=== PATIENT | female | born 1935 | race Caucasian/White ===

== ENCOUNTER 2022-11-27 08:17 | Outpatient (OUT) | payer MEDICARE, SELFPAY ==
[2022-11-27 08:56] LABS: Basophils Percent Auto 0.4 % (0.2-2.0); Eosinophils Absolute Auto 0.1 10^3/uL (0.0-0.7); Eosinophils Percent Auto 1.5 % (0.9-7.0); Hematocrit 46.7 % (36.0-48.0); Immature Granulocytes Abs Auto 0.07 10^3/uL (0.00-0.03); Immature Granulocytes Pct Auto 0.7 % (0.0-0.5); Lymphocytes Absolute Auto 3.1 10^3/uL (1.2-3.8); Lymphocytes Percent Auto 32.3 % (20.5-60.0); Mean Corpuscular HGB Conc 32.1 g/dL (29.9-35.2); Mean Corpuscular Hemoglobin 30.4 pg (26.7-34.0); Mean Corpuscular Volume 94.7 fL (81.0-99.0); Mean Platelet Volume 8.6 fL (9.5-13.5); Monocytes Absolute Auto 0.7 10^3/uL (0.3-0.8); Monocytes Percent Auto 7.1 % (1.7-12.0); Neutrophils Absolute Auto 5.6 10^3/uL (1.4-6.5); Platelet Count 252 10^3/uL (150-450); Red Blood Count 4.93 10^6/uL (4.20-5.40); Red Cell Distribution Width 13.4 % (11.0-15.0); White Blood Count 9.6 10^3/uL (4.0-11.0)
[2022-11-27 09:58] LABS: Alanine Aminotransferase 34 U/L (14-59); Alkaline Phosphatase 119 U/L (46-116); Anion Gap 11.2; Aspartate Amino Transferase 31 U/L (15-37); BUN Creatinine Ratio 25.6; Bilirubin Total 0.4 mg/dL (0.2-1.0); Calcium 9.6 mg/dL (8.5-10.1); Carbon Dioxide 30.4 mmol/L (21.0-32.0); Chloride 104 mmol/L (98-107); Chol HDL Ratio 3.6; Cholesterol 120 mg/dL (<=200); Estimated GFR (African America >60 (>=60); Estimated GFR (Non-African Ame >60 (>=60); Free T3 2.31 pg/mL (2.18-3.98); Globulin 3.9 g/dL; Glucose 102 mg/dL (74-106); HDL Cholesterol 33 mg/dL (40-60); Potassium 3.6 mmol/L (3.5-5.1); Sodium 142 mmol/L (136-145); Total Protein 7.9 g/dL (6.4-8.2); Triglycerides 184 mg/dL (<=150); VLDL CHOLESTEROL 36.8 mg/dL
[2022-11-27 12:40] LABS: Estimated Average Glucose 123 mg/dL; Glycohemoglobin A1C 5.9 % (4.5-6.2)
[2022-11-28 11:09] LABS: Insulin 8.9 uIU/mL (2.6-24.9)
== END 2022-11-27 08:18 | disposition home or self-care (01) ==
LOC: LAB 11-28 08:17
PROVIDERS: PCP Family Medicine; Visit Provider Family Medicine
DX: E78.5 Hyperlipidemia, unspecified (principal); J47.9 Bronchiectasis, uncomplicated; I10 Essential (primary) hypertension; Z79.51 Long term (current) use of inhaled steroids; Z22.9 Carrier of infectious disease, unspecified; J47.0 Bronchiectasis with acute lower respiratory infection; M47.816 Spondylosis without myelopathy or radiculopathy, lumbar region; R73.09 Other abnormal glucose; D64.9 Anemia, unspecified; E55.9 Vitamin D deficiency, unspecified
CPT/HCPCS: 36415; 80053; 80061; 82306; 83036; 83525; 83540; 84436; 84443; 84481; 85025

== ENCOUNTER 2022-12-01 10:44 | Outpatient (OUT) | payer MEDICARE, SELFPAY ==
--- NOTE | 2022-12-01 10:49 | MM_ITS ---
Patient: MARY VERGARA Exam Date: 12/01/2022 : 1935 Gender:F Ordering : DR Kumar Stokes . Admission #: [id number] Family : Order #: [id number] CLICK HERE TO VIEW EXAM RADIOLOGY REPORT PROCEDURE: MM TOMOSYNTHESIS SCREENING BI COMPARISON: MG MAMM SCREEN 3D WAQAS CAD, 11/29/2020. MG MAMM SCREEN 3D WAQAS CAD, 11/30/2021. INDICATIONS: Screening Calculator Name NCI Breast Cancer Risk Assessment Tool 5 Year Breast Cancer Risk Not Applicable. Lifetime Breast Cancer Risk Not Applicable. Personal Breast Cancer No Personal Ovarian Cancer No Treatments Bowel resection, chemotherapy Family Cancers Sister with pancreatic cancer at age 80; Sister with lung cancer at age 78; Sister with colon cancer at age 74. LOCATION: [facility] BREAST COMPOSITION: Extremely dense, which lowers the sensitivity of mammography. FINDINGS: DIAGNOSTIC CATEGORY 1--NEGATIVE. NO CHANGE FROM COMPARISON ASSESSMENT. Scattered benign-appearing calcifications are present. Scattered benign-appearing lymph nodes are present. RIGHT BREAST: No significant suspicious finding. LEFT BREAST: No significant suspicious finding. RECOMMENDATIONS: ROUTINE MAMMOGRAM AND CLINICAL EVALUATION IN 12 MONTHS. PLEASE NOTE: A NORMAL MAMMOGRAM DOES NOT EXCLUDE THE POSSIBILITY OF BREAST CANCER. A CLINICALLY SUSPICIOUS PALPABLE LUMP SHOULD BE BIOPSIED. Dictated by: Kevin Hawk MD on 12/01/2022 at 13:18 Approved by: Kevin Hawk MD on 12/01/2022 at 13:19
== END 2022-12-01 10:45 | disposition home or self-care (01) ==
LOC: MAMMO 10:44
PROVIDERS: PCP Family Medicine; Visit Provider Family Medicine
DX: Z12.31 Encounter for screening mammogram for malignant neoplasm of breast (principal); Z80.0 Family history of malignant neoplasm of digestive organs; Z80.1 Family history of malignant neoplasm of trachea, bronchus and lung
CPT/HCPCS: 77063; 77067

== ENCOUNTER 2023-01-13 20:07 | Inpatient (IN) | payer MEDICARE, SELFPAY ==
[2023-01-13] VITALS (30 sets, daily range): BP systolic 126; BP diastolic 63; PULSE 115–146; RESP 16–45; TEMP 37.4; O2SAT 84–98; BMI 22.5
--- NOTE | 2023-01-13 20:26 | PC.NURSE ---
Pulse Ox. 84% on room air, ooxygen applied at 2 lpm/nc and pulse ox. up to 86%, oxygen increased to 4 LPM/NC and pulse ox. up 88-90%
--- NOTE | 2023-01-13 20:31 | PC.NURSE ---
Patient and family report weakness and loss of appetite for approx. 4-5 days
--- NOTE | 2023-01-13 20:32 | ECG_ITS ---
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
--- NOTE | 2023-01-13 20:32 | XR_ITS ---
The [address] [address] Patient Name: MARY VERGARA MRN: [id number] date: 1935 Sex: F Assigned Patient Location: ER Current Patient Location: ER Accession/Order Number: [id number] Exam Date: 01/13/2023 21:54 Report Date: 01/13/2023 21:26 At the request of: SP HINES Procedure: XR chest 1V EXAM: XR chest 1V HISTORY: Shortness of breath COMPARISON: Chest x-rays 05/03/2022 TECHNIQUE: Portable chest FINDINGS: IMPRESSION: Approximately 4.6 cm patchy consolidation within the left mid hemithorax and 4.9 cm patchy consolidation within the right lower hemithorax. Indistinctness of the left hemidiaphragm suggesting either infiltrate versus effusion. Additionally, this may be chronic in nature as is present on the prior study. Scattered chronic changes throughout the lung parenchyma. No pneumothorax. The heart is not enlarged. Electronically authenticated by: LIAM HILL Date: 01/13/2023 21:26
--- NOTE | 2023-01-13 20:33 | PC.NURSE ---
Oxygen changed to 8 LPM per simple mask
--- NOTE | 2023-01-13 20:34 | ED_ITS ---
HPI - General Adult General Chief complaint: Weakness Stated complaint: RSV SHOT SIDE EFFECTS Time Seen by Provider: 01/13/23 20:21 Source: patient and family Mode of arrival: walk-in Limitations: no limitations History of Present Illness HPI narrative: past history of Bronchiectasis. Does not use home 02. Received RSV shot last week and became ill the following day with cough, right sided chest pain. Has not been eating and is weak. No fever. No abdominal pain or nausea. RA pulse ox 84% Onset (ago): day(s) Related Data Home Medications Medication Instructions Recorded Confirmed albuterol sulfate 90 mcg/actuation 2 inh inhalation BID PRN 01/13/23 01/13/23 aerosol inhaler bronchospasm amlodipine 5 mg tablet 5 mg PO DAILY 01/13/23 01/13/23 atorvastatin 20 mg tablet 20 mg PO DAILY 01/13/23 01/13/23 calcitonin (salmon) 200 1 spray intranasal DAILY 01/13/23 01/13/23 unit/actuation nasal spray dicyclomine 20 mg tablet 20 mg PO BID 01/13/23 01/13/23 ferrous sulfate 325 mg (65 mg 325 mg PO DAILY 01/13/23 01/13/23 iron) tablet (FeroSul) fluticasone propionate 115 2 puff inhalation Q12H 01/13/23 01/13/23 mcg-salmeterol 21 mcg/actuation HFA inhaler (Advair HFA) metoprolol tartrate 25 mg tablet 25 mg PO Q12H 01/13/23 01/13/23 sodium chloride 0.9 % for 3 ml inhalation TID 01/13/23 01/13/23 nebulization Allergies Allergy/AdvReac Type Severity Reaction Status Date / Time codeine Allergy Rash Verified 01/13/23 20:14 tramadol Allergy Rash Verified 01/13/23 20:14 Review of Systems ROS Status of ROS 10 or more systems reviewed and unremarkable except as noted in history and below Exam Constitutional Vital Signs, click to edit/add: Last Vital Signs Temp 99.3 F 01/13/23 20:15 Pulse 119 H 01/13/23 22:40 Resp 28 H 01/13/23 22:40 BP 126/63 01/13/23 20:21 Pulse Ox 97 01/13/23 22:40 O2 Del Method Nasal Cannula 01/13/23 22:05 O2 Flow Rate 6 11/18/23 22:05 FiO2 75 01/13/23 22:00 Common normals: average body habitus (small frame) and oriented x3 HENMT Common normals: normocephalic and head/scalp atraumatic Eye Common normals: EOMs intact bilaterally and conjunctivae normal Chest Other: diminished breath sounds Cardio Rate: tachycardic GI Common normals: Normal to inspection, nondistended, normoactive bowel sounds present, soft to palpation and non-tender Extremity Common normals: normal to inspection and full ROM Neuro Common normals: oriented x3, CN's II-XII intact bilaterally, moves all extremities, no focal motor deficits and no sensory deficits noted Psych Appearance: grossly normal Course Vital Signs Vital signs: Vital Signs Temperature 99.3 F 01/13/23 20:15 Pulse Rate 146 H 01/13/23 20:15 Respiratory Rate 20 01/13/23 20:15 Blood Pressure 126/63 01/13/23 20:15 Pulse Oximetry 84 L 01/13/23 20:15 Oxygen Delivery Method Room Air 01/13/23 20:15 Temperature 99.3 F 01/13/23 20:15 Pulse Rate 119 H 01/13/23 22:40 Respiratory Rate 28 H 01/13/23 22:40 Blood Pressure 126/63 01/13/23 20:21 Pulse Oximetry 97 01/13/23 22:40 Oxygen Delivery Method Nasal Cannula 01/13/23 22:05 Oxygen Delivery Flow Rate 6 01/13/23 22:05 Fraction of Inspired Oxygen 75 01/13/23 22:00 Medical Decision Making [facility] Narrative Medical decision making narrative: past history of COPD/bronchiectasis. Presents from home short of breath. Pulse ox at home RA 84%. Arrives to the ER via Squad short of breath and in sinus tach. chest with diminished breath sounds. Treated with solumedrol and Duoneb. cxray demonstrated bilat patchy infiltrates. Patient placed on high flow 02 40/75 with resultant pulse ox 95%. Blood cultures obtained and Rocephin and Zithromax ordered. Discussed with the hospitalist and she is accepted for admission to the ICU Lab Data Labs: Lab Results 01/13/23 Range/Units 20:25 WBC 21.5 H (4.0-11.0) 10^3/uL RBC 4.65 (4.20-5.40) 10^6/uL Hgb 14.3 (12.0-16.0) g/dL Hct 43.4 (36.0-48.0) % MCV 93.3 (81.0-99.0) fL MCH 30.8 (26.7-34.0) pg MCHC 32.9 (29.9-35.2) g/dL RDW 15.0 (11.0-15.0) % Plt Count 188 (150-450) 10^3/uL MPV 10.0 (9.5-13.5) fL Seg Neuts % (Manual) 72.0 Band Neutrophils % 17.0 H (0-5) % Lymphocytes % (Manual) 4.0 L (20.5-60.0) % Monocytes % (Manual) 7.0 (1.7-12.0) % Eosinophils % (Manual) 0.0 L (0.9-7.0) % Basophils % (Manual) 0.0 L (0.2-2.0) % Neutrophils # (Manual) 15.48 H (1.4-6.5) 10^3/uL Band Neutrophils # 3.7 H (0.0-0.3) 10^3/uL Lymphocytes # (Manual) 0.86 L (1.20-3.80) 10^3/uL Monocytes # (Manual) 1.50 H (0.30-0.80) 10^3/uL Eosinophils # (Manual) 0.00 (0.00-0.70) 10^3/uL Basophils # (Manual) 0.00 (0.00-0.10) 10^3/uL Sodium 132 L (136-145) mmol/L Potassium 3.6 (3.5-5.1) mmol/L Chloride 94 L (98-107) mmol/L Carbon Dioxide 21.2 (21.0-32.0) mmol/L Anion Gap 20.4 BUN 36.0 H (7.0-18.0) mg/dL Creatinine 1.73 H (0.55-1.02) mg/dL Est GFR ( Amer) 34 L (>=60) Est GFR (Non-Af Amer) 28 L (>=60) BUN/Creatinine Ratio 20.8 Glucose 137 H (74-106) mg/dL Lactate 1.8 (0.4-2.0) mmol/L Calcium 9.4 (8.5-10.1) mg/dL Troponin I High Sens 32.3 (4.0-51.3) pg/mL Critical Care Time Critical Care Time Total Critical Care Time: 45 Discharge Plan Discharge Chief Complaint: Weakness Clinical Impression: Hypoxemia, Pneumonia Patient Disposition: Admitted As Inpatient
[2023-01-13] MEDS: IPRATROPIUM/ALBUTEROL SULFATE 3 ML AMPUL.NEB IH (20:51)
[2023-01-13] MEDS: METHYLPREDNISOLONE SOD SUCC PF 125 MG/2 ML VIAL IVP (20:57)
[2023-01-13 20:58] LABS: Hematocrit 43.4 % (36.0-48.0); Hemoglobin 14.3 g/dL (12.0-16.0); Mean Corpuscular HGB Conc 32.9 g/dL (29.9-35.2); Mean Corpuscular Hemoglobin 30.8 pg (26.7-34.0); Mean Corpuscular Volume 93.3 fL (81.0-99.0); Platelet Count 188 10^3/uL (150-450); Red Blood Count 4.65 10^6/uL (4.20-5.40); White Blood Count 21.5 10^3/uL (4.0-11.0)
[2023-01-13] MEDS: 0.9 % SODIUM CHLORIDE 1,000 ML 999 ML IV (20:58)
--- NOTE | 2023-01-13 21:12 | PC.NURSE ---
patient 92% on 6 liters after breathing treatment and tolerating well
[2023-01-13 21:16] LABS: Band Neutrophils Absolute 3.7 10^3/uL (0.0-0.3); Lymphocytes Absolute Manual 0.86 10^3/uL (1.20-3.80); Segmented Neut Absolute Manual 15.48 10^3/uL (1.4-6.5)
[2023-01-13 21:17] LABS: Anion Gap 20.4; BUN Creatinine Ratio 20.8; Calcium 9.4 mg/dL (8.5-10.1); Carbon Dioxide 21.2 mmol/L (21.0-32.0); Chloride 94 mmol/L (98-107); Estimated GFR (African America 34 (>=60); Estimated GFR (Non-African Ame 28 (>=60); Glucose 137 mg/dL (74-106); Lactate/Lactic Acid 1.8 mmol/L (0.4-2.0); Potassium 3.6 mmol/L (3.5-5.1); Sodium 132 mmol/L (136-145); Troponin I High Sensitivity 32.3 pg/mL (4.0-51.3)
[2023-01-13] MEDS: CEFTRIAXONE 1,000 MG in 0.9 % SODIUM CHLORIDE 50 ML 100 MG IV (21:57)
--- NOTE | 2023-01-13 22:20 | RESP.RT ---
increased patient to vapotherm 40L @ 75% FiO2
--- NOTE | 2023-01-13 22:21 | PC.NURSE ---
patient tolerating vapotherm well.
--- NOTE | 2023-01-13 22:22 | RESP.RT ---
increased patient to vapotherm 40L @ 75% FIO2
[2023-01-13] MEDS: AZITHROMYCIN 500 MG in 0.9 % SODIUM CHLORIDE 250 ML 250 MG IV (22:38)
[2023-01-14] VITALS (159 sets, daily range): BP systolic 92–131; BP diastolic 52–71; PULSE 69–119; RESP 11–39; TEMP 36.6–37.1; O2SAT 85–99; BMI 23.1
[2023-01-14 01:28] LABS: Troponin I High Sensitivity 45.2 pg/mL (4.0-51.3)
--- NOTE | 2023-01-14 01:32 | P.PN_ITS ---
Progress Note: Subjective Subjective Interval history: Patient is an 87-year-old female with history of bronchiectasis, HTN, HLD, and remote history of colon cancer status post partial colon resection in 1995 who presents accompanied by 2 daughters present at the bedside Raina and Camille secondary to dyspnea. The patient reports that she lives alone. She reports having RSV vaccination last week and states that her symptoms began approximately 1 to 2 days thereafter. She describes shortness of breath with exertional activity and productive cough associated with dark yellow phlegm. She also reports decreased appetite during this timeframe. She reports also having right-sided chest discomfort exacerbated by the cough. Upon arrival to the ED, patient was noted to be significantly tachycardic with heart rate up to 139, RR of 28, temperature 99.3, initial O2 sat was 84% on room air which did not improve to 92% on 6 L but patient remained quite dyspneic and subsequently was placed on high flow O2 with significant improvement. She denies any home O2 use. Labs were significant for WBC of 21.5 K with bandemia of 17, sodium 132, chloride 94, BUN of 36, creatinine 1.73 which was normal at 0.78 on 11/27/2022. Rest of labs within normal limits including normal H&H, normal lactic acid, and troponin. Chest x-ray was noted for 4.6 cm patchy consolidation in the left middle lobe and 4.9 cm patchy consolidation right lower lobe concerning for pneumonia versus effusion. Patient was treated in the ED with Solu-Medrol 125 mg, Rocephin, Zithromax, DuoNebs, and 1 L IV fluids received. She is being admitted for further management. Exam Constitutional Vital Signs, click to edit/add: Last Vital Signs Temp 98.8 F 01/14/23 00:57 Pulse 109 H 01/14/23 01:23 Resp 26 H 01/14/23 01:20 BP 125/65 01/14/23 00:57 Pulse Ox 93 L 01/14/23 01:20 O2 Del Method Vapotherm 01/14/23 00:50 O2 Flow Rate 6 01/14/23 00:57 FiO2 75 01/13/23 22:57 Common normals: no apparent distress General appearance: cooperative and comfortable Orientation/consciousness: Yes awake, Yes oriented to person, Yes oriented to place and Yes oriented to time HENMT Common normals: normocephalic and head/scalp atraumatic Eye Common normals: PERRL and EOMs intact bilaterally General eye: normal appearance of both eyes Sclera: sclerae normal Other: wears glasses Neck & C-Spine Common normals: full ROM and supple Respiratory Effort & inspection: able to speak in complete sentences Other: coarse diffuse BS, decr b/l air entry. min exp wheezes right lower lung field Cardio Common normals: S1 normal heart sound and S2 normal heart sound Rate: tachycardic GI Inspection: normal to inspection Auscultation: normoactive bowel sounds Palpation: soft Extremity Common normals: normal to inspection and full ROM Neuro Common normals: oriented x3 Sensorium/orientation: awake, alert, oriented to person, oriented to place and oriented to time Psych Common normals: mental status grossly normal, thought process normal and cooperative Attitude: calm and engaged Progress Note: Objective Labs Labs: Short CBC 01/13/23 Range/Units 20:25 WBC 21.5 H (4.0-11.0) 10^3/uL Hgb 14.3 (12.0-16.0) g/dL Hct 43.4 (36.0-48.0) % Plt Count 188 (150-450) 10^3/uL BMP 01/13/23 20:25 Sodium 132 L Potassium 3.6 Chloride 94 L Carbon Dioxide 21.2 BUN 36.0 H Creatinine 1.73 H Glucose 137 H Calcium 9.4 ECG Prior ECG tracings: available for review Interpretation: ekg sinus tachycardia with rate of 148 and PVCs, nonspecific ST changes. Imaging Chest x-ray: Attestation: I have reviewed the pertinent imaging results. Radiologist's impression: As noted per HPI above Progress Note: A&P Assessment and Plan (1) Pneumonia: (2) Hypoxemia: (3) LEOBARDO (acute kidney injury): (4) Sepsis: Plan Bilateral pneumonia, CAP Acute hypoxic respiratory failure History of bronchiectasis Severe sepsis (with leukocytosis, bandemia, tachycardia, tachypnea, and low- grade fever) LEOBARDO Mild hyponatremia HTN HLD Remote history of colon cancer s/p partial colon resection 1995 Plan: Patient admitted to ICU, inpatient status Initial O2 sat 84% RA. Currently on high flow O2. Wean O2 as tolerated. Denies home O2 use Empiric Rocephin, Zithromax Solu-Medrol IV. Add empiric PPI Xopenex, Atrovent nebs Robitussin, Tessalon Perles as needed Check sputum culture, urine antigens Check COVID, RSV, influenza screen. Received RSV vaccination last week and reports receiving COVID vaccination booster 1 month ago IVF Avoidance of nephrotoxic agents. Monitor renal function Continue statin CBC, BMP, mag in a.m. DVT prophylaxis subcu heparin twice daily Full code Telemedicine Attestation Telemedicine Attestation I conducted this encounter from [] via secure live, [id number] video conference with the patient, located at [facility] with []. Prior to the interview, the risks and benefits of telemedicine were discussed with the patient and verbal consent was obtained.
[2023-01-14] MEDS: PANTOPRAZOLE SODIUM 40 MG VIAL IV ×2 (02:32→22:01)
[2023-01-14] MEDS: 0.9 % SODIUM CHLORIDE 1,000 ML 75 ML IV ×2 (02:32→16:38)
[2023-01-14 04:53] LABS: Basophils Absolute Auto 0.1 10^3/uL (0.0-0.1); Basophils Percent Auto 0.5 % (0.2-2.0); Eosinophils Absolute Auto 0.1 10^3/uL (0.0-0.7); Eosinophils Percent Auto 0.5 % (0.9-7.0); Hematocrit 37.5 % (36.0-48.0); Hemoglobin 12.1 g/dL (12.0-16.0); Immature Granulocytes Abs Auto 0.07 10^3/uL (0.00-0.03); Immature Granulocytes Pct Auto 0.5 % (0.0-0.5); Lymphocytes Absolute Auto 0.6 10^3/uL (1.2-3.8); Lymphocytes Percent Auto 4.6 % (20.5-60.0); Mean Corpuscular HGB Conc 32.3 g/dL (29.9-35.2); Mean Corpuscular Hemoglobin 30.6 pg (26.7-34.0); Mean Corpuscular Volume 94.7 fL (81.0-99.0); Mean Platelet Volume 9.9 fL (9.5-13.5); Monocytes Absolute Auto 0.7 10^3/uL (0.3-0.8); Monocytes Percent Auto 5.3 % (1.7-12.0); Neutrophils Absolute Auto 11.4 10^3/uL (1.4-6.5); Neutrophils Percent Auto 88.6 % (43.0-75.0); Platelet Count 147 10^3/uL (150-450); Red Blood Count 3.96 10^6/uL (4.20-5.40); White Blood Count 12.9 10^3/uL (4.0-11.0)
[2023-01-14 05:15] LABS: Anion Gap 19.5; BUN Creatinine Ratio 23.2; Calcium 8.4 mg/dL (8.5-10.1); Carbon Dioxide 19.7 mmol/L (21.0-32.0); Chloride 99 mmol/L (98-107); Estimated GFR (African America 40 (>=60); Estimated GFR (Non-African Ame 33 (>=60); Glucose 207 mg/dL (74-106); Magnesium 2.2 mg/dL (1.8-2.4); Potassium 3.2 mmol/L (3.5-5.1); Sodium 135 mmol/L (136-145)
[2023-01-14 05:18] LABS: Adenovirus NOT DETECTED (NOT DETECTE); Bordetella parapertussis NOT DETECTED (NOT DETECTE); Coronavirus 229E NOT DETECTED (NOT DETECTE); Coronavirus HKU1 NOT DETECTED (NOT DETECTE); Coronavirus NL63 NOT DETECTED (NOT DETECTE); Coronavirus OC43 NOT DETECTED (NOT DETECTE); Human Metapneumovirus NOT DETECTED (NOT DETECTE); Human Rhinovirus/Enterovirus NOT DETECTED (NOT DETECTE); Influenza A NOT DETECTED (NOT DETECTE); Influenza B NOT DETECTED (NOT DETECTE); Mycoplasma pneumoniae NOT DETECTED (NOT DETECTE); Parainfluenza Virus 1 NOT DETECTED (NOT DETECTE); Parainfluenza Virus 2 NOT DETECTED (NOT DETECTE); Parainfluenza Virus 3 NOT DETECTED (NOT DETECTE); Parainfluenza Virus 4 NOT DETECTED (NOT DETECTE); Respiratory Syncytial Virus NOT DETECTED (NOT DETECTE); SARS-CoV-2 NOT DETECTED (NOT DETECTE)
[2023-01-14] MEDS: METHYLPREDNISOLONE SOD SUCC PF 40 MG/ML VIAL IVP (05:53)
[2023-01-14 06:08] LABS: PROCALCITONIN 11.76 ng/mL (0.00-0.50)
--- NOTE | 2023-01-14 06:38 | RESP.RT ---
titrate to 65%
[2023-01-14 08:21] LABS: Alanine Aminotransferase 30 U/L (14-59); Albumin Globulin Ratio 0.6; Albumin Level 2.5 g/dL (3.4-5.0); Alkaline Phosphatase 108 U/L (46-116); Aspartate Amino Transferase 23 U/L (15-37); Bilirubin Direct 0.2 mg/dL (0.0-0.2); Bilirubin Total 0.5 mg/dL (0.2-1.0); Globulin 4.1 g/dL; Total Protein 6.6 g/dL (6.4-8.2)
[2023-01-14 08:43] LABS: Glucometer 190 mg/dL (74-106)
[2023-01-14] MEDS: HEPARIN SODIUM (PORCINE) 5,000 UNIT/ML VIAL 5000 UNIT SUBQ ×2 (09:00→19:14)
[2023-01-14] MEDS: METOPROLOL TARTRATE 25 MG TABLET PO ×2 (09:01→21:04)
[2023-01-14] MEDS: CALCITONIN,SALMON,SYNTHETIC 30 SPRAY/3.7 ML BOTTLE NS (09:01)
[2023-01-14] MEDS: FERROUS SULFATE 325 MG TABLET PO ×2 (09:01→21:03)
[2023-01-14] MEDS: DICYCLOMINE HCL 10 MG CAPSULE 20 MG PO ×2 (09:01→21:03)
[2023-01-14] MEDS: AMLODIPINE BESYLATE 5 MG TABLET PO (09:01)
[2023-01-14] MEDS: LEVOFLOXACIN IN DEXTROSE 5 % 750 MG/150 ML IV.SOLN 100 MG IV (09:03)
[2023-01-14] MEDS: POTASSIUM CHLORIDE 10 MEQ ER TABLET 20 MEQ PO ×2 (09:04→21:04)
[2023-01-14] MEDS: BUDESONIDE 0.5 MG/2 ML AMPULE NEB IH ×2 (09:43→20:37)
[2023-01-14] MEDS: IPRATROPIUM BROMIDE 0.5 MG/2.5 ML VIAL.NEB IH ×3 (09:43→20:37)
[2023-01-14] MEDS: LEVALBUTEROL HCL 1.25 MG/3 ML VIAL NEB IH ×3 (09:43→20:37)
[2023-01-14 10:19] LABS: ABG PCO2 35.4 mmHg (35.0-45.0); Base Excess ABG -3.4 mmol/L (-2.0-2.0); HCO3 ABG 21.5 mmol/L (22.0-26.0); Oxygen Saturation ABG 95.2 %; pH ABG 7.393 (7.350-7.450)
[2023-01-14 10:20] LABS: Allen Test POSITIVE (POSITIVE); Fractionated Inspired Oxygen 65 %; Liters per Minute 40; O2 Mode VAPO THERM; Puncture Site RR
--- NOTE | 2023-01-14 10:23 | CT_ITS ---
The [address] [address] Patient Name: MARY VERGARA MRN: [id number] date: 1935 Sex: F Assigned Patient Location: ICU Current Patient Location: ICU Accession/Order Number: [id number] Exam Date: 01/14/2023 11:50 Report Date: 01/14/2023 14:09 At the request of: POLA CROSS Procedure: CT angio chest CT CHEST ANGIOGRAPHY FOR PULMONARY EMBOLUS: 01/14/2023 11:50 AM EST Clinical Data: acutge hypoxia Comparison: No previous Contrast enhanced helically acquired data per pulmonary CTA protocol. Volumetric recons in MIP mode were generated and reviewed. FINDINGS: AXILLAE: No acute finding. SUPRACLAVICULAR: Right lobe and isthmus of the thyroid are absent. Low density in the left lobe is nonspecific. MEDIASTINUM: A plethora of enlarged middle much greater than anterior mediastinal nodes. KALIE: Bilateral adenopathy HEART: Normal in size. No pericardial effusion. VASCULAR: SYSTEMIC: Aortic aneurysm PULMONARY: Main pulmonary artery is clear. Right and left pulmonary arteries are clear. Their proximal on the left proximal to mid branches are free of meniscal filling defects. On the right there is a somewhat abrupt tapering of the middle lobe vessel but no distinct evidence of meniscal filling defect. Proximal to mid branches right upper and lower lobes are grossly unremarkable. LUNGS: Severe atelectasis right middle lobe containing some air bronchograms. Elsewhere, multifocal ill-defined densities in both lungs. Several of these areas contain air bronchograms, including both lower lobes. A few areas upper lobes, left much greater than right, do not contain air bronchograms. The largest area is peripheral in the left upper lobe and measures nearly 5 cm. PLEURA: No pleural effusion. CHEST WALL: No focal soft tissue prominence BONES: No acute finding. UPPER ABD: No acute finding OTHER: No acute finding. CT/CT angio chest IMPRESSION: 1. No distinct evidence of acute or embolic disease. 2. The right middle lobe artery is patent its origin but tapers rapidly. No meniscal filling defect. This rapid tapering very likely goes along with severe right middle lobe atelectasis. 3. Multifocal ill-defined densities in both lungs. Many areas have air bronchograms. This may represent bronchopneumonia. Other areas, particularly in the left upper lobe do not have air bronchograms. Infectious pneumonitis is still definite consideration for these foci but underlying masses cannot be excluded. Apparently, there is a history of colon cancer. Follow-up studies in this regard will be useful. 4. No pleural effusion. Electronically authenticated by: KHURRAM KNIGHT Date: 01/14/2023 14:09
--- NOTE | 2023-01-14 10:23 | P.HP_ITS ---
H&P: HPI History of Present Illness Chief complaint: RSV SHOT SIDE EFFECTS Narrative: Patient well-known to me from the office, presented to the emergency room with increasing shortness of breath. She did receive her RSV vaccine just the previous day. This is unlikely to be a complication of that. In ER found to have multifocal pneumonia. Admitted to ICU with acute hypoxia, requiring high flow O2. Patient with a history of severe bronchiectasis. Review of Systems ROS Constitutional Denies: fever or chills Cardiovascular Denies: chest pain Respiratory Reports: shortness of breath, cough, wheezing, change in phlegm color and chest congestion Gastrointestinal Denies: abdominal pain or vomiting Genitourinary Denies: painful urination Musculoskeletal Denies: back pain [facility] Medical History (Updated 01/14/23 @ 06:03 by Maria A Gonzalez) Bronchiectasis ?J47.9 - Bronchiectasis, uncomplicated (ICD-10) COPD (chronic obstructive pulmonary disease) ?J44.9 - Chronic obstructive pulmonary disease, unspecified (ICD-10) Meds Home Medications and Allergies Home Medications Medication Instructions Recorded Confirmed Type albuterol sulfate 90 mcg/actuation 2 inh inhalation BID PRN 01/13/23 01/13/23 History aerosol inhaler bronchospasm amlodipine 5 mg tablet 5 mg PO DAILY 01/13/23 01/13/23 History atorvastatin 20 mg tablet 20 mg PO DAILY 01/13/23 01/13/23 History calcitonin (salmon) 200 1 spray intranasal DAILY 01/13/23 01/13/23 History unit/actuation nasal spray dicyclomine 20 mg tablet 20 mg PO BID 01/13/23 01/13/23 History ferrous sulfate 325 mg (65 mg 325 mg PO BID 01/13/23 01/14/23 History iron) tablet (FeroSul) metoprolol tartrate 25 mg tablet 25 mg PO Q12H 01/13/23 01/13/23 History sodium chloride 0.9 % for 3 ml inhalation TID 01/13/23 01/13/23 History nebulization fluticasone propionate 230 2 inh inhalation BID 01/14/23 01/14/23 History mcg-salmeterol 21 mcg/actuation HFA inhaler (Advair HFA) Allergies Allergy/AdvReac Type Severity Reaction Status Date / Time codeine Allergy Rash Verified 01/13/23 20:14 tramadol Allergy Rash Verified 01/13/23 20:14 Exam Constitutional Vital Signs, click to edit/add: Last Vital Signs Temp 97.8 F 01/14/23 10:00 Pulse 71 01/14/23 10:12 Resp 25 H 01/14/23 10:12 BP 104/57 01/14/23 10:12 Pulse Ox 94 L 01/14/23 10:12 O2 Del Method Vapotherm 01/14/23 05:55 O2 Flow Rate 40 01/14/23 06:00 FiO2 65 01/14/23 06:00 Documenting provider has reviewed patient's vital signs: yes Common normals: apparent distress Respiratory Common normals: normal respiratory effort and no retractions Effort & inspection: able to speak in complete sentences (Mild conversational dyspnea) and labored Auscultation: rhonchi and egophony Cardio Common normals: regular rate, regular rhythm and no murmurs GI Common normals: Normal to inspection, nondistended, normoactive bowel sounds present Extremity Common normals: normal to inspection Results Labs Labs: Short CBC 01/13/23 01/14/23 Range/Units 20:25 03:55 WBC 21.5 H 12.9 H (4.0-11.0) 10^3/uL Hgb 14.3 12.1 (12.0-16.0) g/dL Hct 43.4 37.5 (36.0-48.0) % Plt Count 188 147 L (150-450) 10^3/uL BMP 01/13/23 01/14/23 20:25 03:55 Sodium 132 L 135 L Potassium 3.6 3.2 L Chloride 94 L 99 Carbon Dioxide 21.2 19.7 L BUN 36.0 H 35.0 H Creatinine 1.73 H 1.51 H Glucose 137 H 207 H Calcium 9.4 8.4 L Liver Function 01/14/23 Range/Units 03:55 Total Bilirubin 0.5 (0.2-1.0) mg/dL Direct Bilirubin 0.2 (0.0-0.2) mg/dL AST 23 (15-37) U/L ALT 30 (14-59) U/L Alkaline Phosphatase 108 (46-116) U/L Albumin 2.5 L (3.4-5.0) g/dL ABG ABG results: 01/14/23 10:05 ABG pH 7.393 ABG pCO2 35.4 ABG pO2 71.0 L ABG HCO3 21.5 L ABG O2 Saturation 95.2 ABG Base Excess -3.4 L Assessment and Plan Assessment and Plan (1) Pneumonia: (2) Hypoxemia: (3) LEOBARDO (acute kidney injury): (4) Sepsis: Plan Sinus tachycardia, respiratory distress, leukocytosis, thrombocytopenia, bandemia severe acute hypoxic respiratory failure, down to 84%, requiring high flow supplemental oxygen of Vapotherm, initially placed at 75%, able to wean down to 65% currently. This is resulted in sepsis with multisystem organ dysfunction(heme, pulmonary, kidney) -continue with IV antibiotics, aerosol treatments, high flow supplemental oxygen but try to wean that. Check CTA of chest. ABG pending. Dehydration with acute elevation in BUN and creatinine-acute kidney injury- improved today. Continue with slow fluid resuscitation. Leukocytosis with bandemia and thrombocytopenia-secondary to above-monitor daily Hypokalemia this morning-supplement Hyperglycemia-insulin sliding scale Moderate protein calorie malnutrition based on NIH criteria for albumin levels- supplement Hypertension-continue with home medications With the severity of her hypoxia intensity of services-maintain patient inpatient status
[2023-01-14] MEDS: METHYLPREDNISOLONE SOD SUCC PF 125 MG/2 ML VIAL 60 MG IVP ×2 (12:52→18:05)
[2023-01-14 13:17] LABS: Glucometer 188 mg/dL (74-106)
--- NOTE | 2023-01-14 13:27 | PC.NURSE ---
Patient was put on 6l via NC for CT chest scan. Patient traveled via bed. Patient was O2 saturation was fluctuating from 86-94%. During exertion and moving patient would have to take breaks and regain strength and breath. Arriving back to the room, Patient was unable to withstand the 6l via NC so she was moved back tot the vapotherm at 40L and 65%. O2 saturations are steady at 95%.
[2023-01-14 16:37] LABS: Glucometer 180 mg/dL (74-106)
--- NOTE | 2023-01-14 20:37 | RESP.RT ---
decreased Fi02 down to 50%
[2023-01-14] MEDS: GLUCERNA 1.5 CAL 237 ML LIQUID PO (21:02)
[2023-01-14] MEDS: ATORVASTATIN CALCIUM 20 MG TABLET PO (21:04)
[2023-01-14 21:33] LABS: Glucometer 165 mg/dL (74-106)
[2023-01-14] MEDS: CEFTRIAXONE 1,000 MG in 0.9 % SODIUM CHLORIDE 50 ML 100 MG IV (22:01)
[2023-01-15] VITALS (70 sets, daily range): BP systolic 113–123; BP diastolic 62–83; PULSE 67–105; RESP 15–37; TEMP 36.8–37.1; O2SAT 86–98
[2023-01-15] MEDS: METHYLPREDNISOLONE SOD SUCC PF 125 MG/2 ML VIAL 60 MG IVP ×5 (01:03→23:36)
[2023-01-15 05:11] LABS: Hematocrit 35.6 % (36.0-48.0); Hemoglobin 11.7 g/dL (12.0-16.0); Mean Corpuscular HGB Conc 32.9 g/dL (29.9-35.2); Mean Corpuscular Hemoglobin 30.3 pg (26.7-34.0); Mean Corpuscular Volume 92.2 fL (81.0-99.0); Mean Platelet Volume 9.8 fL (9.5-13.5); Platelet Count 164 10^3/uL (150-450); Red Blood Count 3.86 10^6/uL (4.20-5.40); White Blood Count 7.3 10^3/uL (4.0-11.0)
[2023-01-15] MEDS: 0.9 % SODIUM CHLORIDE 1,000 ML 75 ML IV ×2 (05:25→20:03)
[2023-01-15 05:43] LABS: Alanine Aminotransferase 33 U/L (14-59); Albumin Globulin Ratio 0.6; Albumin Level 2.2 g/dL (3.4-5.0); Alkaline Phosphatase 89 U/L (46-116); Anion Gap 12.5; Aspartate Amino Transferase 32 U/L (15-37); BUN Creatinine Ratio 29.1; Bilirubin Total 0.3 mg/dL (0.2-1.0); Calcium 8.4 mg/dL (8.5-10.1); Carbon Dioxide 24.6 mmol/L (21.0-32.0); Chloride 107 mmol/L (98-107); Estimated GFR (African America >60 (>=60); Estimated GFR (Non-African Ame >60 (>=60); Globulin 3.9 g/dL; Glucose 212 mg/dL (74-106); Potassium 3.1 mmol/L (3.5-5.1); Sodium 141 mmol/L (136-145); Total Protein 6.1 g/dL (6.4-8.2)
[2023-01-15 07:07] LABS: Lymphocytes Absolute Manual 0.43 10^3/uL (1.20-3.80); Monocytes Absolute Manual 0.29 10^3/uL (0.30-0.80); Segmented Neut Absolute Manual 5.54 10^3/uL (1.4-6.5)
--- NOTE | 2023-01-15 07:37 | P.PN_ITS ---
Progress Note: Subjective Subjective Interval history: Overall feels much improved today. Still some dyspnea with any activity. D). Exam Constitutional Vital Signs, click to edit/add: Last Vital Signs Temp 97.9 F 01/14/23 19:11 Pulse 76 01/15/23 05:03 Resp 25 H 01/15/23 02:00 BP 131/63 01/14/23 23:19 Pulse Ox 91 L 01/15/23 05:27 O2 Del Method Vapotherm 01/15/23 05:27 O2 Flow Rate 40 01/15/23 05:27 FiO2 50 01/15/23 05:27 Documenting provider has reviewed patient's vital signs: yes Common normals: apparent distress Respiratory Common normals: normal respiratory effort and no retractions Effort & inspection: able to speak in complete sentences (Mild conversational dyspnea) and labored Auscultation: rhonchi (Better air exchange. ) and egophony Cardio Common normals: regular rate, regular rhythm and no murmurs GI Common normals: Normal to inspection, nondistended, normoactive bowel sounds pre sent Extremity Common normals: normal to inspection Progress Note: Objective Labs Labs: Short CBC 01/15/23 Range/Units 04:08 WBC 7.3 (4.0-11.0) 10^3/uL Hgb 11.7 L (12.0-16.0) g/dL Hct 35.6 L (36.0-48.0) % Plt Count 164 (150-450) 10^3/uL BMP 01/15/23 04:08 Sodium 141 Potassium 3.1 L Chloride 107 Carbon Dioxide 24.6 BUN 25.0 H Creatinine 0.86 Glucose 212 H Calcium 8.4 L Liver Function 01/14/23 01/15/23 Range/Units 03:55 04:08 Total Bilirubin 0.5 0.3 (0.2-1.0) mg/dL Direct Bilirubin 0.2 (0.0-0.2) mg/dL AST 23 32 (15-37) U/L ALT 30 33 (14-59) U/L Alkaline Phosphatase 108 89 (46-116) U/L Albumin 2.5 L 2.2 L (3.4-5.0) g/dL Progress Note: A&P Assessment and Plan (1) Pneumonia: (2) Hypoxemia: (3) LEOBARDO (acute kidney injury): (4) Sepsis: Plan Sinus tachycardia, respiratory distress, leukocytosis, thrombocytopenia, bandemia severe acute hypoxic respiratory failure, down to 84%, requiring high flow supplemental oxygen of Vapotherm, initially placed at 75%, able to wean down to 45% currently. This is resulted in sepsis with multisystem organ dysfunction(heme, pulmonary, kidney) -continue with IV antibiotics, aerosol treatments, high flow supplemental oxygen but try to wean that to NC today. CTA without pulmonary embolism, Dehydration with acute elevation in BUN and creatinine-acute kidney injury- improved today. Continue with slow fluid resuscitation. Improved down to normal today. Leukocytosis with bandemia and thrombocytopenia-secondary to above-monitor daily-back to normal. Continue with current antibiotic regimen Hypokalemia this bawxkbz-epronximaw-rccm today, increase supplementation Hyperglycemia-insulin sliding scale Moderate protein calorie malnutrition based on NIH criteria for albumin levels- supplement Hypertension-continue with home medications With the severity of her hypoxia intensity of services-maintain patient inpatient status ?
[2023-01-15 07:41] LABS: Glucometer 180 mg/dL (74-106)
[2023-01-15] MEDS: POTASSIUM CHLORIDE 10 MEQ ER TABLET 20 MEQ PO ×3 (08:13→17:01)
[2023-01-15] MEDS: FERROUS SULFATE 325 MG TABLET PO ×2 (08:13→20:04)
[2023-01-15] MEDS: GLUCERNA 1.5 CAL 237 ML LIQUID PO ×2 (08:13→20:05)
[2023-01-15] MEDS: DICYCLOMINE HCL 10 MG CAPSULE 20 MG PO ×2 (08:13→20:04)
[2023-01-15] MEDS: AMLODIPINE BESYLATE 5 MG TABLET PO (08:13)
[2023-01-15] MEDS: METOPROLOL TARTRATE 25 MG TABLET PO ×2 (08:13→20:05)
[2023-01-15] MEDS: CALCITONIN,SALMON,SYNTHETIC 30 SPRAY/3.7 ML BOTTLE NS (08:14)
[2023-01-15] MEDS: HEPARIN SODIUM (PORCINE) 5,000 UNIT/ML VIAL 5000 UNIT SUBQ ×2 (08:14→20:04)
[2023-01-15] MEDS: POTASSIUM CHLORIDE 40 MEQ in 0.9 % SODIUM CHLORIDE 250 ML 67.5 MEQ IV (08:14)
[2023-01-15] MEDS: LEVALBUTEROL HCL 1.25 MG/3 ML VIAL NEB IH ×3 (08:53→20:05)
[2023-01-15] MEDS: BUDESONIDE 0.5 MG/2 ML AMPULE NEB IH ×2 (08:54→20:05)
[2023-01-15] MEDS: IPRATROPIUM BROMIDE 0.5 MG/2.5 ML VIAL.NEB IH ×3 (08:55→20:05)
--- NOTE | 2023-01-15 10:02 | CM.NOTE ---
Important Message From Medicare discussed with pt, pt verbalizes understanding and signs paper. Original given to pt and copy placed on pt's chart.
[2023-01-15 11:45] LABS: Glucometer 207 mg/dL (74-106)
--- NOTE | 2023-01-15 14:39 | CM.NOTE ---
Kvng barbat sent to Dr. Stokes for PT and OT orders.
[2023-01-15 17:02] LABS: Glucometer 206 mg/dL (74-106)
[2023-01-15 20:00] LABS: Glucometer 284 mg/dL (74-106)
[2023-01-15] MEDS: ATORVASTATIN CALCIUM 20 MG TABLET PO (20:05)
[2023-01-15] MEDS: CEFTRIAXONE 1,000 MG in 0.9 % SODIUM CHLORIDE 50 ML 50 MG IV (21:17)
[2023-01-15] MEDS: PANTOPRAZOLE SODIUM 40 MG VIAL IV (21:18)
[2023-01-16] VITALS (292 sets, daily range): BP systolic 119–141; BP diastolic 63–90; PULSE 45–134; RESP 2–40; TEMP 36.6–37.1; O2SAT 85–98
[2023-01-16] MEDS: METHYLPREDNISOLONE SOD SUCC PF 125 MG/2 ML VIAL 60 MG IVP (05:27)
[2023-01-16 05:51] LABS: Basophils Percent Auto 0.5 % (0.2-2.0); Hematocrit 34.6 % (36.0-48.0); Hemoglobin 11.3 g/dL (12.0-16.0); Immature Granulocytes Abs Auto 0.29 10^3/uL (0.00-0.03); Immature Granulocytes Pct Auto 4.5 % (0.0-0.5); Lymphocytes Absolute Auto 0.9 10^3/uL (1.2-3.8); Lymphocytes Percent Auto 13.7 % (20.5-60.0); Mean Corpuscular HGB Conc 32.7 g/dL (29.9-35.2); Mean Corpuscular Hemoglobin 30.5 pg (26.7-34.0); Mean Corpuscular Volume 93.5 fL (81.0-99.0); Mean Platelet Volume 10.1 fL (9.5-13.5); Monocytes Absolute Auto 0.3 10^3/uL (0.3-0.8); Monocytes Percent Auto 5.1 % (1.7-12.0); Neutrophils Absolute Auto 4.9 10^3/uL (1.4-6.5); Neutrophils Percent Auto 76.2 % (43.0-75.0); Platelet Count 158 10^3/uL (150-450); Red Cell Distribution Width 15.5 % (11.0-15.0); White Blood Count 6.4 10^3/uL (4.0-11.0)
[2023-01-16 06:12] LABS: Alanine Aminotransferase 38 U/L (14-59); Albumin Globulin Ratio 0.6; Albumin Level 2.2 g/dL (3.4-5.0); Alkaline Phosphatase 80 U/L (46-116); Anion Gap 13.4; Aspartate Amino Transferase 31 U/L (15-37); BUN Creatinine Ratio 30.1; Bilirubin Total 0.1 mg/dL (0.2-1.0); Calcium 8.4 mg/dL (8.5-10.1); Carbon Dioxide 22.3 mmol/L (21.0-32.0); Chloride 112 mmol/L (98-107); Estimated GFR (African America >60 (>=60); Estimated GFR (Non-African Ame >60 (>=60); Globulin 3.7 g/dL; Glucose 234 mg/dL (74-106); Potassium 4.7 mmol/L (3.5-5.1); Sodium 143 mmol/L (136-145); Total Protein 5.9 g/dL (6.4-8.2)
[2023-01-16 07:43] LABS: Glucometer 183 mg/dL (74-106)
[2023-01-16] MEDS: DICYCLOMINE HCL 10 MG CAPSULE 20 MG PO ×2 (08:33→21:12)
[2023-01-16] MEDS: FERROUS SULFATE 325 MG TABLET PO ×2 (08:33→21:12)
[2023-01-16] MEDS: POTASSIUM CHLORIDE 10 MEQ ER TABLET 20 MEQ PO ×3 (08:33→17:09)
[2023-01-16] MEDS: AMLODIPINE BESYLATE 5 MG TABLET PO (08:33)
[2023-01-16] MEDS: HEPARIN SODIUM (PORCINE) 5,000 UNIT/ML VIAL 5000 UNIT SUBQ ×2 (08:34→21:11)
[2023-01-16] MEDS: METOPROLOL TARTRATE 25 MG TABLET PO (08:34)
[2023-01-16] MEDS: GLUCERNA 1.5 CAL 237 ML LIQUID PO (08:35)
--- NOTE | 2023-01-16 08:42 | P.PN_ITS ---
Progress Note: Subjective Subjective Interval history: Looks better breathing better very confused this morning Exam Constitutional Vital Signs, click to edit/add: Last Vital Signs Temp 98.5 F 01/16/23 08:05 Pulse 66 01/16/23 08:00 Resp 34 H 01/16/23 08:00 BP 130/72 01/16/23 07:38 Pulse Ox 93 L 01/16/23 08:00 O2 Del Method Nasal Cannula 01/16/23 08:05 O2 Flow Rate 4 01/16/23 08:05 FiO2 40 01/15/23 20:05 Documenting provider has reviewed patient's vital signs: yes Common normals: apparent distress Respiratory Common normals: normal respiratory effort and no retractions Effort & inspection: able to speak in complete sentences (Mild conversational dyspnea) and labored Auscultation: rhonchi (Better air exchange. ) and egophony Cardio Common normals: regular rate, regular rhythm and no murmurs GI Common normals: Normal to inspection, nondistended, normoactive bowel sounds present Extremity Common normals: normal to inspection Progress Note: Objective Labs Labs: Short CBC 01/16/23 Range/Units 05:24 WBC 6.4 (4.0-11.0) 10^3/uL Hgb 11.3 L (12.0-16.0) g/dL Hct 34.6 L (36.0-48.0) % Plt Count 158 (150-450) 10^3/uL BMP 01/16/23 05:24 Sodium 143 Potassium 4.7 Chloride 112 H Carbon Dioxide 22.3 BUN 25.0 H Creatinine 0.83 Glucose 234 H Calcium 8.4 L Liver Function 01/16/23 Range/Units 05:24 Total Bilirubin 0.1 L (0.2-1.0) mg/dL AST 31 (15-37) U/L ALT 38 (14-59) U/L Alkaline Phosphatase 80 (46-116) U/L Albumin 2.2 L (3.4-5.0) g/dL Progress Note: A&P Assessment and Plan (1) Pneumonia: (2) Hypoxemia: (3) LEOBARDO (acute kidney injury): (4) Sepsis: Plan Sinus tachycardia, respiratory distress, leukocytosis, thrombocytopenia, bandemia severe acute hypoxic respiratory failure, down to 84%, requiring high flow supplemental oxygen of Vapotherm, initially placed at 75%, able to wean down to 45% currently. This is resulted in sepsis with multisystem organ dysfunction(heme, pulmonary, kidney) with continuing white blood cell count improvement-will continue with current antibiotics Dehydration with acute elevation in BUN and creatinine-acute kidney injury-im proved today. Continue with slow fluid resuscitation. Not great intake, continue current fluids Leukocytosis with bandemia and thrombocytopenia-secondary to above-monitor daily-back to normal. Continue with current antibiotic regimen Hypokalemia this grnctdn-wwudbmitbk-phra today,-continue to monitor Hyperglycemia-insulin sliding scale Moderate protein calorie malnutrition based on NIH criteria for albumin levels- supplement Hypertension-continue with home medications With the severity of her hypoxia intensity of services-maintain patient inpatient status Altered mental status this morning likely secondary to sundowning. Doubt related to hypoxia as levels have been 90% or greater despite weaning supplemental oxygen. No focal neurological deficits ?
--- NOTE | 2023-01-16 09:11 | CM.NOTE ---
Rounds made with Dr. Stokes. Dr. Stokes discussed potential for Long Term at discharge. Daughter in room and plans on Danielle coming to her home at discharge until stronger. No discharge today.
[2023-01-16] MEDS: LEVALBUTEROL HCL 1.25 MG/3 ML VIAL NEB IH ×3 (09:35→20:25)
[2023-01-16] MEDS: IPRATROPIUM BROMIDE 0.5 MG/2.5 ML VIAL.NEB IH ×3 (09:36→20:25)
[2023-01-16] MEDS: BUDESONIDE 0.5 MG/2 ML AMPULE NEB IH ×2 (09:37→20:25)
[2023-01-16] MEDS: LEVOFLOXACIN IN DEXTROSE 5 % 750 MG/150 ML IV.SOLN 100 MG IV (09:40)
[2023-01-16] MEDS: CALCITONIN,SALMON,SYNTHETIC 30 SPRAY/3.7 ML BOTTLE NS (10:05)
[2023-01-16] MEDS: METHYLPREDNISOLONE SOD SUCC PF 40 MG/ML VIAL IVP ×3 (11:43→23:32)
--- NOTE | 2023-01-16 12:02 | CM.NOTE ---
Discussed with pt and daughter regarding PT and OT evaluation and recommend HH at discharge. Pt and daughter verbalize understanding and wish to have HH services. Pt will be discharging to her home and daughter will be staying with her. Discussed 5 star medicare rating list and pt would like to try [facility]. Faxed clinical to [facility].
--- NOTE | 2023-01-16 14:51 | CM.NOTE ---
[facility] can accept pt. Discussed with pt and daughter.
--- NOTE | 2023-01-16 15:00 | CM.NOTE ---
2nd Notice of Important Message From Medicare discussed with pt, pt and daughter verbalize understanding and deny and questions or concerns.
[2023-01-16] MEDS: 0.9 % SODIUM CHLORIDE 1,000 ML 75 ML IV (19:34)
[2023-01-16] MEDS: PANTOPRAZOLE SODIUM 40 MG VIAL IV (21:11)
[2023-01-16] MEDS: CEFTRIAXONE 1,000 MG in 0.9 % SODIUM CHLORIDE 50 ML 50 MG IV (21:11)
[2023-01-16] MEDS: ATORVASTATIN CALCIUM 20 MG TABLET PO (21:12)
[2023-01-17] VITALS (63 sets, daily range): BP systolic 134–166; BP diastolic 67–106; PULSE 50–123; RESP 18–34; TEMP 36.9–37; O2SAT 79–96
[2023-01-17] MEDS: METHYLPREDNISOLONE SOD SUCC PF 40 MG/ML VIAL IVP (05:35)
[2023-01-17 05:36] LABS: Basophils Absolute Auto 0.1 10^3/uL (0.0-0.1); Hematocrit 35.1 % (36.0-48.0); Hemoglobin 11.3 g/dL (12.0-16.0); Immature Granulocytes Abs Auto 0.64 10^3/uL (0.00-0.03); Immature Granulocytes Pct Auto 8.2 % (0.0-0.5); Lymphocytes Absolute Auto 1.1 10^3/uL (1.2-3.8); Lymphocytes Percent Auto 14.3 % (20.5-60.0); Mean Corpuscular HGB Conc 32.2 g/dL (29.9-35.2); Mean Corpuscular Volume 93.1 fL (81.0-99.0); Mean Platelet Volume 9.4 fL (9.5-13.5); Monocytes Absolute Auto 0.4 10^3/uL (0.3-0.8); Monocytes Percent Auto 4.6 % (1.7-12.0); Neutrophils Absolute Auto 5.7 10^3/uL (1.4-6.5); Neutrophils Percent Auto 71.9 % (43.0-75.0); Platelet Count 170 10^3/uL (150-450); Red Blood Count 3.77 10^6/uL (4.20-5.40); Red Cell Distribution Width 15.3 % (11.0-15.0); White Blood Count 7.9 10^3/uL (4.0-11.0)
[2023-01-17 06:17] LABS: Alanine Aminotransferase 38 U/L (14-59); Albumin Globulin Ratio 0.7; Albumin Level 2.3 g/dL (3.4-5.0); Alkaline Phosphatase 71 U/L (46-116); Anion Gap 13.8; Aspartate Amino Transferase 12 U/L (15-37); BUN Creatinine Ratio 20.8; Bilirubin Total 0.2 mg/dL (0.2-1.0); Calcium 8.2 mg/dL (8.5-10.1); Carbon Dioxide 22.5 mmol/L (21.0-32.0); Chloride 109 mmol/L (98-107); Estimated GFR (African America >60 (>=60); Estimated GFR (Non-African Ame >60 (>=60); Globulin 3.5 g/dL; Glucose 212 mg/dL (74-106); Potassium 4.3 mmol/L (3.5-5.1); Sodium 141 mmol/L (136-145); Total Protein 5.8 g/dL (6.4-8.2)
[2023-01-17] MEDS: IPRATROPIUM BROMIDE 0.5 MG/2.5 ML VIAL.NEB IH ×3 (08:20→20:49)
[2023-01-17] MEDS: BUDESONIDE 0.5 MG/2 ML AMPULE NEB IH ×2 (08:20→20:49)
[2023-01-17] MEDS: LEVALBUTEROL HCL 1.25 MG/3 ML VIAL NEB IH ×3 (08:20→20:49)
[2023-01-17] MEDS: DICYCLOMINE HCL 10 MG CAPSULE 20 MG PO ×2 (08:21→22:11)
[2023-01-17] MEDS: POTASSIUM CHLORIDE 10 MEQ ER TABLET 20 MEQ PO ×3 (08:21→16:25)
[2023-01-17] MEDS: FERROUS SULFATE 325 MG TABLET PO ×2 (08:22→22:11)
[2023-01-17] MEDS: CALCITONIN,SALMON,SYNTHETIC 30 SPRAY/3.7 ML BOTTLE NS (08:22)
[2023-01-17] MEDS: AMLODIPINE BESYLATE 5 MG TABLET PO (08:22)
[2023-01-17] MEDS: HEPARIN SODIUM (PORCINE) 5,000 UNIT/ML VIAL 5000 UNIT SUBQ ×2 (08:24→22:11)
[2023-01-17] MEDS: INSULIN ASPART 300 UNIT/3 ML PEN SUBQ ×4 (08:25→22:13)
[2023-01-17] MEDS: GLUCERNA 1.5 CAL 237 ML LIQUID PO ×2 (08:56→22:11)
[2023-01-17] MEDS: METOPROLOL TARTRATE 25 MG TABLET PO ×2 (08:56→22:12)
--- NOTE | 2023-01-17 09:10 | CM.NOTE ---
Rounds made with Dr. Stokes. Decrease steroids today and possible home tomorrow with daughter and Home Health. Potential need for oxygen at discharge.
--- NOTE | 2023-01-17 09:18 | XR_ITS ---
The [address] [address] Patient Name: MARY VERGARA MRN: [id number] date: 1935 Sex: F Assigned Patient Location: ICU Current Patient Location: ICU Accession/Order Number: [id number] Exam Date: 01/17/2023 09:30 Report Date: 01/17/2023 10:29 At the request of: POLA CROSS Procedure: XR chest 2V EXAMINATION: XR chest 2V HISTORY: dyspnea COMPARISON: XR chest 01/14/2023 FINDINGS: LUNGS: Dense patchy and confluent opacities obscuring the left lung base. Small patchy opacity within lateral left midlung; significantly decreased compared to prior study. Mild infiltrates within right lung base; improved. VASCULATURE: No increased pulmonary vasculature. PLEURA: No pneumothorax, effusion, or pleural thickening. CARDIAC: No cardiomegaly or cardiac silhouette abnormality. MEDIASTINUM: No visible mass or adenopathy. BONES: No fracture or visible bone lesion. OTHER: Negative. XR/XR chest 2V IMPRESSION: 1. Improving multifocal infiltrates suggestive of pneumonia. Follow-up imaging to document clearing is recommended. Electronically authenticated by: MARLIN CRAVEN Date: 01/17/2023 10:29
--- NOTE | 2023-01-17 09:20 | P.PN_ITS ---
Progress Note: Subjective Subjective Interval history: Looks much better today. No confusion this morning. Exam Constitutional Vital Signs, click to edit/add: Last Vital Signs Temp 97.8 F 01/16/23 19:14 Pulse 79 01/17/23 09:00 Resp 26 H 01/17/23 03:15 BP 166/106 H 01/17/23 08:22 Pulse Ox 95 01/17/23 09:00 O2 Del Method Nasal Cannula 01/17/23 08:28 O2 Flow Rate 3 01/17/23 08:28 FiO2 40 01/15/23 20:05 Documenting provider has reviewed patient's vital signs: yes Common normals: apparent distress Respiratory Common normals: normal respiratory effort and no retractions Effort & inspection: able to speak in complete sentences (Mild conversational dyspnea) and labored Auscultation: rhonchi (Better air exchange. ) and egophony Cardio Common normals: regular rate, regular rhythm and no murmurs GI Common normals: Normal to inspection, nondistended, normoactive bowel sounds present Extremity Common normals: normal to inspection Progress Note: Objective Labs Labs: Short CBC 01/17/23 Range/Units 05:16 WBC 7.9 (4.0-11.0) 10^3/uL Hgb 11.3 L (12.0-16.0) g/dL Hct 35.1 L (36.0-48.0) % Plt Count 170 (150-450) 10^3/uL BMP 01/17/23 05:16 Sodium 141 Potassium 4.3 Chloride 109 H Carbon Dioxide 22.5 BUN 16.0 Creatinine 0.77 Glucose 212 H Calcium 8.2 L Liver Function 01/17/23 Range/Units 05:16 Total Bilirubin 0.2 (0.2-1.0) mg/dL AST 12 L (15-37) U/L ALT 38 (14-59) U/L Alkaline Phosphatase 71 (46-116) U/L Albumin 2.3 L (3.4-5.0) g/dL Progress Note: A&P Assessment and Plan (1) Pneumonia: (2) Hypoxemia: (3) LEOBARDO (acute kidney injury): (4) Sepsis: Plan Sinus tachycardia, respiratory distress, leukocytosis, thrombocytopenia, bandemia severe acute hypoxic respiratory failure, down to 84%, requiring high flow supplemental oxygen of Vapotherm, initially placed at 75%, able to wean down to 45% currently. This is resulted in sepsis with multisystem organ dysfunction(heme, pulmonary, kidney) with continuing white blood cell count improvement-will continue with current antibiotics-down to nasal cannula, continue to wean that if possible today. May need to go home with home oxygen. Will obtain walk test either today or tomorrow. Dehydration with acute elevation in BUN and creatinine-improved today Leukocytosis with bandemia and thrombocytopenia-secondary to above-resolved Hypokalemia this cjfoded-ivhpfzrcyr-wwvjgtam back to normal Hyperglycemia-insulin sliding scale Moderate protein calorie malnutrition based on NIH criteria for albumin levels- supplement Hypertension-continue with home medications With the severity of her hypoxia intensity of services-maintain patient inpatient status-possible discharge tomorrow based on continued improvement. Physical therapy to continue to work with patient. Does not appear to need rehab Altered mental status t yesterday likely secondary to sundowning. Doubt related to hypoxia as levels have been 90% or greater despite weaning supplemental oxygen. No focal neurological deficits ?
--- NOTE | 2023-01-17 09:53 | CM.NOTE ---
Cate called from [address] for discharge date and primary care doctor. Information provided.
[2023-01-17] MEDS: PREDNISONE 20 MG TABLET 50 MG PO (09:57)
--- NOTE | 2023-01-17 11:00 | PT.DAILY ---
Physical Therapy Daily Note PT Daily Note/Assess Start: 01/17/23 10:56 Freq: Status: Active Protocol: Document 01/17/23 10:57 [email or web address] (Rec: 01/17/23 11:00 MIGUE [id number]) Physical Therapy Daily Note/Assessment Time In/Time Out Time In 09:38 Time Out 09:50 Pain In Pain N/A Pain Out Pain N/A Subjective Subjective Pt sitting in BS chair upon arrival. needs to use restroom . Agrees to allow [employer] to assist with this. On2L O2. SPO2 95% prior to session Therapeutic Activity Time Therapeutic Activity Minutes (minutes) 10 Therapeutic Activity Units 1 Therapeutic Activity Treatment Chair Transfer Ability Standby Assistance Therapeutic Activity Comments Sit>stand to RW SBA. Pt amb 10 ' to restroom with RW, SBA with assist for O2 lines. Able to perform toilet transfer and doff underwear SUP. Pt requires assistance for pericare from daughter. Sit> stand from toilet SUP with grab bar. Pt then amb with RW 200' with RW, SBA with assist for portable O2 tank. XRAY present to take pt down to radiology - pt is left in WC under their care. Total Physical Therapy Time Total Therapy Minutes 10 Total Physical Therapy Units 1 Summary Daily Note Summary Improved gait endurance. Minimal SOB with activity.
[2023-01-17 12:28] LABS: Glucometer 186 mg/dL (74-106)
--- NOTE | 2023-01-17 13:44 | CM.NOTE ---
Pt failed walk test, pt request [facility] for oxygen company. She gets nebulizer equipment through this company. Clinical faxed to [facility] for home oxygen.
--- NOTE | 2023-01-17 15:46 | CM.NOTE ---
Called [employer], tank being delivered to hospital today for possible discharge tomorrow. [facility] will set up appt to come to pt's home with other eqipment on Sunday. Updated pt.
[2023-01-17 16:20] LABS: Glucometer 178 mg/dL (74-106)
[2023-01-17 20:07] LABS: Glucometer 195 mg/dL (74-106)
[2023-01-17] MEDS: SODIUM CHLORIDE 3% INHALATION 15 ML NEB 3 ML IH (20:49)
[2023-01-17] MEDS: ATORVASTATIN CALCIUM 20 MG TABLET PO (22:12)
[2023-01-17] MEDS: CEFTRIAXONE 1,000 MG in 0.9 % SODIUM CHLORIDE 50 ML 100 MG IV (22:12)
[2023-01-17] MEDS: PANTOPRAZOLE SODIUM 40 MG VIAL IV (22:12)
[2023-01-18] VITALS (21 sets, daily range): BP systolic 135–166; BP diastolic 71–78; PULSE 51–104; RESP 16–22; TEMP 36.7–37.1; O2SAT 90–97
[2023-01-18 05:10] LABS: Basophils Percent Auto 0.1 % (0.2-2.0); Hematocrit 37.6 % (36.0-48.0); Hemoglobin 12.3 g/dL (12.0-16.0); Immature Granulocytes Abs Auto 1.51 10^3/uL (0.00-0.03); Immature Granulocytes Pct Auto 11.7 % (0.0-0.5); Lymphocytes Absolute Auto 1.7 10^3/uL (1.2-3.8); Lymphocytes Percent Auto 13.3 % (20.5-60.0); Mean Corpuscular HGB Conc 32.7 g/dL (29.9-35.2); Mean Corpuscular Hemoglobin 30.3 pg (26.7-34.0); Mean Corpuscular Volume 92.6 fL (81.0-99.0); Mean Platelet Volume 9.8 fL (9.5-13.5); Monocytes Absolute Auto 0.8 10^3/uL (0.3-0.8); Neutrophils Absolute Auto 8.9 10^3/uL (1.4-6.5); Neutrophils Percent Auto 68.9 % (43.0-75.0); Platelet Count 199 10^3/uL (150-450); Red Blood Count 4.06 10^6/uL (4.20-5.40); White Blood Count 12.9 10^3/uL (4.0-11.0)
[2023-01-18 05:42] LABS: Alanine Aminotransferase 27 U/L (14-59); Albumin Globulin Ratio 0.7; Albumin Level 2.6 g/dL (3.4-5.0); Alkaline Phosphatase 79 U/L (46-116); Aspartate Amino Transferase 12 U/L (15-37); BUN Creatinine Ratio 24.1; Bilirubin Total 0.2 mg/dL (0.2-1.0); Calcium 8.8 mg/dL (8.5-10.1); Carbon Dioxide 28.2 mmol/L (21.0-32.0); Chloride 105 mmol/L (98-107); Estimated GFR (African America >60 (>=60); Estimated GFR (Non-African Ame >60 (>=60); Globulin 3.7 g/dL; Glucose 120 mg/dL (74-106); Potassium 4.2 mmol/L (3.5-5.1); Sodium 140 mmol/L (136-145); Total Protein 6.3 g/dL (6.4-8.2)
--- NOTE | 2023-01-18 08:04 | XR_ITS ---
The [address] [address] Patient Name: MARY VERGARA MRN: [id number] date: 1935 Sex: F Assigned Patient Location: [place] Current Patient Location: [place] Accession/Order Number: [id number] Exam Date: 01/18/2023 10:25 Report Date: 01/18/2023 11:18 At the request of: POLA CROSS Procedure: XR lumbar spine 2-3V EXAM: XR lumbar spine 2-3V HISTORY: fall COMPARISON: MRI of the lumbar spine from 01/31/2016. TECHNIQUE: AP, lateral, coned lateral radiograph the lumbar spine FINDINGS: 5 lumbar type vertebral bodies. Fracture of the L2 vertebral body with 21% anterior vertebral body height loss. Osteophytes of the lumbar spine. Disc height loss at L3-L4 and L5-S1. Atherosclerotic vascular calcification of aorta and branch vessels. Multiple surgical clips are noted within the abdomen. XR/XR lumbar spine 2-3V IMPRESSION: 1. Fracture of the L2 vertebral body with 21% anterior vertebral body height loss. Electronically authenticated by: SERVANDO ROWE Date: 01/18/2023 11:18
[2023-01-18] MEDS: IPRATROPIUM BROMIDE 0.5 MG/2.5 ML VIAL.NEB IH ×3 (09:13→20:22)
[2023-01-18] MEDS: LEVALBUTEROL HCL 1.25 MG/3 ML VIAL NEB IH ×3 (09:13→20:22)
[2023-01-18] MEDS: BUDESONIDE 0.5 MG/2 ML AMPULE NEB IH ×2 (09:14→20:22)
--- NOTE | 2023-01-18 09:22 | RESP.RT ---
Pt refused the Vest due to pain, pt fell this am and states she is too sore to do rx. Attempted PEP and RT encouraged hourly
[2023-01-18] MEDS: SODIUM CHLORIDE 3% INHALATION 15 ML NEB 3 ML IH ×2 (09:32→20:22)
[2023-01-18] MEDS: GLUCERNA 1.5 CAL 237 ML LIQUID PO (09:48)
[2023-01-18] MEDS: HEPARIN SODIUM (PORCINE) 5,000 UNIT/ML VIAL 5000 UNIT SUBQ ×2 (09:48→21:04)
[2023-01-18] MEDS: PREDNISONE 20 MG TABLET 50 MG PO (09:48)
[2023-01-18] MEDS: POTASSIUM CHLORIDE 10 MEQ ER TABLET 20 MEQ PO ×3 (09:48→16:41)
[2023-01-18] MEDS: AMLODIPINE BESYLATE 5 MG TABLET PO (09:49)
[2023-01-18] MEDS: FERROUS SULFATE 325 MG TABLET PO ×2 (09:49→22:03)
[2023-01-18] MEDS: CALCITONIN,SALMON,SYNTHETIC 30 SPRAY/3.7 ML BOTTLE NS (09:49)
[2023-01-18] MEDS: METOPROLOL TARTRATE 25 MG TABLET PO ×2 (09:49→22:03)
[2023-01-18] MEDS: DICYCLOMINE HCL 10 MG CAPSULE 20 MG PO ×2 (09:49→22:03)
--- NOTE | 2023-01-18 11:05 | P.PN_ITS ---
Progress Note: Subjective Subjective Interval history: Not feeling as well today as yesterday. Had a fall overnight time. Now with significant mid back pain. Exam Constitutional Vital Signs, click to edit/add: Last Vital Signs Temp 98.0 F 01/18/23 07:25 Pulse 98 H 01/18/23 09:58 Resp 16 01/18/23 07:25 BP 166/78 H 01/18/23 07:25 Pulse Ox 90 L 01/18/23 07:25 O2 Del Method Nasal Cannula 01/18/23 07:25 O2 Flow Rate 2 01/18/23 07:25 FiO2 40 01/15/23 20:05 Documenting provider has reviewed patient's vital signs: yes Common normals: apparent distress Respiratory Common normals: normal respiratory effort and no retractions Effort & inspection: able to speak in complete sentences (Mild conversational dyspnea) and labored Auscultation: rhonchi (Better air exchange. ) and egophony Cardio Common normals: regular rate, regular rhythm and no murmurs GI Common normals: Normal to inspection, nondistended, normoactive bowel sounds present Back & Pelvis Common normals: thoracic and/or lumbar spine abnormal (Mid back tenderness) Extremity Common normals: normal to inspection Progress Note: Objective Labs Labs: Short CBC 01/18/23 Range/Units 04:35 WBC 12.9 H (4.0-11.0) 10^3/uL Hgb 12.3 (12.0-16.0) g/dL Hct 37.6 (36.0-48.0) % Plt Count 199 (150-450) 10^3/uL BMP 01/18/23 04:35 Sodium 140 Potassium 4.2 Chloride 105 Carbon Dioxide 28.2 BUN 20.0 H Creatinine 0.83 Glucose 120 H Calcium 8.8 Liver Function 01/18/23 Range/Units 04:35 Total Bilirubin 0.2 (0.2-1.0) mg/dL AST 12 L (15-37) U/L ALT 27 (14-59) U/L Alkaline Phosphatase 79 (46-116) U/L Albumin 2.6 L (3.4-5.0) g/dL Progress Note: A&P Assessment and Plan (1) Pneumonia: (2) Hypoxemia: (3) LEOBARDO (acute kidney injury): (4) Sepsis: Plan On admission with sinus tachycardia, respiratory distress, leukocytosis, thrombocytopenia, bandemia severe acute hypoxic respiratory failure, down to 84%, requiring high flow supplemental oxygen of Vapotherm, initially placed at 75%, able to wean down to 45% currently. This is resulted in sepsis with multisystem organ dysfunction(heme, pulmonary, kidney) with continuing white blood cell count improvement-culture grew nocardia Cyriacigiorgica - sensitivities are pending we will maintain patient on Rocephin which is typically sensitive to the Bactrim is also sensitive so we will add that as well. Dehydration with acute elevation in BUN and creatinine-stable Leukocytosis with bandemia and thrombocytopenia-elevated today. Uncertain etiology, no fevers Hypokalemia this fzlebtl-ooxkipcwjh-iaaoqdrl back to normal Hyperglycemia-insulin sliding scale Moderate protein calorie malnutrition based on NIH criteria for albumin levels- supplement Hypertension-continue with home medications Status post fall this morning. X-ray shows possible acute compression fracture. Will add patient on Miacalcin nasal spray. Further workup as an outpatient. Will likely need CT scan or MRI scan in the next couple weeks to evaluate for progression Altered mental status t yesterday likely secondary to . Doubt related to hypoxia as levels have been 90% or greater despite weaning supplemental oxygen. No focal neurological deficits If ambulating safely tomorrow will discharge tomorrow ?
[2023-01-18 11:28] LABS: Glucometer 108 mg/dL (74-106)
[2023-01-18] MEDS: ACETAMINOPHEN 500 MG TABLET 1000 MG PO ×2 (12:00→22:03)
[2023-01-18] MEDS: SULFAMETHOXAZOLE/TRIMETHOPRIM 800-160 MG TABLET 1 TAB PO ×2 (12:00→22:03)
[2023-01-18] MEDS: ONDANSETRON PF 4 MG/2 ML VIAL IV (12:02)
--- NOTE | 2023-01-18 15:25 | RESP.RT ---
No vest due to pain, pt refused with previous treatment and refused now as well.
[2023-01-18 16:41] LABS: Glucometer 190 mg/dL (74-106)
--- NOTE | 2023-01-18 20:58 | RESP.RT ---
Pt refused vest at this time due to back pain from falling last night. PEP done instead.
[2023-01-18 23:03] LABS: Glucometer 233 mg/dL (74-106)
[2023-01-18] MEDS: INSULIN ASPART 300 UNIT/3 ML PEN SUBQ (23:03)
[2023-01-18] MEDS: CEFTRIAXONE 1,000 MG in 0.9 % SODIUM CHLORIDE 50 ML 100 MG IV (23:03)
[2023-01-18] MEDS: ATORVASTATIN CALCIUM 20 MG TABLET PO (23:03)
[2023-01-18] MEDS: PANTOPRAZOLE SODIUM 40 MG VIAL IV (23:05)
[2023-01-19] VITALS (9 sets, daily range): BP systolic 153; BP diastolic 74; PULSE 53–95; RESP 22; TEMP 37.1; O2SAT 91–92
[2023-01-19 05:13] LABS: Hematocrit 38.5 % (36.0-48.0); Hemoglobin 12.4 g/dL (12.0-16.0); Mean Corpuscular HGB Conc 32.2 g/dL (29.9-35.2); Mean Corpuscular Hemoglobin 30.3 pg (26.7-34.0); Mean Corpuscular Volume 94.1 fL (81.0-99.0); Mean Platelet Volume 9.7 fL (9.5-13.5); Platelet Count 187 10^3/uL (150-450); Red Blood Count 4.09 10^6/uL (4.20-5.40); White Blood Count 13.9 10^3/uL (4.0-11.0)
[2023-01-19 05:32] LABS: Alanine Aminotransferase 30 U/L (14-59); Albumin Globulin Ratio 0.8; Albumin Level 2.6 g/dL (3.4-5.0); Alkaline Phosphatase 77 U/L (46-116); Anion Gap 10.4; Aspartate Amino Transferase 14 U/L (15-37); BUN Creatinine Ratio 24.1; Bilirubin Total 0.3 mg/dL (0.2-1.0); Calcium 9.1 mg/dL (8.5-10.1); Carbon Dioxide 29.1 mmol/L (21.0-32.0); Chloride 104 mmol/L (98-107); Estimated GFR (African America >60 (>=60); Estimated GFR (Non-African Ame >60 (>=60); Globulin 3.4 g/dL; Glucose 91 mg/dL (74-106); Potassium 4.5 mmol/L (3.5-5.1); Sodium 139 mmol/L (136-145)
[2023-01-19 05:33] LABS: Lymphocytes Absolute Manual 1.25 10^3/uL (1.20-3.80); Metamyelocytes Absolute Manual 0.27; Monocytes Absolute Manual 0.97 10^3/uL (0.30-0.80); Segmented Neut Absolute Manual 10.42 10^3/uL (1.4-6.5)
[2023-01-19] MEDS: ACETAMINOPHEN 500 MG TABLET 1000 MG PO ×2 (05:35→12:26)
--- NOTE | 2023-01-19 08:11 | CM.NOTE ---
Rounds made with Dr. Stokes. Plan for discharge today to home with daughter.
--- NOTE | 2023-01-19 08:15 | P.DS_ITS ---
DS: Providers Provider Date of admission: 01/14/23 00:49 Primary care physician: Kumar Stokes MD Consults: 01/14/23 08:03 Consult to Pulmonology Routine Consulting Provider: Homero Cain Reason for consultation: pneumonia Has provider been notified: No 01/15/23 07:38 Consult to Founder & Ceo Routine Reason for consult:: Longterm Other reason:: Work on placement in case needs it for d/c anticipated for wed01/16/23 08:43 Physical Therapy Eval and Treat Routine Reason for consultation: Eval and Treat Has provider been notified: No 01/16/23 08:44 Occupational Therapy Eval and Treat Routine Reason for consultation: Only if needed for Rehab Has provider been notified: No DS: Diagnosis Discharge Diagnosis (1) Pneumonia: (2) Hypoxemia: (3) LEOBARDO (acute kidney injury): (4) Sepsis: Plan On admission with sinus tachycardia, respiratory distress, leukocytosis, thro mbocytopenia, bandemia severe acute hypoxic respiratory failure, down to 84%, requiring high flow supplemental oxygen of Vapotherm, initially placed at 75%, able to wean down to 45% currently. This is resulted in sepsis with multisystem organ dysfunction(heme, pulmonary, kidney) with continuing white blood cell count improvement-culture grew nocardia Cyriacigiorgica -sensitivities are pending we will maintain patient on Rocephin which is typically sensitive to the Bactrim is also sensitive so we will add that as well. Dehydration with acute elevation in BUN and creatinine-stable Leukocytosis with bandemia and thrombocytopenia-elevated today. Uncertain etiology, no fevers Hypokalemia this bxorvon-phennbpvap-rmwgceii back to normal Hyperglycemia-insulin sliding scale Moderate protein calorie malnutrition based on NIH criteria for albumin levels- supplement Hypertension-continue with home medications Status post fall this morning. X-ray shows possible acute compression fracture. Will add patient on Miacalcin nasal spray. Further workup as an outpatient. Will likely need CT scan or MRI scan in the next couple weeks to evaluate for progression Altered mental status t yesterday likely secondary to . Doubt related to hypoxia as levels have been 90% or greater despite weaning supplemental oxygen. No focal neurological deficits DS: Summary Hospital Course Hospital Course: On admission with sinus tachycardia, respiratory distress, leukocytosis, thrombocytopenia, bandemia severe acute hypoxic respiratory failure, down to 84%, requiring high flow supplemental oxygen of Vapotherm, patient was placed in the intensive care unit. Given frequent aerosol treatments. IV antibiotics. Patient did not show significant proven arthroscopy days and antibiotics were adjusted further. 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 Not unexpected with her history of bronchiectasis. Based on historical sensitivities of Rocephin and Bactrim for antibiotics were adjusted to include both of those. Patient sustained a fall the day prior to discharge resulting in compression fracture. Her pain is fairly well-controlled today. She is ambulating safely. She will need to go home on 3 L of supplemental oxygen. Will discharge patient home in improving condition. Medications see list. Follow-up with her PCP and pulmonology within the next week. Time Spent with Patient Time attestation: Total time spent providing and/or coordinating discharge services: Exam Constitutional Vital Signs, click to edit/add: Last Vital Signs Temp 98.7 F 01/19/23 05:40 Pulse 68 01/19/23 07:59 Resp 22 01/19/23 05:40 BP 153/74 H 01/19/23 05:40 Pulse Ox 92 L 01/19/23 05:50 O2 Del Method Nasal Cannula 01/19/23 05:50 O2 Flow Rate 3 01/19/23 05:50 FiO2 40 01/15/23 20:05 Documenting provider has reviewed patient's vital signs: yes Common normals: apparent distress Respiratory Common normals: normal respiratory effort and no retractions Effort & inspection: able to speak in complete sentences (Mild conversational dyspnea) and labored Auscultation: rhonchi (Better air exchange. ) and egophony Cardio Common normals: regular rate, regular rhythm and no murmurs GI Common normals: Normal to inspection, nondistended, normoactive bowel sounds present Back & Pelvis Common normals: thoracic and/or lumbar spine abnormal (Mid back tenderness) Extremity Common normals: normal to inspection DS: Data Data Completed and Pending Labs on day of discharge: Labs from last 24 hours 01/19/23 01/18/23 01/18/23 04:27 23:00 16:40 WBC 13.9 H RBC 4.09 L Hgb 12.4 Hct 38.5 MCV 94.1 MCH 30.3 MCHC 32.2 RDW 15.0 Plt Count 187 MPV 9.7 Seg Neuts % (Manual) 75.0 Band Neutrophils % 7.0 H Lymphocytes % (Manual) 9.0 L Monocytes % (Manual) 7.0 Eosinophils % (Manual) 0.0 L Basophils % (Manual) 0.0 L Metamyelocytes % 2.0 Neutrophils # (Manual) 10.42 H Band Neutrophils # 1.0 H Lymphocytes # (Manual) 1.25 Monocytes # (Manual) 0.97 H Eosinophils # (Manual) 0.00 Basophils # (Manual) 0.00 Metamyelocytes # 0.27 Sodium 139 Potassium 4.5 Chloride 104 Carbon Dioxide 29.1 Anion Gap 10.4 BUN 21.0 H Creatinine 0.87 Est GFR ( Amer) >60 Est GFR (Non-Af Amer) >60 BUN/Creatinine Ratio 24.1 Glucose 91 Calcium 9.1 Total Bilirubin 0.3 AST 14 L ALT 30 Alkaline Phosphatase 77 Total Protein 6.0 L Albumin 2.6 L Globulin 3.4 Albumin/Globulin Ratio 0.8 POC Glucose 233 H 190 H 01/18/23 11:28 WBC RBC Hgb Hct MCV MCH MCHC RDW Plt Count MPV Seg Neuts % (Manual) Band Neutrophils % Lymphocytes % (Manual) Monocytes % (Manual) Eosinophils % (Manual) Basophils % (Manual) Metamyelocytes % Neutrophils # (Manual) Band Neutrophils # Lymphocytes # (Manual) Monocytes # (Manual) Eosinophils # (Manual) Basophils # (Manual) Metamyelocytes # Sodium Potassium Chloride Carbon Dioxide Anion Gap BUN Creatinine Est GFR ( Amer) Est GFR (Non-Af Amer) BUN/Creatinine Ratio Glucose Calcium Total Bilirubin AST ALT Alkaline Phosphatase Total Protein Albumin Globulin Albumin/Globulin Ratio POC Glucose 108 H Preliminary micro results at discharge 01/13/23 22:01 - Preliminary Blood NO GROWTH AT 36-48 HOURS. FINAL TO FOLLOW. 01/13/23 21:58 Blood Culture Result 1 - Preliminary Blood NO GROWTH AT 36-48 HOURS. FINAL TO FOLLOW. Discharge Plan Discharge Disposition: Home, Self-Care Discharge Medications: New prednisone 10 mg tablet 50 mg PO DAILY Qty: 47 0RF Rx Instructions: 5/day for 3 days. 4/day for 3 days, 3/day for 3 days, 2/day for 3 days, 1/day for 3 days, 1/2 /day for 4 days sulfamethoxazole-trimethoprim [Bactrim DS] 800-160 mg tablet 1 tab PO BID 14 Days Qty: 28 0RF cefdinir 300 mg capsule 600 mg PO DAILY 14 Days Qty: 28 0RF Continued albuterol sulfate 90 mcg/actuation HFA aerosol inhaler 2 inh INHALATION BID PRN (Reason: bronchospasm) amlodipine 5 mg tablet 5 mg PO DAILY atorvastatin 20 mg tablet 20 mg PO DAILY calcitonin (salmon) 200 unit/actuation spray,non-aerosol 1 spray intranasal DAILY dicyclomine 20 mg tablet 20 mg PO BID ferrous sulfate [FeroSul] 325 mg (65 mg iron) tablet 325 mg PO BID metoprolol tartrate 25 mg tablet 25 mg PO Q12H sodium chloride 0.9 % solution for nebulization 3 ml INHALATION TID fluticasone propion-salmeterol [Advair HFA] 230-21 mcg/actuation HFA aerosol inhaler 2 inh inhalation BID Activity: resume usual activities as tolerated Diet: advance to your usual diet Patient Instructions: Sulfamethoxazole/Trimethoprim (By mouth), Prednisone (By mouth), Cefdinir (By mouth), Pneumonia (DC) Forms: Portal Instructions Follow Up Appointments: Follow up appt. with Dr. Stokes on Jan.26 @ 11am office #: [phone]
[2023-01-19] MEDS: AMLODIPINE BESYLATE 5 MG TABLET PO (08:21)
[2023-01-19] MEDS: DICYCLOMINE HCL 10 MG CAPSULE 20 MG PO (08:21)
[2023-01-19] MEDS: SULFAMETHOXAZOLE/TRIMETHOPRIM 800-160 MG TABLET 1 TAB PO (08:21)
[2023-01-19] MEDS: PREDNISONE 20 MG TABLET 50 MG PO (08:21)
[2023-01-19] MEDS: FERROUS SULFATE 325 MG TABLET PO (08:21)
[2023-01-19] MEDS: POTASSIUM CHLORIDE 10 MEQ ER TABLET 20 MEQ PO ×2 (08:21→12:26)
[2023-01-19] MEDS: GLUCERNA 1.5 CAL 237 ML LIQUID PO (08:22)
[2023-01-19] MEDS: CALCITONIN,SALMON,SYNTHETIC 30 SPRAY/3.7 ML BOTTLE NS (08:24)
[2023-01-19] MEDS: HEPARIN SODIUM (PORCINE) 5,000 UNIT/ML VIAL 5000 UNIT SUBQ (08:24)
[2023-01-19] MEDS: METOPROLOL TARTRATE 25 MG TABLET PO (08:34)
[2023-01-19] MEDS: LEVALBUTEROL HCL 1.25 MG/3 ML VIAL NEB IH (09:31)
[2023-01-19] MEDS: BUDESONIDE 0.5 MG/2 ML AMPULE NEB IH (09:31)
[2023-01-19] MEDS: SODIUM CHLORIDE 3% INHALATION 15 ML NEB 3 ML IH (09:31)
[2023-01-19] MEDS: IPRATROPIUM BROMIDE 0.5 MG/2.5 ML VIAL.NEB IH (09:31)
--- NOTE | 2023-01-19 09:34 | CM.NOTE ---
New order faxed to [facility] [employer] to increase oxygen to 3L NC along with discharge summary. Faxed discharge summary and medication list to [address] also.
--- NOTE | 2023-01-19 09:40 | RESP.RT ---
Pt fell and has compression fracture. Pep done instead of vest
--- NOTE | 2023-01-19 10:43 | CM.NOTE ---
Called pt's daughter Medical supply company at the house now to set up oxygen. Denies any questions or concerns.
[2023-01-19] MEDS: CEFTRIAXONE 1,000 MG in 0.9 % SODIUM CHLORIDE 50 ML 100 MG IV (12:18)
--- NOTE | 2023-01-19 13:37 | CM.NOTE ---
CRF faxed to [facility].
--- NOTE | 2023-01-22 11:58 | CM.DCFOLLOWU ---
Person spoke with: grand daughter Margot-stated patient was napping How are you feeling? she is doing pretty well How is your pain? none Did you understand your discharge instructions? we did understand her instructions Do you have any questions about your discharge instructions? we do not Were you given any prescriptions at discharge? yes and we were able to get them picked up and she is taking them as prescribed Were you able to get your prescriptions filled? yes Do you understand how to take your medications as ordered? yes Do you have any questions about your follow up appointment and do you plan to keep your follow up appointment? Appointment 01/[address] Stokes at 11am and she plans on keeping this appointment. Is there anything else that you would like to discuss? Home health will be coming in starting today. No other questions. Questions/Comments/Concerns/Other: n/a
== END 2023-01-19 14:17 | disposition home or self-care (01) | DRG 871 ==
LOC: ER 22:55 → ICU 01-14 00:53 → MS 01-17 15:13
PROVIDERS: Internal Medicine; Admitting Provider Family Medicine; Emergency Provider Internal Medicine; PCP Family Medicine; Visit Provider Family Medicine
DX: A41.9 Sepsis, unspecified organism (principal); J18.9 Pneumonia, unspecified organism; S32.029A Unspecified fracture of second lumbar vertebra, initial encounter for closed fracture; J96.01 Acute respiratory failure with hypoxia; N17.9 Acute kidney failure, unspecified; E44.0 Moderate protein-calorie malnutrition; E87.1 Hypo-osmolality and hyponatremia; F05 Delirium due to known physiological condition; W19.XXXA Unspecified fall, initial encounter; Y92.239 Unspecified place in hospital as the place of occurrence of the external cause; E78.5 Hyperlipidemia, unspecified; I10 Essential (primary) hypertension; E86.0 Dehydration; E87.6 Hypokalemia; R73.9 Hyperglycemia, unspecified; D69.6 Thrombocytopenia, unspecified; R65.20 Severe sepsis without septic shock; J47.9 Bronchiectasis, uncomplicated; Z79.899 Other long term (current) drug therapy; Z79.51 Long term (current) use of inhaled steroids; Z88.5 Allergy status to narcotic agent; Z85.038 Personal history of other malignant neoplasm of large intestine; Z68.23 Body mass index [BMI] 23.0-23.9, adult; Z90.49 Acquired absence of other specified parts of digestive tract
CPT/HCPCS: 0202U; 36415; 36600; 71045; 71046; 71275; 72100; 80048; 80053; 80076; 82805; 82948; 83605; 83735; 83880; 84145; 84484; 85025; 85027; 87040; 87070; 87150; 87205; 93005; 94618; 94640; 94667; 94668; 94761; 94799; 96361; 96365; 96366; 96367; 96372; 96375; 96376; 97110; 97116; 97161; 97165; 97530; 99285; G0328; J0456; J2920; J2930; J3480; Q3014; Q9966

== ENCOUNTER 2023-01-31 13:22 | Outpatient (OUT) | payer MEDICARE, SELFPAY ==
--- NOTE | 2023-01-31 13:27 | MR_ITS ---
[address] [address] Patient Name: MARY VERGARA MRN: [facility]:[id number] date: 1935 Sex: F Assigned Patient Location: MRI Current Patient Location: Accession/Order Number: [id number] Exam Date: 01/31/2023 14:55 Report Date: 02/01/2023 07:33 At the request of: POLA CROSS Procedure: MR lumbar spine wo con EXAMINATION: MR lumbar spine wo con HISTORY: Low Back PAin , L2 Fracture COMPARISON: No relevant comparison available. TECHNIQUE: A variety of imaging planes and parameters were utilized for visualization of suspected pathology. FINDINGS: For the purposes of numbering, sagittal T2 image # 8 extends from the T10 vertebral body superiorly to the S3 level inferiorly. PARASPINAL AREA: Multiple areas of signal abnormality throughout the kidneys likely representing cysts. BONES: Normal alignment of the lumbar vertebral bodies with no spondylolisthesis. There is heterogeneous appearance of the L2 vertebral body with a 50% anterior wedge compression fracture, areas of linear signal abnormality within the vertebral body likely representing vertebral body fracture with retropulsion of the posterior superior margin of the L2 vertebral body 4 mm into the central canal. Signal abnormalities identified throughout the L1 vertebral body with edema versus meningioma. CORD/CAUDA EQUINA: Normal caliber, contour, and signal intensity. DISC LEVELS: 12-L1: Early degenerative disc disease is present without focal protrusion or neural impingement. L1-L2: Retropulsion of the L2 vertebral body 4 mm into the central canal, narrowing the central canal to 8.2 mm, axial image 4. No significant disc bulge or herniation. Bilateral ligamentum flavum hypertrophy. No foraminal stenosis L2-L3: Disc desiccation. Posterior broad-based disc herniation of the protrusion type standing posteriorly up to 5.4 mm best seen on sagittal image #7. Mild narrowing of the central canal. Ligamentum flavum hypertrophy and facet osteoarthropathy with minimal bilateral foraminal stenosis L3-L4: Disc collapse with endplate sclerosis. Moderate diffuse disc/osteophyte complex. Ligamentum flavum hypertrophy and facet osteoarthropathy. No central canal stenosis. Minimal bilateral foraminal stenosis L4-L5: Disc desiccation. Broad-based posterior disc protrusion. No central or foraminal stenosis L5-S1: Severe disc space narrowing with endplate sclerosis. Broad-based posterior disc herniation the protrusion type extending 5.2 mm. No central canal stenosis. Mild to moderate bilateral foraminal stenosis. MR/MR lumbar spine wo con IMPRESSION: Acute fracture of the L2 vertebral body with retropulsion of the posterior superior margin into the central canal mildly narrowing the central canal to 8.2 mm in AP dimension Moderate to severe diffuse degenerative changes with disc herniations at several levels with central and foraminal stenosis as detailed above Electronically authenticated by: LIAM PEREZ Date: 02/01/2023 07:33
== END 2023-01-31 13:23 | disposition home or self-care (01) ==
LOC: MRI 13:22
PROVIDERS: PCP Family Medicine; Visit Provider Family Medicine
DX: M54.50 Low back pain, unspecified (principal); M51.36 Other intervertebral disc degeneration, lumbar region; S32.029A Unspecified fracture of second lumbar vertebra, initial encounter for closed fracture
CPT/HCPCS: 72148

== ENCOUNTER 2023-05-21 13:06 | Outpatient (OUT) | payer MEDICARE, SELFPAY ==
[2023-05-21 13:23] LABS: Estimated GFR (African America >60 (>=60); Estimated GFR (Non-African Ame >60 (>=60)
--- OUTSIDE RECORDS SUMMARY | 2023-05-21 13:27 | XMS_ITS | CCD ---
Author Organization [facility] Care Team Providers Care [place] Cutter Operator Name Role Phone JOMARY ., DR ESCALONA Admitting Unavailable HOY ., DR ESCALONA Attending Unavailable HOY ., DR ESCALONA Primary Care Unavailable HOY ., DR ESCALONA Consulting Unavailable WEST, DR LIAM Ochoa Consulting Unavailable SAMSA ., FAUSTO Admitting Unavailable SAMSA ., FAUSTO Attending Unavailable HOY ., DR ESCALONA Primary Care Unavailable SAMSA ., FAUSTO Consulting Unavailable NEFCY, PETER Consulting Unavailable HOY ., DR ESCALONA Admitting Unavailable HOY ., DR ESCALONA Attending Unavailable HOY ., DR ESCALONA Primary Care Unavailable HOY ., DR ESCALONA Consulting Unavailable WEST, DR LIAM Ochoa Consulting Unavailable HOY ., DR ESCALONA Admitting Unavailable HOY ., DR ESCALONA Attending Unavailable HOY ., DR ESCALONA Primary Care Unavailable HOY ., DR ESCALONA Consulting Unavailable HOY ., DR ESCALONA Admitting Unavailable HOY ., DR ESCALONA Attending Unavailable HOY ., DR ESCALONA Primary Care Unavailable HOY ., DR ESCALONA Consulting Unavailable HOY ., DR ESCALONA Admitting Unavailable HOY ., DR ESCALONA Attending Unavailable HOY ., DR ESCALONA Primary Care Unavailable HOY ., DR ESCALONA Consulting Unavailable Allergies Allergy Classification Reported Allergen(s) Allergy Type Date of Onset Reaction(s) Facility (1 source) Codeine Drug Allergy 02-26-1959 [facility] Repository (1 source) levoFLOXacin Drug Allergy [facility] Repository (1 source) Sulfonamides (Antibiotic) Drug allergy (disorder) [facility] Repository (1 source) traMADol Drug Allergy 01-28-2008 [facility] Repository Problems Active Problems Problem Classification Problem Date Documented Da te Episodic/Chronic Chronic obstructive pulmonary disease and bronchiectasis (5 sources) Bronchiectasis, uncomplicated; Translations: [Bronchiectasis with acute lower respiratory infection] Onset: 11-16-2021 Chronic Disorders of lipid metabolism (5 sources) Hyperlipidemia, unspecified; Translations: [Pure hyperglyceridemia] Onset: 11-15-2021 Chronic Esophageal disorders (1 source) Gastro-esophageal reflux disease without esophagitis; Translations: [GERD WITHOUT ESOPHAGITIS] Onset: 11-16-2021 Chronic Menopausal disorders (4 sources) Other primary ovarian failure; Translations: [OTHER PRIMARY OVARIAN FAILURE] Onset: 07-01-2021 Chronic Osteoporosis (1 source) Age-related osteoporosis without current pathological fracture; Translations: [AGE-REL OSTEOPOR W/O CURR PATH FX] Onset: 07-06-2021 Chronic Past or Other Problems Problem Classification Problem Date Documented Da te Episodic/Chronic Deficiency and other anemia (5 sources) Anemia, unspecified; Translations: [ANEMIA UNSPECIFIED] Onset: 11-16-2021 Episodic Diabetes mellitus without complication (1 source) Other abnormal glucose; Translations: [OTHER ABNORMAL GLUCOSE] Onset: 11-16-2021 Episodic Other screening for suspected conditions (not mental disorders or infectious disease) (8 sources) Encounter for screening mammogram for malignant neoplasm of breast; Translations: [Encounter for screening for malignant neoplasm of rectum] Onset: 11-23-2021 Episodic Residual codes; unclassified (1 source) Family history of malignant neoplasm of digestive organs; Translations: [[facility] NEOPLASM DIGESTIV ORGN] Onset: 12-02-2021 Episodic Residual codes; unclassified (1 source) Family history of malignant neoplasm of trachea, bronchus and lung; Translations: [[facility] HX [facility] NEOPLSM TRACH BRON LNG] Onset: 12-02-2021 Episodic Residual codes; unclassified (1 source) Family history of malignant neoplasm of other organs or systems; Translations: [[facility] NEOPLASM OTH ORGN/SYS] Onset: 12-02-2021 Episodic Results Test Name Value Interpretation Reference Range Facil ity XR CHEST 2 Von 05-03-2022 XR CHEST 2 V EXAM: XR CHEST 2 V HISTORY: Bronchiectasis and shortness of breath COMPARISON: 01/05/2021 TECHNIQUE: Upright PA and lateral chest x-ray FINDINGS: Diffuse interstitial changes are seen throughout the lungs, which appear chronic in nature. At the left lung base is also evidence of bronchiectasis. There is slight blunting of the left costophrenic angle indicating pleural thickening. There is no clear evidence of an acute infiltrate, effusion or pneumothorax. The heart is not enlarged and there is some prominence of the central pulmonary vasculature. Diffuse osteopenia is noted. Hardware projects over the cervical spine. IMPRESSION: Diffuse chronic interstitial changes are seen throughout the lungs, with slight blunting of the left costophrenic angle. A discrete infiltrate is not identified, although a superimposed infiltrate is difficult to entirely exclude. There is no evidence of overt cardiac decompensation, and the overall appearance of the chest is essentially unchanged. Electronically authenticated by: PAMELA ANN Date: 2022-05-03 12:41 Normal [facility] MAMM SCREEN 3D WAQAS CADon 11-30-2021 MG MAMM SCREEN 3D WAQAS CAD Patient: MARY VERGARA Exam Date: 11/30/2021 : 1935 Gender:F Ordering : DR POLA CROSS . Admission #: [id number] Family : Order #: [id number] CLICK HERE TO VIEW EXAM RADIOLOGY REPORT PROCEDURE: MAMMOGRAM SCREENING 3D BILATERAL CAD COMPARISON: MAMM SCREEN 3D WAQAS CAD, 11/29/2020. MAMM SCREEN WAQAS W CAD, 11/27/2019. INDICATIONS: Screening mammography Calculator Name NCI Breast Cancer Risk Assessment Tool 5 Year Breast Cancer Risk 1.10% Lifetime Breast Cancer Risk 1.10% Personal Breast Cancer No Personal Ovarian Cancer No Treatments Bowel resection, chemotherapy Family Cancers Sister with pancreatic cancer at age 80; Sister with lung cancer at age 78; Sister with colon cancer at age 74. LOCATION: [facility] BREAST COMPOSITION: Extremely dense, which lowers the sensitivity of mammography. FINDINGS: DIAGNOSTIC CATEGORY 1--NEGATIVE. NO CHANGE FROM COMPARISON ASSESSMENT. Scattered benign-appearing calcifications are present. Scattered benign-appearing lymph nodes are present. RIGHT BREAST: No significant suspicious finding. LEFT BREAST: No significant suspicious finding. RECOMMENDATIONS: ROUTINE MAMMOGRAM AND CLINICAL EVALUATION IN 12 MONTHS. PLEASE NOTE: A NORMAL MAMMOGRAM DOES NOT EXCLUDE THE POSSIBILITY OF BREAST CANCER. A CLINICALLY SUSPICIOUS PALPABLE LUMP SHOULD BE BIOPSIED. Dictated by: Liam Perez MD on 11/30/2021 at 12:39 Approved by: Liam Perez MD on 11/30/2021 at 12:44 Normal [facility] OCC BLD IMMUNO SCREENon - OCCULT BLOOD Negative Normal NEGATIVE [facility] Comment on above: Performed By: #### O BSCRN #### [facility] [address] [place] [address] Dr. Aba Esparza T4, T3U, FTI LABCORPon 11-16 Free Thyroxine Index 2.1 Normal 1.2-4.9 [facility] Comment on above: Performed By: #### T HYLC #### [facility] [address] [place] [address] Dr. Aba Esparza T3 Uptake 33 % Normal 24-39 [facility] Comment on above: Performed By: #### T HYLC #### [facility] [address] [place] [address] Dr. bAa Esparza T4 [Mass/Vol] 6.3 ug/dL Normal 4.5-12.0 [facility] Comment on above: Performed By: #### T HYLC #### [facility] [address] [place] [address] Dr. Aba Esparza CBC AUTO DIFFon 11-15-2021 BASO # 0.0 103/ul Normal 0.0-0.1 [facility] Comment on above: Performed By: #### C BC #### [facility] [address] [place] [address] Dr. Aba Esparza Basophils/100 WBC (Bld) 0.3 % Normal 0.2-2.0 [facility] Comment on above: Performed By: #### C BC #### [facility] [address] [place] [address] Dr. Aba Esparza EO # 0.2 103/ul Normal 0.0-0.7 [facility] Comment on above: Performed By: #### C BC #### [facility] [address] [place] [address] Dr. Aba Esparza Eosinophils/100 WBC (Bld) 1.4 % Normal 0.9-7.0 [facility] Comment on above: Performed By: #### C BC #### [facility] [address] [place] [address] Dr. Aba Esparza Erythrocyte distribution width (RBC) [Ratio] 15.0 % Normal 11.0-15.0 [facility] Comment on above: Performed By: #### C BC #### [facility] [address] [place] [address] Dr. Aba Esparza Hematocrit (Bld) [Volume fraction] 42.8 % Normal 36.0-48.0 [facility] Comment on above: Performed By: #### C BC #### [facility] [address] [place] [address] Dr. Aba Esparza Hemoglobin (Bld) [Mass/Vol] 13.4 g/dL Normal 12.0-16.0 [facility] Comment on above: Performed By: #### C BC #### [facility] [address] [place] [address] Dr. Aba Esparza IG # 0.04 10e3/ul Critically high 0.00-0.03 [facility] Comment on above: Performed By: #### C BC #### [facility] [address] [place] [address] Dr. Aba Esparza IG % 0.3 % Normal 0.0-0.5 [facility] Comment on above: Performed By: #### C BC #### [facility] [address] [place] [address] Dr. Aba Esparza LYMPH # 3.6 103/ul Normal 1.2-3.8 [facility] Comment on above: Performed By: #### C BC #### [facility] [address] [place] [address] Dr. Aba Esparza Lymphocytes/100 WBC (Bld) 27.5 % Normal 20.5-60.0 [facility] Comment on above: Performed By: #### C BC #### [facility] [address] [place] [address] Dr. Aba Esparza MANUAL DIFF REQ NO Normal [facility] Comment on above: Performed By: #### C BC #### [facility] [address] [place] [address] Dr. Aba Esparza MCH (RBC) [Entitic mass] 27.6 pg Normal 26.7-34.0 [facility] Comment on above: Performed By: #### C BC #### [facility] [address] [address] [address] Aba Esparza MCHC (RBC) [Mass/Vol] 31.3 g/dL Normal 29.9-35.2 [facility] Comment on above: Performed By: #### C BC #### [facility] [address] [address] [address] Aba Esparza MCV (RBC) [Entitic vol] 88.1 fL Normal 81.0-99.0 [facility] Comment on above: Performed By: #### C BC #### [facility] [address] [address] [address] Aba Esparza MONO # 0.9 103/ul Critically high 0.3-0.8 [facility] Comment on above: Performed By: #### C BC #### [facility] [address] [place] [address] Dr. Aba Esparza Monocytes/100 WBC (Bld) 7.0 % Normal 1.7-12.0 [facility] Comment on above: Performed By: #### C BC #### [facility] [address] [address] [address] Aba Esparza NEUT # 8.3 103/ul Critically high 1.4-6.5 [facility] Comment on above: Performed By: #### C BC #### [facility] [address] [place] [address] Dr. Aba Esparza Neutrophils/100 WBC (Bld) 63.5 % Normal 43.0-75.0 [facility] Comment on above: Performed By: #### C BC #### [facility] [id number] Aba Esparza Platelet mean volume (Bld) [Entitic vol] 9.0 fL Critically low 9.5-13.5 [facility] Comment on above: Performed By: #### C BC #### [facility] [address] [place] [address] Dr. Aba Esparza PLT 198 103/ul Normal 150-450 [facility] Comment on above: Performed By: #### C BC #### [facility] [address] [address] [address] Aba Esparza RBC 4.86 106/ul Normal 4.20-5.40 [facility] Comment on above: Performed By: #### C BC #### [facility] [address] [address] [address] Aba Esparza WBC 13.1 103/ul Critically high 4.0-11.0 [facility] Comment on above: Performed By: #### C BC #### [facility] [address] [address] [address] Aba Esparza GLYCOHEMOGLOBIN A1Con 2021 ADA RECOMMENDATION SEE BELOW Normal [facility] Comment on above: Result Comment: ADA RECOMMENDED LIMIT 4.0 - 6.0 ADA THERAPEUTIC TARGET < 7.0 ACTION SUGGESTED > 7.0 Performed By: #### A 1C ####[facility] [id number] [address]Dr. Aba Esparza Glucose [Mass/Vol] 126 mg/dL Normal [facility] Comment on above: Performed By: #### A 1C ####[facility] [address] [address]Dr. Aba Esparza HbA1c (Bld) [Mass fraction] 6.0 % Normal 4.5-6.2 [facility] Comment on above: Performed By: #### A 1C ####[facility] [address] [address]Dr. Aba Esparza IRONon 11-15-2021 Iron [Mass/Vol] 34.0 ug/dL Critically low 50.0-170.0 [facility] Comment on above: Performed By: #### I ELIZA #### [facility] [address] [address] [address] Aba Esparza LIPID PROFILEon 11-15-2021 CHOL-HDL RATIO NORM SEE BELOW Normal [facility] Comment on above: Result Comment: 3.3 - 4.4 LOW RISK 4.4 - 7.1 AVERAGE RISK 7.1 - 11.0 MODERATE RISK >11.0 HIGH RISK Performed By: #### L IPID, CMP, TSH #### [facility] [address] [address] [address] Aba Esparza Cholesterol [Mass/Vol] 120 mg/dL Normal <=200 [facility] Comment on above: Performed By: #### L IPID, CMP, TSH #### [facility] [address] [address] [address] Aba Esparza Cholesterol in HDL [Mass/Vol] 40 mg/dL Normal 40-60 [facility] Comment on above: Performed By: #### L IPID, CMP, TSH #### [facility] [address] [address] [address] Aba Esparza Cholesterol in LDL [Mass/Vol] 45.8 mg/dL Normal [facility] Comment on above: Performed By: #### L IPID, CMP, TSH #### [facility] [address] [place] [address] Dr. Aba Esparza Cholesterol.total/Cho lesterol in HDL [Mass ratio] 3.0 {ratio} Normal [facility] Comment on above: Performed By: #### L IPID, CMP, TSH #### [facility] [address] [address] [address] Aba Esparza HDL NORMAL > or = 60 mg/dl - LOW CARDIOVASCULAR RISK <40 mg/dl - HIGH CARDIOVASCULAR RISK Normal [facility] Comment on above: Performed By: #### L IPID, CMP, TSH #### [facility] [address] [place] [address] Dr. Aba Esparza LDL CALC NORMAL SEE BELOW Normal [facility] Comment on above: Result Comment: <100 mg/dl OPTIMAL 100 - 129 mg/dl NEAR OR ABOVE OPTIMAL 130 - 159 mg/dl BORDERLINE HIGH 160 - 189 mg/dl HIGH >190 mg/dl VERY HIGH Performed By: #### L IPID, CMP, TSH #### [facility] [address] [place] [address] Dr. Aba Esparza Triglyceride [Mass/Vol] 171 mg/dL Critically high <=150 [facility] Comment on above: Performed By: #### L IPID, CMP, TSH #### [facility] [address] [address] [address] Aba Esparza VLDL CALC 34.2 mg/dL Normal [facility] Comment on above: Performed By: #### L IPID, CMP, TSH #### [facility] [address] [address] [address] Aba Esparza PROF 14(COMP METB)on 022 Albumin [Mass/Vol] 3.9 g/dL Normal 3.4-5.0 [facility] Comment on above: Performed By: #### L IPID, CMP, TSH #### [facility] [address] [address] [address] Aba Esparza Albumin/Globulin [Mass ratio] 1.0 {ratio} Normal [facility] Comment on above: Performed By: #### L IPID, CMP, TSH #### [facility] [address] [place] [address] Dr. Aba Esparza ALP [Catalytic activity/Vol] 138 U/L Critically high 46-116 [facility] Comment on above: Performed By: #### L IPID, CMP, TSH #### [facility] [address] [address] [address] Aba Esparza ALT [Catalytic activity/Vol] 23 U/L Normal 14-59 [facility] Comment on above: Performed By: #### L IPID, CMP, TSH #### [facility] [address] [address] [address] Aba Esparza Anion gap [Moles/Vol] 12.7 mmol/L Normal [facility] Comment on above: Performed By: #### L IPID, CMP, TSH #### [facility] [address] [address] [address] Aba Esparza AST [Catalytic activity/Vol] 24 U/L Normal 15-37 [facility] Comment on above: Performed By: #### L IPID, CMP, TSH #### [facility] [address] [address] [address] Aba Esparza Bilirubin [Mass/Vol] 0.6 mg/dL Normal 0.2-1.0 [facility] Comment on above: Performed By: #### L IPID, CMP, TSH #### [facility] [address] [address] [address] Aba Esparza Calcium [Mass/Vol] 9.4 mg/dL Normal 8.5-10.1 [facility] Comment on above: Performed By: #### L IPID, CMP, TSH #### [facility] [address] [address] [address] Aba Esparza Chloride [Moles/Vol] 104 mmol/L Normal 98-107 [facility] Comment on above: Performed By: #### L IPID, CMP, TSH #### [facility] [address] [address] [address] Aba Esparza CO2 [Moles/Vol] 27.3 mmol/L Normal 21.0-32.0 [facility] Comment on above: Performed By: #### L IPID, CMP, TSH #### [facility] [address] [address] [address] Aba Esparza Creatinine [Mass/Vol] 0.90 mg/dL Normal 0.55-1.02 [facility] Comment on above: Performed By: #### L IPID, CMP, TSH #### [facility] [address] [address] [address] Aba Esparza EGFR-AF LATVIAN >60 Normal >=60 [facility] Comment on above: Performed By: #### L IPID, CMP, TSH #### [facility] [address] [address] [address] Aba Esparza EGFR-NON AF LATVIAN =60 Normal >=60 [facility] Comment on above: Performed By: #### L IPID, CMP, TSH #### [facility] [address] [address] [address] Aba Esparza Globulin (S) [Mass/Vol] 3.8 g/dL Normal [facility] Comment on above: Performed By: #### L IPID, CMP, TSH #### [facility] [address] [address] [address] Aba Esparza Glucose [Mass/Vol] 112 mg/dL Critically high 74-106 [facility] Comment on above: Performed By: #### L IPID, CMP, TSH #### [facility] [address] [place] [address] Dr. Aba Esparza Potassium [Moles/Vol] 4.0 mmol/L Normal 3.5-5.1 [facility] Comment on above: Performed By: #### L IPID, CMP, TSH #### [facility] [address] [place] [address] Dr. Aba Esparza Protein [Mass/Vol] 7.7 g/dL Normal 6.4-8.2 [facility] Comment on above: Performed By: #### L IPID, CMP, TSH #### [facility] [address] [place] [address] Dr. Aba Esparza Sodium [Moles/Vol] 140 mmol/L Normal 136-145 [facility] Comment on above: Performed By: #### L IPID, CMP, TSH #### [facility] [address] [place] [address] Dr. Aba Esparza Urea nitrogen [Mass/Vol] 15.0 mg/dL Normal 7.0-18.0 [facility] Comment on above: Performed By: #### L IPID, CMP, TSH #### [facility] [address] [place] [address] Dr. Aba Esparza Urea nitrogen/Creatinine [Mass ratio] 16.7 mg/mg Normal [facility] Comment on above: Performed By: #### L IPID, CMP, TSH #### [facility] [address] [place] [address] Dr. Aba Esparza TSHon 11-15-2021 TSH 1.187 uIU/mL Normal 0.358-3.740 [facility] Comment on above: Performed By: #### L IPID, CMP, TSH #### [facility] [address] [place] [address] Dr. Aba Esparza XR DEXA BONE DENSITYon 07-01 XR DEXA BONE DENSITY EXAMINATION: XR DEX A BONE DENSITY, 07/01/2021 10:46 AM EDT HISTORY: Bone density finding COMPARISON: 2015, 2009 TECHNIQUE: Dual-energy X-ray absorptiometry (DEXA) bone density study performed for the axial skeleton. FINDINGS: Bone mineral density AP spine L1-L4 measures 1.107 g/sq cm. T score -0.6. WHO classification: Normal. The lowest bone mineral densities in the right femoral trochanter measuring 0.517 g/sq cm. T score -2.9. WHO classification: Osteoporosis IMPRESSION: Osteoporosis. High fracture risk Electronically authenticated by: LIAM PEREZ Date: 2021-07-01 16:18 Normal [facility] Encounters Encounter Date Encounter Type Care Provider Facility Start: 05-03-2022 End: 05-04-2022 ambulatory FAUSTO MALHOTRA . Facility:[facility] Start: 11-30-2021 End: 12-01-[address] POLA CROSS . Facility:[facility] Start: 11-29-2021 End: 12-07-[address] POLA CROSS . Facility:[facility] Start: 11-23-2021 End: 11-23-[address] POLA CROSS . Facility:[facility] Start: 11-15-2021 End: 11-16-[address] POLA CROSS . Facility[facility] Start: 07-01-2021 End: 07-02-[address] POLA CROSS . Facility:[facility] Payers Date Payer Category Payer Medicare [id number] 1958 Unknown [id number] 1935 Unknown [id number] 2.16.84 [id number] 1935 Unknown [id number] 2.16.84 [id number] 1935 Unknown [id number] 2.16.84 [id number] 1935 Unknown [id number] 2.16.84 [id number] 1935 Unknown [id number] 2.16.84 [id number] 1935 Unknown [id number] 2.16.84 [id number] Summary Purpose Family History No Family History Records Found Advance Directives No Advanced Directives Records Found Additional Source Comments INFORMATION SOURCE (unrecogn ized section and content) DATE CREATED AUTHOR 05/05/2022 [facility] FOR RECORDS PERTAINING TO PATIENTS WHO ARE OR HAVE BEEN ENROLLED IN A CHEMICAL DEPENDENCY/SUBSTANCEABUSE PROGRAM, SOME INFORMATION MAY BE OMITTED. This clinical summary was aggregated from multiple sources. Caution should be exercised in using it in the provision of clinical care. This summary normalizes information from multiple sources, and as a consequence, information in this document may materially change the coding, format and clinical context of patient data. In addition, data may be omitted in some cases. CLINICAL DECISIONS SHOULD BE BASED ON THE PRIMARY CLINICAL RECORDS. [employer] provides no warranty or guarantee of the accuracy or completeness of information in this document.
--- NOTE | 2023-05-21 14:48 | CT_ITS ---
[address] [address] Patient Name: MARY VERGARA MRN: [id number] date: 1935 Sex: F Assigned Patient Location: LAB Current Patient Location: Accession/Order Number: [id number] Exam Date: 05/21/2023 14:35 Report Date: 05/22/2023 07:57 At the request of: POLA CROSS Procedure: CT abdomen pelvis w con EXAMINATION: CT abdomen pelvis w con HISTORY: Diverticulitis K57.92 COMPARISON: MRI of the lumbar spine 01/31/2023 TECHNIQUE: CT images were created with IV contrast. Axial, Coronal, and Sagittal images. Dose reduction techniques were achieved by using automated exposure control and/or adjustment of mA and/or kV according to patient size and/or use of iterative reconstruction technique. FINDINGS: LUNG BASES: Moderate diffuse bronchiectasis. Partial consolidation of the right middle and left lower lobes. Coronary atherosclerosis with prominent heart size. LIVER: Subtle hyperdensity right lateral hepatic lobe axial image 24 could be artifact BILIARY: Surgical clips from cholecystectomy PANCREAS: No lesion, fluid collection, ductal dilatation, or atrophy. SPLEEN: No enlargement or focal lesion. ADRENALS: No mass or enlargement. KIDNEYS: Multiple bilateral cortical hypodensities likely representing cysts. No hydronephrosis or obstructing nephrolithiasis BOWEL/MESENTERY: Moderate amount of dense stool and fluid in the rectum which measures 7.1 cm transversely. Nonobstructive bowel gas pattern. AORTA/VASCULAR: No aortic aneurysm. Extensive atherosclerosis RETROPERITONEUM: No mass or adenopathy. LYMPH NODES: No adenopathy. URINARY BLADDER: No visible focal wall thickening, lesion, or calculus. PELVIC ORGANS: Hysterectomy ABDOMINAL WALL: 5 cm fat density right lateral abdominal wall axial image 82, a lipoma is favored BONES: No bony lesion or fracture. 70% anterior wedge compression fracture of the L2 vertebral body with retropulsion of the posterior superior margin into the central canal, grossly stable from the prior MRI. Mild to moderate degenerative changes most significant at L3-4 and L5-S1 OTHER: Negative. CT/CT abdomen pelvis w con IMPRESSION: Moderate amount of stool and fluid in the rectum Partial consolidation of the right middle and left lower lobes. Consider left lower lobe pneumonia No evidence of acute diverticulitis Electronically authenticated by: LIAM PEREZ Date: 05/22/2023 07:57
== END 2023-05-21 13:07 | disposition home or self-care (01) ==
LOC: LAB 13:06
PROVIDERS: PCP Family Medicine; Visit Provider Family Medicine
DX: K57.92 Diverticulitis of intestine, part unspecified, without perforation or abscess without bleeding (principal)
CPT/HCPCS: 36415; 74177; 82565; Q9967

== ENCOUNTER 2023-06-13 14:52 | Outpatient (OUT) | payer MEDICARE, SELFPAY ==
--- NOTE | 2023-06-13 14:58 | XR_ITS ---
The [address] [address] Patient Name: MARY VERGARA MRN: [id number] date: 1935 Sex: F Assigned Patient Location: [facility] Current Patient Location: [facility] Accession/Order Number: [id number] Exam Date: 06/13/2023 15:15 Report Date: 06/13/2023 17:20 At the request of: POLA CROSS Procedure: XR lumbar spine 2-3V EXAMINATION: XR lumbar spine 2-3V, XR sacrum coccyx min 2V HISTORY: Sacral Contusion S30.0XXA COMPARISON: 01/18/2023 FINDINGS: BONES: Significant progression of a now 70% anterior wedge compression fracture of the L2 vertebral body. Moderate degenerative spondylosis. Moderate to severe facet osteoarthropathy . No acute sacral abnormality. Mild bilateral sacroiliac joint sclerosis DISC SPACES: Multilevel disc space narrowing most significant at L5-S1 with endplate sclerosis PARASPINOUS: Negative. No paraspinous abnormality is seen. OTHER: Extensive vascular calcifications XR/XR lumbar spine 2-3V IMPRESSION: Progression of L2 wedge compression fracture Electronically authenticated by: LIAM PEREZ Date: 06/13/2023 17:20
--- NOTE | 2023-06-13 14:58 | XR_ITS ---
The [address] [address] Patient Name: MARY VERGARA MRN: [id number] date: 1935 Sex: F Assigned Patient Location: [facility] Current Patient Location: [facility] Accession/Order Number: [id number] Exam Date: 06/13/2023 15:15 Report Date: 06/13/2023 17:20 At the request of: POLA CROSS Procedure: XR sacrum coccyx min 2V EXAMINATION: XR lumbar spine 2-3V, XR sacrum coccyx min 2V HISTORY: Sacral Contusion S30.0XXA COMPARISON: 01/18/2023 FINDINGS: BONES: Significant progression of a now 70% anterior wedge compression fracture of the L2 vertebral body. Moderate degenerative spondylosis. Moderate to severe facet osteoarthropathy . No acute sacral abnormality. Mild bilateral sacroiliac joint sclerosis DISC SPACES: Multilevel disc space narrowing most significant at L5-S1 with endplate sclerosis PARASPINOUS: Negative. No paraspinous abnormality is seen. OTHER: Extensive vascular calcifications XR/XR sacrum coccyx min 2V IMPRESSION: Progression of L2 wedge compression fracture Electronically authenticated by: LIAM PEREZ Date: 06/13/2023 17:20
== END 2023-06-13 14:53 | disposition home or self-care (01) ==
LOC: RAD 14:53
PROVIDERS: PCP Family Medicine; Visit Provider Family Medicine
DX: S30.0XXA Contusion of lower back and pelvis, initial encounter (principal); M48.56XA Collapsed vertebra, not elsewhere classified, lumbar region, initial encounter for fracture
CPT/HCPCS: 72100; 72220

== ENCOUNTER 2023-06-20 13:38 | Outpatient (OUT) | payer MEDICARE, SELFPAY ==
--- NOTE | 2023-06-20 13:41 | MR_ITS ---
[address] [address] Patient Name: MARY VERGARA MRN: [id number] date: 1935 Sex: F Assigned Patient Location: MRI Current Patient Location: MRI Accession/Order Number: [id number] Exam Date: 06/20/2023 14:22 Report Date: 06/20/2023 15:58 At the request of: POLA CROSS Procedure: MR lumbar spine wo con EXAMINATION: MR lumbar spine wo con HISTORY: Closed Fracture Of Second Lumbar Vertebra S32.029A ; low back pain COMPARISON: XR lumbar spine 06/13/2023, MRI lumbar spine 01/31/2023 TECHNIQUE: A variety of imaging planes and parameters were utilized for visualization of suspected pathology. FINDINGS: For the purposes of numbering, sagittal T2 image # 8 extends from the T10 vertebral body superiorly to the S3 level inferiorly. PARASPINAL AREA: Normal with no visible mass. BONES: Marked compression fracture of L2 with anterior and posterior displacement of the anterior and posterior joshi respectively contribute to marked central canal narrowing. Stable prominent T2 signal within L1 vertebral body without compression fracture; possibly a large hemangioma. CORD/CAUDA EQUINA: No abnormal signal. Impingement/compression of the cauda equina posterior to L1-2 and L2-3. DISC LEVELS: 12-L1: Early degenerative disc disease is present without focal protrusion or neural impingement. L1-L2: Marked compression fracture of L2 with retropulsion of the posterior wall and posterior disc bulging narrowing the central canal to 5 mm, with no CSF surrounding the nerve roots. Moderate-marked foramen narrowing bilaterally. L2-L3: Marked central canal and moderate-marked bilateral foramen narrowing. No CSF surrounding the central canal nerve roots. Prominent posterior diffuse disc bulging projecting 7 mm into the central canal. Moderate degenerative facet arthropathy and mild ligament of flavum thickening. L3-L4: Mild central canal and moderate bilateral foramen narrowing. Moderate diffuse disc bulging with complete loss of disc height. Moderate degenerative facet arthropathy and mild ligamentum flavum thickening. L4-L5: Mild central canal narrowing. Moderate left, mild right foramen narrowing. Mild diffuse disc bulging without disc height reduction, eccentric to the left. Mild degenerative facet arthropathy and ligamentum flavum thickening. L5-S1: Mild central canal and bilateral foramen narrowing. Mild-moderate diffuse disc bulging with complete loss of disc height. Moderate degenerative facet arthropathy bilaterally. MR/MR lumbar spine wo con IMPRESSION: 1. L2 marked compression fracture with slight progression since prior study resulting in slightly greater retropulsion of the posterior wall and slightly more prominent broad-based disc bulging causing further marked central canal and foramen narrowing at both levels. 2. Multilevel marked degenerative disc disease at additional levels resulting in moderate or greater foramen narrowing; stable. Electronically authenticated by: MARLIN CRAVEN Date: 06/20/2023 15:58
== END 2023-06-20 13:39 | disposition home or self-care (01) ==
LOC: MRI 13:38
PROVIDERS: PCP Family Medicine; Visit Provider Family Medicine
DX: S32.029A Unspecified fracture of second lumbar vertebra, initial encounter for closed fracture (principal); M51.36 Other intervertebral disc degeneration, lumbar region
CPT/HCPCS: 72148

== ENCOUNTER 2023-07-30 12:28 | Outpatient (OUT) | payer MEDICARE, SELFPAY ==
--- OUTSIDE RECORDS SUMMARY | 2023-07-30 12:50 | XMS_ITS | CCD ---
Author Organization [facility] Care Team Providers Care Health And Safety Instructor Name Role Phone TAY ., DR ESCALONA Admitting Unavailable HOY ., DR ESCALONA Attending Unavailable HOY ., DR ESCALONA Primary Care Unavailable HOY ., DR ESCALONA Consulting Unavailable WEST, DR LIAM Ochoa Consulting Unavailable SAMSA ., FAUSTO Admitting Unavailable SAMSA ., FAUSTO Attending Unavailable HOY ., DR ESCALONA Primary Care Unavailable SAMSA ., FAUSTO Consulting Unavailable NEFCY, PAMELA Consulting Unavailable HOY ., DR ESCALONA Admitting [...] (1 source) Codeine Drug Allergy 02-26-1959 [facility] Repository (1 source) levoFLOXacin Drug Allergy [facility] (1 source) Sulfonamides (Antibiotic) Drug allergy (disorder) [facility] (1 source) traMADol Drug Allergy 01-28-2008 [facility] Problems Active Problems Problem Classification Problem [...] of malignant neoplasm of digestive organs; Translations: [[facility] HX [facility] NEOPLASM DIGESTIV ORGN] Onset: 12-02-2021 Episodic Residual codes; unclassified (1 source) Family history of malignant neoplasm of trachea, bronchus and lung; Translations: [FAM HX [facility]IG NEOPLSM TRACH BRON LNG] Onset: 12-02-2021 Episodic Residual codes; unclassified (1 source) Family history of malignant neoplasm of other organs or systems; Translations: [FAM HX MALIG NEOPLASM OTH ORGN/SYS] Onset: 12-02-2021 Episodic Results [...] PAMELA ANN Date: 2022-05-03 12:41 Normal [facility] MG MAMM SCREEN 3D WAQAS CADon 11-30-2021 MG MAMM SCREEN 3D WAQAS CAD Patient: MARY VERGARA Exam Date: 11/30/2021 : 1935 Gender:F Ordering : DR POLA CROSS . Admission #: [id number] Family : Order #: [id number] CLICK HERE TO VIEW EXAM RADIOLOGY REPORT PROCEDURE: MAMMOGRAM SCREENING 3D BILATERAL CAD COMPARISON: MG MAMM SCREEN 3D WAQAS CAD, 11/29/2020. MG MAMM SCREEN WAQAS W CAD, 11/27/2019. INDICATIONS: [...] colon cancer at age 75. LOCATION: [facility] BREAST COMPOSITION: Extremely dense, which lowers the [...] MD on 11/30/2021 at 12:44 Normal [facility] OCC BLD IMMUNO SCREENon 10-28 OCCULT BLOOD Negative Normal NEGATIVE [facility] Comment on above: Performed By: #### O BSCRN #### [facility] [address] [place] [address] Dr. Aba Esparza T4, T3U, FTI LABCORPon 11-16 Free Thyroxine Index 2.1 Normal 1.2-4.9 [facility] Comment on above: Performed By: #### T HYLC #### [facility] [address] [place] [address] Dr. Aba Esparza T3 Uptake 33 % Normal 24-39 [facility] Comment on above: Performed By: #### T HYLC #### [facility] [address] [place] [address] Dr. Aba Esparza T4 [Mass/Vol] 6.3 ug/dL Normal 4.5-12.0 [facility] Comment on above: Performed By: #### T HYLC #### [facility] [address] [place] [address] Dr. Aba Esparza CBC AUTO DIFFon 11-15-2021 BASO # 0.0 103/ul Normal 0.0-0.1 [facility] Comment on above: Performed By: #### C BC #### [facility] [address] [place] [address] Dr. Aba Esparza Basophils/100 WBC (Bld) 0.3 % Normal 0.2-2.0 [facility] Comment on above: Performed By: #### C BC #### [facility] [address] [place] [address] Dr. Aba Esparza EO # 0.2 103/ul Normal 0.0-0.7 [facility] Comment on above: Performed By: #### C BC #### [facility] [address] [place] [address] Dr. Aba Esparza Eosinophils/100 WBC (Bld) 1.4 % Normal 0.9-7.0 [facility] Comment on above: Performed By: #### C BC #### [facility] [address] [place] [address] Dr. Aba Esparza Erythrocyte distribution width (RBC) [Ratio] 15.0 % Normal 11.0-15.0 [facility] Comment on above: Performed By: #### C BC #### [facility] [address] [address] [address] Aba Esparza Hematocrit (Bld) [Volume fraction] 42.8 % Normal 36.0-48.0 [facility] Comment on above: Performed By: #### C BC #### [facility] [address] [address] [address] Aba Esparza Hemoglobin (Bld) [Mass/Vol] 13.4 g/dL Normal 12.0-16.0 [facility] Comment on above: Performed By: #### C BC #### [facility] [address] [address] [address] Aba Esparza IG # 0.04 10e3/ul Critically high 0.00-0.03 [facility] Comment on above: Performed By: #### C BC #### [facility] [address] [place] [address] Dr. Aba Esparza IG % 0.3 % Normal 0.0-0.5 [facility] Comment on above: Performed By: #### C BC #### [facility] [address] [place] [address] Dr. Aba Esparza LYMPH # 3.6 103/ul Normal 1.2-3.8 [facility] Comment on above: Performed By: #### C BC #### [facility] [address] [place] [address] Dr. Aba Esparza Lymphocytes/100 WBC (Bld) 27.5 % Normal 20.5-60.0 [facility] Comment on above: Performed By: #### C BC #### [facility] [address] [place] [address] Dr. Aba Esparza MANUAL DIFF REQ NO Normal [facility] Comment on above: Performed By: #### C BC #### [facility] [address] [place] [address] Dr. Aba Esparza MCH (RBC) [Entitic mass] 27.6 pg Normal 26.7-34.0 [facility] Comment on above: Performed By: #### C BC #### [facility] [address] [address] [address] Aba Esparza MCHC (RBC) [Mass/Vol] 31.3 g/dL Normal 29.9-35.2 [facility] Comment on above: Performed By: #### C BC #### [facility] [address] [address] [address] Aba Esparza MCV (RBC) [Entitic vol] 88.1 fL Normal 81.0-99.0 [facility] Comment on above: Performed By: #### C BC #### [facility] [address] [address] [address] Aba Esparza MONO # 0.9 103/ul Critically high 0.3-0.8 [facility] Comment on above: Performed By: #### C BC #### [facility] [address] [address] [address] Aba Esparza Monocytes/100 WBC (Bld) 7.0 % Normal 1.7-12.0 [facility] Comment on above: Performed By: #### C BC #### [facility] [address] [address] [address] Aba Esparza NEUT # 8.3 103/ul Critically high 1.4-6.5 [facility] Comment on above: Performed By: #### C BC #### [facility] [address] [address] [address] Aba Esparza Neutrophils/100 WBC (Bld) 63.5 % Normal 43.0-75.0 [facility] Comment on above: Performed By: #### C BC #### [facility] [address] [address] [address] Aba Esparza Platelet mean volume (Bld) [Entitic vol] 9.0 fL Critically low 9.5-13.5 [facility] Comment on above: Performed By: #### C BC #### [facility] [address] [address] [address] Aba Esparza PLT 198 103/ul Normal 150-450 [facility] Comment on above: Performed By: #### C BC #### [facility] [address] [address] [address] Aba Esparza RBC 4.86 106/ul Normal 4.20-5.40 [facility] Comment on above: Performed By: #### C BC #### [facility] [address] [address] [address] Aba Esparza WBC 13.1 103/ul Critically high 4.0-11.0 [facility] Comment on above: Performed By: #### C BC #### [facility] [address] [address] [address] Aba Esparza GLYCOHEMOGLOBIN A1Con 2021 ADA RECOMMENDATION SEE BELOW Normal [facility] Comment on above: Result Comment: ADA RECOMMENDED LIMIT 4.0 - 6.0 ADA THERAPEUTIC TARGET < 7.0 ACTION SUGGESTED > 7.0 Performed By: #### A 1C ####[facility] [id number] [address]Dr. Aba Esparza Glucose [Mass/Vol] 126 mg/dL Normal [facility] Comment on above: Performed By: #### A 1C ####[facility] [id number] [address]Dr. Aba Esparza HbA1c (Bld) [Mass fraction] 6.0 % Normal 4.5-6.2 [facility] Comment on above: Performed By: #### A 1C ####[facility] [id number] [address]Dr. Aba Esparza IRONon 11-15-2021 Iron [Mass/Vol] 34.0 ug/dL Critically low 50.0-170.0 [facility] Comment on above: Performed By: #### I ELIZA #### [facility] [address] [address] [address] Aba Esparza LIPID PROFILEon 11-15-2021 CHOL-HDL RATIO NORM SEE BELOW Normal [facility] Comment on above: Result Comment: 3.3 - 4.4 LOW RISK 4.4 - 7.1 AVERAGE RISK 7.1 - 11.0 MODERATE RISK >11.0 HIGH RISK Performed By: #### L IPID, CMP, TSH #### [facility] [address] [address] [address] Aba Esparza Cholesterol [Mass/Vol] 120 mg/dL Normal <=200 [facility] Comment on above: Performed By: #### L IPID, CMP, TSH #### [facility] [address] [address] [address] Aba Esparza Cholesterol in HDL [Mass/Vol] 40 mg/dL Normal 40-60 [facility] Comment on above: Performed By: #### L IPID, CMP, TSH #### [facility] [address] [address] [address] Aba Esparza Cholesterol in LDL [Mass/Vol] 45.8 mg/dL Normal [facility] Comment on above: Performed By: #### L IPID, CMP, TSH #### [facility] [address] [address] [address] Aba Esparza Cholesterol.total/Cho lesterol in HDL [Mass ratio] 3.0 {ratio} Normal [facility] Comment on above: Performed By: #### L IPID, CMP, TSH #### [facility] [address] [address] [address] Aba Esparza HDL NORMAL > or = 60 mg/dl - LOW CARDIOVASCULAR RISK <40 mg/dl - HIGH CARDIOVASCULAR RISK Normal [facility] Comment on above: Performed By: #### L IPID, CMP, TSH #### [facility] [address] [address] [address] Aba Esparza LDL CALC NORMAL SEE BELOW Normal [facility] Comment on above: Result Comment: <100 mg/dl OPTIMAL 100 - 129 mg/dl NEAR OR ABOVE OPTIMAL 130 - 159 mg/dl BORDERLINE HIGH 160 - 189 mg/dl HIGH >190 mg/dl VERY HIGH Performed By: #### L IPID, CMP, TSH #### [facility] [address] [address] [address] Aba Esparza Triglyceride [Mass/Vol] 171 mg/dL Critically high <=150 [facility] Comment on above: Performed By: #### L IPID, CMP, TSH #### [facility] [address] [address] [address] Aba Esparza VLDL CALC 34.2 mg/dL Normal [facility] Comment on above: Performed By: #### L IPID, CMP, TSH #### [facility] [address] [address] [address] Aba Esparza PROF 14(COMP METB)on 022 Albumin [Mass/Vol] 3.9 g/dL Normal 3.4-5.0 [facility] Comment on above: Performed By: #### L IPID, CMP, TSH #### [facility] [address] [address] [address] Aba Esparza Albumin/Globulin [Mass ratio] 1.0 {ratio} Normal [facility] Comment on above: Performed By: #### L IPID, CMP, TSH #### [facility] [address] [address] [address] Aba Esparza ALP [Catalytic activity/Vol] 138 U/L Critically high 46-116 [facility] Comment on above: Performed By: #### L IPID, CMP, TSH #### [facility] [address] [address] [address] Aba Esparza ALT [Catalytic activity/Vol] 23 U/L Normal 14-59 [facility] Comment on above: Performed By: #### L IPID, CMP, TSH #### [facility] [address] [address] [address] Aba Esparza Anion gap [Moles/Vol] 12.7 mmol/L Normal [facility] Comment on above: Performed By: #### L IPID, CMP, TSH #### [facility] [address] [address] [address] Aba Esparza AST [Catalytic activity/Vol] 24 U/L Normal 15-37 [facility] Comment on above: Performed By: #### L IPID, CMP, TSH #### [facility] [address] [address] [address] Aba Esparza Bilirubin [Mass/Vol] 0.6 mg/dL Normal 0.2-1.0 [facility] Comment on above: Performed By: #### L IPID, CMP, TSH #### [facility] [address] [address] [address] Aba Esparza Calcium [Mass/Vol] 9.4 mg/dL Normal 8.5-10.1 [facility] Comment on above: Performed By: #### L IPID, CMP, TSH #### [facility] [address] [address] [address] Aba Esparza Chloride [Moles/Vol] 104 mmol/L Normal 98-107 [facility] Comment on above: Performed By: #### L IPID, CMP, TSH #### [facility] [address] [address] [address] Aba Esparza CO2 [Moles/Vol] 27.3 mmol/L Normal 21.0-32.0 [facility] Comment on above: Performed By: #### L IPID, CMP, TSH #### [facility] [address] [place] [address] Dr. Aba Esparza Creatinine [Mass/Vol] 0.90 mg/dL Normal 0.55-1.02 [facility] Comment on above: Performed By: #### L IPID, CMP, TSH #### [facility] [address] [place] [address] Dr. Aba Esparza EGFR-AF BARBADIAN >60 Normal >=60 [facility] Comment on above: Performed By: #### L IPID, CMP, TSH #### [facility] [address] [place] [address] Dr. Aba Esparza EGFR-NON AF BARBADIAN =60 Normal >=60 [facility] Comment on above: Performed By: #### L IPID, CMP, TSH #### [facility] [address] [address] [address] Aba Esparza Globulin (S) [Mass/Vol] 3.8 g/dL Normal [facility] Comment on above: Performed By: #### L IPID, CMP, TSH #### [facility] [address] [place] [address] Dr. Aba Esparza Glucose [Mass/Vol] 112 mg/dL Critically high 74-106 [facility] Comment on above: Performed By: #### L IPID, CMP, TSH #### [facility] [address] [address] [address] Aba Esparza Potassium [Moles/Vol] 4.0 mmol/L Normal 3.5-5.1 [facility] Comment on above: Performed By: #### L IPID, CMP, TSH #### [facility] [address] [place] [address] Dr. Aba Esparza Protein [Mass/Vol] 7.7 g/dL Normal 6.4-8.2 [facility] Comment on above: Performed By: #### L IPID, CMP, TSH #### [facility] [address] [place] [address] Dr. Aba Esparza Sodium [Moles/Vol] 140 mmol/L Normal 136-145 [facility] Comment on above: Performed By: #### L IPID CMP, TSH #### [facility] [address] [place] [address] Dr. Aba Esparza Urea nitrogen [Mass/Vol] 15.0 mg/dL Normal 7.0-18.0 [facility] Comment on above: Performed By: #### L IPID, CMP, TSH #### [facility] [address] [place] [address] Dr. Aba Esparza Urea nitrogen/Creatinine [Mass ratio] 16.7 mg/mg Normal [facility] Comment on above: Performed By: #### L IPID, CMP, TSH #### [facility] [address] [place] [address] Dr. Aba Esparza TSHon 11-15-2021 TSH 1.187 uIU/mL Normal 0.358-3.740 [facility] Comment on above: Performed By: #### L IPID, CMP, TSH #### [facility] [address] [place] [address] Dr. Aba Esparza XR DEXA BONE DENSITYon 07-01 XR DEXA BONE DENSITY EXAMINATION: XR DEX A BONE DENSITY, 07/01/2021 10:46 AM EDT HISTORY: Bone density finding COMPARISON: 2009 TECHNIQUE: Dual-energy X-ray absorptiometry (DEXA) bone [...] by: LIAM PEREZ Date: 2021-07-01 16:18 Normal [facility] Encounters Encounter Date Encounter Type Care Provider [...] Facility:[facility] Payers Date Payer Category Payer Medicare [id number] 1958 Unknown [id number] 1935 Unknown [id number] 2.16.84 [id number] 1935 Unknown [id number] 2.16.84 [id number] 1935 Unknown [id number] 2.16.84 [id number] 1935 Unknown [id number] 2.16.84 [id number] 1935 Unknown [id number] 2.16.84 [id number] 1935 Unknown [id number] 2.16.84 [id number] Summary Purpose Family History No Family History [...] BE BASED ON THE PRIMARY CLINICAL RECORDS. [employer] provides no warranty or guarantee of the accuracy or completeness of information in this document.
--- NOTE | 2023-07-30 13:22 | P.CN_ITS ---
Consult Note: HPI Data of Consult Patient: new to practice Consult date: 07/30/23 Requesting Physician: Heriberto Vickers MD Primary Care Provider: Kumar Stokes MD Consult Narrative Reason for consult: low back pain Narrative: This is a pleasant 88yof who presents for evaluation. Fell in Dec 2022 and sustained L2 compression fracture. Imaging reviewed, severe stenosis at L1-2 and L2-3 due to retropulsion of posterior wall and disc bulge. Evaluated by spine surgeon, who did not recommend surgery at this time. Also significant left low back and buttock pain with tenderness over left PSIS. Continues in provider directed home exercise program >6 weeks, with minimal benefit. Uses tylenol otc. denies adverse med side effects. cc:: CC: Heriberto Vickers MD Review of Systems ROS Status of ROS 10 or more systems reviewed and unremark able except as noted in history and below [facility] Medical History (Updated 07/30/23 @ 13:26 by Heriberto Vickers MD) Dehydration ?E86.0 - Dehydration (ICD-10) Diabetes ?E11.9 - Type 2 diabetes mellitus without complications (ICD-10) HTN (hypertension) ?I10 - Essential (primary) hypertension (ICD-10) Colon cancer ?C18.9 - Malignant neoplasm of colon, unspecified (ICD-10) COPD (chronic obstructive pulmonary disease) ?J44.9 - Chronic obstructive pulmonary disease, unspecified (ICD-10) Bronchiectasis ?J47.9 - Bronchiectasis, uncomplicated (ICD-10) Sepsis ?A41.9 - Sepsis, unspecified organism (ICD-10) LEOBARDO (acute kidney injury) ?N17.9 - Acute kidney failure, unspecified (ICD-10) Pneumonia ?J18.9 - Pneumonia, unspecified organism (ICD-10) Hypoxemia ?R09.02 - Hypoxemia (ICD-10) Meds Home Medications and Allergies Home Medications ?Medication ?Instructions ?Recorded ?Confirmed ?Type albuterol sulfate 90 mcg/actuation 2 inh inhalation BID PRN 01/13/23 01/13/23 History aerosol inhaler bronchospasm amlodipine 5 mg tablet 5 mg PO DAILY 01/13/23 01/13/23 History atorvastatin 20 mg tablet 20 mg PO DAILY 01/13/23 01/13/23 History calcitonin (salmon) 200 1 spray intranasal DAILY 01/13/23 01/13/23 History unit/actuation nasal spray dicyclomine 20 mg tablet 20 mg PO BID 01/13/23 01/13/23 History ferrous sulfate 325 mg (65 mg 325 mg PO BID 01/13/23 01/14/23 History iron) tablet (FeroSul) metoprolol tartrate 25 mg tablet 25 mg PO Q12H 01/13/23 01/13/23 History sodium chloride 0.9 % for 3 ml inhalation TID 01/13/23 01/13/23 History nebulization fluticasone propionate 230 2 inh inhalation BID 01/14/23 01/14/23 History mcg-salmeterol 21 mcg/actuation HFA inhaler (Advair HFA) cefdinir 300 mg capsule 600 mg (2 x 300 mg) PO DAILY 14 01/19/23 Rx days #28 caps prednisone 10 mg tablet 50 mg (5 x 10 mg) PO DAILY #47 tabs 01/19/23 Rx sulfamethoxazole 800 1 tab PO BID 14 days #28 tabs 01/19/23 Rx mg-trimethoprim 160 mg tablet (Bactrim DS) Allergies Allergy/AdvReac Type Severity Reaction Status Date / Time codeine Allergy Rash Verified 01/13/23 20:14 tramadol Allergy Rash Verified 01/13/23 20:14 Exam Narrative Exam Narrative: Psych-alert and oriented x 3. Attentive and appropriate, constitutionally normal, displays normal mood and affect per situation. There are no obvious deficits in memory, reasoning, or intellect.? Skin-no obvious rashes, bruising, erythema noted to the patient's area of pain.? Extremities- extremities are warm with minimal edema and palpable pulses. Sacroiliac- tenderness to palpation over left PSIS. Positive thigh thrust on left. Positive Felice's on left. Coordination remains intact.? Gait remains non-antalgic. Assessment and Plan Assessment and Plan (1) Compression fracture of L2: Qualifiers: Encounter type: initial encounter Qualified Code(s): S32.020A - Wedge compression fracture of second lumbar vertebra, initial encounter for closed fracture (2) Lumbar stenosis with neurogenic claudication: (3) Sacroiliac joint dysfunction of left side: Plan 88yof who presents for evaluation. failed conservative measures. imaging reviewed. given symptoms and exam, prudent to attempt left sij injection. discussed that given lumbar pathology, could potentially explore different interventional options depending on how she responds to sij injection. she is in agreement. meds reviewed, no changes. follow up after procedure.
== END 2023-07-30 12:29 | disposition home or self-care (01) ==
LOC: PM 12:29
PROVIDERS: PCP Family Medicine; Visit Provider Anesthesiology
DX: S32.020A Wedge compression fracture of second lumbar vertebra, initial encounter for closed fracture (principal); M48.062 Spinal stenosis, lumbar region with neurogenic claudication; M53.3 Sacrococcygeal disorders, not elsewhere classified
CPT/HCPCS: G0463

== ENCOUNTER 2023-08-13 10:38 | Day surgery (SDC) | payer MEDICARE, SELFPAY ==
[2023-08-13 11:17] VITALS: BP 142/70; PULSE 52; TEMP 36.9; O2SAT 97
[2023-08-13] MEDS: BUPIVACAINE HCL 0.25% PF 25 MG/10 ML VIAL 5 ML INJ (11:33)
[2023-08-13] MEDS: TRIAMCINOLONE ACETONIDE 40 MG/ML VIAL INJ (11:33)
[2023-08-13] MEDS: LIDOCAINE HCL 2% 400 MG/20 ML MDV 15 ML INJ (11:34)
[2023-08-13] MEDS: IOHEXOL 240 MG/ML - 10 ML VIAL INJ (11:34)
[2023-08-13 11:36] VITALS: BP 162/74; BP 177/78; PULSE 56; PULSE 58; O2SAT 100; O2SAT 96
--- NOTE | 2023-08-13 11:36 | W.PM.PROCNOT ---
Date of procedure: 08/13/23 Pre-op diagnosis: Pain due to left sacroiliitis Post-op diagnosis: same as pre-op Procedure: Procedure: Left sacroiliac joint injection Medications: Bupivacaine 0.25% 3cc, kenalog 40mg After informed consent was obtained, the patient was brought to the medical procedure unit and placed in the prone position, when a timeout was completed verifying correct patient, procedure, site, positioning, implant, and/or special equipment.? The skin overlying the area was prepped and draped in standard sterile fashion using alcohol.? A 25-gauge needle was inserted towards the left sacroiliac joint under direct fluoroscopic imaging.? Needle tip was advanced until the joint was encountered.? We instilled a total of 2 mL of solution.? Postoperatively needles were removed.? The patient tolerated the procedure well without complication.? The patient reported reduction in pain symptoms postoperatively. Anesthesia: Local Surgeon: Heriberto Vickers Pathology: none sent Condition: stable Disposition: no change
== END 2023-08-13 11:40 | disposition home or self-care (01) ==
LOC: SURGOUT 10:39
PROVIDERS: PCP Family Medicine; Visit Provider Anesthesiology
DX: M46.1 Sacroiliitis, not elsewhere classified (principal)
CPT/HCPCS: 27096; J0665; J3301; Q9966

== ENCOUNTER 2023-08-23 12:43 | Outpatient (OUT) | payer MEDICARE, SELFPAY ==
--- OUTSIDE RECORDS SUMMARY | 2023-08-23 13:04 | XMS_ITS | CCD ---
Author Organization [facility] Care Team Providers Care Facialist Name Role Phone JOMARY ., DR ESCALONA [...] Unavailable HOY ., DR ESCALONA Consulting Unavailable lAee FUENTES, Heriberto Wallis Attending Unavailable Alee FUENTES, Heriberto Wallis Attending Unavailable Allergies Allergy Classification Reported Allergen(s) Allergy Type Date of Onset Reaction(s) Facility (1 source) Codeine Drug Allergy 02-26-1959 [facility] Repository (1 source) levoFLOXacin Drug Allergy [facility] (1 source) Sulfonamides (Antibiotic) Drug allergy (disorder) [facility] (1 source) traMADol Drug Allergy 01-28-2008 [facility] Problems Active Problems Problem Classification [...] of malignant neoplasm of digestive organs; Translations: [[facility] NEOPLASM DIGESTIV ORGN] Onset: 12-02-2021 Episodic Residual codes; unclassified (1 source) Family history of malignant neoplasm of trachea, bronchus and lung; Translations: [facility]] Onset: 12-02-2021 Episodic Residual codes; unclassified (1 source) Family history of malignant neoplasm of other organs or systems; Translations: [[facility] NEOPLASM OTH ORGN/SYS] Onset: 12-02-2021 [...] PAMELA ANN Date: 2022-05-03 12:41 Normal [facility] MG MAMM SCREEN 3D WAQAS CADon 11-30-2021 MG MAMM SCREEN 3D WAQAS CAD Patient: DANIELLE ABBASI Exam Date: 11/30/2021 : 1935 Gender:F Ordering : DR POLA CROSS . Admission #: [id number] Family : Order #: [id number] CLICK HERE TO VIEW EXAM RADIOLOGY REPORT [...] colon cancer at age 75. LOCATION: [facility] BREAST COMPOSITION: Extremely dense, which lowers [...] MD on 11/30/2021 at 12:44 Normal [facility] OCC BLD IMMUNO SCREENon 10-28 OCCULT BLOOD Negative Normal NEGATIVE [facility] Comment on above: Performed By: #### O BSCRN #### [facility] [address] [place] [address] Dr. Aba Esparza T4, T3U, FTI LABCORPon 11-16 Free Thyroxine Index 2.1 Normal 1.2-4.9 [facility] Comment on above: Performed By: #### T HYLC #### [facility] [address] [place] [address] Dr. Aba Esparza T3 Uptake 33 % Normal 24-39 [facility] Comment on above: Performed By: #### T HYLC #### [facility] [address] [place] [address] Dr. Aba Esparza T4 [Mass/Vol] 6.3 ug/dL Normal 4.5-12.0 [facility] Comment on above: Performed By: #### T HYLC #### [facility] [address] [place] [address] Dr. Aba Esparza CBC AUTO DIFFon 11-15-2021 BASO # 0.0 103/ul Normal 0.0-0.1 [facility] Comment on above: Performed By: #### C BC #### [facility] [address] [place] [address] Dr. Aba Esparza Basophils/100 WBC (Bld) 0.3 % Normal 0.2-2.0 [facility] Comment on above: Performed By: #### C BC #### [facility] [address] [place] [address] Dr. Aba Esparza EO # 0.2 103/ul Normal 0.0-0.7 [facility] Comment on above: Performed By: #### C BC #### [facility] [address] [place] [address] Dr. Aba Esparza Eosinophils/100 WBC (Bld) 1.4 % Normal 0.9-7.0 [facility] Comment on above: Performed By: #### C BC #### [facility] [address] [place] [address] Dr. Aba Esparza Erythrocyte distribution width (RBC) [Ratio] 15.0 % Normal 11.0-15.0 [facility] Comment on above: Performed By: #### C BC #### [facility] [address] [place] [address] Dr. Aba Esparza Hematocrit (Bld) [Volume fraction] 42.8 % Normal 36.0-48.0 [facility] Comment on above: Performed By: #### C BC #### [facility] [address] [place] [address] Dr. Aba Esparza Hemoglobin (Bld) [Mass/Vol] 13.4 g/dL Normal 12.0-16.0 [facility] Comment on above: Performed By: #### C BC #### [facility] [address] [place] [address] Dr. Aba Esparza IG # 0.04 10e3/ul Critically high 0.00-0.03 [facility] Comment on above: Performed By: #### C BC #### [facility] [address] [place] [address] Dr. Aba Esparza IG % 0.3 % Normal 0.0-0.5 [facility] Comment on above: Performed By: #### C BC #### [facility] [address] [place] [address] Dr. Aba Esparza LYMPH # 3.6 103/ul Normal 1.2-3.8 [facility] Comment on above: Performed By: #### C BC #### [facility] [address] [place] [address] Dr. Aba Esparza Lymphocytes/100 WBC (Bld) 27.5 % Normal 20.5-60.0 [facility] Comment on above: Performed By: #### C BC #### [facility] [address] [place] [address] Dr. Aba Esparza MANUAL DIFF REQ NO Normal [facility] Comment on above: Performed By: #### C BC #### [facility] [address] [place] [address] Dr. Aba Esparza MCH (RBC) [Entitic mass] 27.6 pg Normal 26.7-34.0 [facility] Comment on above: Performed By: #### C BC #### [facility] [address] [place] [address] Dr. Aba Esparza MCHC (RBC) [Mass/Vol] 31.3 g/dL Normal 29.9-35.2 [facility] Comment on above: Performed By: #### C BC #### [facility] [address] [place] [address] Dr. Aba Esparza MCV (RBC) [Entitic vol] 88.1 fL Normal 81.0-99.0 [facility] Comment on above: Performed By: #### C BC #### [facility] [address] [place] [address] Dr. Aba Esparza MONO # 0.9 103/ul Critically high 0.3-0.8 [facility] Comment on above: Performed By: #### C BC #### [facility] [address] [place] [address] Dr. Aba Esparza Monocytes/100 WBC (Bld) 7.0 % Normal 1.7-12.0 [facility] Comment on above: Performed By: #### C BC #### [facility] [address] [place] [address] Dr. Aba Esparza NEUT # 8.3 103/ul Critically high 1.4-6.5 [facility] Comment on above: Performed By: #### C BC #### [facility] [address] [place] [address] Dr. Aba Esparza Neutrophils/100 WBC (Bld) 63.5 % Normal 43.0-75.0 [facility] Comment on above: Performed By: #### C BC #### [facility] [address] [place] [address] Dr. Aba Esparza Platelet mean volume (Bld) [Entitic vol] 9.0 fL Critically low 9.5-13.5 [facility] Comment on above: Performed By: #### C BC #### [facility] [address] [place] [address] Dr. Aba Esparza PLT 198 103/ul Normal 150-450 [facility] Comment on above: Performed By: #### C BC #### [facility] [address] [address] [address] Aba Esparza RBC 4.86 106/ul Normal 4.20-5.40 [facility] Comment on above: Performed By: #### C BC #### [facility] [address] [address] [address] Aba Esparza WBC 13.1 103/ul Critically high 4.0-11.0 [facility] Comment on above: Performed By: #### C BC #### [facility] [address] [address] [address] Aba Esparza GLYCOHEMOGLOBIN A1Con 2021 ADA RECOMMENDATION SEE BELOW Normal [facility] Comment on above: Result Comment: ADA RECOMMENDED LIMIT 4.0 - 6.0 ADA THERAPEUTIC TARGET < 7.0 ACTION SUGGESTED > 7.0 Performed By: #### A 1C ####[facility] [id number] [address]Dr. Aba Esparza Glucose [Mass/Vol] 126 mg/dL Normal [facility] Comment on above: Performed By: #### A 1C ####[facility] [id number] [address]Dr. Aba Esparza HbA1c (Bld) [Mass fraction] 6.0 % Normal 4.5-6.2 [facility] Comment on above: Performed By: #### A 1C ####[facility] [id number] [address]Dr. Aba Esparza IRONon 11-15-2021 Iron [Mass/Vol] 34.0 ug/dL Critically low 50.0-170.[address] [facility] Comment on above: Performed By: #### I ELIZA #### [facility] [address] [address] [address] Aba Esparza LIPID PROFILEon 11-15-2021 CHOL-HDL RATIO NORM SEE BELOW Normal [facility] Comment on above: Result Comment: 3.3 - 4.4 LOW RISK 4.4 - 7.1 AVERAGE RISK 7.1 - 11.0 MODERATE RISK >11.0 HIGH RISK Performed By: #### L IPID, CMP, TSH #### [facility] [address] [address] [address] Aba Esparza Cholesterol [Mass/Vol] 120 mg/dL Normal <=200 [facility] Comment on above: Performed By: #### L IPID, CMP, TSH #### [facility] [address] [address] [address] Aba Esparza Cholesterol in HDL [Mass/Vol] 40 mg/dL Normal 40-60 [facility] Comment on above: Performed By: #### L IPID, CMP, TSH #### [facility] [address] [place] [address] Dr. Aba Esparza Cholesterol in LDL [Mass/Vol] 45.8 mg/dL Normal [facility] Comment on above: Performed By: #### L IPID, CMP, TSH #### [facility] [address] [place] [address] Dr. Aba Esparza Cholesterol.total/Cho lesterol in HDL [Mass ratio] 3.0 {ratio} Normal [facility] Comment on above: Performed By: #### L IPID, CMP, TSH #### [facility] [address] [place] [address] Dr. Aba Esparza HDL NORMAL > or = 60 mg/dl - LOW CARDIOVASCULAR RISK <40 mg/dl - HIGH CARDIOVASCULAR RISK Normal [facility] Comment on above: Performed By: #### L IPID, CMP, TSH #### [facility] [address] [place] [address] Dr. Aba Esparza LDL CALC NORMAL SEE BELOW Normal [facility] Comment on above: Result Comment: <100 mg/dl OPTIMAL 100 - 129 mg/dl NEAR OR ABOVE OPTIMAL 130 - 159 mg/dl BORDERLINE HIGH 160 - 189 mg/dl HIGH >190 mg/dl VERY HIGH Performed By: #### L IPID, CMP, TSH #### [facility] [address] [place] [address] Dr. Aba Esparza Triglyceride [Mass/Vol] 171 mg/dL Critically high <=150 [facility] Comment on above: Performed By: #### L IPID, CMP, TSH #### [facility] [address] [address] [address] Aba Esparza VLDL CALC 34.2 mg/dL Normal [facility] Comment on above: Performed By: #### L IPID, CMP, TSH #### [facility] [address] [address] [address] Aba Esparza PROF 14(COMP METB)on 022 Albumin [Mass/Vol] 3.9 g/dL Normal 3.4-5.0 [facility] Comment on above: Performed By: #### L IPID, CMP, TSH #### [facility] [address] [place] [address] Dr. Aba Esparza Albumin/Globulin [Mass ratio] 1.0 {ratio} Normal [facility] Comment on above: Performed By: #### L IPID, CMP, TSH #### [facility] [address] [place] [address] Dr. Aba Esparza ALP [Catalytic activity/Vol] 138 U/L Critically high 46-116 [facility] Comment on above: Performed By: #### L IPID, CMP, TSH #### [facility] [address] [place] [address] Dr. Aba Esparza ALT [Catalytic activity/Vol] 23 U/L Normal 14-59 [facility] Comment on above: Performed By: #### L IPID, CMP, TSH #### [facility] [address] [address] [address] Aba Esparza Anion gap [Moles/Vol] 12.7 mmol/L Normal [facility] Comment on above: Performed By: #### L IPID, CMP, TSH #### [facility] [address] [place] [address] Dr. Aba Esparza AST [Catalytic activity/Vol] 24 U/L Normal 15-37 [facility] Comment on above: Performed By: #### L IPID, CMP, TSH #### [facility] [address] [place] [address] Dr. Aba Esparza Bilirubin [Mass/Vol] 0.6 mg/dL Normal 0.2-1.0 [facility] Comment on above: Performed By: #### L IPID, CMP, TSH #### [facility] [address] [address] [address] Aba Esparza Calcium [Mass/Vol] 9.4 mg/dL Normal 8.5-10.1 [facility] Comment on above: Performed By: #### L IPID, CMP, TSH #### [facility] [address] [address] [address] Aba Esparza Chloride [Moles/Vol] 104 mmol/L Normal 98-107 [facility] Comment on above: Performed By: #### L IPID, CMP, TSH #### [facility] [address] [place] [address] Dr. Aba Esparza CO2 [Moles/Vol] 27.3 mmol/L Normal 21.0-32.0 [facility] Comment on above: Performed By: #### L IPID, CMP, TSH #### [facility] [address] [place] [address] Dr. Aba Esparza Creatinine [Mass/Vol] 0.90 mg/dL Normal 0.55-1.02 [facility] Comment on above: Performed By: #### L IPID, CMP, TSH #### [facility] [address] [place] [address] Dr. Aba Esparza EGFR-AF MONTSERRATIAN >60 Normal >=60 [facility] Comment on above: Performed By: #### L IPID, CMP, TSH #### [facility] [address] [place] [address] Dr. Aba Esparza EGFR-NON AF MONTSERRATIAN =60 Normal >=60 [facility] Comment on above: Performed By: #### L IPID, CMP, TSH #### [facility] [address] [place] [address] Dr. Aba Esparza Globulin (S) [Mass/Vol] 3.8 g/dL Normal [facility] Comment on above: Performed By: #### L IPID, CMP, TSH #### [facility] [address] [address] [address] Aba Esparza Glucose [Mass/Vol] 112 mg/dL Critically high 74-106 [facility] Comment on above: Performed By: #### L IPID, CMP, TSH #### [facility] [address] [address] [address] Aba Esparza Potassium [Moles/Vol] 4.0 mmol/L Normal 3.5-5.1 [facility] Comment on above: Performed By: #### L IPID, CMP, TSH #### [facility] [address] [address] [address] Aba Esparza Protein [Mass/Vol] 7.7 g/dL Normal 6.4-8.2 [facility] Comment on above: Performed By: #### L IPID, CMP, TSH #### [facility] [address] [place] [address] Dr. Aba Esparza Sodium [Moles/Vol] 140 mmol/L Normal 136-145 [facility] Comment on above: Performed By: #### L IPID, CMP, TSH #### [facility] [address] [address] [address] Aba Esparza Urea nitrogen [Mass/Vol] 15.0 mg/dL Normal 7.0-18.0 [facility] Comment on above: Performed By: #### L IPID, CMP, TSH #### [facility] [address] [address] [address] Aba Esparza Urea nitrogen/Creatinine [Mass ratio] 16.7 mg/mg Normal [facility] Comment on above: Performed By: #### L IPID, CMP, TSH #### [facility] [address] [address] [address] Aba Esparza TSHon 11-15-2021 TSH 1.187 uIU/mL Normal 0.358-3.740 [facility] Comment on above: Performed By: #### L IPID, CMP, TSH #### [facility] [address] [address] [address] Aba Esparza XR DEXA BONE DENSITYon [...] by: LIAM PEREZ Date: 2021-07-01 16:18 Normal [facility] Encounters Encounter Date Encounter Type Care Provider Facility Start: 08-13-2023 End: 08-13-2023 ambulatory Heriberto Vickers MD Facility[facility] Start: 07-30-2023 End: 07-30-2023 ambulatory Heriberto Vickers MD Facility: [facility] Start: 05-03-2022 End: 05-04-2022 ambulatory FAUSTO MALHOTRA . Facility:[facility] Start: 11-30-2021 End: 12-01-[address] POLA CROSS . Facility:[facility] Start: 11-29-2021 End: 12-07-[address] POLA CROSS . Facility[facility] Start: 11-23-2021 End: 11-23-[address] POLA CROSS . Facility[facility] Start: 11-15-2021 End: 11-16-[address] POLA CROSS . Facility:[facility] Start: 07-01-2021 End: 07-02-[address] POLA CROSS . Facility: Payers Date Payer Category Payer Medicare 2023 Unknown 1958 Medicare [id number] 1958 Unknown [id number] 1935 Unknown [id number] 2.16.84 [id number] 1935 Unknown [id number] 2.16.84 [id number] 1935 Unknown [id number] 2.16.84 [id number] 1936 Unknown [id number] 2.16.84 [id number] 1936 Unknown [id number] 2.16.84 [id number] 1936 Unknown [id number] 2.16.84 [id number] 1936 Unknown [id number] 2.16. [id number] 1935 Unknown [id number] 2.16. [id number] Summary Purpose Family History No Family History Records FoundNo Family History Records Found Advance Directives No Advanced Directives Records FoundNo Advanced Directives Records Found Additional Source Comments INFORMATION SOURCE (unrecogn ized section and content) DATE CREATED AUTHOR 05/05/2022 [facility] DATE CREATED AUTHOR AUTHOR'S ORGANIZ ATION 08/19/2023 [facility] FOR RECORDS PERTAINING TO PATIENTS WHO ARE [...] BE BASED ON THE PRIMARY CLINICAL RECORDS. [facility] [employer] [facility]. provides no warranty or guarantee of the accuracy or completeness of information in this document.
--- NOTE | 2023-08-23 13:12 | P.CN_ITS ---
Consult Note: HPI Data of Consult Patient: new to practice Consult date: 07/30/23 Requesting Physician: Mirna Reese NP Primary Care Provider: Kumar Stokes MD Consult Narrative Reason for consult: low back pain Narrative: This is a pleasant 88yof who presents for evaluation. Fell in Dec 2022 and sustained L2 compression fracture. Imaging reviewed, severe stenosis at L1-2 and L2-3 due to retropulsion of posterior wall and disc bulge. Evaluated by spine surgeon, who did not recommend surgery at this time. Also significant left low back and buttock pain with tenderness over left PSIS. Continues in provider directed home exercise program >6 weeks, with minimal benefit. Uses tylenol otc. denies adverse med side effects. Recently underwent left SIJ with 50-75% improvement ongoing. Patient continues to have low back pain and pain in her legs, describes as an aching sharp pain worse with standing walking and bending. cc:: CC: Mirna Reese NP Review of Systems ROS Status of ROS 10 or more systems reviewed and unremark able except as noted in history and below Musculoskeletal Reports: back pain, extremity pain and joint pain PFSH PFSH Medical History Dehydration ?E86.0 - Dehydration (ICD-10) Diabetes ?E11.9 - Type 2 diabetes mellitus without complications (ICD-10) HTN (hypertension) ?I10 - Essential (primary) hypertension (ICD-10) Colon cancer ?C18.9 - Malignant neoplasm of colon, unspecified (ICD-10) COPD (chronic obstructive pulmonary disease) ?J44.9 - Chronic obstructive pulmonary disease, unspecified (ICD-10) Bronchiectasis ?J47.9 - Bronchiectasis, uncomplicated (ICD-10) Sepsis ?A41.9 - Sepsis, unspecified organism (ICD-10) LEOBARDO (acute kidney injury) ?N17.9 - Acute kidney failure, unspecified (ICD-10) Pneumonia ?J18.9 - Pneumonia, unspecified organism (ICD-10) Hypoxemia ?R09.02 - Hypoxemia (ICD-10) Meds Home Medications and Allergies Home Medications ?Medication ?Instructions ?Recorded ?Confirmed ?Type albuterol sulfate 90 mcg/actuation 2 inh inhalation BID PRN 01/13/23 08/13/23 History aerosol inhaler bronchospasm amlodipine 5 mg tablet 5 mg PO DAILY 01/13/23 08/13/23 History atorvastatin 20 mg tablet 20 mg PO DAILY 01/13/23 08/13/23 History calcitonin (salmon) 200 1 spray intranasal DAILY 01/13/23 08/13/23 History unit/actuation nasal spray dicyclomine 20 mg tablet 20 mg PO BID 01/13/23 08/13/23 History ferrous sulfate 325 mg (65 mg 325 mg PO BID 01/13/23 08/13/23 History iron) tablet (FeroSul) metoprolol tartrate 25 mg tablet 25 mg PO Q12H 01/13/23 08/13/23 History sodium chloride 0.9 % for 3 ml inhalation TID 01/13/23 08/13/23 History nebulization fluticasone propionate 230 2 inh inhalation BID 01/14/23 08/13/23 History mcg-salmeterol 21 mcg/actuation HFA inhaler (Advair HFA) flaxseed 1,000 mg capsule mg PO 07/30/23 History Allergies Allergy/AdvReac Type Severity Reaction Status Date / Time codeine Allergy Rash Verified 08/13/23 11:14 tramadol Allergy Rash Verified 08/13/23 11:14 Exam Constitutional Documenting provider has reviewed patient's vital signs: yes Common normals: no apparent distress, oriented x3, healthy appearing, alert and well nourished General appearance: cooperative HENMT Common normals: normocephalic, hearing grossly normal bilaterally and moist oral mucous membranes Head and scalp: normocephalic Eye Common normals: PERRL Pupil: PERRL Neck & C-Spine Common normals: full ROM General: normal visual inspection Chest Common normals: inspection of chest normal Respiratory Common normals: normal respiratory effort, no retractions and no use of accessory muscles Back & Pelvis Lumbar spine/lower back: ROM limited, pain with ROM and straight leg raise positive left Sacroiliac joints: SI joint(s) abnormal Other: mildly positive left positive fly(patricks), gaenslens, thigh thrust, compression test positive facet loading decreased sensation to left L4,5,S1 and positive left straight leg raise strength 5/5 in BLE Extremity Common normals: normal to inspection and full ROM Neuro Common normals: oriented x3, CN's II-XII intact bilaterally, moves all extremities, no focal motor deficits, no sensory deficits noted and deep tendon reflexes 2+ bilaterally Sensorium/orientation: alert Motor exam: strength 5/5 throughout and no movement abnormalities noted Psych Common normals: mental status grossly normal, thought process normal, cooperative, affect normal, speech normal and activity/motor behavior normal Speech: normal speech Thought process: normal thought process Assessment and Plan Assessment and Plan (1) Compression fracture of L2: Qualifiers: Encounter type: initial encounter Qualified Code(s): S32.020A - Wedge compression fracture of second lumbar vertebra, initial encounter for closed fracture (2) Lumbar stenosis with neurogenic claudication: (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
== END 2023-08-23 12:44 | disposition home or self-care (01) ==
LOC: PM 12:44
PROVIDERS: PCP Family Medicine; Visit Provider Nurse Practitioner
DX: S32.020A Wedge compression fracture of second lumbar vertebra, initial encounter for closed fracture (principal); M48.062 Spinal stenosis, lumbar region with neurogenic claudication; M53.3 Sacrococcygeal disorders, not elsewhere classified; M47.26 Other spondylosis with radiculopathy, lumbar region
CPT/HCPCS: G0463

== ENCOUNTER 2023-11-21 12:33 | Outpatient (OUT) | payer MEDICARE, SELFPAY ==
--- OUTSIDE RECORDS SUMMARY | 2023-11-21 12:37 | XMS_ITS | CCD ---
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 Name Role Phone JOMARY ., DR ESCALONA [...] Unavailable HOY ., DR ESCALONA Consulting Unavailable Alee FUENTES, Heriberto Wallis Attending Unavailable Alee FUENTES, Heriberto Wallis Attending Unavailable Allergies Allergy Classification Reported Allergen(s) Allergy Type Date of Onset Reaction(s) Facility (1 source) Codeine Drug Allergy 02-26-1959 [facility] Repository (1 source) levoFLOXacin Drug Allergy [facility] Repository (1 source) Sulfonamides (Antibiotic) Drug allergy (disorder) [facility] Repository (1 source) traMADol Drug Allergy 01-28-2008 [facility] Repository Problems Active Problems Problem Classification Problem [...] of malignant neoplasm of digestive organs; Translations: [[facility] HX [facility] NEOPLASM DIGESTIV ORGN] Onset: 12-02-2021 Episodic Residual codes; unclassified (1 source) Family history of malignant neoplasm of trachea, bronchus and lung; Translations: [facility]] Onset: 12-02-2021 Episodic Residual codes; unclassified (1 source) Family history of malignant neoplasm of other organs or systems; Translations: [[facility] HX MALIG NEOPLASM OTH ORGN/SYS] Onset: 12-02-2021 [...] PAMELA ANN Date: 2022-05-03 12:41 Normal [facility] MG MAMM SCREEN 3D WAQAS CADon 11-30-2021 MG MAMM SCREEN 3D WAQAS CAD Patient: DANIELLE ABBASI Exam Date: 11/30/2021 : 1935 Gender:F Ordering : DR POLA CROSS . Admission #: [id number] Family : Order #: [id number] CLICK HERE TO VIEW EXAM RADIOLOGY REPORT [...] colon cancer at age 75. LOCATION: [facility] BREAST COMPOSITION: Extremely dense, which lowers the [...] MD on 11/30/2021 at 12:44 Normal [facility] OCC BLD IMMUNO SCREENon 10-28 OCCULT BLOOD Negative Normal NEGATIVE [facility] Comment on above: Performed By: #### O BSCRN #### [facility] [address] [place] [address] Dr. Aba Esparza T4, T3U, FTI LABCORPon 11-16 Free Thyroxine Index 2.1 Normal 1.2-4.9 [facility] Comment on above: Performed By: #### T HYLC #### [facility] [address] [place] [address] Dr. Aba Esparza T3 Uptake 33 % Normal 24-39 [facility] Comment on above: Performed By: #### T HYLC #### [facility] [address] [place] [address] Dr. Aba Esparza T4 [Mass/Vol] 6.3 ug/dL Normal 4.5-12.0 [facility] Comment on above: Performed By: #### T HYLC #### [facility] [address] [place] [address] Dr. Aba Esparza CBC AUTO DIFFon 11-15-2021 BASO # 0.0 103/ul Normal 0.0-0.1 [facility] Comment on above: Performed By: #### C BC #### [facility] [address] [place] [address] Dr. Aba Esparza Basophils/100 WBC (Bld) 0.3 % Normal 0.2-2.0 [facility] Comment on above: Performed By: #### C BC #### [facility] [address] [place] [address] Dr. Aba Esparza EO # 0.2 103/ul Normal 0.0-0.7 [facility] Comment on above: Performed By: #### C BC #### [facility] [address] [place] [address] Dr. Aba Esparza Eosinophils/100 WBC (Bld) 1.4 % Normal 0.9-7.0 [facility] Comment on above: Performed By: #### C BC #### [facility] [address] [place] [address] Dr. Aba Esparza Erythrocyte distribution width (RBC) [Ratio] 15.0 % Normal 11.0-15.0 [facility] Comment on above: Performed By: #### C BC #### [facility] [address] [place] [address] Dr. Aba Esparza Hematocrit (Bld) [Volume fraction] 42.8 % Normal 36.0-48.0 [facility] Comment on above: Performed By: #### C BC #### [facility] [address] [place] [address] Dr. Aba Esparza Hemoglobin (Bld) [Mass/Vol] 13.4 g/dL Normal 12.0-16.0 [facility] Comment on above: Performed By: #### C BC #### [facility] [address] [place] [address] Dr. Aba Esparza IG # 0.04 10e3/ul Critically high 0.00-0.03 [facility] Comment on above: Performed By: #### C BC #### [facility] [address] [place] [address] Dr. Aba Esparza IG % 0.3 % Normal 0.0-0.5 [facility] Comment on above: Performed By: #### C BC #### [facility] [address] [place] [address] Dr. Aba Esparza LYMPH # 3.6 103/ul Normal 1.2-3.8 [facility] Comment on above: Performed By: #### C BC #### [facility] [address] [place] [address] Dr. Aba Esparza Lymphocytes/100 WBC (Bld) 27.5 % Normal 20.5-60.0 [facility] Comment on above: Performed By: #### C BC #### [facility] [address] [place] [address] Dr. Aba Esparza MANUAL DIFF REQ NO Normal [facility] Comment on above: Performed By: #### C BC #### [facility] [address] [place] [address] Dr. Aba Esparza MCH (RBC) [Entitic mass] 27.6 pg Normal 26.7-34.0 [facility] Comment on above: Performed By: #### C BC #### [facility] [address] [place] [address] Dr. Aba Esparza MCHC (RBC) [Mass/Vol] 31.3 g/dL Normal 29.9-35.2 [facility] Comment on above: Performed By: #### C BC #### [facility] [address] [place] [address] Dr. Aba Esparza MCV (RBC) [Entitic vol] 88.1 fL Normal 81.0-99.0 [facility] Comment on above: Performed By: #### C BC #### [facility] [address] [place] [address] Dr. Aba Esparza MONO # 0.9 103/ul Critically high 0.3-0.8 [facility] Comment on above: Performed By: #### C BC #### [facility] [address] [place] [address] Dr. Aba Esparza Monocytes/100 WBC (Bld) 7.0 % Normal 1.7-12.0 [facility] Comment on above: Performed By: #### C BC #### [facility] [address] [place] [address] Dr. Aba Esparza NEUT # 8.3 103/ul Critically high 1.4-6.5 [facility] Comment on above: Performed By: #### C BC #### [facility] [address] [place] [address] Dr. Aba Esparza Neutrophils/100 WBC (Bld) 63.5 % Normal 43.0-75.0 [facility] Comment on above: Performed By: #### C BC #### [facility] [address] [place] [address] Dr. Aba Esparza Platelet mean volume (Bld) [Entitic vol] 9.0 fL Critically low 9.5-13.5 [facility] Comment on above: Performed By: #### C BC #### [facility] [address] [place] [address] Dr. Aba Esparza PLT 198 103/ul Normal 150-450 [facility] Comment on above: Performed By: #### C BC #### [facility] [address] [address] [address] Aba Esparza RBC 4.86 106/ul Normal 4.20-5.40 [facility] Comment on above: Performed By: #### C BC #### [facility] [address] [address] [address] Aba Esparza WBC 13.1 103/ul Critically high 4.0-11.0 [facility] Comment on above: Performed By: #### C BC #### [facility] [address] [address] [address] Aba Esparza GLYCOHEMOGLOBIN A1Con 2021 ADA RECOMMENDATION SEE BELOW Normal [facility] Comment on above: Result Comment: ADA RECOMMENDED LIMIT 4.0 - 6.0 ADA THERAPEUTIC TARGET < 7.0 ACTION SUGGESTED > 7.0 Performed By: #### A 1C ####[facility] [id number] [address]Dr. Aba Esparza Glucose [Mass/Vol] 126 mg/dL Normal [facility] Comment on above: Performed By: #### A 1C ####[facility] [id number] [address]Dr. Aba Esparza HbA1c (Bld) [Mass fraction] 6.0 % Normal 4.5-6.2 [facility] Comment on above: Performed By: #### A 1C ####[facility] [id number] [address]Dr. Aba Esparza IRONon 11-15-2021 Iron [Mass/Vol] 34.0 ug/dL Critically low 50.0-170.0 [facility] Comment on above: Performed By: #### I ELIZA #### [facility] [address] [address] [address] Aba Esparza LIPID PROFILEon 11-15-2021 CHOL-HDL RATIO NORM SEE BELOW Normal [facility] Comment on above: Result Comment: 3.3 - 4.4 LOW RISK 4.4 - 7.1 AVERAGE RISK 7.1 - 11.0 MODERATE RISK >11.0 HIGH RISK Performed By: #### L IPID, CMP, TSH #### [facility] [address] [address] [address] Aba Esparza Cholesterol [Mass/Vol] 120 mg/dL Normal <=200 [facility] Comment on above: Performed By: #### L IPID, CMP, TSH #### [facility] [address] [address] [address] Aba Esparza Cholesterol in HDL [Mass/Vol] 40 mg/dL Normal 40-60 [facility] Comment on above: Performed By: #### L IPID, CMP, TSH #### [facility] [address] [place] [address] Dr. Aba Esparza Cholesterol in LDL [Mass/Vol] 45.8 mg/dL Normal [facility] Comment on above: Performed By: #### L IPID, CMP, TSH #### [facility] [address] [place] [address] Dr. Aba Esparza Cholesterol.total/Cho lesterol in HDL [Mass ratio] 3.0 {ratio} Normal [facility] Comment on above: Performed By: #### L IPID, CMP, TSH #### [facility] [address] [place] [address] Dr. Aba Esparza HDL NORMAL > or = 60 mg/dl - LOW CARDIOVASCULAR RISK <40 mg/dl - HIGH CARDIOVASCULAR RISK Normal [facility] Comment on above: Performed By: #### L IPID, CMP, TSH #### [facility] [address] [place] [address] Dr. Aba Esparza LDL CALC NORMAL SEE BELOW Normal [facility] Comment on above: Result Comment: <100 mg/dl OPTIMAL 100 - 129 mg/dl NEAR OR ABOVE OPTIMAL 130 - 159 mg/dl BORDERLINE HIGH 160 - 189 mg/dl HIGH >190 mg/dl VERY HIGH Performed By: #### L IPID, CMP, TSH #### [facility] [address] [place] [address] Dr. Aba Esparza Triglyceride [Mass/Vol] 171 mg/dL Critically high <=150 [facility] Comment on above: Performed By: #### L IPID, CMP, TSH #### [facility] [address] [address] [address] Aba Esparza VLDL CALC 34.2 mg/dL Normal [facility] Comment on above: Performed By: #### L IPID, CMP, TSH #### [facility] [address] [address] [address] Aba Esparza PROF 14(COMP METB)on 022 Albumin [Mass/Vol] 3.9 g/dL Normal 3.4-5.0 [facility] Comment on above: Performed By: #### L IPID, CMP, TSH #### [facility] [address] [place] [address] Dr. Aba Esparza Albumin/Globulin [Mass ratio] 1.0 {ratio} Normal [facility] Comment on above: Performed By: #### L IPID, CMP, TSH #### [facility] [address] [place] [address] Dr. Aba Esparza ALP [Catalytic activity/Vol] 138 U/L Critically high 46-116 [facility] Comment on above: Performed By: #### L IPID, CMP, TSH #### [facility] [address] [place] [address] Dr. Aba Esparza ALT [Catalytic activity/Vol] 23 U/L Normal 14-59 [facility] Comment on above: Performed By: #### L IPID, CMP, TSH #### [facility] [address] [address] [address] Aba Esparza Anion gap [Moles/Vol] 12.7 mmol/L Normal [facility] Comment on above: Performed By: #### L IPID, CMP, TSH #### [facility] [address] [place] [address] Dr. Aba Esparza AST [Catalytic activity/Vol] 24 U/L Normal 15-37 [facility] Comment on above: Performed By: #### L IPID, CMP, TSH #### [facility] [address] [place] [address] Dr. Aba Esparza Bilirubin [Mass/Vol] 0.6 mg/dL Normal 0.2-1.0 [facility] Comment on above: Performed By: #### L IPID, CMP, TSH #### [facility] [address] [address] [address] Aba Esparza Calcium [Mass/Vol] 9.4 mg/dL Normal 8.5-10.1 [facility] Comment on above: Performed By: #### L IPID, CMP, TSH #### [facility] [address] [address] [address] Aba Esparza Chloride [Moles/Vol] 104 mmol/L Normal 98-107 [facility] Comment on above: Performed By: #### L IPID, CMP, TSH #### [facility] [address] [place] [address] Dr. Aba Esparza CO2 [Moles/Vol] 27.3 mmol/L Normal 21.0-32.0 [facility] Comment on above: Performed By: #### L IPID, CMP, TSH #### [facility] [address] [place] [address] Dr. Aba Esparza Creatinine [Mass/Vol] 0.90 mg/dL Normal 0.55-1.02 [facility] Comment on above: Performed By: #### L IPID, CMP, TSH #### [facility] [address] [place] [address] Dr. Aba Esparza EGFR-AF TRISTANIAN >60 Normal >=60 [facility] Comment on above: Performed By: #### L IPID, CMP, TSH #### [facility] [address] [place] [address] Dr. Aba Esparza EGFR-NON AF TRISTANIAN =60 Normal >=60 [facility] Comment on above: Performed By: #### L IPID, CMP, TSH #### [facility] [address] [place] [address] Dr. Aba Esparza Globulin (S) [Mass/Vol] 3.8 g/dL Normal [facility] Comment on above: Performed By: #### L IPID, CMP, TSH #### [facility] [address] [address] [address] Aba Esparza Glucose [Mass/Vol] 112 mg/dL Critically high 74-106 [facility] Comment on above: Performed By: #### L IPID, CMP, TSH #### [facility] [address] [address] [address] Aba Esparza Potassium [Moles/Vol] 4.0 mmol/L Normal 3.5-5.1 [facility] Comment on above: Performed By: #### L IPID, CMP, TSH #### [facility] [address] [address] [address] Aba Esparza Protein [Mass/Vol] 7.7 g/dL Normal 6.4-8.2 [facility] Comment on above: Performed By: #### L IPID, CMP, TSH #### [facility] [address] [place] [address] Dr. Aba Esparza Sodium [Moles/Vol] 140 mmol/L Normal 136-145 [facility] Comment on above: Performed By: #### L IPID, CMP, TSH #### [facility] [address] [address] [address] Aba Esparza Urea nitrogen [Mass/Vol] 15.0 mg/dL Normal 7.0-18.0 [facility] Comment on above: Performed By: #### L IPID, CMP, TSH #### [facility] [address] [address] [address] Aba Esparza Urea nitrogen/Creatinine [Mass ratio] 16.7 mg/mg Normal [facility] Comment on above: Performed By: #### L IPID, CMP, TSH #### [facility] [address] [address] [address] Aba Esparza TSHon 11-15-2021 TSH 1.187 uIU/mL Normal 0.358-3.740 [facility] Comment on above: Performed By: #### L IPID, CMP, TSH #### [facility] [address] [address] [address] Aba Esparza XR DEXA BONE DENSITYon [...] by: LIAM PEREZ Date: 2021-07-01 16:18 Normal [facility] Encounters Encounter Date Encounter Type Care Provider Facility Start: 08-13-2023 End: 08-13-2023 ambulatory Heriberto Vickers MD Facility: [facility] Start: 07-30-2023 End: 07-30-2023 ambulatory Heriberto Vickers MD Facility: [facility] Start: 05-03-2022 End: 05-04-2022 ambulatory FAUSTO [...] Category Payer Medicare 2023 Unknown 1958 Medicare [id number] 1958 Unknown [id number] 1935 Unknown [id number] 2.16.84 [id number] 1935 Unknown [id number] 2.16.84 [id number] 1935 Unknown [id number] 2.16.84 [id number] 1936 Unknown [id number] 2.16.84 [id number] 1936 Unknown [id number] 2.16.84 [id number] 1936 Unknown [id number] 2.16.84 [id number] 1936 Unknown [id number] 2.16. [id number] 1935 Unknown [id number] 2.16. [id number] Summary Purpose Family History No Family History Records FoundNo Family History Records Found Advance Directives No Advanced Directives Records FoundNo Advanced Directives Records Found Additional Source Comments INFORMATION SOURCE (unrecogn ized section and content) DATE CREATED AUTHOR 05/05/2022 [facility] DATE CREATED AUTHOR AUTHOR'S ORGANIZ ATION 08/19/2023 [facility] FOR RECORDS PERTAINING TO PATIENTS WHO ARE [...] BE BASED ON THE PRIMARY CLINICAL RECORDS. [facility] [employer] [facility]. provides no warranty or guarantee of the accuracy or completeness of information in this document.
--- NOTE | 2023-11-21 12:42 | P.CN_ITS ---
Consult Note: HPI Data of Consult Patient: known to practice within the last 3 years Consult date: 07/30/23 Requesting Physician: Mirna Reese NP Primary Care Provider: Kumar Stokes MD Consult Narrative Reason for consult: low back pain Narrative: This is a pleasant 88yof who presents for evaluation. Fell in Dec 2022 and sustained L2 compression fracture. Imaging reviewed, severe stenosis at L1-2 and L2-3 due to retropulsion of posterior wall and disc bulge. Evaluated by spine surgeon, who did not recommend surgery at this time. Also significant left low back and buttock pain with tenderness over left PSIS. Continues in provider directed home exercise program >6 weeks, with minimal benefit. Uses tylenol otc. denies adverse med side effects. Patient continues to have low back pain and pain in her legs, describes as an aching sharp pain worse with standing walking and bending. cc:: CC: Mirna Reese NP Review of Systems ROS Status of ROS 10 or more systems reviewed and unremark able except as noted in history and below Musculoskeletal Reports: back pain and extremity pain PFSH PFSH Medical History Dehydration ?E86.0 - Dehydration (ICD-10) Diabetes ?E11.9 - Type 2 diabetes mellitus without complications (ICD-10) HTN (hypertension) ?I10 - Essential (primary) hypertension (ICD-10) Colon cancer ?C18.9 - Malignant neoplasm of colon, unspecified (ICD-10) COPD (chronic obstructive pulmonary disease) ?J44.9 - Chronic obstructive pulmonary disease, unspecified (ICD-10) Bronchiectasis ?J47.9 - Bronchiectasis, uncomplicated (ICD-10) Sepsis ?A41.9 - Sepsis, unspecified organism (ICD-10) LEOBARDO (acute kidney injury) ?N17.9 - Acute kidney failure, unspecified (ICD-10) Pneumonia ?J18.9 - Pneumonia, unspecified organism (ICD-10) Hypoxemia ?R09.02 - Hypoxemia (ICD-10) Meds Home Medications and Allergies Home Medications ?Medication ?Instructions ?Recorded ?Confirmed ?Type albuterol sulfate 90 mcg/actuation 2 inh inhalation BID PRN 01/13/23 08/13/23 History aerosol inhaler bronchospasm amlodipine 5 mg tablet 5 mg PO DAILY 01/13/23 08/13/23 History atorvastatin 20 mg tablet 20 mg PO DAILY 01/13/23 08/13/23 History calcitonin (salmon) 200 1 spray intranasal DAILY 01/13/23 08/13/23 History unit/actuation nasal spray dicyclomine 20 mg tablet 20 mg PO BID 01/13/23 08/13/23 History ferrous sulfate 325 mg (65 mg 325 mg PO BID 01/13/23 08/13/23 History iron) tablet (FeroSul) metoprolol tartrate 25 mg tablet 25 mg PO Q12H 01/13/23 08/13/23 History sodium chloride 0.9 % for 3 ml inhalation TID 01/13/23 08/13/23 History nebulization fluticasone propionate 230 2 inh inhalation BID 01/14/23 08/13/23 History mcg-salmeterol 21 mcg/actuation HFA inhaler (Advair HFA) flaxseed 1,000 mg capsule mg PO 07/30/23 History Allergies Allergy/AdvReac Type Severity Reaction Status Date / Time codeine Allergy Rash Verified 08/13/23 11:14 tramadol Allergy Rash Verified 08/13/23 11:14 Exam Constitutional Documenting provider has reviewed patient's vital signs: yes Common normals: no apparent distress, oriented x3, healthy appearing, alert and well nourished General appearance: cooperative HENMT Common normals: normocephalic, hearing grossly normal bilaterally and moist oral mucous membranes Head and scalp: normocephalic Eye Common normals: PERRL Pupil: PERRL Neck & C-Spine Common normals: full ROM General: normal visual inspection Chest Common normals: inspection of chest normal Respiratory Common normals: normal respiratory effort, no retractions and no use of accessory muscles Back & Pelvis Lumbar spine/lower back: ROM limited, pain with ROM and straight leg raise positive left Sacroiliac joints: SI joint(s) abnormal Other: positive left positive fly(patricks), gaenslens, thigh thrust, compression test positive facet loading decreased sensation to left L4,5,S1 and positive left straight leg raise strength 5/5 in BLE Extremity Common normals: normal to inspection and full ROM Neuro Common normals: oriented x3, CN's II-XII intact bilaterally, moves all extremities, no focal motor deficits, no sensory deficits noted and deep tendon reflexes 2+ bilaterally Sensorium/orientation: alert Motor exam: strength 5/5 throughout and no movement abnormalities noted Psych Common normals: mental status grossly normal, thought process normal, cooperative, affect normal, speech normal and activity/motor behavior normal Speech: normal speech Thought process: normal thought process Results Additional Findings Additional findings: If on a controlled substance or opioids, I have checked an [place] report on this patient and there are no aberrancies noted in the prescribing history.??If on a controlled substance or opioid a drug screen was completed and reviewed within the last year, and if there has not been a drug screen completed we ordered one today to monitor higher risk, state monitored pain medication use. As part of providing excellent, safe, comprehensive care, the following was completed at our patient's visit: 1. A medication reconciliation and review to ensure accurate knowledge of current/active medications, including asking our patients to inform us about any [id number] medications or herbal remedies/nutritional supplements/alternative remedies. 2. A review to specifically ensure our patients have had annual screening for screening for depression, screening for tobacco use, and screening for unhealthy alcohol use. For concerning screenings had a discussion with the patient, provided patient education, and recommended follow-up with primary care provider when appropriate. If patient noted with a risk of falling, they received education on strength, gait, and balance training to prevent future risk of falling. 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
== END 2023-11-21 12:34 | disposition home or self-care (01) ==
LOC: PM 12:34
PROVIDERS: PCP Family Medicine; Visit Provider Nurse Practitioner
DX: M48.062 Spinal stenosis, lumbar region with neurogenic claudication (principal); M53.3 Sacrococcygeal disorders, not elsewhere classified; M47.816 Spondylosis without myelopathy or radiculopathy, lumbar region; M54.16 Radiculopathy, lumbar region; S32.020A Wedge compression fracture of second lumbar vertebra, initial encounter for closed fracture
CPT/HCPCS: G0463

== ENCOUNTER 2023-12-03 09:13 | Day surgery (SDC) | payer MEDICARE, SELFPAY ==
--- OUTSIDE RECORDS SUMMARY | 2023-12-03 09:33 | XMS_ITS | CCD ---
Author Organization [facility] Care Team Providers Care Commercial Real Estate Paralegal Name Role Phone JOMARY ., DR ESCALONA [...] (1 source) Codeine Drug Allergy 02[birth year]1959 [facility] Repository (1 source) levoFLOXacin Drug Allergy [facility] Repository (1 source) Sulfonamides (Antibiotic) Drug allergy (disorder) [facility] Repository (1 source) traMADol Drug Allergy 01-28-2008 [facility] Repository Problems Active Problems Problem [...] of digestive organs; Translations: [[facility] NEOPLASM DIGESTIV ORGN] Onset: 12-02-2021 Episodic Residual codes; unclassified (1 source) Family history of malignant neoplasm of trachea, bronchus and lung; Translations: [[facility] NEOPLSM TRACH BRON LNG] Onset: 12-02-2021 Episodic Residual codes; unclassified (1 source) Family history of malignant neoplasm of other organs or systems; Translations: [[facility] HX [facility] NEOPLASM OTH ORGN/SYS] Onset: [...] PAMELA ANN Date: 2022-05-03 12:41 Normal [facility] MG MAMM SCREEN 3D WAQAS CADon 11-30-2021 MG MAMM SCREEN 3D WAQAS CAD Patient: DANIELLE ABBASI Exam Date: 11/30/2021 : 1935 Gender:F Ordering : DR POLA CROSS . Admission #: [id number] Family : Order #: [id number] CLICK HERE TO VIEW EXAM RADIOLOGY REPORT [...] colon cancer at age 75. LOCATION: [facility] BREAST COMPOSITION: Extremely dense, which [...] MD on 11/30/2021 at 12:44 Normal [facility] OCC BLD IMMUNO SCREENon 10-28 OCCULT BLOOD Negative Normal NEGATIVE [facility] Comment on above: Performed By: #### O BSCRN #### [facility] [address] [place] [address] Dr. Aba Esparza T4, T3U, FTI LABCORPon 11-16 Free Thyroxine Index 2.1 Normal 1.2-4.9 [facility] Comment on above: Performed By: #### T HYLC #### [facility] [address] [place] [address] Dr. Aba Esparza T3 Uptake 33 % Normal 24-39 [facility] Comment on above: Performed By: #### T HYLC #### [facility] [address] [place] [address] Dr. Aba Esparza T4 [Mass/Vol] 6.3 ug/dL Normal 4.5-12.0 [facility] Comment on above: Performed By: #### T HYLC #### [facility] [address] [place] [address] Dr. Aba Esparza CBC AUTO DIFFon 11-15-2021 BASO # 0.0 103/ul Normal 0.0-0.1 [facility] Comment on above: Performed By: #### C BC #### [facility] [address] [place] [address] Dr. Aba Esparza Basophils/100 WBC (Bld) 0.3 % Normal 0.2-2.0 [facility] Comment on above: Performed By: #### C BC #### [facility] [address] [place] [address] Dr. Aba Esparza EO # 0.2 103/ul Normal 0.0-0.7 [facility] Comment on above: Performed By: #### C BC #### [facility] [address] [place] [address] Dr. Aba Esparza Eosinophils/100 WBC (Bld) 1.4 % Normal 0.9-7.0 [facility] Comment on above: Performed By: #### C BC #### [facility] [address] [place] [address] Dr. Aba Esparza Erythrocyte distribution width (RBC) [Ratio] 15.0 % Normal 11.0-15.0 [facility] Comment on above: Performed By: #### C BC #### [facility] [address] [place] [address] Dr. Aba Esparza Hematocrit (Bld) [Volume fraction] 42.8 % Normal 36.0-48.0 [facility] Comment on above: Performed By: #### C BC #### [facility] [address] [place] [address] Dr. Aba Esparza Hemoglobin (Bld) [Mass/Vol] 13.4 g/dL Normal 12.0-16.0 [facility] Comment on above: Performed By: #### C BC #### [facility] [address] [place] [address] Dr. Aba Esparza IG # 0.04 10e3/ul Critically high 0.00-0.03 [facility] Comment on above: Performed By: #### C BC #### [facility] [address] [place] [address] Dr. Aba Esparza IG % 0.3 % Normal 0.0-0.5 [facility] Comment on above: Performed By: #### C BC #### [facility] [address] [place] [address] Dr. Aba Esparza LYMPH # 3.6 103/ul Normal 1.2-3.8 [facility] Comment on above: Performed By: #### C BC #### [facility] [address] [place] [address] Dr. Aba Esparza Lymphocytes/100 WBC (Bld) 27.5 % Normal 20.5-60.0 [facility] Comment on above: Performed By: #### C BC #### [facility] [address] [place] [address] Dr. Aba Esparza MANUAL DIFF REQ NO Normal [facility] Comment on above: Performed By: #### C BC #### [facility] [address] [place] [address] Dr. Aba Esparza MCH (RBC) [Entitic mass] 27.6 pg Normal 26.7-34.0 [facility] Comment on above: Performed By: #### C BC #### [facility] [address] [place] [address] Dr. Aba Esparza MCHC (RBC) [Mass/Vol] 31.3 g/dL Normal 29.9-35.2 [facility] Comment on above: Performed By: #### C BC #### [facility] [address] [place] [address] Dr. Aba Esparza MCV (RBC) [Entitic vol] 88.1 fL Normal 81.0-99.0 [facility] Comment on above: Performed By: #### C BC #### [facility] [address] [place] [address] Dr. Aba Esparza MONO # 0.9 103/ul Critically high 0.3-0.8 [facility] Comment on above: Performed By: #### C BC #### [facility] [address] [place] [address] Dr. Aba Esparza Monocytes/100 WBC (Bld) 7.0 % Normal 1.7-12.0 [facility] Comment on above: Performed By: #### C BC #### [facility] [address] [place] [address] Dr. Aba Esparza NEUT # 8.3 103/ul Critically high 1.4-6.5 [facility] Comment on above: Performed By: #### C BC #### [facility] [address] [place] [address] Dr. Aba Esparza Neutrophils/100 WBC (Bld) 63.5 % Normal 43.0-75.0 [facility] Comment on above: Performed By: #### C BC #### [facility] [address] [place] [address] Dr. Aba Esparza Platelet mean volume (Bld) [Entitic vol] 9.0 fL Critically low 9.5-13.5 [facility] Comment on above: Performed By: #### C BC #### [facility] [address] [place] [address] Dr. Aba Esparza PLT 198 103/ul Normal 150-450 [facility] Comment on above: Performed By: #### C BC #### [facility] [address] [address] [address] Aba Esparza RBC 4.86 106/ul Normal 4.20-5.40 [facility] Comment on above: Performed By: #### C BC #### [facility] [address] [address] [address] Aba Esparza WBC 13.1 103/ul Critically high 4.0-11.0 [facility] Comment on above: Performed By: #### C BC #### [facility] [address] [address] [address] Aba Esparza GLYCOHEMOGLOBIN A1Con 2021 ADA RECOMMENDATION SEE BELOW Normal [facility] Comment on above: Result Comment: ADA RECOMMENDED LIMIT 4.0 - 6.0 ADA THERAPEUTIC TARGET < 7.0 ACTION SUGGESTED > 7.0 Performed By: #### A 1C ####[facility] [id number] [address]Dr. Aba Esparza Glucose [Mass/Vol] 126 mg/dL Normal [facility] Comment on above: Performed By: #### A 1C ####[facility] [id number] [place] [address]Dr. Aba Esparza HbA1c (Bld) [Mass fraction] 6.0 % Normal 4.5-6.2 [facility] Comment on above: Performed By: #### A 1C ####[facility] [id number] [place] [address]Dr. Aba Esparza IRONon 11-15-2021 Iron [Mass/Vol] 34.0 ug/dL Critically low 50.0-170.0 [facility] Comment on above: Performed By: #### I ELIZA #### [facility] [address] [address] [address] Aba Esparza LIPID PROFILEon 11-15-2021 CHOL-HDL RATIO NORM SEE BELOW Normal [facility] Comment on above: Result Comment: 3.3 - 4.4 LOW RISK 4.4 - 7.1 AVERAGE RISK 7.1 - 11.0 MODERATE RISK >11.0 HIGH RISK Performed By: #### L IPID, CMP, TSH #### [facility] [address] [address] [address] Aba Esparza Cholesterol [Mass/Vol] 120 mg/dL Normal <=200 [facility] Comment on above: Performed By: #### L IPID, CMP, TSH #### [facility] [address] [address] [address] Aba Esparza Cholesterol in HDL [Mass/Vol] 40 mg/dL Normal 40-60 [facility] Comment on above: Performed By: #### L IPID, CMP, TSH #### [facility] [address] [place] [address] Dr. Aba Esparza Cholesterol in LDL [Mass/Vol] 45.8 mg/dL Normal [facility] Comment on above: Performed By: #### L IPID, CMP, TSH #### [facility] [address] [place] [address] Dr. Aba Esparza Cholesterol.total/Cho lesterol in HDL [Mass ratio] 3.0 {ratio} Normal [facility] Comment on above: Performed By: #### L IPID, CMP, TSH #### [facility] [address] [place] [address] Dr. Aba Esparza HDL NORMAL > or = 60 mg/dl - LOW CARDIOVASCULAR RISK <40 mg/dl - HIGH CARDIOVASCULAR RISK Normal [facility] Comment on above: Performed By: #### L IPID, CMP, TSH #### [facility] [address] [place] [address] Dr. Aba Esparza LDL CALC NORMAL SEE BELOW Normal [facility] Comment on above: Result Comment: <100 mg/dl OPTIMAL 100 - 129 mg/dl NEAR OR ABOVE OPTIMAL 130 - 159 mg/dl BORDERLINE HIGH 160 - 189 mg/dl HIGH >190 mg/dl VERY HIGH Performed By: #### L IPID, CMP, TSH #### [facility] [address] [place] [address] Dr. Aba Esparza Triglyceride [Mass/Vol] 171 mg/dL Critically high <=150 [facility] Comment on above: Performed By: #### L IPID, CMP, TSH #### [facility] [address] [address] [address] Aba Esparza VLDL CALC 34.2 mg/dL Normal [facility] Comment on above: Performed By: #### L IPID, CMP, TSH #### [facility] [address] [address] [address] Aba Esparza PROF 14(COMP METB)on 022 Albumin [Mass/Vol] 3.9 g/dL Normal 3.4-5.0 [facility] Comment on above: Performed By: #### L IPID, CMP, TSH #### [facility] [address] [place] [address] Dr. Aba Esparza Albumin/Globulin [Mass ratio] 1.0 {ratio} Normal [facility] Comment on above: Performed By: #### L IPID, CMP, TSH #### [facility] [address] [place] [address] Dr. Aba Esparza ALP [Catalytic activity/Vol] 138 U/L Critically high 46-116 [facility] Comment on above: Performed By: #### L IPID, CMP, TSH #### [facility] [address] [place] [address] Dr. Aba Esparza ALT [Catalytic activity/Vol] 23 U/L Normal 14-59 [facility] Comment on above: Performed By: #### L IPID, CMP, TSH #### [facility] [address] [address] [address] Aba Esparza Anion gap [Moles/Vol] 12.7 mmol/L Normal [facility] Comment on above: Performed By: #### L IPID, CMP, TSH #### [facility] [address] [place] [address] Dr. Aba Esparza AST [Catalytic activity/Vol] 24 U/L Normal 15-37 [facility] Comment on above: Performed By: #### L IPID, CMP, TSH #### [facility] [address] [place] [address] Dr. Aba Esparza Bilirubin [Mass/Vol] 0.6 mg/dL Normal 0.2-1.0 [facility] Comment on above: Performed By: #### L IPID, CMP, TSH #### [facility] [address] [address] [address] Aba Esparza Calcium [Mass/Vol] 9.4 mg/dL Normal 8.5-10.1 [facility] Comment on above: Performed By: #### L IPID, CMP, TSH #### [facility] [address] [address] [address] Aba Esparza Chloride [Moles/Vol] 104 mmol/L Normal 98-107 [facility] Comment on above: Performed By: #### L IPID, CMP, TSH #### [facility] [address] [place] [address] Dr. Aba Esparza CO2 [Moles/Vol] 27.3 mmol/L Normal 21.0-32.0 [facility] Comment on above: Performed By: #### L IPID, CMP, TSH #### [facility] [address] [place] [address] Dr. Aba Esparza Creatinine [Mass/Vol] 0.90 mg/dL Normal 0.55-1.02 [facility] Comment on above: Performed By: #### L IPID, CMP, TSH #### [facility] [address] [place] [address] Dr. Aba Esparza EGFR-AF PUERTO RICAN >60 Normal >=60 [facility] Comment on above: Performed By: #### L IPID, CMP, TSH #### [facility] [address] [place] [address] Dr. Aba Esparza EGFR-NON AF PUERTO RICAN =60 Normal >=60 [facility] Comment on above: Performed By: #### L IPID, CMP, TSH #### [facility] [address] [place] [address] Dr. Aba Esparza Globulin (S) [Mass/Vol] 3.8 g/dL Normal [facility] Comment on above: Performed By: #### L IPID, CMP, TSH #### [facility] [address] [address] [address] Aba Esparza Glucose [Mass/Vol] 112 mg/dL Critically high 74-106 [facility] Comment on above: Performed By: #### L IPID, CMP, TSH #### [facility] [address] [address] [address] Aba Esparza Potassium [Moles/Vol] 4.0 mmol/L Normal 3.5-5.1 [facility] Comment on above: Performed By: #### L IPID, CMP, TSH #### [facility] [address] [address] [address] Aba Esparza Protein [Mass/Vol] 7.7 g/dL Normal 6.4-8.2 [facility] Comment on above: Performed By: #### L IPID, CMP, TSH #### [facility] [address] [place] [address] Dr. Aba Esparza Sodium [Moles/Vol] 140 mmol/L Normal 136-145 [facility] Comment on above: Performed By: #### L IPID, CMP, TSH #### [facility] [address] [address] [address] Aba Esparza Urea nitrogen [Mass/Vol] 15.0 mg/dL Normal 7.0-18.0 [facility] Comment on above: Performed By: #### L IPID, CMP, TSH #### [facility] [address] [address] [address] Aba Esparza Urea nitrogen/Creatinine [Mass ratio] 16.7 mg/mg Normal [facility] Comment on above: Performed By: #### L IPID, CMP, TSH #### [facility] [address] [address] [address] Aba Esparza TSHon 11-15-2021 TSH 1.187 uIU/mL Normal 0.358-3.740 [facility] Comment on above: Performed By: #### L IPID, CMP, TSH #### [facility] [address] [address] [address] Aba Esparza XR DEXA BONE DENSITYon [...] by: LIAM PEREZ Date: 2021-07-01 16:18 Normal [facility] Encounters Encounter Date Encounter Type Care Provider Facility Start: 08-13-2023 End: 08-13-2023 ambulatory Heriberto Vickers MD Facility: [facility] Start: 07-30-2023 End: 07-30-2023 ambulatory Heriberto Vickers MD Facility: [facility] Start: 05-03-2022 End: 05-04-2022 ambulatory FAUSTO MALHOTRA [...] Category Payer Medicare 2023 Unknown 1958 Medicare [id number] 1958 Unknown [id number] 1935 Unknown [id number] 2.16.84 [id number] 1935 Unknown [id number] 2.16.84 [id number] 1935 Unknown [id number] 2.16.84 [id number] 1935 Unknown [id number] 2.16.84 [id number] 1936 Unknown [id number] 2.16.84 [id number] 1935 Unknown [id number] 2.16.84 [id number] 1935 Unknown [id number] 2.16. [id number] 1935 Unknown [id number] 2.16. [id number] Summary Purpose Family History No Family History Records FoundNo Family History Records Found Advance Directives No Advanced Directives Records FoundNo Advanced Directives Records Found Additional Source Comments INFORMATION SOURCE (unrecogn ized section and content) DATE CREATED AUTHOR 05/05/2022 [facility] DATE CREATED AUTHOR AUTHOR'S ORGANIZ ATION 08/19/2023 [facility] FOR RECORDS PERTAINING TO PATIENTS WHO [...] BE BASED ON THE PRIMARY CLINICAL RECORDS. [facility] [employer] [facility]. provides no warranty or guarantee of the accuracy or completeness of information in this document.
[2023-12-03 10:00] VITALS: BP 169/74; PULSE 53; TEMP 36.7; O2SAT 96
[2023-12-03 10:46] VITALS: BP 182/81; PULSE 55; O2SAT 98
[2023-12-03 10:47] VITALS: BP 172/79; PULSE 54; O2SAT 98
--- NOTE | 2023-12-03 10:49 | W.PM.PROCNOT ---
Date of procedure: 12/03/23 Pre-op diagnosis: Pain due to lumbar stenosis with neurogenic claudication Post-op diagnosis: same as pre-op Procedure: Procedure: Bilateral L4-5 transforaminal epidural steroid injection Medications: Bupivacaine 0.25% 2cc, lidocaine 2% 1cc, kenalog 80mg The patient was seen and examined in the preoperative holding area.? Informed consent was obtained and placed on the chart.? Patient was brought to the medical procedure unit and placed in the prone position where a timeout was completed verifying the correct patient, procedure site, position, and planned special equipment using sterile aseptic technique.? Under direct fluoroscopic visualization a 25-gauge Quincke tipped spinal needle was advanced at level left L4-5 to the designated neural foramen where contrast dye was injected to show adequate spread.? There was no evidence of vascular or adverse uptake.? Epidural spread was appreciated.? The above-mentioned injectate was then placed in a 1.5 mL aliquot preceded by negative aspiration.? The needle was removed. The same procedure, at the same level, was completed on the opposite side. ? Patient was taken to the postprocedural recovery area and monitored for an appropriate length of time before found suitable for discharge in the accompaniment of a responsible adult. Anesthesia: Local Surgeon: Heriberto Vickers Pathology: none sent Condition: stable Disposition: no change
[2023-12-03] MEDS: 0.9 % SODIUM CHLORIDE 10 ML SYRINGE - SALINE FLUSH INJ (10:50)
[2023-12-03] MEDS: IOHEXOL 240 MG/ML - 10 ML VIAL 12 MG INJ (10:50)
[2023-12-03] MEDS: BUPIVACAINE HCL 0.25% PF 25 MG/10 ML VIAL INJ (10:50)
[2023-12-03] MEDS: TRIAMCINOLONE ACETONIDE 40 MG/ML VIAL 80 MG INJ (10:51)
[2023-12-03] MEDS: LIDOCAINE HCL 2% 400 MG/20 ML MDV INJ (10:51)
== END 2023-12-03 10:55 | disposition home or self-care (01) ==
LOC: SURGOUT 09:14
PROVIDERS: PCP Family Medicine; Visit Provider Anesthesiology
DX: M48.062 Spinal stenosis, lumbar region with neurogenic claudication (principal)
CPT/HCPCS: 64483; J0665; J3301; Q9966

== ENCOUNTER 2023-12-04 13:46 | Outpatient (OUT) | payer MEDICARE, SELFPAY ==
--- NOTE | 2023-12-04 13:48 | MM_ITS ---
Patient Name: MARY VERGARA MR#: [id number] : 1935 Exam Date: 12/04/2023 Ordering Doctor: DR Kumar Stokes . RADIOLOGY REPORT PROCEDURE: MM TOMOSYNTHESIS SCREENING BI COMPARISON: MM TOMOSYNTHESIS SCREENING BI, 12/01/2022. MG MAMM SCREEN 3D WAQAS CAD, 11/30/2021. MG MAMM SCREEN 3D WAQAS CAD, 11/29/2020. MG MAMM WAQAS SCRN W CAD DIG, 11/06/2012. INDICATIONS: Screening Calculator Name NCI Breast Cancer Risk Assessment Tool 5 Year Breast Cancer Risk Not Applicable. Lifetime Breast Cancer Risk Not Applicable. Personal Breast Cancer No Personal Ovarian Cancer No Treatments Bowel resection, chemotherapy Family Cancers Sister with pancreatic cancer at age 80; Sister with lung cancer at age 78; Sister with colon cancer at age 74. LOCATION: [facility] BREAST COMPOSITION: The breasts are extremely dense, which lowers the sensitivity of mammography. FINDINGS: DIAGNOSTIC CATEGORY 2--BENIGN FINDING: RIGHT BREAST: No significant suspicious finding. No significant change has occurred. LEFT BREAST: No significant suspicious finding. Scattered benign-appearing calcifications are present. No significant change has occurred. RECOMMENDATIONS: ROUTINE MAMMOGRAM AND CLINICAL EVALUATION IN 12 MONTHS. PLEASE NOTE: A NORMAL MAMMOGRAM DOES NOT EXCLUDE THE POSSIBILITY OF BREAST CANCER. A CLINICALLY SUSPICIOUS PALPABLE LUMP SHOULD BE BIOPSIED. Dictated by: Garret Casillas M.D. on 12/05/2023 at 11:03 Approved by: Garret Casillas M.D. on 12/05/2023 at 11:10
--- OUTSIDE RECORDS SUMMARY | 2023-12-04 14:05 | XMS_ITS | CCD ---
Author Organization [facility] Care Team Providers Care Brand Sales Consultant Name Role Phone JOMARY ., DR ESCALONA [...] (1 source) Codeine Drug Allergy 02-26-1959 [facility] Repository (1 source) levoFLOXacin Drug Allergy [facility] (1 source) Sulfonamides (Antibiotic) Drug allergy (disorder) [facility] (1 source) traMADol Drug Allergy 01-28-2008 [facility] Repository Problems Active Problems Problem Classification [...] of malignant neoplasm of digestive organs; Translations: [[facility] NEOPLASM DIGESTIV ORGN] Onset: 12-02-2021 Episodic Residual codes; unclassified (1 source) Family history of malignant neoplasm of trachea, bronchus and lung; Translations: [facility]] Onset: 12-02-2021 Episodic Residual codes; unclassified (1 source) Family history of malignant neoplasm of other organs or systems; Translations: [[facility] HX MALIG NEOPLASM OTH ORGN/SYS] Onset: [...] PAMELA ANN Date: 2022-05-03 12:41 Normal [facility] MG MAMM SCREEN 3D WAQAS CADon 11-30-2021 MG MAMM SCREEN 3D WAQAS CAD Patient: DANIELLE ABBASI Exam Date: 11/30/2021 : 1935 Gender:F Ordering : DR POLA CROSS . Admission #: [id number] Family : Order #: [id number] CLICK HERE TO VIEW EXAM RADIOLOGY REPORT [...] colon cancer at age 75. LOCATION: [facility] BREAST COMPOSITION: Extremely dense, which lowers [...] MD on 11/30/2021 at 12:44 Normal [facility] OCC BLD IMMUNO SCREENon 10-28 OCCULT BLOOD Negative Normal NEGATIVE [facility] Comment on above: Performed By: #### O BSCRN #### [facility] [address] [place] [address] Dr. Aba Esparza T4, T3U, FTI LABCORPon 11-16 Free Thyroxine Index 2.1 Normal 1.2-4.9 [facility] Comment on above: Performed By: #### T HYLC #### [facility] [address] [place] [address] Dr. Aba Esparza T3 Uptake 33 % Normal 24-39 [facility] Comment on above: Performed By: #### T HYLC #### [facility] [address] [place] [address] Dr. Aba Esparza T4 [Mass/Vol] 6.3 ug/dL Normal 4.5-12.0 [facility] Comment on above: Performed By: #### T HYLC #### [facility] [address] [place] [address] Dr. Aba Esparza CBC AUTO DIFFon 11-15-2021 BASO # 0.0 103/ul Normal 0.0-0.1 [facility] Comment on above: Performed By: #### C BC #### [facility] [address] [place] [address] Dr. Aba Esparza Basophils/100 WBC (Bld) 0.3 % Normal 0.2-2.0 [facility] Comment on above: Performed By: #### C BC #### [facility] [address] [place] [address] Dr. Aba Esparza EO # 0.2 103/ul Normal 0.0-0.7 [facility] Comment on above: Performed By: #### C BC #### [facility] [address] [place] [address] Dr. Aba Esparza Eosinophils/100 WBC (Bld) 1.4 % Normal 0.9-7.0 [facility] Comment on above: Performed By: #### C BC #### [facility] [address] [place] [address] Dr. Aba Esparza Erythrocyte distribution width (RBC) [Ratio] 15.0 % Normal 11.0-15.0 [facility] Comment on above: Performed By: #### C BC #### [facility] [address] [place] [address] Dr. Aba Esparza Hematocrit (Bld) [Volume fraction] 42.8 % Normal 36.0-48.0 [facility] Comment on above: Performed By: #### C BC #### [facility] [address] [place] [address] Dr. Aba Esparza Hemoglobin (Bld) [Mass/Vol] 13.4 g/dL Normal 12.0-16.0 [facility] Comment on above: Performed By: #### C BC #### [facility] [address] [place] [address] Dr. Aba Esparza IG # 0.04 10e3/ul Critically high 0.00-0.03 [facility] Comment on above: Performed By: #### C BC #### [facility] [address] [place] [address] Dr. Aba Esparza IG % 0.3 % Normal 0.0-0.5 [facility] Comment on above: Performed By: #### C BC #### [facility] [address] [place] [address] Dr. Aba Esparza LYMPH # 3.6 103/ul Normal 1.2-3.8 [facility] Comment on above: Performed By: #### C BC #### [facility] [address] [place] [address] Dr. Aba Esparza Lymphocytes/100 WBC (Bld) 27.5 % Normal 20.5-60.0 [facility] Comment on above: Performed By: #### C BC #### [facility] [address] [place] [address] Dr. Aba Esparza MANUAL DIFF REQ NO Normal [facility] Comment on above: Performed By: #### C BC #### [facility] [address] [place] [address] Dr. Aba Esparza MCH (RBC) [Entitic mass] 27.6 pg Normal 26.7-34.0 [facility] Comment on above: Performed By: #### C BC #### [facility] [address] [place] [address] Dr. Aba Esparza MCHC (RBC) [Mass/Vol] 31.3 g/dL Normal 29.9-35.2 [facility] Comment on above: Performed By: #### C BC #### [facility] [address] [place] [address] Dr. Aba Esparza MCV (RBC) [Entitic vol] 88.1 fL Normal 81.0-99.0 [facility] Comment on above: Performed By: #### C BC #### [facility] [address] [place] [address] Dr. Aba Esparza MONO # 0.9 103/ul Critically high 0.3-0.8 [facility] Comment on above: Performed By: #### C BC #### [facility] [address] [place] [address] Dr. Aba Esparza Monocytes/100 WBC (Bld) 7.0 % Normal 1.7-12.0 [facility] Comment on above: Performed By: #### C BC #### [facility] [address] [place] [address] Dr. Aab Esparza NEUT # 8.3 103/ul Critically high 1.4-6.5 [facility] Comment on above: Performed By: #### C BC #### [facility] [address] [place] [address] Dr. Aba Esparza Neutrophils/100 WBC (Bld) 63.5 % Normal 43.0-75.0 [facility] Comment on above: Performed By: #### C BC #### [facility] [address] [place] [address] Dr. Aba Esparza Platelet mean volume (Bld) [Entitic vol] 9.0 fL Critically low 9.5-13.5 [facility] Comment on above: Performed By: #### C BC #### [facility] [address] [place] [address] Dr. Aba Esparza PLT 198 103/ul Normal 150-450 [facility] Comment on above: Performed By: #### C BC #### [facility] [address] [address] [address] Aba Esparza RBC 4.86 106/ul Normal 4.20-5.40 [facility] Comment on above: Performed By: #### C BC #### [facility] [address] [address] [address] Aba Esparza WBC 13.1 103/ul Critically high 4.0-11.0 [facility] Comment on above: Performed By: #### C BC #### [facility] [address] [address] [address] Aba Esparza GLYCOHEMOGLOBIN A1Con 2021 ADA RECOMMENDATION SEE BELOW Normal [facility] Comment on above: Result Comment: ADA RECOMMENDED LIMIT 4.0 - 6.0 ADA THERAPEUTIC TARGET < 7.0 ACTION SUGGESTED > 7.0 Performed By: #### A 1C ####[facility] [id number] [address]Dr. Aba Esparza Glucose [Mass/Vol] 126 mg/dL Normal [facility] Comment on above: Performed By: #### A 1C ####[facility] [id number] [address]Dr. Aba Esparza HbA1c (Bld) [Mass fraction] 6.0 % Normal 4.5-6.2 [facility] Comment on above: Performed By: #### A 1C ####[facility] [id number] [address]Dr. Aba Esparza IRONon 11-15-2021 Iron [Mass/Vol] 34.0 ug/dL Critically low 50.0-170.0 [facility] Comment on above: Performed By: #### I ELIZA #### [facility] [address] [address] [address] Aba Esparza LIPID PROFILEon 11-15-2021 CHOL-HDL RATIO NORM SEE BELOW Normal [facility] Comment on above: Result Comment: 3.3 - 4.4 LOW RISK 4.4 - 7.1 AVERAGE RISK 7.1 - 11.0 MODERATE RISK >11.0 HIGH RISK Performed By: #### L IPID, CMP, TSH #### [facility] [address] [address] [address] Aba Esparza Cholesterol [Mass/Vol] 120 mg/dL Normal <=200 [facility] Comment on above: Performed By: #### L IPID, CMP, TSH #### [facility] [address] [address] [address] Aba Esparza Cholesterol in HDL [Mass/Vol] 40 mg/dL Normal 40-60 [facility] Comment on above: Performed By: #### L IPID, CMP, TSH #### [facility] [address] [place] [address] Dr. Aba Esparza Cholesterol in LDL [Mass/Vol] 45.8 mg/dL Normal [facility] Comment on above: Performed By: #### L IPID, CMP, TSH #### [facility] [address] [place] [address] Dr. Aba Esparza Cholesterol.total/Cho lesterol in HDL [Mass ratio] 3.0 {ratio} Normal [facility] Comment on above: Performed By: #### L IPID, CMP, TSH #### [facility] [address] [place] [address] Dr. Aba Esparza HDL NORMAL > or = 60 mg/dl - LOW CARDIOVASCULAR RISK <40 mg/dl - HIGH CARDIOVASCULAR RISK Normal [facility] Comment on above: Performed By: #### L IPID, CMP, TSH #### [facility] [address] [place] [address] Dr. Aba Esparza LDL CALC NORMAL SEE BELOW Normal [facility] Comment on above: Result Comment: <100 mg/dl OPTIMAL 100 - 129 mg/dl NEAR OR ABOVE OPTIMAL 130 - 159 mg/dl BORDERLINE HIGH 160 - 189 mg/dl HIGH >190 mg/dl VERY HIGH Performed By: #### L IPID, CMP, TSH #### [facility] [address] [place] [address] Dr. Aba Esparza Triglyceride [Mass/Vol] 171 mg/dL Critically high <=150 [facility] Comment on above: Performed By: #### L IPID, CMP, TSH #### [facility] [address] [address] [address] Aba Esparza VLDL CALC 34.2 mg/dL Normal [facility] Comment on above: Performed By: #### L IPID, CMP, TSH #### [facility] [address] [address] [address] Aba Esparza PROF 14(COMP METB)on 022 Albumin [Mass/Vol] 3.9 g/dL Normal 3.4-5.0 [facility] Comment on above: Performed By: #### L IPID, CMP, TSH #### [facility] [address] [place] [address] Dr. Aba Esparza Albumin/Globulin [Mass ratio] 1.0 {ratio} Normal [facility] Comment on above: Performed By: #### L IPID, CMP, TSH #### [facility] [address] [place] [address] Dr. Aba Esparza ALP [Catalytic activity/Vol] 138 U/L Critically high 46-116 [facility] Comment on above: Performed By: #### L IPID, CMP, TSH #### [facility] [address] [place] [address] Dr. Aba Esparza ALT [Catalytic activity/Vol] 23 U/L Normal 14-59 [facility] Comment on above: Performed By: #### L IPID, CMP, TSH #### [facility] [address] [address] [address] Aba Esparza Anion gap [Moles/Vol] 12.7 mmol/L Normal [facility] Comment on above: Performed By: #### L IPID, CMP, TSH #### [facility] [address] [place] [address] Dr. Aba Esparza AST [Catalytic activity/Vol] 24 U/L Normal 15-37 [facility] Comment on above: Performed By: #### L IPID, CMP, TSH #### [facility] [address] [place] [address] Dr. Aba Esparza Bilirubin [Mass/Vol] 0.6 mg/dL Normal 0.2-1.0 [facility] Comment on above: Performed By: #### L IPID, CMP, TSH #### [facility] [address] [address] [address] Aba Esparza Calcium [Mass/Vol] 9.4 mg/dL Normal 8.5-10.1 [facility] Comment on above: Performed By: #### L IPID, CMP, TSH #### [facility] [address] [address] [address] Aba Esparza Chloride [Moles/Vol] 104 mmol/L Normal 98-107 [facility] Comment on above: Performed By: #### L IPID, CMP, TSH #### [facility] [address] [place] [address] Dr. Aba Esparza CO2 [Moles/Vol] 27.3 mmol/L Normal 21.0-32.0 [facility] Comment on above: Performed By: #### L IPID, CMP, TSH #### [facility] [address] [place] [address] Dr. Aba Esparza Creatinine [Mass/Vol] 0.90 mg/dL Normal 0.55-1.02 [facility] Comment on above: Performed By: #### L IPID, CMP, TSH #### [facility] [address] [place] [address] Dr. Aba Esparza EGFR-AF BELARUSIAN >60 Normal >=[address] [facility] Comment on above: Performed By: #### L IPID, CMP, TSH #### [facility] [address] [place] [address] Dr. Aba Esparza EGFR-NON AF BELARUSIAN =60 Normal >=60 [facility] Comment on above: Performed By: #### L IPID, CMP, TSH #### [facility] [address] [place] [address] Dr. Aba Esparza Globulin (S) [Mass/Vol] 3.8 g/dL Normal [facility] Comment on above: Performed By: #### L IPID, CMP, TSH #### [facility] [address] [address] [address] Aba Esparza Glucose [Mass/Vol] 112 mg/dL Critically high 74-106 [facility] Comment on above: Performed By: #### L IPID, CMP, TSH #### [facility] [address] [address] [address] Aba Esparza Potassium [Moles/Vol] 4.0 mmol/L Normal 3.5-5.1 [facility] Comment on above: Performed By: #### L IPID, CMP, TSH #### [facility] [address] [address] [address] Aba Esparza Protein [Mass/Vol] 7.7 g/dL Normal 6.4-8.2 [facility] Comment on above: Performed By: #### L IPID, CMP, TSH #### [facility] [address] [place] [address] Dr. Aba Esparza Sodium [Moles/Vol] 140 mmol/L Normal 136-145 [facility] Comment on above: Performed By: #### L IPID, CMP, TSH #### [facility] [address] [address] [address] Aba Esparza Urea nitrogen [Mass/Vol] 15.0 mg/dL Normal 7.0-18.0 [facility] Comment on above: Performed By: #### L IPID, CMP, TSH #### [facility] [address] [address] [address] Aba Esparza Urea nitrogen/Creatinine [Mass ratio] 16.7 mg/mg Normal [facility] Comment on above: Performed By: #### L IPID, CMP, TSH #### [facility] [address] [address] [address] Aba Esparza TSHon 11-15-2021 TSH 1.187 uIU/mL Normal 0.358-3.740 [facility] Comment on above: Performed By: #### L IPID, CMP, TSH #### [facility] [address] [address] [address] Aba Esparza XR DEXA BONE DENSITYon [...] by: LIAM PEREZ Date: 2021-07-01 16:18 Normal [facility] Encounters Encounter Date Encounter Type Care Provider Facility Start: 08-13-2023 End: 08-13-2023 ambulatory Heriberto Vickers MD Facility: [facility] Start: 07-30-2023 End: 07-30-2023 ambulatory Heriberto Vickers MD Facility: [facility] Start: 05-03-2022 End: 05-04-2022 ambulatory FAUSTO MALHOTRA [...] Category Payer Medicare 2023 Unknown 1958 Medicare [id number] 1958 Unknown [id number] 1935 Unknown [id number] 2.16.84 [id number] 1935 Unknown [id number] 2.16.84 [id number] 1935 Unknown [id number] 2.16.84 [id number] 1935 Unknown [id number] 2.16.84 [id number] 1935 Unknown [id number] 2.16.84 [id number] 1935 Unknown [id number] 2.16.84 [id number] 1935 Unknown [id number] 2.16. [id number] 1935 Unknown [id number] 2.16. [id number] Summary Purpose Family History No Family History Records FoundNo Family History Records Found Advance Directives No Advanced Directives Records FoundNo Advanced Directives Records Found Additional Source Comments INFORMATION SOURCE (unrecogn ized section and content) DATE CREATED AUTHOR 05/05/2022 [facility] DATE CREATED AUTHOR AUTHOR'S ORGANIZ ATION 08/19/2023 [facility] FOR RECORDS PERTAINING TO PATIENTS [...] BE BASED ON THE PRIMARY CLINICAL RECORDS. [facility] [employer] [facility]. provides no warranty or guarantee of the accuracy or completeness of information in this document.
== END 2023-12-04 13:47 | disposition home or self-care (01) ==
LOC: MAMMO 13:46
PROVIDERS: PCP Family Medicine; Visit Provider Family Medicine
DX: Z12.31 Encounter for screening mammogram for malignant neoplasm of breast (principal); Z80.1 Family history of malignant neoplasm of trachea, bronchus and lung; Z80.0 Family history of malignant neoplasm of digestive organs; Z80.8 Family history of malignant neoplasm of other organs or systems
CPT/HCPCS: 77063; 77067

== ENCOUNTER 2023-12-18 13:03 | Outpatient (OUT) | payer MEDICARE, SELFPAY ==
--- NOTE | 2023-12-18 | CONS_ITS ---
PROCEDURE DATE: 12/18/2023 TO: Kumar Stokes M.D. PROCEDURE: Trigger point injection right erector spinae muscle at the L4 level. PREOPERATIVE DIAGNOSIS: Myalgia as well as spasm right erector spinae muscle POSTOPERATIVE DIAGNOSIS: Myalgia as well as spasm right erector spinae muscle. EXAMINATION: The patient had significant myofascial spasm of the right erector spinae muscle, most significant at the right L4 level, palpation of which causes patient to have referred pain to her right buttock area. She had nothing to suggest radiculopathy or myelopathy on today?s visit of her lower extremities. SOLUTION USED FOR INJECTION: 2 mL of 2% lidocaine, 2 mL of 0.25% Marcaine and 10 mg of Kenalog, total of 5 mL and 5 mL used for injection in two different locations into the erector spinae muscle at approximately L4 level. IMMEDIATE COMPLICATIONS: None. PROCEDURE: After informed consent was obtained from the patient, placed in the flexed forward position. Skin overlying the area was prepped with alcohol. 25 gauge 1 ?? needle was inserted into the substance of the right lumbar erector spinae muscle. After having a positive twitch response, we injected approximately 2.5 mL of solution. This was repeated in a similar fashion in a slightly more caudad location, still along the L4 level and into the right erector spinae muscle. Post procedure, needle was removed. Patient reports a marked reduction in pain symptoms. She is to return to the office in six weeks? time or sooner if needed. MANDEEP
--- OUTSIDE RECORDS SUMMARY | 2023-12-18 13:26 | XMS_ITS | CCD ---
Author Organization [facility] CliniSyal Care Team Providers Care Crew Attendant Name Role Phone JOMARY ., DR ESCALONA [...] (1 source) Codeine Drug Allergy 02-26-1959 [facility] Repository (1 source) levoFLOXacin Drug Allergy [facility] Repository (1 source) Sulfonamides (Antibiotic) Drug allergy (disorder) [facility] Repository (1 source) traMADol Drug Allergy 01-28-2008 [facility] Repository Problems Active Problems Problem [...] of malignant neoplasm of digestive organs; Translations: [[facility] HX [facility] NEOPLASM DIGESTIV ORGN] Onset: 12-02-2021 Episodic Residual codes; unclassified (1 source) Family history of malignant neoplasm of trachea, bronchus and lung; Translations: [facility]] Onset: 12-02-2021 Episodic Residual codes; unclassified (1 source) Family history of malignant neoplasm of other organs or systems; Translations: [[facility] HX MALIG NEOPLASM OTH ORGN/SYS] Onset: [...] PAMELA ANN Date: 2022-05-03 12:41 Normal [facility] MAMM SCREEN 3D WAQAS CADon 11-30-2021 MG MAMM SCREEN 3D WAQAS CAD Patient: DANIELLE ABBASI Exam Date: 11/30/2021 : 1935 Gender:F Ordering : DR POLA CROSS . Admission #: [id number] Family : Order #: [id number] CLICK HERE TO VIEW EXAM RADIOLOGY REPORT [...] colon cancer at age 75. LOCATION: [facility] BREAST COMPOSITION: Extremely dense, which [...] on 11/30/2021 at 12:39 Approved by: Liam ePrez MD on 11/30/2021 at 12:44 Normal [facility] OCC BLD IMMUNO SCREENon 10-28 OCCULT BLOOD Negative Normal NEGATIVE [facility] Comment on above: Performed By: #### O BSCRN #### [facility] [address] [place] [address] Dr. Aba Esparza T4, T3U, FTI LABCORPon 11-16 Free Thyroxine Index 2.1 Normal 1.2-4.9 [facility] Comment on above: Performed By: #### T HYLC #### [facility] [address] [place] [address] Dr. Aba Esparza T3 Uptake 33 % Normal 24-39 [facility] Comment on above: Performed By: #### T HYLC #### [facility] [address] [place] [address] Dr. Aba Esparza T4 [Mass/Vol] 6.3 ug/dL Normal 4.5-12.0 [facility] Comment on above: Performed By: #### T HYLC #### [facility] [address] [place] [address] Dr. Aba Esparza CBC AUTO DIFFon 11-15-2021 BASO # 0.0 103/ul Normal 0.0-0.1 [facility] Comment on above: Performed By: #### C BC #### [facility] [address] [place] [address] Dr. Aba Esparza Basophils/100 WBC (Bld) 0.3 % Normal 0.2-2.0 [facility] Comment on above: Performed By: #### C BC #### [facility] [address] [place] [address] Dr. Aba Esparza EO # 0.2 103/ul Normal 0.0-0.7 [facility] Comment on above: Performed By: #### C BC #### [facility] [address] [place] [address] Dr. Aba Esparza Eosinophils/100 WBC (Bld) 1.4 % Normal 0.9-7.0 [facility] Comment on above: Performed By: #### C BC #### [facility] [address] [place] [address] Dr. Aba Esparza Erythrocyte distribution width (RBC) [Ratio] 15.0 % Normal 11.0-15.0 [facility] Comment on above: Performed By: #### C BC #### [facility] [address] [place] [address] Dr. Aba Esparza Hematocrit (Bld) [Volume fraction] 42.8 % Normal 36.0-48.0 [facility] Comment on above: Performed By: #### C BC #### [facility] [address] [place] [address] Dr. Aba Esparza Hemoglobin (Bld) [Mass/Vol] 13.4 g/dL Normal 12.0-16.0 [facility] Comment on above: Performed By: #### C BC #### [facility] [address] [place] [address] Dr. Aba Esparza IG # 0.04 10e3/ul Critically high 0.00-0.03 [facility] Comment on above: Performed By: #### C BC #### [facility] [address] [place] [address] Dr. Aba Esparza IG % 0.3 % Normal 0.0-0.5 [facility] Comment on above: Performed By: #### C BC #### [facility] [address] [place] [address] Dr. Aba Esparza LYMPH # 3.6 103/ul Normal 1.2-3.8 [facility] Comment on above: Performed By: #### C BC #### [facility] [address] [place] [address] Dr. Aba Esparza Lymphocytes/100 WBC (Bld) 27.5 % Normal 20.5-60.0 [facility] Comment on above: Performed By: #### C BC #### [facility] [address] [place] [address] Dr. Aba Esparza MANUAL DIFF REQ NO Normal [facility] Comment on above: Performed By: #### C BC #### [facility] [address] [place] [address] Dr. Aba Esparza MCH (RBC) [Entitic mass] 27.6 pg Normal 26.7-34.0 [facility] Comment on above: Performed By: #### C BC #### [facility] [address] [address] [address] Aba Esparza MCHC (RBC) [Mass/Vol] 31.3 g/dL Normal 29.9-35.2 [facility] Comment on above: Performed By: #### C BC #### [facility] [address] [address] [address] Aba Esparza MCV (RBC) [Entitic vol] 88.1 fL Normal 81.0-99.0 [facility] Comment on above: Performed By: #### C BC #### [facility] [address] [place] [address] Dr. Aba Esparza MONO # 0.9 103/ul Critically high 0.3-0.8 [facility] Comment on above: Performed By: #### C BC #### [facility] [address] [place] [address] Dr. Aba Esparza Monocytes/100 WBC (Bld) 7.0 % Normal 1.7-12.0 [facility] Comment on above: Performed By: #### C BC #### [facility] [address] [place] [address] Dr. Aba Esparza NEUT # 8.3 103/ul Critically high 1.4-6.5 [facility] Comment on above: Performed By: #### C BC #### [facility] [address] [place] [address] Dr. Aba Esparza Neutrophils/100 WBC (Bld) 63.5 % Normal 43.0-75.0 [facility] Comment on above: Performed By: #### C BC #### [facility] [address] [place] [address] Dr. Aba Esparza Platelet mean volume (Bld) [Entitic vol] 9.0 fL Critically low 9.5-13.5 [facility] Comment on above: Performed By: #### C BC #### [facility] [address] [address] [address] bAa Esparza PLT 198 103/ul Normal 150-450 [facility] Comment on above: Performed By: #### C BC #### [facility] [address] [address] [address] Aba Esparza RBC 4.86 106/ul Normal 4.20-5.40 [facility] Comment on above: Performed By: #### C BC #### [facility] [address] [address] [address] Aba Esparza WBC 13.1 103/ul Critically high 4.0-11.0 [facility] Comment on above: Performed By: #### C BC #### [facility] [address] [address] [address] Aba Esparza GLYCOHEMOGLOBIN A1Con 2021 ADA RECOMMENDATION SEE BELOW Normal [facility] Comment on above: Result Comment: ADA RECOMMENDED LIMIT 4.0 - 6.0 ADA THERAPEUTIC TARGET < 7.0 ACTION SUGGESTED > 7.0 Performed By: #### A 1C ####[facility] [id number] [address]Dr. Aba Esparza Glucose [Mass/Vol] 126 mg/dL Normal [facility] Comment on above: Performed By: #### A 1C ####[facility] [id number] [id number][address] Aba Esparza HbA1c (Bld) [Mass fraction] 6.0 % Normal 4.5-6.2 [facility] Comment on above: Performed By: #### A 1C ####[facility] [id number] [address]Dr. Aba Esparza IRONon 11-15-2021 Iron [Mass/Vol] 34.0 ug/dL Critically low 50.0-170.0 [facility] Comment on above: Performed By: #### I ELIZA #### [facility] [address] [address] [address] Aba Esparza LIPID PROFILEon 11-15-2021 CHOL-HDL RATIO NORM SEE BELOW Normal [facility] Comment on above: Result Comment: 3.3 - 4.4 LOW RISK 4.4 - 7.1 AVERAGE RISK 7.1 - 11.0 MODERATE RISK >11.0 HIGH RISK Performed By: #### L IPID, CMP, TSH #### [facility] [address] [address] [address] Aba Esparza Cholesterol [Mass/Vol] 120 mg/dL Normal <=200 [facility] Comment on above: Performed By: #### L IPID, CMP, TSH #### [facility] [address] [address] [address] Aba Esparza Cholesterol in HDL [Mass/Vol] 40 mg/dL Normal 40-60 [facility] Comment on above: Performed By: #### L IPID, CMP, TSH #### [facility] [address] [address] [address] Aba Esparza Cholesterol in LDL [Mass/Vol] 45.8 mg/dL Normal [facility] Comment on above: Performed By: #### L IPID, CMP, TSH #### [facility] [address] [place] [address] Dr. Aba Esparza Cholesterol.total/Cho lesterol in HDL [Mass ratio] 3.0 {ratio} Normal [facility] Comment on above: Performed By: #### L IPID, CMP, TSH #### [facility] [address] [place] [address] Dr. Aba Esparza HDL NORMAL > or = 60 mg/dl - LOW CARDIOVASCULAR RISK <40 mg/dl - HIGH CARDIOVASCULAR RISK Normal [facility] Comment on above: Performed By: #### L IPID, CMP, TSH #### [facility] [address] [address] [address] Aba Esparza LDL CALC NORMAL SEE BELOW Normal [facility] Comment on above: Result Comment: <100 mg/dl OPTIMAL 100 - 129 mg/dl NEAR OR ABOVE OPTIMAL 130 - 159 mg/dl BORDERLINE HIGH 160 - 189 mg/dl HIGH >190 mg/dl VERY HIGH Performed By: #### L IPID, CMP, TSH #### [facility] [address] [address] [address] Aba Esparza Triglyceride [Mass/Vol] 171 mg/dL Critically high <=150 [facility] Comment on above: Performed By: #### L IPID, CMP, TSH #### [facility] [address] [place] [address] Dr. Aba Esparza VLDL CALC 34.2 mg/dL Normal [facility] Comment on above: Performed By: #### L IPID, CMP, TSH #### [facility] [address] [address] [address] Aba Esparza PROF 14(COMP METB)on 022 Albumin [Mass/Vol] 3.9 g/dL Normal 3.4-5.0 [facility] Comment on above: Performed By: #### L IPID, CMP, TSH #### [facility] [address] [place] [address] Dr. Aba Esparza Albumin/Globulin [Mass ratio] 1.0 {ratio} Normal [facility] Comment on above: Performed By: #### L IPID, CMP, TSH #### [facility] [address] [place] [address] Dr. Aba Esparza ALP [Catalytic activity/Vol] 138 U/L Critically high 46-116 [facility] Comment on above: Performed By: #### L IPID, CMP, TSH #### [facility] [address] [place] [address] Dr. Aba Esparza ALT [Catalytic activity/Vol] 23 U/L Normal 14-59 [facility] Comment on above: Performed By: #### L IPID, CMP, TSH #### [facility] [address] [place] [address] Dr. Aba Esparza Anion gap [Moles/Vol] 12.7 mmol/L Normal [facility] Comment on above: Performed By: #### L IPID, CMP, TSH #### [facility] [address] [place] [address] Dr. Aba Esparza AST [Catalytic activity/Vol] 24 U/L Normal 15-37 [facility] Comment on above: Performed By: #### L IPID, CMP, TSH #### [facility] [address] [address] [address] Aba Esparza Bilirubin [Mass/Vol] 0.6 mg/dL Normal 0.2-1.0 [facility] Comment on above: Performed By: #### L IPID, CMP, TSH #### [facility] [address] [place] [address] Dr. Aba Esparza Calcium [Mass/Vol] 9.4 mg/dL Normal 8.5-10.1 [facility] Comment on above: Performed By: #### L IPID, CMP, TSH #### [facility] [address] [address] [address] Aba Esparza Chloride [Moles/Vol] 104 mmol/L Normal 98-107 [facility] Comment on above: Performed By: #### L IPID, CMP, TSH #### [facility] [address] [place] [address] Dr. Aba Esparza CO2 [Moles/Vol] 27.3 mmol/L Normal 21.0-32.0 [facility] Comment on above: Performed By: #### L IPID, CMP, TSH #### [facility] [address] [place] [address] Dr. Aba Esparza Creatinine [Mass/Vol] 0.90 mg/dL Normal 0.55-1.02 [facility] Comment on above: Performed By: #### L IPID, CMP, TSH #### [facility] [address] [place] [address] Dr. Aba Esparza EGFR-AF [facility] LUCIAN >60 Normal >=60 [facility] Comment on above: Performed By: #### L IPID, CMP, TSH #### [facility] [address] [place] [address] Dr. Aba Esparza EGFR-NON AF [facility] LUCIAN =60 Normal >=60 [facility] Comment on above: Performed By: #### L IPID, CMP, TSH #### [facility] [address] [place] [address] Dr. Aba Esparza Globulin (S) [Mass/Vol] 3.8 g/dL Normal [facility] Comment on above: Performed By: #### L IPID, CMP, TSH #### [facility] [address] [place] [address] Dr. Aba Esparza Glucose [Mass/Vol] 112 mg/dL Critically high 74-106 [facility] Comment on above: Performed By: #### L IPID, CMP, TSH #### [facility] [address] [place] [address] Dr. Aba Esparza Potassium [Moles/Vol] 4.0 mmol/L Normal 3.5-5.1 [facility] Comment on above: Performed By: #### L IPID, CMP, TSH #### [facility] [address] [place] [address] Dr. Aba Esparza Protein [Mass/Vol] 7.7 g/dL Normal 6.4-8.2 [facility] Comment on above: Performed By: #### L IPID, CMP, TSH #### [facility] [address] [place] [address] Dr. Aba Esparza Sodium [Moles/Vol] 140 mmol/L Normal 136-145 [facility] Comment on above: Performed By: #### L IPID, CMP, TSH #### [facility] [address] [place] [address] Dr. Aba Esparza Urea nitrogen [Mass/Vol] 15.0 mg/dL Normal 7.0-18.0 [facility] Comment on above: Performed By: #### L IPID, CMP, TSH #### [facility] [address] [place] [address] Dr. Aba Esparza Urea nitrogen/Creatinine [Mass ratio] 16.7 mg/mg Normal [facility] Comment on above: Performed By: #### L IPID, CMP, TSH #### [facility] [address] [place] [address] Dr. Aba Esparza TSHon 11-15-2021 TSH 1.187 uIU/mL Normal 0.358-3.740 [facility] Comment on above: Performed By: #### L IPID, CMP, TSH #### [facility] [address] [place] [address] Dr. Aba Esparza XR DEXA BONE DENSITYon [...] by: LIAM PEREZ Date: 2021-07-01 16:18 Normal [facility] Encounters Encounter Date Encounter Type Care Provider Facility Start: 12-03-2023 End: 12-03-2023 ambulatory Heriberto Vickers MD Facility: [facility] Start: 08-13-2023 End: 08-13-2023 ambulatory Heriberto Vickers MD Facility: [facility] Start: 07-30-2023 End: 07-30-2023 ambulatory Heriberto Vickers MD Facility: [facility] Start: 05-03-2022 End: 05-04-2022 ambulatory FAUSTO MALHOTRA . Facility: Start: 11-30-2021 End: 12-01-[address] POLA CROSS . Facility:[facility] Start: 11-29-2021 End: 12-07-[address] POLA CROSS . Facility:[facility] Start: 11-23-2021 End: 11-23-[address] POLA CROSS . Facility:[facility] Start: 11-15-2021 End: 11-16-[address] POLA CROSS . Facility:[facility] Start: 07-01-2021 End: 07-02-[address] POLA CROSS . Facility: Payers Date Payer Category Payer Medicare 2023 Unknown 1958 Medicare [id number] 1958 Unknown [id number] 1935 Unknown [id number] 2.16.84 [id number] 1935 Unknown [id number] 2.16.84 [id number] 1935 Unknown [id number] 2.16.84 [id number] 1935 Unknown [id number] 2.16.84 [id number] 1935 Unknown [id number] 2.16.84 [id number] 1936 Unknown [id number] 2.16.84 [id number] 1936 Unknown [id number] 2.16. [id number] 1935 Unknown [id number] 2.16. [id number] 1935 Unknown [id number] 2.16. [id number] Summary Purpose Family History No Family History Records FoundNo Family History Records Found Advance Directives No Advanced Directives Records FoundNo Advanced Directives Records Found Additional Source Comments INFORMATION SOURCE (unrecogn ized section and content) DATE CREATED AUTHOR 05/05/2022 [facility] DATE CREATED AUTHOR AUTHOR'S ORGANIZ ATION 12/12/2023 [facility] FOR RECORDS PERTAINING TO PATIENTS WHO ARE [...] BE BASED ON THE PRIMARY CLINICAL RECORDS. [facility] [employer] [facility]. provides no warranty or guarantee of the accuracy or completeness of information in this document.
== END 2023-12-18 13:04 | disposition home or self-care (01) ==
LOC: PM 13:04
PROVIDERS: PCP Family Medicine; Visit Provider Anesthesiology Pain Medicine
DX: M79.18 Myalgia, other site (principal)
CPT/HCPCS: 20552; J0665; J1010

== ENCOUNTER 2023-12-19 15:06 | Outpatient (OUT) | payer MEDICARE, SELFPAY ==
--- OUTSIDE RECORDS SUMMARY | 2023-12-19 15:14 | XMS_ITS | CCD ---
Author Organization [facility] CliniSyfl Care Team Providers Care It Systems Engineer Name Role Phone JOMARY ., DR ESCALONA [...] Codeine Drug Allergy [birth year][address] [facility] Repository (1 source) levoFLOXacin Drug Allergy [facility] Repository (1 source) Sulfonamides (Antibiotic) Drug allergy (disorder) [facility] Repository (1 source) traMADol Drug Allergy 01-28-[address] [facility] Repository Problems Active Problems Problem [...] of malignant neoplasm of digestive organs; Translations: [[facility] NEOPLASM DIGESTIV ORGN] Onset: 12-02-2021 Episodic Residual codes; unclassified (1 source) Family history of malignant neoplasm of trachea, bronchus and lung; Translations: [facility]] Onset: 12-02-2021 Episodic Residual codes; unclassified (1 source) Family history of malignant neoplasm of other organs or systems; Translations: [[facility] HX [facility] NEOPLASM OTH ORGN/SYS] Onset: 12-02-2021 [...] PAMELA ANN Date: 2022-05-03 12:41 Normal [facility] MAMM SCREEN 3D WAQAS CADon 11-30-2021 MG MAMM SCREEN 3D WAQAS CAD Patient: DANIELLE ABBASI Exam Date: 11/30/2021 : 1935 Gender:F Ordering : DR POLA CROSS . Admission #: [id number] Family : Order #: [id number] CLICK HERE TO VIEW EXAM RADIOLOGY REPORT [...] at age 75. LOCATION: [facility] BREAST COMPOSITION: Extremely dense, which [...] 11/30/2021 at 12:44 Normal [facility] OCC BLD IMMUNO SCREENon 10-28 OCCULT BLOOD Negative Normal NEGATIVE [facility] Comment on above: Performed By: #### O BSCRN #### [facility] [address] [place] [address] Dr. Aba Esparza T4, T3U, FTI LABCORPon 11-16 Free Thyroxine Index 2.1 Normal 1.2-4.[address] [facility] Comment on above: Performed By: #### T HYLC #### [facility] [address] [place] [address] Dr. Aba Esparza T3 Uptake 33 % Normal 24-39 [facility] Comment on above: Performed By: #### T HYLC #### [facility] [address] [place] [address] Dr. Aba Esparza T4 [Mass/Vol] 6.3 ug/dL Normal 4.5-12.0 [facility] Comment on above: Performed By: #### T HYLC #### [facility] [address] [place] [address] Dr. Aba Esparza CBC AUTO DIFFon 11-15-2021 BASO # 0.0 103/ul Normal 0.0-0.1 [facility] Comment on above: Performed By: #### C BC #### [facility] [address] [place] [address] Dr. Aba Esparza Basophils/100 WBC (Bld) 0.3 % Normal 0.2-2.[address] [facility] Comment on above: Performed By: #### C BC #### [facility] [address] [place] [address] Dr. Aba Esparza EO # 0.2 103/ul Normal 0.0-0.[address] [facility] Comment on above: Performed By: #### C BC #### [facility] [address] [place] [address] Dr. Aba Esparza Eosinophils/100 WBC (Bld) 1.4 % Normal 0.9-7.[address] [facility] Comment on above: Performed By: #### C BC #### [facility] [address] [place] [address] Dr. Aba Esparza Erythrocyte distribution width (RBC) [Ratio] 15.0 % Normal 11.0-15.0 [facility] Comment on above: Performed By: #### C BC #### [facility] [address] [place] [address] Dr. Aba Esparza Hematocrit (Bld) [Volume fraction] 42.8 % Normal 36.0-48.0 [facility] Comment on above: Performed By: #### C BC #### [facility] [address] [place] [address] Dr. Aba Esparza Hemoglobin (Bld) [Mass/Vol] 13.4 g/dL Normal 12.0-16.0 [facility] Comment on above: Performed By: #### C BC #### [facility] [address] [place] [address] Dr. Aba Esparza IG # 0.04 10e3/ul Critically high 0.00-0.03 [facility] Comment on above: Performed By: #### C BC #### [facility] [address] [place] [address] Dr. Aba Esparza IG % 0.3 % Normal 0.0-0.5 [facility] Comment on above: Performed By: #### C BC #### [facility] [address] [place] [address] Dr. Aba Esparza LYMPH # 3.6 103/ul Normal 1.2-3.8 [facility] Comment on above: Performed By: #### C BC #### [facility] [address] [place] [address] Dr. Aba Esparza Lymphocytes/100 WBC (Bld) 27.5 % Normal 20.5-60.0 [facility] Comment on above: Performed By: #### C BC #### [facility] [address] [place] [address] Dr. Aba Esparza MANUAL DIFF REQ NO Normal [facility] Comment on above: Performed By: #### C BC #### [facility] [address] [place] [address] Dr. Aba Esparza MCH (RBC) [Entitic mass] 27.6 pg Normal 26.7-34.[address] [facility] Comment on above: Performed By: #### C BC #### [facility] [address] [address] [address] Aba Esparza MCHC (RBC) [Mass/Vol] 31.3 g/dL Normal 29.9-35.[address] [facility] Comment on above: Performed By: #### C BC #### [facility] [address] [address] [address] Aba Esparza MCV (RBC) [Entitic vol] 88.1 fL Normal 81.0-99.[address] [facility] Comment on above: Performed By: #### C BC #### [facility] [address] [place] [address] Dr. Aba Esparza MONO # 0.9 103/ul Critically high 0.3-0.8 [facility] Comment on above: Performed By: #### C BC #### [facility] [address] [place] [address] Dr. Aba Esparza Monocytes/100 WBC (Bld) 7.0 % Normal 1.7-12.[address] [facility] Comment on above: Performed By: #### C BC #### [facility] [address] [place] [address] Dr. Aba Esparza NEUT # 8.3 103/ul Critically high 1.4-6.5 [facility] Comment on above: Performed By: #### C BC #### [facility] [address] [place] [address] Dr. Aba Esparza Neutrophils/100 WBC (Bld) 63.5 % Normal 43.0-75.[address] [facility] Comment on above: Performed By: #### C BC #### [facility] [address] [place] [address] Dr. Aba Esparza Platelet mean volume (Bld) [Entitic vol] 9.0 fL Critically low 9.5-13.[address] [facility] Comment on above: Performed By: #### C BC #### [facility] [address] [address] [address] Aba Esparza PLT 198 103/ul Normal 150-[address] [facility] Comment on above: Performed By: #### C BC #### [facility] [address] [address] [address] Aba Esparza RBC 4.86 106/ul Normal 4.20-5.40 [facility] Comment on above: Performed By: #### C BC #### [facility] [address] [address] [address] Aba Esparza WBC 13.1 103/ul Critically high 4.0-11.0 [facility] Comment on above: Performed By: #### C BC #### [facility] [address] [address] [address] Aba Esparza GLYCOHEMOGLOBIN A1Con 2021 ADA RECOMMENDATION SEE BELOW Normal [facility] Comment on above: Result Comment: ADA RECOMMENDED LIMIT 4.0 - 6.0 ADA THERAPEUTIC TARGET < 7.0 ACTION SUGGESTED > 7.0 Performed By: #### A 1C ####[facility] [id number] [address]Dr. Aba Esparza Glucose [Mass/Vol] 126 mg/dL Normal [facility] Comment on above: Performed By: #### A 1C ####[facility] [id number] [id number]. Aba Esparza HbA1c (Bld) [Mass fraction] 6.0 % Normal 4.5-6.2 [facility] Comment on above: Performed By: #### A 1C ####[facility] [id number] [address]Dr. Aba Esparza IRONon 11-15-2021 Iron [Mass/Vol] 34.0 ug/dL Critically low 50.0-170.0 [facility] Comment on above: Performed By: #### I ELIZA #### [facility] [address] [address] [address] Aba Esparza LIPID PROFILEon 11-15-2021 CHOL-HDL RATIO NORM SEE BELOW Normal [facility] Comment on above: Result Comment: 3.3 - 4.4 LOW RISK 4.4 - 7.1 AVERAGE RISK 7.1 - 11.0 MODERATE RISK >11.0 HIGH RISK Performed By: #### L IPID, CMP, TSH #### [facility] [address] [address] [address] Aba Esparza Cholesterol [Mass/Vol] 120 mg/dL Normal <=200 [facility] Comment on above: Performed By: #### L IPID, CMP, TSH #### [facility] [address] [address] [address] Aba Esparza Cholesterol in HDL [Mass/Vol] 40 mg/dL Normal 40-60 [facility] Comment on above: Performed By: #### L IPID, CMP, TSH #### [facility] [address] [address] [address] Aba Esparza Cholesterol in LDL [Mass/Vol] 45.8 mg/dL Normal [facility] Comment on above: Performed By: #### L IPID, CMP, TSH #### [facility] [address] [place] [address] Dr. Aba Esparza Cholesterol.total/Cho lesterol in HDL [Mass ratio] 3.0 {ratio} Normal [facility] Comment on above: Performed By: #### L IPID, CMP, TSH #### [facility] [address] [place] [address] Dr. Aba Esparza HDL NORMAL > or = 60 mg/dl - LOW CARDIOVASCULAR RISK <40 mg/dl - HIGH CARDIOVASCULAR RISK Normal [facility] Comment on above: Performed By: #### L IPID, CMP, TSH #### [facility] [address] [address] [address] Aba Esparza LDL CALC NORMAL SEE BELOW Normal [facility] Comment on above: Result Comment: <100 mg/dl OPTIMAL 100 - 129 mg/dl NEAR OR ABOVE OPTIMAL 130 - 159 mg/dl BORDERLINE HIGH 160 - 189 mg/dl HIGH >190 mg/dl VERY HIGH Performed By: #### L IPID, CMP, TSH #### [facility] [address] [address] [address] Aba Esparza Triglyceride [Mass/Vol] 171 mg/dL Critically high <=150 [facility] Comment on above: Performed By: #### L IPID, CMP, TSH #### [facility] [address] [place] [address] Dr. Aba Esparza VLDL CALC 34.2 mg/dL Normal [facility] Comment on above: Performed By: #### L IPID, CMP, TSH #### [facility] [address] [address] [address] Aba Esparza PROF 14(COMP METB)on 022 Albumin [Mass/Vol] 3.9 g/dL Normal 3.4-5.0 [facility] Comment on above: Performed By: #### L IPID, CMP, TSH #### [facility] [address] [place] [address] Dr. Aba Esparza Albumin/Globulin [Mass ratio] 1.0 {ratio} Normal [facility] Comment on above: Performed By: #### L IPID, CMP, TSH #### [facility] [address] [place] [address] Dr. Aba Esparza ALP [Catalytic activity/Vol] 138 U/L Critically high 46-116 [facility] Comment on above: Performed By: #### L IPID, CMP, TSH #### [facility] [address] [place] [address] Dr. Aba Esparza ALT [Catalytic activity/Vol] 23 U/L Normal 14-59 [facility] Comment on above: Performed By: #### L IPID, CMP, TSH #### [facility] [address] [place] [address] Dr. Aba Esparza Anion gap [Moles/Vol] 12.7 mmol/L Normal [facility] Comment on above: Performed By: #### L IPID, CMP, TSH #### [facility] [address] [place] [address] Dr. Aba Esparza AST [Catalytic activity/Vol] 24 U/L Normal 15-37 [facility] Comment on above: Performed By: #### L IPID, CMP, TSH #### [facility] [address] [address] [address] Aba Esparza Bilirubin [Mass/Vol] 0.6 mg/dL Normal 0.2-1.0 [facility] Comment on above: Performed By: #### L IPID, CMP, TSH #### [facility] [address] [place] [address] Dr. Aba Esparza Calcium [Mass/Vol] 9.4 mg/dL Normal 8.5-10.1 [facility] Comment on above: Performed By: #### L IPID, CMP, TSH #### [facility] [address] [address] [address] Aba Esparza Chloride [Moles/Vol] 104 mmol/L Normal 98-107 [facility] Comment on above: Performed By: #### L IPID, CMP, TSH #### [facility] [address] [place] [address] Dr. Aba Esparza CO2 [Moles/Vol] 27.3 mmol/L Normal 21.0-32.0 [facility] Comment on above: Performed By: #### L IPID, CMP, TSH #### [facility] [address] [place] [address] Dr. Aba Esparza Creatinine [Mass/Vol] 0.90 mg/dL Normal 0.55-1.02 [facility] Comment on above: Performed By: #### L IPID, CMP, TSH #### [facility] [address] [place] [address] Dr. Aba Esparza EGFR-AF LITHUANIAN >60 Normal >=60 [facility] Comment on above: Performed By: #### L IPID, CMP, TSH #### [facility] [address] [place] [address] Dr. Aba Esparza EGFR-NON AF LITHUANIAN =60 Normal >=60 [facility] Comment on above: Performed By: #### L IPID, CMP, TSH #### [facility] [address] [place] [address] Dr. Aba Esparza Globulin (S) [Mass/Vol] 3.8 g/dL Normal [facility] Comment on above: Performed By: #### L IPID, CMP, TSH #### [facility] [address] [place] [address] Dr. Aba Esparza Glucose [Mass/Vol] 112 mg/dL Critically high 74-106 [facility] Comment on above: Performed By: #### L IPID, CMP, TSH #### [facility] [address] [place] [address] Dr. Aba Esparza Potassium [Moles/Vol] 4.0 mmol/L Normal 3.5-5.1 [facility] Comment on above: Performed By: #### L IPID, CMP, TSH #### [facility] [address] [place] [address] Dr. Aba Esparza Protein [Mass/Vol] 7.7 g/dL Normal 6.4-8.2 [facility] Comment on above: Performed By: #### L IPID, CMP, TSH #### [facility] [address] [place] [address] Dr. Aba Esparza Sodium [Moles/Vol] 140 mmol/L Normal 136-145 [facility] Comment on above: Performed By: #### L IPID, CMP, TSH #### [facility] [address] [place] [address] Dr. Aba Esparza Urea nitrogen [Mass/Vol] 15.0 mg/dL Normal 7.0-18.0 [facility] Comment on above: Performed By: #### L IPID, CMP, TSH #### [facility] [address] [place] [address] Dr. Aba Esparza Urea nitrogen/Creatinine [Mass ratio] 16.7 mg/mg Normal [facility] Comment on above: Performed By: #### L IPID, CMP, TSH #### [facility] [address] [place] [address] Dr. Aba Esparza TSHon 11-15-2021 TSH 1.187 uIU/mL Normal 0.358-3.740 [facility] Comment on above: Performed By: #### L IPID, CMP, TSH #### [facility] [address] [place] [address] Dr. Aba Esparza XR DEXA BONE DENSITYon [...] by: LIAM PEREZ Date: 2021-07-01 16:18 Normal [facility] Encounters Encounter Date Encounter Type Care Provider Facility Start: 12-03-2023 End: 12-03-2023 ambulatory Heriberto Vickers MD Facility: [facility] Start: 08-13-2023 End: 08-13-2023 ambulatory Heriberto Vickers MD Facility: [facility] Start: 07-30-2023 End: 07-30-2023 ambulatory Heriberto Vickers MD Facility: [facility] Start: 05-03-2022 End: 05-04-2022 ambulatory [...] Category Payer Medicare 2023 Unknown 1958 Medicare [id number] 1958 Unknown [id number] 1935 Unknown [id number] 2.16.84 [id number] 1935 Unknown [id number] 2.16.84 [id number] 1935 Unknown [id number] 2.16.84 [id number] 1935 Unknown [id number] 2.16.84 [id number] 1935 Unknown [id number] 2.16.84 [id number] 1936 Unknown [id number] 2.16.84 [id number] 1935 Unknown [id number] 2.16. [id number] 1935 Unknown [id number] 2.16. [id number] 1935 Unknown [id number] 2.16. [id number] Summary Purpose Family History No Family History Records FoundNo Family History Records Found Advance Directives No Advanced Directives Records FoundNo Advanced Directives Records Found Additional Source Comments INFORMATION SOURCE (unrecogn ized section and content) DATE CREATED AUTHOR 05/05/2022 [facility] DATE CREATED AUTHOR AUTHOR'S ORGANIZ ATION 12/12/2023 [facility] FOR RECORDS PERTAINING TO PATIENTS WHO [...] BE BASED ON THE PRIMARY CLINICAL RECORDS. [facility] [facility]. provides no warranty or guarantee of the accuracy or completeness of information in this document.
[2023-12-19 15:34] LABS: Basophils Percent Auto 0.2 % (0.2-2.0); Eosinophils Percent Auto 0.3 % (0.9-7.0); Hematocrit 43.8 % (36.0-48.0); Hemoglobin 14.4 g/dL (12.0-16.0); Immature Granulocytes Pct Auto 0.9 % (0.0-0.5); Lymphocytes Absolute Auto 2.3 10^3/uL (1.2-3.8); Lymphocytes Percent Auto 19.3 % (20.5-60.0); Mean Corpuscular HGB Conc 32.9 g/dL (29.9-35.2); Mean Corpuscular Hemoglobin 30.9 pg (26.7-34.0); Mean Platelet Volume 9.2 fL (9.5-13.5); Monocytes Absolute Auto 0.8 10^3/uL (0.3-0.8); Monocytes Percent Auto 6.6 % (1.7-12.0); Neutrophils Absolute Auto 8.5 10^3/uL (1.4-6.5); Neutrophils Percent Auto 72.7 % (43.0-75.0); Platelet Count 167 10^3/uL (150-450); Red Blood Count 4.66 10^6/uL (4.20-5.40); White Blood Count 11.7 10^3/uL (4.0-11.0)
[2023-12-19 15:55] LABS: Estimated Average Glucose 120 mg/dL; Glycohemoglobin A1C 5.8 % (4.5-6.2)
[2023-12-19 16:19] LABS: Alanine Aminotransferase 51 U/L (14-59); Albumin Globulin Ratio 1.3; Albumin Level 4.1 g/dL (3.4-5.0); Alkaline Phosphatase 104 U/L (46-116); Anion Gap 13.7; Aspartate Amino Transferase 24 U/L (15-37); BUN Creatinine Ratio 25.8; Bilirubin Total 0.7 mg/dL (0.2-1.0); Calcium 9.9 mg/dL (8.5-10.1); Carbon Dioxide 29.7 mmol/L (21.0-32.0); Chloride 105 mmol/L (98-107); Chol HDL Ratio 3.3; Cholesterol 186 mg/dL (<=200); Estimated GFR (African America >60 (>=60 mL/min/1.73m^2); Estimated GFR (Non-African Ame 60 (>=60 mL/min/1.73m^2); Free T3 1.67 pg/mL (2.18-3.98); Globulin 3.1 g/dL; Glucose 112 mg/dL (74-106); HDL Cholesterol 56 mg/dL (40-60); Potassium 4.4 mmol/L (3.5-5.1); Sodium 144 mmol/L (136-145); Thyroid Stimulating Hormone 0.387 uIU/mL (0.358-3.740); Total Protein 7.2 g/dL (6.4-8.2); Triglycerides 178 mg/dL (<=150); VLDL CHOLESTEROL 35.6 mg/dL
== END 2023-12-19 15:07 | disposition home or self-care (01) ==
LOC: LAB 15:07
PROVIDERS: PCP Family Medicine; Visit Provider Family Medicine
DX: D64.9 Anemia, unspecified (principal); I10 Essential (primary) hypertension; S32.020K Wedge compression fracture of second lumbar vertebra, subsequent encounter for fracture with nonunion; E44.0 Moderate protein-calorie malnutrition; J47.0 Bronchiectasis with acute lower respiratory infection; J96.11 Chronic respiratory failure with hypoxia; E03.9 Hypothyroidism, unspecified; E55.9 Vitamin D deficiency, unspecified
CPT/HCPCS: 36415; 80053; 80061; 82306; 83036; 83540; 84436; 84443; 84481; 85025

== ENCOUNTER 2024-01-18 11:55 | Outpatient (OUT) | payer MEDICARE, SELFPAY ==
--- OUTSIDE RECORDS SUMMARY | 2024-01-18 11:59 | XMS_ITS | CCD ---
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 Name Role Phone JOMARY ., DR ESCALONA [...] (1 source) Codeine Drug Allergy 02-26-1959 [facility] Repository (1 source) levoFLOXacin Drug Allergy [facility] (1 source) Sulfonamides (Antibiotic) Drug allergy (disorder) [facility] (1 source) traMADol Drug Allergy 01-28-2008 [facility] Repository Problems Active Problems Problem Classification [...] malignant neoplasm of digestive organs; Translations: [[facility] HX [facility] NEOPLASM DIGESTIV ORGN] Onset: 12-02-2021 Episodic Residual codes; unclassified (1 source) Family history of malignant neoplasm of trachea, bronchus and lung; Translations: [facility]] Onset: 12-02-2021 Episodic Residual codes; unclassified (1 source) Family history of malignant neoplasm of other organs or systems; Translations: [[facility] HX [facility]IG NEOPLASM OTH ORGN/SYS] [...] PAMELA ANN Date: 2022-05-03 12:41 Normal [facility] MAMM SCREEN 3D WAQAS CADon 11-30-2021 MG MAMM SCREEN 3D WAQAS CAD Patient: DANIELLE ABBASI Exam Date: 11/30/2021 : 1935 Gender:F Ordering : DR POLA CROSS . Admission #: [id number] Family : Order #: [id number] CLICK HERE TO VIEW EXAM RADIOLOGY REPORT [...] colon cancer at age 75. LOCATION: [facility] BREAST COMPOSITION: Extremely dense, which lowers [...] MD on 11/30/2021 at 12:44 Normal [facility] OCC BLD IMMUNO SCREENon 10-28 OCCULT BLOOD Negative Normal NEGATIVE [facility] Comment on above: Performed By: #### O BSCRN #### [facility] [address] [place] [address] Dr. Aba Esparza T4, T3U, FTI LABCORPon 11-16 Free Thyroxine Index 2.1 Normal 1.2-4.9 [facility] Comment on above: Performed By: #### T HYLC #### [facility] [address] [place] [address] Dr. Aba Esparza T3 Uptake 33 % Normal 24-39 [facility] Comment on above: Performed By: #### T HYLC #### [facility] [address] [place] [address] Dr. Aba Esparza T4 [Mass/Vol] 6.3 ug/dL Normal 4.5-12.0 [facility] Comment on above: Performed By: #### T HYLC #### [facility] [address] [place] [address] Dr. Aba Esparza CBC AUTO DIFFon 11-15-2021 BASO # 0.0 103/ul Normal 0.0-0.1 [facility] Comment on above: Performed By: #### C BC #### [facility] [address] [place] [address] Dr. Aba Esparza Basophils/100 WBC (Bld) 0.3 % Normal 0.2-2.0 [facility] Comment on above: Performed By: #### C BC #### [facility] [address] [place] [address] Dr. Aba Esparza EO # 0.2 103/ul Normal 0.0-0.7 [facility] Comment on above: Performed By: #### C BC #### [facility] [address] [place] [address] Dr. Aba Esparza Eosinophils/100 WBC (Bld) 1.4 % Normal 0.9-7.0 [facility] Comment on above: Performed By: #### C BC #### [facility] [address] [place] [address] Dr. Aba Esparza Erythrocyte distribution width (RBC) [Ratio] 15.0 % Normal 11.0-15.0 [facility] Comment on above: Performed By: #### C BC #### [facility] [address] [place] [address] Dr. Aba Esparza Hematocrit (Bld) [Volume fraction] 42.8 % Normal 36.0-48.0 [facility] Comment on above: Performed By: #### C BC #### [facility] [address] [place] [address] Dr. Aba Esparza Hemoglobin (Bld) [Mass/Vol] 13.4 g/dL Normal 12.0-16.0 [facility] Comment on above: Performed By: #### C BC #### [facility] [address] [place] [address] Dr. Aba Esparza IG # 0.04 10e3/ul Critically high 0.00-0.03 [facility] Comment on above: Performed By: #### C BC #### [facility] [address] [place] [address] Dr. Aba Esparza IG % 0.3 % Normal 0.0-0.5 [facility] Comment on above: Performed By: #### C BC #### [facility] [address] [place] [address] Dr. Aba Esparza LYMPH # 3.6 103/ul Normal 1.2-3.8 [facility] Comment on above: Performed By: #### C BC #### [facility] [address] [place] [address] Dr. Aba Esparza Lymphocytes/100 WBC (Bld) 27.5 % Normal 20.5-60.0 [facility] Comment on above: Performed By: #### C BC #### [facility] [address] [place] [address] Dr. Aba Esparza MANUAL DIFF REQ NO Normal [facility] Comment on above: Performed By: #### C BC #### [facility] [address] [place] [address] Dr. Aba Esparza MCH (RBC) [Entitic mass] 27.6 pg Normal 26.7-34.0 [facility] Comment on above: Performed By: #### C BC #### [facility] [address] [address] [address] Aba Esparza MCHC (RBC) [Mass/Vol] 31.3 g/dL Normal 29.9-35.2 [facility] Comment on above: Performed By: #### C BC #### [facility] [address] [address] [address] Aba Esparza MCV (RBC) [Entitic vol] 88.1 fL Normal 81.0-99.0 [facility] Comment on above: Performed By: #### C BC #### [facility] [address] [place] [address] Dr. Aba Esparza MONO # 0.9 103/ul Critically high 0.3-0.8 [facility] Comment on above: Performed By: #### C BC #### [facility] [address] [place] [address] Dr. Aba Esparza Monocytes/100 WBC (Bld) 7.0 % Normal 1.7-12.0 [facility] Comment on above: Performed By: #### C BC #### [facility] [address] [place] [address] Dr. Aba Esparza NEUT # 8.3 103/ul Critically high 1.4-6.5 [facility] Comment on above: Performed By: #### C BC #### [facility] [address] [place] [address] Dr. Aba Esparza Neutrophils/100 WBC (Bld) 63.5 % Normal 43.0-75.0 [facility] Comment on above: Performed By: #### C BC #### [facility] [address] [place] [address] Dr. Aba Esparza Platelet mean volume (Bld) [Entitic vol] 9.0 fL Critically low 9.5-13.5 [facility] Comment on above: Performed By: #### C BC #### [facility] [address] [address] [address] Aba Esparza PLT 198 103/ul Normal 150-450 [facility] Comment on above: Performed By: #### C BC #### [facility] [address] [address] [address] Aba Esparza RBC 4.86 106/ul Normal 4.20-5.40 [facility] Comment on above: Performed By: #### C BC #### [facility] [address] [address] [address] Aba Esparza WBC 13.1 103/ul Critically high 4.0-11.0 [facility] Comment on above: Performed By: #### C BC #### [facility] [address] [address] [address] Aba Esparza GLYCOHEMOGLOBIN A1Con 2021 ADA RECOMMENDATION SEE BELOW Normal [facility] Comment on above: Result Comment: ADA RECOMMENDED LIMIT 4.0 - 6.0 ADA THERAPEUTIC TARGET < 7.0 ACTION SUGGESTED > 7.0 Performed By: #### A 1C ####[facility] [address] [address]Dr. Aba Esparza Glucose [Mass/Vol] 126 mg/dL Normal [facility] Comment on above: Performed By: #### A 1C ####[facility] [address] [id number] Aba Esparza HbA1c (Bld) [Mass fraction] 6.0 % Normal 4.5-6.2 [facility] Comment on above: Performed By: #### A 1C ####[facility] [address] [address]Dr. Aba Esparza IRONon 11-15-2021 Iron [Mass/Vol] 34.0 ug/dL Critically low 50.0-170.0 [facility] Comment on above: Performed By: #### I ELIZA #### [facility] [address] [address] [address] Aba Esparza LIPID PROFILEon 11-15-2021 CHOL-HDL RATIO NORM SEE BELOW Normal [facility] Comment on above: Result Comment: 3.3 - 4.4 LOW RISK 4.4 - 7.1 AVERAGE RISK 7.1 - 11.0 MODERATE RISK >11.0 HIGH RISK Performed By: #### L IPID, CMP, TSH #### [facility] [address] [address] [address] Aba Esparza Cholesterol [Mass/Vol] 120 mg/dL Normal <=200 [facility] Comment on above: Performed By: #### L IPID, CMP, TSH #### [facility] [address] [address] [address] Aba Esparza Cholesterol in HDL [Mass/Vol] 40 mg/dL Normal 40-60 [facility] Comment on above: Performed By: #### L IPID, CMP, TSH #### [facility] [address] [address] [address] Aba Esparza Cholesterol in LDL [Mass/Vol] 45.8 mg/dL Normal [facility] Comment on above: Performed By: #### L IPID, CMP, TSH #### [facility] [address] [place] [address] Dr. Aba Esparza Cholesterol.total/Cho lesterol in HDL [Mass ratio] 3.0 {ratio} Normal [facility] Comment on above: Performed By: #### L IPID, CMP, TSH #### [facility] [address] [place] [address] Dr. Aba sEparza HDL NORMAL > or = 60 mg/dl - LOW CARDIOVASCULAR RISK <40 mg/dl - HIGH CARDIOVASCULAR RISK Normal [facility] Comment on above: Performed By: #### L IPID, CMP, TSH #### [facility] [address] [address] [address] Aba Esparza LDL CALC NORMAL SEE BELOW Normal [facility] Comment on above: Result Comment: <100 mg/dl OPTIMAL 100 - 129 mg/dl NEAR OR ABOVE OPTIMAL 130 - 159 mg/dl BORDERLINE HIGH 160 - 189 mg/dl HIGH >190 mg/dl VERY HIGH Performed By: #### L IPID, CMP, TSH #### [facility] [address] [address] [address] Aba Esparza Triglyceride [Mass/Vol] 171 mg/dL Critically high <=150 [facility] Comment on above: Performed By: #### L IPID, CMP, TSH #### [facility] [address] [place] [address] Dr. Aba Esparza VLDL CALC 34.2 mg/dL Normal [facility] Comment on above: Performed By: #### L IPID, CMP, TSH #### [facility] [address] [address] [address] Aba Esparza PROF 14(COMP METB)on 022 Albumin [Mass/Vol] 3.9 g/dL Normal 3.4-5.0 [facility] Comment on above: Performed By: #### L IPID, CMP, TSH #### [facility] [address] [place] [address] Dr. Aba Esparza Albumin/Globulin [Mass ratio] 1.0 {ratio} Normal [facility] Comment on above: Performed By: #### L IPID, CMP, TSH #### [facility] [address] [place] [address] Dr. Aba Esparza ALP [Catalytic activity/Vol] 138 U/L Critically high 46-116 [facility] Comment on above: Performed By: #### L IPID, CMP, TSH #### [facility] [address] [place] [address] Dr. Aba Esparza ALT [Catalytic activity/Vol] 23 U/L Normal 14-59 [facility] Comment on above: Performed By: #### L IPID, CMP, TSH #### [facility] [address] [place] [address] Dr. Aba Esparza Anion gap [Moles/Vol] 12.7 mmol/L Normal [facility] Comment on above: Performed By: #### L IPID, CMP, TSH #### [facility] [address] [place] [address] Dr. Aba Esparza AST [Catalytic activity/Vol] 24 U/L Normal 15-37 [facility] Comment on above: Performed By: #### L IPID, CMP, TSH #### [facility] [address] [address] [address] Aba Esparza Bilirubin [Mass/Vol] 0.6 mg/dL Normal 0.2-1.0 [facility] Comment on above: Performed By: #### L IPID, CMP, TSH #### [facility] [address] [place] [address] Dr. Aba Esparza Calcium [Mass/Vol] 9.4 mg/dL Normal 8.5-10.1 [facility] Comment on above: Performed By: #### L IPID, CMP, TSH #### [facility] [address] [address] [address] Aba Esparza Chloride [Moles/Vol] 104 mmol/L Normal 98-107 [facility] Comment on above: Performed By: #### L IPID, CMP, TSH #### [facility] [address] [place] [address] Dr. Aba Esparza CO2 [Moles/Vol] 27.3 mmol/L Normal 21.0-32.0 [facility] Comment on above: Performed By: #### L IPID, CMP, TSH #### [facility] [address] [place] [address] Dr. Aba Esparza Creatinine [Mass/Vol] 0.90 mg/dL Normal 0.55-1.02 [facility] Comment on above: Performed By: #### L IPID, CMP, TSH #### [facility] [address] [place] [address] Dr. Aba Esparza EGFR-AF CZECH >60 Normal >=60 [facility] Comment on above: Performed By: #### L IPID, CMP, TSH #### [facility] [address] [place] [address] Dr. Aba Esparza EGFR-NON AF CZECH =60 Normal >=60 [facility] Comment on above: Performed By: #### L IPID, CMP, TSH #### [facility] [address] [place] [address] Dr. Aba Esparza Globulin (S) [Mass/Vol] 3.8 g/dL Normal [facility] Comment on above: Performed By: #### L IPID, CMP, TSH #### [facility] [address] [place] [address] Dr. Aba Esparza Glucose [Mass/Vol] 112 mg/dL Critically high 74-106 [facility] Comment on above: Performed By: #### L IPID, CMP, TSH #### [facility] [address] [place] [address] Dr. Aba Esparza Potassium [Moles/Vol] 4.0 mmol/L Normal 3.5-5.1 [facility] Comment on above: Performed By: #### L IPID, CMP, TSH #### [facility] [address] [place] [address] Dr. Aba Esparza Protein [Mass/Vol] 7.7 g/dL Normal 6.4-8.2 [facility] Comment on above: Performed By: #### L IPID, CMP, TSH #### [facility] [address] [place] [address] Dr. Aba Esparza Sodium [Moles/Vol] 140 mmol/L Normal 136-145 [facility] Comment on above: Performed By: #### L IPID, CMP, TSH #### [facility] [address] [place] [address] Dr. Aba Esparza Urea nitrogen [Mass/Vol] 15.0 mg/dL Normal 7.0-18.0 [facility] Comment on above: Performed By: #### L IPID, CMP, TSH #### [facility] [address] [place] [address] Dr. Aba Esparza Urea nitrogen/Creatinine [Mass ratio] 16.7 mg/mg Normal [facility] Comment on above: Performed By: #### L IPID, CMP, TSH #### [facility] [address] [place] [address] Dr. Aba Esparza TSHon 11-15-2021 TSH 1.187 uIU/mL Normal 0.358-3.740 [facility] Comment on above: Performed By: #### L IPID, CMP, TSH #### [facility] [address] [place] [address] Dr. Aba Esparza XR DEXA BONE DENSITYon [...] by: LIAM PEREZ Date: 2021-07-01 16:18 Normal [facility] Encounters Encounter Date Encounter Type Care Provider Facility Start: 12-03-2023 End: 12-03-2023 ambulatory Heriberto Vickers MD Facility: [facility] Start: 08-13-2023 End: 08-13-2023 ambulatory Heriberto Vickers MD Facility: [facility] Start: 07-30-2023 End: 07-30-2023 ambulatory Heriberto Vickers MD Facility: [facility] Start: 05-03-2022 End: 05-04-2022 ambulatory FAUSTO [...] Category Payer Medicare 2023 Unknown 1958 Medicare [id number] 1958 Unknown [id number] 1935 Unknown [id number] 2.16.84 [id number] 1935 Unknown [id number] 2.16.84 [id number] 1935 Unknown [id number] 2.16.84 [id number] 1935 Unknown [id number] 2.16.84 [id number] 1935 Unknown [id number] 2.16.84 [id number] 1935 Unknown [id number] 2.16.84 [id number] 1935 Unknown [id number] 2.16. [id number] 1935 Unknown [id number] 2.16. [id number] 1935 Unknown [id number] 2.16. [id number] Summary Purpose Family History No Family History Records FoundNo Family History Records Found Advance Directives No Advanced Directives Records FoundNo Advanced Directives Records Found Additional Source Comments INFORMATION SOURCE (unrecogn ized section and content) DATE CREATED AUTHOR 05/05/2022 [facility] DATE CREATED AUTHOR AUTHOR'S ORGANIZ ATION 12/12/2023 [facility] FOR RECORDS PERTAINING TO PATIENTS WHO [...] BE BASED ON THE PRIMARY CLINICAL RECORDS. [facility] [employer] [facility]. provides no warranty or guarantee of the accuracy or completeness of information in this document.
[2024-01-18 12:54] LABS: Free T3 2.13 pg/mL (2.18-3.98); Thyroid Stimulating Hormone 0.875 uIU/mL (0.358-3.740)
== END 2024-01-18 11:56 | disposition home or self-care (01) ==
LOC: LAB 11:55
PROVIDERS: PCP Family Medicine; Visit Provider Family Medicine
DX: E03.9 Hypothyroidism, unspecified (principal)
CPT/HCPCS: 36415; 84436; 84443; 84481

== ENCOUNTER 2024-01-30 13:14 | Outpatient (OUT) | payer MEDICARE, SELFPAY ==
--- NOTE | 2024-01-30 13:48 | P.CN_ITS ---
Consult Note: HPI Data of Consult Patient: known to practice within the last 3 years Consult date: 07/30/23 Requesting Physician: Mirna Reese NP Primary Care Provider: Kumar Stokes MD Consult Narrative Reason for consult: low back pain Narrative: This is a pleasant 88yof who presents for evaluation. Fell in Dec 2022 and sustained L2 compression fracture. Imaging reviewed, severe stenosis at L1-2 and L2-3 due to retropulsion of posterior wall and disc bulge. Evaluated by spine surgeon, who did not recommend surgery at this time. Continues in provider directed home exercise program >6 weeks, with minimal benefit. Uses tylenol otc, meloxicam and baclofen. denies adverse med side effects. Patient continues to kee ve low back pain and pain in her legs, describes as an aching sharp pain worse with standing walking and bending. cc:: CC: Mirna Reese NP Review of Systems ROS Status of ROS 10 or more systems reviewed and unremark able except as noted in h istory and below Musculoskeletal Reports: back pain PFSH PFSH Medical History Dehydration ?E86.0 - Dehydration (ICD-10) Diabetes ?E11.9 - Type 2 diabetes mellitus without complications (ICD-10) HTN (hypertension) ?I10 - Essential (primary) hypertension (ICD-10) Colon cancer ?C18.9 - Malignant neoplasm of colon, unspecified (ICD-10) COPD (chronic obstructive pulmonary disease) ?J44.9 - Chronic obstructive pulmonary disease, unspecified (ICD-10) Bronchiectasis ?J47.9 - Bronchiectasis, uncomplicated (ICD-10) Sepsis ?A41.9 - Sepsis, unspecified organism (ICD-10) LEOBARDO (acute kidney injury) ?N17.9 - Acute kidney failure, unspecified (ICD-10) Pneumonia ?J18.9 - Pneumonia, unspecified organism (ICD-10) Hypoxemia ?R09.02 - Hypoxemia (ICD-10) Meds Home Medications and Allergies Home Medications ?Medication ?Instructions ?Recorded ?Confirmed ?Type albuterol sulfate 90 mcg/actuation 2 inh inhalation BID PRN 01/13/23 12/03/23 History aerosol inhaler bronchospasm amlodipine 5 mg tablet 5 mg PO DAILY 01/13/23 12/03/23 History atorvastatin 20 mg tablet 20 mg PO DAILY 01/13/23 12/03/23 History calcitonin (salmon) 200 1 spray intranasal DAILY 01/13/23 12/03/23 History unit/actuation nasal spray dicyclomine 20 mg tablet 20 mg PO BID 01/13/23 12/03/23 History ferrous sulfate 325 mg (65 mg 325 mg PO BID 01/13/23 12/03/23 History iron) tablet (FeroSul) metoprolol tartrate 25 mg tablet 25 mg PO Q12H 01/13/23 12/03/23 History sodium chloride 0.9 % for 3 ml inhalation TID 01/13/23 12/03/23 History nebulization fluticasone propionate 230 2 inh inhalation BID 01/14/23 12/03/23 History mcg-salmeterol 21 mcg/actuation HFA inhaler (Advair HFA) flaxseed 1,000 mg capsule mg PO 07/30/23 History meloxicam 7.5 mg tablet 7.5 mg PO BID PRN pain 11/23/23 12/03/23 History Allergies Allergy/AdvReac Type Severity Reaction Status Date / Time codeine Allergy Rash Verified 12/03/23 10:01 tramadol Allergy Rash Verified 12/03/23 10:01 Exam Constitutional Documenting provider has reviewed patient's vital signs: yes Common normals: no apparent distress, oriented x3, healthy appearing, alert and well nourished General appearance: cooperative HENME Common normals: normocephalic, hearing grossly normal bilaterally and moist oral mucous membranes Head and scalp: normocephalic Eye Common normals: PERRL Pupil: PERRL Neck & C-Spine Common normals: full ROM General: normal visual inspection Chest Common normals: inspection of chest normal Respiratory Common normals: normal respiratory effort, no retractions and no use of accessory muscles Back & Pelvis Lumbar spine/lower back: ROM limited, pain with ROM, straight leg raise positive right and straight leg raise positive left Sacroiliac joints: SI joint(s) abnormal Other: positive left positive fly(patricks), gaenslens, thigh thrust, compression test positive facet loading decreased sensation to bilateral L4,5,S1 strength 5/5 in BLE Extremity Common normals: normal to inspection and full ROM Neuro Common normals: oriented x3, CN's II-XII intact bilaterally, moves all extremities, no focal motor deficits, no sensory deficits noted and deep tendon reflexes 2+ bilaterally Sensorium/orientation: alert Motor exam: strength 5/5 throughout and no movement abnormalities noted Psych Common normals: mental status grossly normal, thought process normal, cooperative, affect normal, speech normal and activity/motor behavior normal Speech: normal speech Thought process: normal thought process Results Additional Findings Additional findings: If on a controlled substance or opioids, I have checked an [place] report on this patient and there are no aberrancies noted in the prescribing history.??If on a controlled substance or opioid a drug screen was completed and reviewed within the last year, and if there has not been a drug screen completed we ordered one today to monitor higher risk, state monitored pain medication use. As part of providing excellent, safe, comprehensive care, the following was c ompleted at our patient's visit: 1. A medication reconciliation and review to ensure accurate knowledge of current/active medications, including asking our patients to inform us about any bqhy-tob-vagvlaw medications or herbal remedies/nutritional supplements/alternative remedies. 2. A review to specifically ensure our patients have had annual screening for screening for depression, screening for tobacco use, and screening for unhealthy alcohol use. For concerning screenings had a discussion with the patient, provided patient education, and recommended follow-up with primary care provider when appropriate. If patient noted with a risk of falling, they received education on strength, gait, and balance training to prevent future risk of falling. 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
== END 2024-01-30 13:15 | disposition home or self-care (01) ==
LOC: PM 13:15
PROVIDERS: PCP Family Medicine; Visit Provider Nurse Practitioner
DX: M48.062 Spinal stenosis, lumbar region with neurogenic claudication (principal); M47.816 Spondylosis without myelopathy or radiculopathy, lumbar region; M53.3 Sacrococcygeal disorders, not elsewhere classified
CPT/HCPCS: G0463

== ENCOUNTER 2024-02-25 10:50 | Day surgery (SDC) | payer MEDICARE, SELFPAY ==
--- OUTSIDE RECORDS SUMMARY | 2024-02-25 11:03 | XMS_ITS | CCD ---
Author Organization [facility] Care Team Providers Care Management Advisor Name Role Phone JOMARY ., DR ESCALONA [...] (1 source) Codeine Drug Allergy 02-26-1959 [facility] Repository (1 source) levoFLOXacin Drug Allergy [facility] Repository (1 source) Sulfonamides (Antibiotic) Drug allergy (disorder) [facility] Rep[facility] (1 source) traMADol Drug Allergy 01-28-2008 [facility] Repository Problems Active Problems Problem Classification [...] of malignant neoplasm of digestive organs; Translations: [[facility] HX [facility] NEOPLASM DIGESTIV ORGN] Onset: 12-02-2021 Episodic Residual codes; unclassified (1 source) Family history of malignant neoplasm of trachea, bronchus and lung; Translations: [facility]] Onset: 12-02-2021 Episodic Residual codes; unclassified (1 source) Family history of malignant neoplasm of other organs or systems; Translations: [[facility] HX MALIG NEOPLASM OTH ORGN/SYS] [...] Normal The [facility] MAMM SCREEN 3D WAQAS CADon 11-30-2021 MG MAMM SCREEN 3D WAQAS CAD Patient: DANIELLE ABBASI Exam Date: 11/30/2021 : 1935 Gender:F Ordering : DR POLA CROSS . Admission #: [id number] Family : Order #: [id number] CLICK HERE TO VIEW EXAM RADIOLOGY REPORT [...] colon cancer at age 75. LOCATION: [facility] BREAST COMPOSITION: Extremely dense, which lowers [...] MD on 11/30/2021 at 12:44 Normal [facility] OCC BLD IMMUNO SCREENon 10-28 OCCULT BLOOD Negative Normal NEGATIVE [facility] Comment on above: Performed By: #### O BSCRN #### [facility] [address] [place] [address] Dr. Aba Esparza T4, T3U, FTI LABCORPon 11-16 Free Thyroxine Index 2.1 Normal 1.2-4.9 [facility] Comment on above: Performed By: #### T HYLC #### [facility] [address] [place] [address] Dr. Aba Esparza T3 Uptake 33 % Normal 24-39 [facility] Comment on above: Performed By: #### T HYLC #### [facility] [address] [place] [address] Dr. Aba Esparza T4 [Mass/Vol] 6.3 ug/dL Normal 4.5-12.0 The [facility] Comment on above: Performed By: #### T HYLC #### [facility] [address] [place] [address] Dr. Aba Esparza CBC AUTO DIFFon 11-15-2021 BASO # 0.0 103/ul Normal 0.0-0.1 [facility] Comment on above: Performed By: #### C BC #### [facility] [address] [place] [address] Dr. Aba Esparza Basophils/100 WBC (Bld) 0.3 % Normal 0.2-2.0 [facility] Comment on above: Performed By: #### C BC #### [facility] [address] [place] [address] Dr. Aba Esparza EO # 0.2 103/ul Normal 0.0-0.7 [facility] Comment on above: Performed By: #### C BC #### [facility] [address] [place] [address] Dr. Aba Esparza Eosinophils/100 WBC (Bld) 1.4 % Normal 0.9-7.0 [facility] Comment on above: Performed By: #### C BC #### [facility] [address] [place] [address] Dr. Aba Esparza Erythrocyte distribution width (RBC) [Ratio] 15.0 % Normal 11.0-15.0 [facility] Comment on above: Performed By: #### C BC #### [facility] [address] [place] [address] Dr. Aba Esparza Hematocrit (Bld) [Volume fraction] 42.8 % Normal 36.0-48.0 [facility] Comment on above: Performed By: #### C BC #### [facility] [address] [place] [address] Dr. Aba Esparza Hemoglobin (Bld) [Mass/Vol] 13.4 g/dL Normal 12.0-16.0 [facility] Comment on above: Performed By: #### C BC #### [facility] [address] [place] [address] Dr. Aba Esparza IG # 0.04 10e3/ul Critically high 0.00-0.03 [facility] Comment on above: Performed By: #### C BC #### [facility] [address] [place] [address] Dr. Aba Esparza IG % 0.3 % Normal 0.0-0.5 [facility] Comment on above: Performed By: #### C BC #### [facility] [address] [place] [address] Dr. Aba Esparza LYMPH # 3.6 103/ul Normal 1.2-3.8 [facility] Comment on above: Performed By: #### C BC #### [facility] [address] [place] [address] Dr. Aba Esparza Lymphocytes/100 WBC (Bld) 27.5 % Normal 20.5-60.0 [facility] Comment on above: Performed By: #### C BC #### [facility] [address] [place] [address] Dr. Aba Esparza MANUAL DIFF REQ NO Normal [facility] Comment on above: Performed By: #### C BC #### [facility] [address] [place] [address] Dr. Aba Esparza MCH (RBC) [Entitic mass] 27.6 pg Normal 26.7-34.0 [facility] Comment on above: Performed By: #### C BC #### [facility] [address] [address] [address] Aba Esparza MCHC (RBC) [Mass/Vol] 31.3 g/dL Normal 29.9-35.2 [facility] Comment on above: Performed By: #### C BC #### [facility] [address] [address] [address] Aba Esparza MCV (RBC) [Entitic vol] 88.1 fL Normal 81.0-99.0 [facility] Comment on above: Performed By: #### C BC #### [facility] [address] [place] [address] Dr. Aba Esparza MONO # 0.9 103/ul Critically high 0.3-0.8 [facility] Comment on above: Performed By: #### C BC #### [facility] [address] [place] [address] Dr. Aba Esparza Monocytes/100 WBC (Bld) 7.0 % Normal 1.7-12.0 [facility] Comment on above: Performed By: #### C BC #### [facility] [address] [place] [address] Dr. Aba Esparza NEUT # 8.3 103/ul Critically high 1.4-6.5 [facility] Comment on above: Performed By: #### C BC #### [facility] [address] [place] [address] Dr. Aba Esparza Neutrophils/100 WBC (Bld) 63.5 % Normal 43.0-75.0 [facility] Comment on above: Performed By: #### C BC #### [facility] [address] [place] [address] Dr. Aba Esparza Platelet mean volume (Bld) [Entitic vol] 9.0 fL Critically low 9.5-13.5 [facility] Comment on above: Performed By: #### C BC #### [facility] [address] [address] [address] Aba Esparza PLT 198 103/ul Normal 150-450 [facility] Comment on above: Performed By: #### C BC #### [facility] [address] [address] [address] Aba Esparza RBC 4.86 106/ul Normal 4.20-5.40 [facility] Comment on above: Performed By: #### C BC #### [facility] [address] [address] [address] Aba Esparza WBC 13.1 103/ul Critically high 4.0-11.0 [facility] Comment on above: Performed By: #### C BC #### [facility] [address] [address] [address] Aba Esparza GLYCOHEMOGLOBIN A1Con 2021 ADA RECOMMENDATION SEE BELOW Normal [facility] Comment on above: Result Comment: ADA RECOMMENDED LIMIT 4.0 - 6.0 ADA THERAPEUTIC TARGET < 7.0 ACTION SUGGESTED > 7.0 Performed By: #### A 1C ####[facility] [address] [address]Dr. Aba Esparza Glucose [Mass/Vol] 126 mg/dL Normal The [facility] Comment on above: Performed By: #### A 1C ####[facility] [id number] [id number]. Aba Esparza HbA1c (Bld) [Mass fraction] 6.0 % Normal 4.5-6.2 [facility] Comment on above: Performed By: #### A 1C ####[facility] [address] [address]Dr. Aba Esparza IRONon 11-15-2021 Iron [Mass/Vol] 34.0 ug/dL Critically low 50.0-170.0 [facility] Comment on above: Performed By: #### I ELIZA #### [facility] [address] [address] [address] Aba Esparza LIPID PROFILEon 11-15-2021 CHOL-HDL RATIO NORM SEE BELOW Normal [facility] Comment on above: Result Comment: 3.3 - 4.4 LOW RISK 4.4 - 7.1 AVERAGE RISK 7.1 - 11.0 MODERATE RISK >11.0 HIGH RISK Performed By: #### L IPID, CMP, TSH #### [facility] [address] [address] [address] Aba Esparza Cholesterol [Mass/Vol] 120 mg/dL Normal <=200 [facility] Comment on above: Performed By: #### L IPID, CMP, TSH #### [facility] [address] [address] [address] Aba Esparza Cholesterol in HDL [Mass/Vol] 40 mg/dL Normal 40-60 [facility] Comment on above: Performed By: #### L IPID, CMP, TSH #### [facility] [address] [address] [address] Aba Esparza Cholesterol in LDL [Mass/Vol] 45.8 mg/dL Normal [facility] Comment on above: Performed By: #### L IPID, CMP, TSH #### [facility] [address] [place] [address] Dr. Aba Esparza Cholesterol.total/Cho lesterol in HDL [Mass ratio] 3.0 {ratio} Normal [facility] Comment on above: Performed By: #### L IPID, CMP, TSH #### [facility] [address] [place] [address] Dr. Aba Esparza HDL NORMAL > or = 60 mg/dl - LOW CARDIOVASCULAR RISK <40 mg/dl - HIGH CARDIOVASCULAR RISK Normal [facility] Comment on above: Performed By: #### L IPID, CMP, TSH #### [facility] [address] [address] [address] Aba Esparza LDL CALC NORMAL SEE BELOW Normal [facility] Comment on above: Result Comment: <100 mg/dl OPTIMAL 100 - 129 mg/dl NEAR OR ABOVE OPTIMAL 130 - 159 mg/dl BORDERLINE HIGH 160 - 189 mg/dl HIGH >190 mg/dl VERY HIGH Performed By: #### L IPID, CMP, TSH #### [facility] [address] [address] [address] Aba Esparza Triglyceride [Mass/Vol] 171 mg/dL Critically high <=150 [facility] Comment on above: Performed By: #### L IPID, CMP, TSH #### [facility] [address] [place] [address] Dr. Aba Esparza VLDL CALC 34.2 mg/dL Normal [facility] Comment on above: Performed By: #### L IPID, CMP, TSH #### [facility] [address] [address] [address] Aba Esparza PROF 14(COMP METB)on 022 Albumin [Mass/Vol] 3.9 g/dL Normal 3.4-5.0 [facility] Comment on above: Performed By: #### L IPID, CMP, TSH #### [facility] [address] [place] [address] Dr. Aba Esparza Albumin/Globulin [Mass ratio] 1.0 {ratio} Normal [facility] Comment on above: Performed By: #### L IPID, CMP, TSH #### [facility] [address] [place] [address] Dr. Aba Esparza ALP [Catalytic activity/Vol] 138 U/L Critically high 46-116 [facility] Comment on above: Performed By: #### L IPID, CMP, TSH #### [facility] [address] [place] [address] Dr. Aba Esparza ALT [Catalytic activity/Vol] 23 U/L Normal 14-59 [facility] Comment on above: Performed By: #### L IPID, CMP, TSH #### [facility] [address] [place] [address] Dr. Aba Esparza Anion gap [Moles/Vol] 12.7 mmol/L Normal [facility] Comment on above: Performed By: #### L IPID, CMP, TSH #### [facility] [address] [place] [address] Dr. Aba Esparza AST [Catalytic activity/Vol] 24 U/L Normal 15-37 [facility] Comment on above: Performed By: #### L IPID, CMP, TSH #### [facility] [address] [address] [address] Aba Esparza Bilirubin [Mass/Vol] 0.6 mg/dL Normal 0.2-1.0 [facility] Comment on above: Performed By: #### L IPID, CMP, TSH #### [facility] [address] [place] [address] Dr. Aba Esparza Calcium [Mass/Vol] 9.4 mg/dL Normal 8.5-10.1 [facility] Comment on above: Performed By: #### L IPID, CMP, TSH #### [facility] [address] [address] [address] Aba Esparza Chloride [Moles/Vol] 104 mmol/L Normal 98-107 [facility] Comment on above: Performed By: #### L IPID, CMP, TSH #### [facility] [address] [place] [address] Dr. Aba Esparza CO2 [Moles/Vol] 27.3 mmol/L Normal 21.0-32.0 [facility] Comment on above: Performed By: #### L IPID, CMP, TSH #### [facility] [address] [place] [address] Dr. Aba Esparza Creatinine [Mass/Vol] 0.90 mg/dL Normal 0.55-1.02 [facility] Comment on above: Performed By: #### L IPID, CMP, TSH #### [facility] [address] [place] [address] Dr. Aba Esparza EGFR-AF CUBAN >60 Normal >=[address] [facility] Comment on above: Performed By: #### L IPID, CMP, TSH #### [facility] [address] [place] [address] Dr. Aba Esparza EGFR-NON AF CUBAN =60 Normal >=60 [facility] Comment on above: Performed By: #### L IPID, CMP, TSH #### [facility] [address] [place] [address] Dr. Aba Esparza Globulin (S) [Mass/Vol] 3.8 g/dL Normal [facility] Comment on above: Performed By: #### L IPID, CMP, TSH #### [facility] [address] [place] [address] Dr. Aba Esparza Glucose [Mass/Vol] 112 mg/dL Critically high 74-106 [facility] Comment on above: Performed By: #### L IPID, CMP, TSH #### [facility] [address] [place] [address] Dr. Aba Esparza Potassium [Moles/Vol] 4.0 mmol/L Normal 3.5-5.1 [facility] Comment on above: Performed By: #### L IPID, CMP, TSH #### [facility] [address] [place] [address] Dr. Aba Esparza Protein [Mass/Vol] 7.7 g/dL Normal 6.4-8.2 [facility] Comment on above: Performed By: #### L IPID, CMP, TSH #### [facility] [address] [place] [address] Dr. Aba Esparza Sodium [Moles/Vol] 140 mmol/L Normal 136-145 [facility] Comment on above: Performed By: #### L IPID, CMP, TSH #### [facility] [address] [place] [address] Dr. Aba Esparza Urea nitrogen [Mass/Vol] 15.0 mg/dL Normal 7.0-18.0 [facility] Comment on above: Performed By: #### L IPID, CMP, TSH #### [facility] [address] [place] [address] Dr. Aba Esparza Urea nitrogen/Creatinine [Mass ratio] 16.7 mg/mg Normal [facility] Comment on above: Performed By: #### L IPID, CMP, TSH #### [facility] [address] [place] [address] Dr. Aba Esparza TSHon 11-15-2021 TSH 1.187 uIU/mL Normal 0.358-3.740 [facility] Comment on above: Performed By: #### L IPID, CMP, TSH #### [facility] [address] [place] [address] Dr. Aba Esparza XR DEXA BONE DENSITYon [...] by: LIAM PEREZ Date: 2021-07-01 16:18 Normal [facility] Encounters Encounter Date Encounter Type Care Provider Facility Start: 12-03-2023 End: 12-03-2023 ambulatory Heriberto Vickers MD Facility: [facility] Start: 08-13-2023 End: 08-13-2023 ambulatory Heriberto Vickers MD Facility: [facility] Start: 07-30-2023 End: 07-30-2023 ambulatory Heriberto Vickers MD Facility: [facility] Start: 05-03-2022 End: 05-04-2022 ambulatory FAUSTO [...] Category Payer Medicare 2023 Unknown 1958 Medicare [id number] 1958 Unknown [id number] 1935 Unknown [id number] 2.16.84 [id number] 1935 Unknown [id number] 2.16.84 [id number] 1936 Unknown [id number] 2.16.84 [id number] 1936 Unknown [id number] 2.16.84 [id number] 1936 Unknown [id number] 2.16.84 [id number] 1936 Unknown [id number] 2.16.84 [id number] 1936 Unknown [id number] 2.16. [id number] 1936 Unknown [id number] 2.16. [id number] 1935 Unknown [id number] 2.16. [id number] Summary Purpose Family History No Family History Records FoundNo Family History Records Found Advance Directives No Advanced Directives Records FoundNo Advanced Directives Records Found Additional Source Comments INFORMATION SOURCE (unrecogn ized section and content) DATE CREATED AUTHOR 05/05/2022 [facility] DATE CREATED AUTHOR AUTHOR'S ORGANIZ ATION 12/12/2023 [facility] FOR RECORDS PERTAINING TO PATIENTS WHO [...] BE BASED ON THE PRIMARY CLINICAL RECORDS. [facility] 1calendar [facility]. provides no warranty or guarantee of the accuracy or completeness of information in this document.
[2024-02-25 11:53] VITALS: BP 158/71; PULSE 61; TEMP 36.6; O2SAT 97
[2024-02-25 12:19] VITALS: BP 170/78; PULSE 67; O2SAT 94
[2024-02-25 12:21] VITALS: BP 156/65; PULSE 60; O2SAT 96
[2024-02-25] MEDS: LIDOCAINE HCL 2% 400 MG/20 ML MDV 3 ML INJ (12:25)
[2024-02-25] MEDS: BUPIVACAINE HCL 0.25% PF 25 MG/10 ML VIAL INJ (12:25)
[2024-02-25] MEDS: IOHEXOL 240 MG/ML - 10 ML VIAL 12 MG INJ (12:25)
[2024-02-25] MEDS: 0.9 % SODIUM CHLORIDE 10 ML SYRINGE - SALINE FLUSH INJ (12:25)
[2024-02-25] MEDS: METHYLPREDNISOLONE ACETATE 80 MG/ML VIAL INJ (12:25)
--- NOTE | 2024-02-25 12:25 | W.PM.PROCNOT ---
Date of procedure: 02/25/24 Pre-op diagnosis: Pain due to lumbar stenosis with neurogenic claudication Post-op diagnosis: same as pre-op Procedure: Procedure: Bilateral L5-S1 transforaminal epidural steroid injection Medications: Bupivacaine 0.25% 2cc, lidocaine 2% 1cc, depomedrol 80mg The patient was seen and examined in the preoperative holding area.? Informed consent was obtained and placed on the chart.? Patient was brought to the medical procedure unit and placed in the prone position where a timeout was completed verifying the correct patient, procedure site, position, and planned special equipment using sterile aseptic technique.? Under direct fluoroscopic visualization a 25-gauge Quincke tipped spinal needle was advanced at level left L5-S1 to the designated neural foramen where contrast dye was injected to show adequate spread.? There was no evidence of vascular or adverse uptake.? Epidural spread was appreciated.? The above-mentioned injectate was then placed in a 1.5 mL aliquot preceded by negative aspiration.? The needle was removed. The same procedure, at the same level, was completed on the opposite side. ? Patient was taken to the postprocedural recovery area and monitored for an appropriate length of time before found suitable for discharge in the accompaniment of a responsible adult. Anesthesia: Local Surgeon: Heriberto Vickers Pathology: none sent Condition: stable Disposition: no change
== END 2024-02-25 12:28 | disposition home or self-care (01) ==
PROVIDERS: PCP Family Medicine; Visit Provider Anesthesiology
DX: M48.062 Spinal stenosis, lumbar region with neurogenic claudication (principal)
CPT/HCPCS: 64483; J0665; J1010; Q9966

== ENCOUNTER 2024-03-06 12:12 | Outpatient (OUT) | payer MEDICARE, SELFPAY ==
--- OUTSIDE RECORDS SUMMARY | 2024-03-06 12:16 | XMS_ITS | CCD ---
Author Organization [facility] CliniSynh Care Team Providers Care Tmd Teacher Name Role Phone JOMARY ., DR ESCALONA [...] (1 source) Codeine Drug Allergy 02-26-1959 [facility] (1 source) levoFLOXacin Drug Allergy [facility] (1 source) Sulfonamides (Antibiotic) Drug allergy (disorder) [facility] (1 source) traMADol Drug Allergy 01-28-2008 [facility] Problems Active Problems Problem Classification [...] of malignant neoplasm of digestive organs; Translations: [[facility] NEOPLASM DIGESTIV ORGN] Onset: 12-02-2021 Episodic Residual codes; unclassified (1 source) Family history of malignant neoplasm of trachea, bronchus and lung; [facility]ations: [facility]] Onset: 12-02-2021 Episodic Residual codes; unclassified (1 source) Family history of malignant neoplasm of other organs or systems; Translations: [[facility] HX [facility] NEOPLASM OTH ORGN/SYS] Onset: [...] PAMELA ANN Date: 2022-05-03 12:41 Normal [facility] MAMM SCREEN 3D WAQAS CADon 11-30-2021 MG MAMM SCREEN 3D WAQAS CAD Patient: DANIELLE ABBASI Exam Date: 11/30/2021 : 1935 Gender:F Ordering : DR POLA CROSS . Admission #: [id number] Family : Order #: [id number] CLICK HERE TO VIEW EXAM RADIOLOGY REPORT [...] colon cancer at age 75. LOCATION: [facility] BREAST COMPOSITION: Extremely dense, which lowers [...] MD on 11/30/2021 at 12:44 Normal [facility] OCC BLD IMMUNO SCREENon 10-28 OCCULT BLOOD Negative Normal NEGATIVE [facility] Comment on above: Performed By: #### O BSCRN #### [facility] [address] [place] [address] Dr. Aba Esparza T4, T3U, FTI LABCORPon 11-16 Free Thyroxine Index 2.1 Normal 1.2-4.9 [facility] Comment on above: Performed By: #### T HYLC #### [facility] [address] [place] [address] Dr. Aba Esparza T3 Uptake 33 % Normal 24-39 [facility] Comment on above: Performed By: #### T HYLC #### [facility] [address] [place] [address] Dr. Aba Esparza T4 [Mass/Vol] 6.3 ug/dL Normal 4.5-12.0 [facility] Comment on above: Performed By: #### T HYLC #### [facility] [address] [place] [address] Dr. Aba Esparza CBC AUTO DIFFon 11-15-2021 BASO # 0.0 103/ul Normal 0.0-0.1 [facility] Comment on above: Performed By: #### C BC #### [facility] [address] [place] [address] Dr. Aba Esparza Basophils/100 WBC (Bld) 0.3 % Normal 0.2-2.0 [facility] Comment on above: Performed By: #### C BC #### [facility] [address] [place] [address] Dr. Aba Esparza EO # 0.2 103/ul Normal 0.0-0.7 [facility] Comment on above: Performed By: #### C BC #### [facility] [address] [place] [address] Dr. Aba Esparza Eosinophils/100 WBC (Bld) 1.4 % Normal 0.9-7.0 [facility] Comment on above: Performed By: #### C BC #### [facility] [address] [place] [address] Dr. Aba Esparza Erythrocyte distribution width (RBC) [Ratio] 15.0 % Normal 11.0-15.0 [facility] Comment on above: Performed By: #### C BC #### [facility] [address] [place] [address] Dr. Aba Esparza Hematocrit (Bld) [Volume fraction] 42.8 % Normal 36.0-48.0 [facility] Comment on above: Performed By: #### C BC #### [facility] [address] [place] [address] Dr. Aba Esparza Hemoglobin (Bld) [Mass/Vol] 13.4 g/dL Normal 12.0-16.0 [facility] Comment on above: Performed By: #### C BC #### [facility] [address] [place] [address] Dr. Aba Esparza IG # 0.04 10e3/ul Critically high 0.00-0.03 [facility] Comment on above: Performed By: #### C BC #### [facility] [address] [place] [address] Dr. Aba Esparza IG % 0.3 % Normal 0.0-0.5 [facility] Comment on above: Performed By: #### C BC #### [facility] [address] [place] [address] Dr. Aba Esparza LYMPH # 3.6 103/ul Normal 1.2-3.8 [facility] Comment on above: Performed By: #### C BC #### [facility] [address] [place] [address] Dr. Aba Esparza Lymphocytes/100 WBC (Bld) 27.5 % Normal 20.5-60.0 [facility] Comment on above: Performed By: #### C BC #### [facility] [address] [place] [address] Dr. Aba Esparza MANUAL DIFF REQ NO Normal [facility] Comment on above: Performed By: #### C BC #### [facility] [address] [place] [address] Dr. Aba Esparza MCH (RBC) [Entitic mass] 27.6 pg Normal 26.7-34.0 [facility] Comment on above: Performed By: #### C BC #### [facility] [address] [address] [address] Aba Esparza MCHC (RBC) [Mass/Vol] 31.3 g/dL Normal 29.9-35.2 [facility] Comment on above: Performed By: #### C BC #### [facility] [address] [address] [address] Aba Esparza MCV (RBC) [Entitic vol] 88.1 fL Normal 81.0-99.0 [facility] Comment on above: Performed By: #### C BC #### [facility] [address] [place] [address] Dr. Aba Esparza MONO # 0.9 103/ul Critically high 0.3-0.8 [facility] Comment on above: Performed By: #### C BC #### [facility] [address] [place] [address] Dr. Aba Esparza Monocytes/100 WBC (Bld) 7.0 % Normal 1.7-12.0 [facility] Comment on above: Performed By: #### C BC #### [facility] [address] [place] [address] Dr. Aba Esparza NEUT # 8.3 103/ul Critically high 1.4-6.5 [facility] Comment on above: Performed By: #### C BC #### [facility] [address] [place] [address] Dr. Aba Esparza Neutrophils/100 WBC (Bld) 63.5 % Normal 43.0-75.0 [facility] Comment on above: Performed By: #### C BC #### [facility] [address] [place] [address] Dr. Aba Esparza Platelet mean volume (Bld) [Entitic vol] 9.0 fL Critically low 9.5-13.5 [facility] Comment on above: Performed By: #### C BC #### [facility] [address] [address] [address] Aba Esparza PLT 198 103/ul Normal 150-450 [facility] Comment on above: Performed By: #### C BC #### [facility] [address] [address] [address] Aba Esparza RBC 4.86 106/ul Normal 4.20-5.40 [facility] Comment on above: Performed By: #### C BC #### [facility] [address] [address] [address] Aba Esparza WBC 13.1 103/ul Critically high 4.0-11.0 [facility] Comment on above: Performed By: #### C BC #### [facility] [address] [address] [address] Aba Esparza GLYCOHEMOGLOBIN A1Con 2021 ADA RECOMMENDATION SEE BELOW Normal [facility] Comment on above: Result Comment: ADA RECOMMENDED LIMIT 4.0 - 6.0 ADA THERAPEUTIC TARGET < 7.0 ACTION SUGGESTED > 7.0 Performed By: #### A 1C ####[facility] [address] [address]Dr. Aba Esaprza Glucose [Mass/Vol] 126 mg/dL Normal [facility] Comment on above: Performed By: #### A 1C ####[facility] [address] [id number]. Aba Esparza HbA1c (Bld) [Mass fraction] 6.0 % Normal 4.5-6.2 [facility] Comment on above: Performed By: #### A 1C ####[facility] [address] [address]Dr. Aba Esparza IRONon 11-15-2021 Iron [Mass/Vol] 34.0 ug/dL Critically low 50.0-170.0 [facility] Comment on above: Performed By: #### I ELIZA #### [facility] [address] [address] [address] Aba Esparza LIPID PROFILEon 11-15-2021 CHOL-HDL RATIO NORM SEE BELOW Normal [facility] Comment on above: Result Comment: 3.3 - 4.4 LOW RISK 4.4 - 7.1 AVERAGE RISK 7.1 - 11.0 MODERATE RISK >11.0 HIGH RISK Performed By: #### L IPID, CMP, TSH #### [facility] [address] [address] [address] Aba Esparza Cholesterol [Mass/Vol] 120 mg/dL Normal <=200 [facility] Comment on above: Performed By: #### L IPID, CMP, TSH #### [facility] [address] [address] [address] Aba Esparza Cholesterol in HDL [Mass/Vol] 40 mg/dL Normal 40-60 [facility] Comment on above: Performed By: #### L IPID, CMP, TSH #### [facility] [address] [address] [address] Aba Esparza Cholesterol in LDL [Mass/Vol] 45.8 mg/dL Normal [facility] Comment on above: Performed By: #### L IPID, CMP, TSH #### [facility] [address] [place] [address] Dr. Aba Esparza Cholesterol.total/Cho lesterol in HDL [Mass ratio] 3.0 {ratio} Normal [facility] Comment on above: Performed By: #### L IPID, CMP, TSH #### [facility] [address] [place] [address] Dr. Aba Esparza HDL NORMAL > or = 60 mg/dl - LOW CARDIOVASCULAR RISK <40 mg/dl - HIGH CARDIOVASCULAR RISK Normal [facility] Comment on above: Performed By: #### L IPID, CMP, TSH #### [facility] [address] [address] [address] Aba Esparza LDL CALC NORMAL SEE BELOW Normal [facility] Comment on above: Result Comment: <100 mg/dl OPTIMAL 100 - 129 mg/dl NEAR OR ABOVE OPTIMAL 130 - 159 mg/dl BORDERLINE HIGH 160 - 189 mg/dl HIGH >190 mg/dl VERY HIGH Performed By: #### L IPID, CMP, TSH #### [facility] [address] [address] [address] Aba Esparza Triglyceride [Mass/Vol] 171 mg/dL Critically high <=150 [facility] Comment on above: Performed By: #### L IPID, CMP, TSH #### [facility] [address] [place] [address] Dr. Aba Esparza VLDL CALC 34.2 mg/dL Normal [facility] Comment on above: Performed By: #### L IPID, CMP, TSH #### [facility] [address] [address] [address] Aba Esparza PROF 14(COMP METB)on 022 Albumin [Mass/Vol] 3.9 g/dL Normal 3.4-5.0 [facility] Comment on above: Performed By: #### L IPID, CMP, TSH #### [facility] [address] [place] [address] Dr. Aba Esparza Albumin/Globulin [Mass ratio] 1.0 {ratio} Normal [facility] Comment on above: Performed By: #### L IPID, CMP, TSH #### [facility] [address] [place] [address] Dr. Aba Esparza ALP [Catalytic activity/Vol] 138 U/L Critically high 46-116 [facility] Comment on above: Performed By: #### L IPID, CMP, TSH #### [facility] [address] [place] [address] Dr. Aba Esparza ALT [Catalytic activity/Vol] 23 U/L Normal 14-59 [facility] Comment on above: Performed By: #### L IPID, CMP, TSH #### [facility] [address] [place] [address] Dr. Aba Esparza Anion gap [Moles/Vol] 12.7 mmol/L Normal [facility] Comment on above: Performed By: #### L IPID, CMP, TSH #### [facility] [address] [place] [address] Dr. Aba Esparza AST [Catalytic activity/Vol] 24 U/L Normal 15-37 [facility] Comment on above: Performed By: #### L IPID, CMP, TSH #### [facility] [address] [address] [address] Aba Esparza Bilirubin [Mass/Vol] 0.6 mg/dL Normal 0.2-1.0 [facility] Comment on above: Performed By: #### L IPID, CMP, TSH #### [facility] [address] [place] [address] Dr. Aba Esparza Calcium [Mass/Vol] 9.4 mg/dL Normal 8.5-10.1 [facility] Comment on above: Performed By: #### L IPID, CMP, TSH #### [facility] [address] [address] [address] Aba Esparza Chloride [Moles/Vol] 104 mmol/L Normal 98-107 [facility] Comment on above: Performed By: #### L IPID, CMP, TSH #### [facility] [address] [place] [address] Dr. Aba Esparza CO2 [Moles/Vol] 27.3 mmol/L Normal 21.0-32.0 [facility] Comment on above: Performed By: #### L IPID, CMP, TSH #### [facility] [address] [place] [address] Dr. Aba Esparza Creatinine [Mass/Vol] 0.90 mg/dL Normal 0.55-1.02 [facility] Comment on above: Performed By: #### L IPID, CMP, TSH #### [facility] [address] [place] [address] Dr. Aba Esparza EGFR-AF BAHRAINI >60 Normal >=60 [facility] Comment on above: Performed By: #### L IPID, CMP, TSH #### [facility] [address] [place] [address] Dr. Aba Esparza EGFR-NON AF BAHRAINI =60 Normal >=60 [facility] Comment on above: Performed By: #### L IPID, CMP, TSH #### [facility] [address] [place] [address] Dr. Aba Esparza Globulin (S) [Mass/Vol] 3.8 g/dL Normal [facility] Comment on above: Performed By: #### L IPID, CMP, TSH #### [facility] [address] [place] [address] Dr. Aba Esparza Glucose [Mass/Vol] 112 mg/dL Critically high 74-106 [facility] Comment on above: Performed By: #### L IPID, CMP, TSH #### [facility] [address] [place] [address] Dr. Aba Esparza Potassium [Moles/Vol] 4.0 mmol/L Normal 3.5-5.1 [facility] Comment on above: Performed By: #### L IPID, CMP, TSH #### [facility] [address] [place] [address] Dr. Aba Esparza Protein [Mass/Vol] 7.7 g/dL Normal 6.4-8.2 [facility] Comment on above: Performed By: #### L IPID, CMP, TSH #### [facility] [address] [place] [address] Dr. Aba Esparza Sodium [Moles/Vol] 140 mmol/L Normal 136-145 [facility] Comment on above: Performed By: #### L IPID, CMP, TSH #### [facility] [address] [place] [address] Dr. Aba Esparza Urea nitrogen [Mass/Vol] 15.0 mg/dL Normal 7.0-18.0 [facility] Comment on above: Performed By: #### L IPID, CMP, TSH #### [facility] [address] [place] [address] Dr. Aba Esparza Urea nitrogen/Creatinine [Mass ratio] 16.7 mg/mg Normal [facility] Comment on above: Performed By: #### L IPID, CMP, TSH #### [facility] [address] [place] [address] Dr. Aba Esparza TSHon 11-15-2021 TSH 1.187 uIU/mL Normal 0.358-3.740 [facility] Comment on above: Performed By: #### L IPID, CMP, TSH #### [facility] [address] [place] [address] Dr. Aba Esparza XR DEXA BONE DENSITYon [...] by: LIAM PEREZ Date: 2021-07-01 16:18 Normal [facility] Encounters Encounter Date Encounter Type Care Provider Facility Start: 12-03-2023 End: 12-03-2023 ambulatory Heriberto Vickers MD Facility: [facility] Start: 08-13-2023 End: 08-13-2023 ambulatory Heriberto Vickers MD Facility: [facility] Start: 07-30-2023 End: 07-30-2023 ambulatory Heriberto Vickers MD Facility: [facility] Start: 05-03-2022 End: 05-04-2022 ambulatory FAUSTO [...] Category Payer Medicare 2023 Unknown 1958 Medicare [id number] 1958 Unknown [id number] 1935 Unknown [id number] 2.16.84 [id number] 1935 Unknown [id number] 2.16.84 [id number] 1935 Unknown [id number] 2.16.84 [id number] 1935 Unknown [id number] 2.16.84 [id number] 1935 Unknown [id number] 2.16.84 [id number] 1935 Unknown [id number] 2.16.84 [id number] 1935 Unknown [id number] 2.16. [id number] 1935 Unknown [id number] 2.16. [id number] 1935 Unknown [id number] 2.16. [id number] Summary Purpose Family History No Family History Records FoundNo Family History Records Found Advance Directives No Advanced Directives Records FoundNo Advanced Directives Records Found Additional Source Comments INFORMATION SOURCE (unrecogn ized section and content) DATE CREATED AUTHOR 05/05/2022 [facility] DATE CREATED AUTHOR AUTHOR'S ORGANIZ ATION 12/12/2023 [facility] FOR RECORDS PERTAINING TO PATIENTS WHO [...] BE BASED ON THE PRIMARY CLINICAL RECORDS. [facility] [employer] [facility]. provides no warranty or guarantee of the accuracy or completeness of information in this document.
--- NOTE | 2024-03-06 12:42 | PM.CN ---
Consult Note: HPI Data of Consult Patient: known to practice within the last 3 years Consult date: 07/30/23 Requesting Physician: Heriberto Vickers MD Primary Care Provider: Kumar Stokes MD Consult Narrative Reason for consult: low back pain Narrative: This is a pleasant 88yof who presents for evaluation. Fell in Dec 2022 and sustained L2 compression fracture. Imaging reviewed, severe stenosis at L1-2 and L2-3 due to retropulsion of posterior wall and disc bulge. Evaluated by spine surgeon, who did not recommend surgery at this time. Continues in provider directed home exercise program >6 weeks, with minimal benefit. Uses tylenol otc, meloxicam and baclofen. denies adverse med side effects. Recently underwent repeat bilateral L5-S1 TFESI with >50% improvement in pain and function ongoing, previous PEÑA 44% now 22%. Pain today 1/10 increasing to 3/10. cc:: CC: Heriberto Vickers MD Review of Systems ROS Status of ROS 10 or more systems reviewed and unremarkable except as noted in history and below Musculoskeletal Reports: back pain PFSH PFSH Medical History Dehydration ?E86.0 - Dehydration (ICD-10) Diabetes ?E11.9 - Type 2 diabetes mellitus without complications (ICD-10) HTN (hypertension) ?I10 - Essential (primary) hypertension (ICD-10) Colon cancer ?C18.9 - Malignant neoplasm of colon, unspecified (ICD-10) COPD (chronic obstructive pulmonary disease) ?J44.9 - Chronic obstructive pulmonary disease, unspecified (ICD-10) Bronchiectasis ?J47.9 - Bronchiectasis, uncomplicated (ICD-10) Sepsis ?A41.9 - Sepsis, unspecified organism (ICD-10) LEOBARDO (acute kidney injury) ?N17.9 - Acute kidney failure, unspecified (ICD-10) Pneumonia ?J18.9 - Pneumonia, unspecified organism (ICD-10) Hypoxemia ?R09.02 - Hypoxemia (ICD-10) Meds Home Medications and Allergies Home Medications ?Medication ?Instructions ?Recorded ?Confirmed ?Type albuterol sulfate 90 mcg/actuation 2 inh inhalation BID PRN 01/13/23 02/25/24 History aerosol inhaler bronchospasm amlodipine 5 mg tablet 5 mg PO DAILY 01/13/23 02/25/24 History atorvastatin 20 mg tablet 20 mg PO DAILY 01/13/23 02/25/24 History calcitonin (salmon) 200 1 spray intranasal DAILY 01/13/23 02/25/24 History unit/actuation nasal spray dicyclomine 20 mg tablet 20 mg PO BID 01/13/23 02/25/24 History ferrous sulfate 325 mg (65 mg 325 mg PO BID 01/13/23 02/25/24 History iron) tablet (FeroSul) metoprolol tartrate 25 mg tablet 25 mg PO Q12H 01/13/23 02/25/24 History sodium chloride 0.9 % for 3 ml inhalation TID 01/13/23 12/03/23 History nebulization fluticasone propionate 230 2 inh inhalation BID 01/14/23 02/25/24 History mcg-salmeterol 21 mcg/actuation HFA inhaler (Advair HFA) flaxseed 1,000 mg capsule mg PO 07/30/23 History meloxicam 7.5 mg tablet 7.5 mg PO BID PRN pain 11/23/23 02/25/24 History baclofen 10 mg tablet mg 02/05/24 History Allergies Allergy/AdvReac Type Severity Reaction Status Date / Time codeine Allergy Rash Verified 02/25/24 11:56 tramadol Allergy Rash Verified 02/25/24 11:56 Exam Constitutional Documenting provider has reviewed patient's vital signs: yes Common normals: no apparent distress, oriented x3, healthy appearing, alert and well nourished General appearance: cooperative [facility] Common normals: normocephalic, hearing grossly normal bilaterally and moist oral mucous membranes Head and scalp: normocephalic Eye Common normals: PERRL Pupil: PERRL Neck & C-Spine Common normals: full ROM General: normal visual inspection Chest Common normals: inspection of chest normal Respiratory Common normals: normal respiratory effort, no retractions and no use of accessory muscles Back & Pelvis Lumbar spine/lower back: ROM limited and straight leg raise negative bilaterally; no pain with ROM Sacroiliac joints: SI joints normal Other: positive facet loading sensation intact BLE strength 5/5 in BLE Extremity Common normals: normal to inspection and full ROM Neuro Common normals: oriented x3, CN's II-XII intact bilaterally, moves all extremities, no focal motor deficits, no sensory deficits noted and deep tendon reflexes 2+ bilaterally Sensorium/orientation: alert Motor exam: strength 5/5 throughout and no movement abnormalities noted Psych Common normals: mental status grossly normal, thought process normal, cooperative, affect normal, speech normal and activity/motor behavior normal Speech: normal speech Thought process: normal thought process Results Additional Findings Additional findings: If on a controlled substance or opioids, I have checked an [place] report on this patient and there are no aberrancies noted in the prescribing history.??If on a controlled substance or opioid a drug screen was completed and reviewed within the last year, and if there has not been a drug screen completed we ordered one today to monitor higher risk, state monitored pain medication use. As part of providing excellent, safe, comprehensive care, the following was completed at our patient's visit: 1. A medication reconciliation and review to ensure accurate knowledge of current/active medications, including asking our patients to inform us about any gtjr-gmy-sewcihy medications or herbal remedies/nutritional supplements/alternative remedies. 2. A review to specifically ensure our patients have had annual screening for screening for depression, screening for tobacco use, and screening for unhealthy alcohol use. For concerning screenings had a discussion with the patient, provided patient education, and recommended follow-up with primary care provider when appropriate. If patient noted with a risk of falling, they received education on strength, gait, and balance training to prevent future risk of falling. 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
== END 2024-03-06 12:13 | disposition home or self-care (01) ==
LOC: PM 12:12
PROVIDERS: PCP Family Medicine; Visit Provider Anesthesiology
DX: M48.062 Spinal stenosis, lumbar region with neurogenic claudication (principal); M47.816 Spondylosis without myelopathy or radiculopathy, lumbar region; M53.3 Sacrococcygeal disorders, not elsewhere classified
CPT/HCPCS: G0463

== ENCOUNTER 2024-06-04 12:46 | Outpatient (OUT) | payer MEDICARE, SELFPAY ==
--- OUTSIDE RECORDS SUMMARY | 2024-06-04 13:01 | XMS_ITS | CCD ---
Author Organization [facility] CliniSyaz Care Team Providers Care Automotive Service Assistant Name Role Phone JOMARY ., DR ESCALONA [...] Unavailable HOY ., DR ESCALONA Consulting Unavailable Gieditis , Heriberto Wallis Attending Unavailable Giedraitis , Andlaura Wallis Attending Unavailable Giedraitis , Andlaura Wallis Attending Unavailable Giedraitis , Heriberto Wallis Attending Unavailable Allergies Allergy Classification Reported Allergen(s) Allergy Type Date of Onset Reaction(s) Facility (1 source) Codeine Drug Allergy 02-26-1959 [facility] (1 source) levoFLOXacin Drug Allergy [facility] (1 source) Sulfonamides (Antibiotic) Drug allergy (disorder) [facility] (1 source) traMADol Drug Allergy 01-28-2008 [facility] Problems Active Problems Problem [...] of malignant neoplasm of digestive organs; Translations: [[facility] HX MALIG NEOPLASM DIGESTIV ORGN] Onset: 12-02-2021 Episodic Residual [...] PAMELA ANN Date: 2022-05-03 12:41 Normal [facility] MAMM SCREEN 3D WAQAS CADon 11-30-2021 MG MAMM SCREEN 3D WAQAS CAD Patient: DANIELLE ABBASI Exam Date: 11/30/2021 : 1935 Gender:F Ordering : DR POLA CROSS . Admission #: [id number] Family : Order #: [id number] CLICK HERE TO VIEW EXAM RADIOLOGY REPORT [...] colon cancer at age 75. LOCATION: [facility] BREAST COMPOSITION: Extremely dense, which [...] MD on 11/30/2021 at 12:44 Normal [facility] OCC BLD IMMUNO SCREENon 10-28 OCCULT BLOOD Negative Normal NEGATIVE [facility] Comment on above: Performed By: #### O BSCRN #### [facility] [address] [place] [address] Dr. Aba Esparza T4, T3U, FTI LABCORPon 11-16 Free Thyroxine Index 2.1 Normal 1.2-4.9 [facility] Comment on above: Performed By: #### T HYLC #### [facility] [address] [place] [address] Dr. Aba Esparza T3 Uptake 33 % Normal 24-39 [facility] Comment on above: Performed By: #### T HYLC #### [facility] [address] [place] [address] Dr. Aba Esparza T4 [Mass/Vol] 6.3 ug/dL Normal 4.5-12.0 [facility] Comment on above: Performed By: #### T HYLC #### [facility] [address] [place] [address] Dr. Aba Esparza CBC AUTO DIFFon 11-15-2021 BASO # 0.0 103/ul Normal 0.0-0.1 [facility] Comment on above: Performed By: #### C BC #### [facility] [address] [place] [address] Dr. Aba Esparza Basophils/100 WBC (Bld) 0.3 % Normal 0.2-2.0 [facility] Comment on above: Performed By: #### C BC #### [facility] [address] [place] [address] Dr. Aba Esparza EO # 0.2 103/ul Normal 0.0-0.7 [facility] Comment on above: Performed By: #### C BC #### [facility] [address] [place] [address] Dr. Aba Esparza Eosinophils/100 WBC (Bld) 1.4 % Normal 0.9-7.0 [facility] Comment on above: Performed By: #### C BC #### [facility] [address] [address] [address] Aba Esparza Erythrocyte distribution width (RBC) [Ratio] 15.0 % Normal 11.0-15.0 [facility] Comment on above: Performed By: #### C BC #### [facility] [address] [place] [address] Dr. Aba Esparza Hematocrit (Bld) [Volume fraction] 42.8 % Normal 36.0-48.0 [facility] Comment on above: Performed By: #### C BC #### [facility] [address] [place] [address] Dr. Aba Esparza Hemoglobin (Bld) [Mass/Vol] 13.4 g/dL Normal 12.0-16.0 [facility] Comment on above: Performed By: #### C BC #### [facility] [address] [place] [address] Dr. Aba Esparza IG # 0.04 10e3/ul Critically high 0.00-0.03 [facility] Comment on above: Performed By: #### C BC #### [facility] [address] [place] [address] Dr. Aba Esparza IG % 0.3 % Normal 0.0-0.5 [facility] Comment on above: Performed By: #### C BC #### [facility] [address] [place] [address] Dr. Aba Esparza LYMPH # 3.6 103/ul Normal 1.2-3.8 [facility] Comment on above: Performed By: #### C BC #### [facility] [address] [place] [address] Dr. Aab Esparza Lymphocytes/100 WBC (Bld) 27.5 % Normal 20.5-60.0 [facility] Comment on above: Performed By: #### C BC #### [facility] [address] [place] [address] Dr. Aba Esparza MANUAL DIFF REQ NO Normal [facility] Comment on above: Performed By: #### C BC #### [facility] [address] [address] [address] Aba Esparza MCH (RBC) [Entitic mass] 27.6 pg Normal 26.7-34.0 [facility] Comment on above: Performed By: #### C BC #### [facility] [address] [place] [address] Dr. Aba Esparza MCHC (RBC) [Mass/Vol] 31.3 g/dL Normal 29.9-35.2 [facility] Comment on above: Performed By: #### C BC #### [facility] [address] [place] [address] Dr. Aba Esparza MCV (RBC) [Entitic vol] 88.1 fL Normal 81.0-99.0 [facility] Comment on above: Performed By: #### C BC #### [facility] [address] [place] [address] Dr. Aba Esparza MONO # 0.9 103/ul Critically high 0.3-0.8 [facility] Comment on above: Performed By: #### C BC #### [facility] [address] [place] [address] Dr. Aba Esparza Monocytes/100 WBC (Bld) 7.0 % Normal 1.7-12.0 [facility] Comment on above: Performed By: #### C BC #### [facility] [address] [place] [address] Dr. Aba Esparza NEUT # 8.3 103/ul Critically high 1.4-6.5 [facility] Comment on above: Performed By: #### C BC #### [facility] [address] [place] [address] Dr. Aba Esparza Neutrophils/100 WBC (Bld) 63.5 % Normal 43.0-75.0 [facility] Comment on above: Performed By: #### C BC #### [facility] [address] [place] [address] Dr. Aba Esparza Platelet mean volume (Bld) [Entitic vol] 9.0 fL Critically low 9.5-13.5 [facility] Comment on above: Performed By: #### C BC #### [facility] [address] [address] [address] Aba Esparza PLT 198 103/ul Normal 150-450 [facility] Comment on above: Performed By: #### C BC #### [facility] [address] [address] [address] Aba Esparza RBC 4.86 106/ul Normal 4.20-5.40 [facility] Comment on above: Performed By: #### C BC #### [facility] [address] [address] [address] Aba Esparza WBC 13.1 103/ul Critically high 4.0-11.0 [facility] Comment on above: Performed By: #### C BC #### [facility] [address] [address] [address] Aba Esparza GLYCOHEMOGLOBIN A1Con 2021 ADA RECOMMENDATION SEE BELOW Normal The [facility] Comment on above: Result Comment: ADA RECOMMENDED LIMIT 4.0 - 6.0 ADA THERAPEUTIC TARGET < 7.0 ACTION SUGGESTED > 7.0 Performed By: #### A 1C ####[facility] [id number] [address]Dr. Aba Esparza Glucose [Mass/Vol] 126 mg/dL Normal The [facility] Comment on above: Performed By: #### A 1C ####[facility] [id number] [id number][address] Aba Esparza HbA1c (Bld) [Mass fraction] 6.0 % Normal 4.5-6.2 [facility] Comment on above: Performed By: #### A 1C ####[facility] [id number] [address]Dr. Aba Esparza IRONon 11-15-2021 Iron [Mass/Vol] 34.0 ug/dL Critically low 50.0-170.[address] [facility] Comment on above: Performed By: #### I ELIZA #### [facility] [address] [address] [address] Aba Esparza LIPID PROFILEon 11-15-2021 CHOL-HDL RATIO NORM SEE BELOW Normal [facility] Comment on above: Result Comment: 3.3 - 4.4 LOW RISK 4.4 - 7.1 AVERAGE RISK 7.1 - 11.0 MODERATE RISK >11.0 HIGH RISK Performed By: #### L IPID, CMP, TSH #### [facility] [address] [address] [address] Aba Esparza Cholesterol [Mass/Vol] 120 mg/dL Normal <=200 [facility] Comment on above: Performed By: #### L IPID, CMP, TSH #### [facility] [address] [address] [address] Aba Esparza Cholesterol in HDL [Mass/Vol] 40 mg/dL Normal 40-60 [facility] Comment on above: Performed By: #### L IPID, CMP, TSH #### [facility] [address] [address] [address] Aba Esparza Cholesterol in LDL [Mass/Vol] 45.8 mg/dL Normal [facility] Comment on above: Performed By: #### L IPID, CMP, TSH #### [facility] [address] [address] [address] Aba Esparza Cholesterol.total/Cho lesterol in HDL [Mass ratio] 3.0 {ratio} Normal [facility] Comment on above: Performed By: #### L IPID, CMP, TSH #### [facility] [address] [address] [address] Aba Esparza HDL NORMAL > or = 60 mg/dl - LOW CARDIOVASCULAR RISK <40 mg/dl - HIGH CARDIOVASCULAR RISK Normal [facility] Comment on above: Performed By: #### L IPID, CMP, TSH #### [facility] [address] [address] [address] Aba Esparza LDL CALC NORMAL SEE BELOW Normal [facility] Comment on above: Result Comment: <100 mg/dl OPTIMAL 100 - 129 mg/dl NEAR OR ABOVE OPTIMAL 130 - 159 mg/dl BORDERLINE HIGH 160 - 189 mg/dl HIGH >190 mg/dl VERY HIGH Performed By: #### L IPID, CMP, TSH #### [facility] [address] [address] [address] Aba Esparza Triglyceride [Mass/Vol] 171 mg/dL Critically high <=150 [facility] Comment on above: Performed By: #### L IPID, CMP, TSH #### [facility] [address] [address] [address] Aba Esparza VLDL CALC 34.2 mg/dL Normal [facility] Comment on above: Performed By: #### L IPID, CMP, TSH #### [facility] [address] [address] [address] Aba Esparza PROF 14(COMP METB)on 022 Albumin [Mass/Vol] 3.9 g/dL Normal 3.4-5.0 [facility] Comment on above: Performed By: #### L IPID, CMP, TSH #### [facility] [address] [place] [address] Dr. Aba Esparza Albumin/Globulin [Mass ratio] 1.0 {ratio} Normal [facility] Comment on above: Performed By: #### L IPID, CMP, TSH #### [facility] [address] [place] [address] Dr. Aba Esparza ALP [Catalytic activity/Vol] 138 U/L Critically high 46-116 [facility] Comment on above: Performed By: #### L IPID, CMP, TSH #### [facility] [address] [place] [address] Dr. Aba Esparza ALT [Catalytic activity/Vol] 23 U/L Normal 14-59 [facility] Comment on above: Performed By: #### L IPID, CMP, TSH #### [facility] [address] [address] [address] Aba Esparza Anion gap [Moles/Vol] 12.7 mmol/L Normal [facility] Comment on above: Performed By: #### L IPID, CMP, TSH #### [facility] [address] [place] [address] Dr. Aba Esparza AST [Catalytic activity/Vol] 24 U/L Normal 15-37 [facility] Comment on above: Performed By: #### L IPID, CMP, TSH #### [facility] [address] [address] [address] Aba Esparza Bilirubin [Mass/Vol] 0.6 mg/dL Normal 0.2-1.0 [facility] Comment on above: Performed By: #### L IPID, CMP, TSH #### [facility] [address] [address] [address] Aba Esparza Calcium [Mass/Vol] 9.4 mg/dL Normal 8.5-10.1 [facility] Comment on above: Performed By: #### L IPID, CMP, TSH #### [facility] [address] [address] [address] Aba Esparza Chloride [Moles/Vol] 104 mmol/L Normal 98-107 [facility] Comment on above: Performed By: #### L IPID, CMP, TSH #### [facility] [address] [place] [address] Dr. Aba Esparza CO2 [Moles/Vol] 27.3 mmol/L Normal 21.0-32.0 [facility] Comment on above: Performed By: #### L IPID, CMP, TSH #### [facility] [address] [place] [address] Dr. Aba Esparza Creatinine [Mass/Vol] 0.90 mg/dL Normal 0.55-1.02 [facility] Comment on above: Performed By: #### L IPID, CMP, TSH #### [facility] [address] [place] [address] Dr. Aba Esparza EGFR-AF NEW ZEALANDER >60 Normal >=60 [facility] Comment on above: Performed By: #### L IPID, CMP, TSH #### [facility] [address] [address] [address] Aba Esparza EGFR-NON AF [place] ZEALANDER =60 Normal >=60 [facility] Comment on above: Performed By: #### L IPID, CMP, TSH #### [facility] [address] [place] [address] Dr. Aba Esparza Globulin (S) [Mass/Vol] 3.8 g/dL Normal [facility] Comment on above: Performed By: #### L IPID, CMP, TSH #### [facility] [address] [address] [address] Aba Esparza Glucose [Mass/Vol] 112 mg/dL Critically high 74-106 [facility] Comment on above: Performed By: #### L IPID, CMP, TSH #### [facility] [address] [address] [address] Aba Esparza Potassium [Moles/Vol] 4.0 mmol/L Normal 3.5-5.1 [facility] Comment on above: Performed By: #### L IPID, CMP, TSH #### [facility] [address] [place] [address] Dr. Aba Esparza Protein [Mass/Vol] 7.7 g/dL Normal 6.4-8.2 [facility] Comment on above: Performed By: #### L IPID, CMP, TSH #### [facility] [address] [place] [address] Dr. Aba Esparza Sodium [Moles/Vol] 140 mmol/L Normal 136-145 [facility] Comment on above: Performed By: #### L IPID, CMP, TSH #### [facility] [address] [place] [address] Dr. Aba Esparza Urea nitrogen [Mass/Vol] 15.0 mg/dL Normal 7.0-18.0 [facility] Comment on above: Performed By: #### L IPID, CMP, TSH #### [facility] [address] [place] [address] Dr. Aba Esparza Urea nitrogen/Creatinine [Mass ratio] 16.7 mg/mg Normal [facility] Comment on above: Performed By: #### L IPID, CMP, TSH #### [facility] [address] [place] [address] Dr. Aba Esparza TSHon 11-15-2021 TSH 1.187 uIU/mL Normal 0.358-3.740 [facility] Comment on above: Performed By: #### L IPID, CMP, TSH #### [facility] [id number] Aba Esparza XR DEXA BONE DENSITYon [...] by: LIAM PEREZ Date: 2021-07-01 16:18 Normal [facility] Encounters Encounter Date Encounter Type Care Provider Facility Start: 02-25-2024 End: 02-25-2024 ambulatory Heriberto Vickers MD Facility: [facility] Start: 12-03-2023 End: 12-03-2023 ambulatory Heriberto Vickers MD Facility: [facility] Start: 08-13-2023 End: 08-13-2023 ambulatory Heriberto Vickers MD Facility: [facility] Start: 07-30-2023 End: 07-30-2023 ambulatory Heriberto Vickers MD Facility: [facility] Start: 05-03-2022 End: 05-04-2022 ambulatory FAUSTO [...] Category Payer Medicare 2023 Unknown 1959 Medicare [id number] 1958 Unknown [id number] 1935 Unknown [id number] 2.16.84 [id number] 1935 Unknown [id number] 2.16.84 [id number] 1935 Unknown [id number] 2.16.84 [id number] 1935 Unknown [id number] 2.16.84 [id number] 1935 Unknown [id number] 2.16.84 [id number] 1936 Unknown [id number] 2.16.84 [id number] 1936 Unknown [id number] 2.16. [id number] 1935 Unknown [id number] 2.16. [id number] 1935 Unknown [id number] 2.16. [id number] 1935 Unknown [id number] 2.16. [id number] Summary Purpose Family History No Family History Records FoundNo Family History Records Found Advance Directives No Advanced Directives Records FoundNo Advanced Directives Records Found Additional Source Comments INFORMATION SOURCE (unrecogn ized section and content) DATE CREATED AUTHOR 05/05/2022 [facility] DATE CREATED AUTHOR AUTHOR'S MARCELAIZ JUJU 03/11/2024 [facility] FOR RECORDS PERTAINING TO PATIENTS WHO ARE [...] BE BASED ON THE PRIMARY CLINICAL RECORDS. [facility]. provides no warranty or guarantee of the accuracy or completeness of information in this document.
--- NOTE | 2024-06-04 13:24 | P.CN_ITS ---
Consult Note: HPI Data of Consult Patient: known to practice within the last 3 years Consult date: 07/30/23 Requesting Physician: Mirna Reese NP Primary Care Provider: Kumar Stokes MD Consult Narrative Reason for consult: low back pain Narrative: This is a pleasant 88yof who presents for evaluation. Fell in Dec 2022 and sustained L2 compression fracture. Imaging reviewed, severe stenosis at L1-2 and L2-3 due to retropulsion of posterior wall and disc bulge. Evaluated by spine surgeon, who did not recommend surgery at this time. Continues in provider directed home exercise program >6 weeks, with minimal benefit. Uses tylenol otc, meloxicam and baclofen. denies adverse med side effects. today low back pain 7-8 /10 aching, increasing to 10/10 with standing, walking, dishes, bending. denies falls or injury. cc:: CC: Mirna Reese NP Review of Systems ROS Status of ROS 10 or more systems reviewed and unremark able except as noted in history and below Musculoskeletal Reports: back pain PFSH PFSH Medical History Dehydration ?E86.0 - Dehydration (ICD-10) Diabetes ?E11.9 - Type 2 diabetes mellitus without complications (ICD-10) HTN (hypertension) ?I10 - Essential (primary) hypertension (ICD-10) Colon cancer ?C18.9 - Malignant neoplasm of colon, unspecified (ICD-10) COPD (chronic obstructive pulmonary disease) ?J44.9 - Chronic obstructive pulmonary disease, unspecified (ICD-10) Bronchiectasis ?J47.9 - Bronchiectasis, uncomplicated (ICD-10) Sepsis ?A41.9 - Sepsis, unspecified organism (ICD-10) LEOBARDO (acute kidney injury) ?N17.9 - Acute kidney failure, unspecified (ICD-10) Pneumonia ?J18.9 - Pneumonia, unspecified organism (ICD-10) Hypoxemia ?R09.02 - Hypoxemia (ICD-10) Meds Home Medications and Allergies Home Medications ?Medication ?Instructions ?Recorded ?Confirmed ?Type albuterol sulfate 90 mcg/actuation 2 inh inhalation BID PRN 01/13/23 02/25/24 History aerosol inhaler bronchospasm amlodipine 5 mg tablet 5 mg PO DAILY 01/13/23 02/25/24 History atorvastatin 20 mg tablet 20 mg PO DAILY 01/13/23 02/25/24 History calcitonin (salmon) 200 1 spray intranasal DAILY 01/13/23 02/25/24 History unit/actuation nasal spray dicyclomine 20 mg tablet 20 mg PO BID 01/13/23 02/25/24 History ferrous sulfate 325 mg (65 mg 325 mg PO BID 01/13/23 02/25/24 History iron) tablet (FeroSul) metoprolol tartrate 25 mg tablet 25 mg PO Q12H 01/13/23 02/25/24 History sodium chloride 0.9 % for 3 ml inhalation TID 01/13/23 12/03/23 History nebulization fluticasone propionate 230 2 inh inhalation BID 01/14/23 02/25/24 History mcg-salmeterol 21 mcg/actuation HFA inhaler (Advair HFA) flaxseed 1,000 mg capsule mg PO 07/30/23 History meloxicam 7.5 mg tablet 7.5 mg PO BID PRN pain 11/23/23 02/25/24 History baclofen 10 mg tablet mg 02/05/24 History baclofen 10 mg tablet See Rx Instructions .Route 03/12/24 Rx .COMPLEX PRN muscle spasm #60 tabs Allergies Allergy/AdvReac Type Severity Reaction Status Date / Time codeine Allergy Rash Verified 02/25/24 11:56 tramadol Allergy Rash Verified 02/25/24 11:56 Exam Constitutional Documenting provider has reviewed patient's vital signs: yes Common normals: no apparent distress, oriented x3, healthy appearing, alert and well nourished General appearance: cooperative [facility] Common normals: normocephalic, hearing grossly normal bilaterally and moist oral mucous membranes Head and scalp: normocephalic Eye Common normals: PERRL Pupil: PERRL Neck & C-Spine Common normals: full ROM General: normal visual inspection Chest Common normals: inspection of chest normal Respiratory Common normals: normal respiratory effort, no retractions and no use of accessory muscles Back & Pelvis Lumbar spine/lower back: ROM limited, pain with ROM, lumbar spinal tenderness Lumbar spinal tenderness location: L4 and L5 and straight leg raise negative bilaterally Sacroiliac joints: SI joints normal Other: positive facet loading sensation intact BLE strength 5/5 in BLE Extremity Common normals: normal to inspection and full ROM Neuro Common normals: oriented x3, CN's II-XII intact bilaterally, moves all extremities, no focal motor deficits, no sensory deficits noted and deep tendon reflexes 2+ bilaterally Sensorium/orientation: alert Motor exam: strength 5/5 throughout and no movement abnormalities noted Psych Common normals: mental status grossly normal, thought process normal, cooperative, affect normal, speech normal and activity/motor behavior normal Speech: normal speech Thought process: normal thought process Results Additional Findings Additional findings: If on a controlled substance or opioids, I have checked an [place] report on this patient and there are no aberrancies noted in the prescribing history.??If on a controlled substance or opioid a drug screen was completed and reviewed within the last year, and if there has not been a drug screen completed we ordered one today to monitor higher risk, state monitored pain medication use. As part of providing excellent, safe, comprehensive care, the following was completed at our patient's visit: 1. A medication reconciliation and review to ensure accurate knowledge of current/active medications, including asking our patients to inform us about any [id number] medications or herbal remedies/nutritional supplements/alternative remedies. 2. A review to specifically ensure our patients have had annual screening for screening for depression, screening for tobacco use, and screening for unhealthy alcohol use. For concerning screenings had a discussion with the patient, provided patient education, and recommended follow-up with primary care provider when appropriate. If patient noted with a risk of falling, they received education on strength, gait, and balance training to prevent future risk of falling. Assessment and Plan Assessment and Plan (1) Lumbar spondylosis: Assessment and Plan: The patient has had over 3 months of moderate to severe low back pain with functional impairment and inadequate response to conservative care including NSAIDS (unless there are contraindication such as concurrent blood thinners), multiple oral or topical pain medications, and home exercise program/physical therapy.? Patient has completed >6 weeks of guided home exercise program and/or formal physical therapy program without relief of their symptoms.? I have reviewed the imaging of the lumbar spine and no red flags were identified.? The Oswestry Disability Index was completed, and the patient scored a 60%.? The patient noted the following:?? moderate to severe pain with ADLs, sitting, standing, lifting, sleeping We discussed the risks and benefits of the procedure with the patient, and we are NOT planning on using sedation as outlined in the guidelines from Medicare unless there is a documented reason that sedation would be strongly recommended.?? ?The procedure will be completed with fluoroscopic guidance.? (2) Lumbar stenosis with neurogenic claudication: Plan bilateral L4-5 L5-S1 facet medial branch block x2 working towards RFA continue current medications f/u after each injection
== END 2024-06-04 12:47 | disposition home or self-care (01) ==
LOC: PM 12:46
PROVIDERS: PCP Family Medicine; Visit Provider Nurse Practitioner
DX: M47.816 Spondylosis without myelopathy or radiculopathy, lumbar region (principal); M48.062 Spinal stenosis, lumbar region with neurogenic claudication
CPT/HCPCS: G0463

== ENCOUNTER 2024-06-16 09:23 | Day surgery (SDC) | payer MEDICARE, SELFPAY ==
--- OUTSIDE RECORDS SUMMARY | 2024-06-16 09:39 | XMS_ITS | CCD ---
Author Organization [facility] Care Team Providers Care Loss Control Technician Name Role Phone JOMARY ., DR ESCALONA [...] (1 source) Codeine Drug Allergy 02-26-1959 [facility] Repository (1 source) levoFLOXacin Drug Allergy [facility] Rep[facility] (1 source) Sulfonamides (Antibiotic) Drug allergy (disorder) [facility] Rep[facility] (1 source) traMADol Drug Allergy 01-28-2008 [facility] Repository Problems Active Problems Problem Classification [...] of malignant neoplasm of digestive organs; Translations: [[facility] HX MALIG NEOPLASM DIGESTIV ORGN] Onset: 12-02-2021 [...] PAMELA ANN Date: 2022-05-03 12:41 Normal [facility] MAMM SCREEN 3D WAQAS CADon 11-30-2021 MG MAMM SCREEN 3D WAQAS CAD Patient: DANIELLE ABBASI Exam Date: 11/30/2021 : 1935 Gender:F Ordering : DR POLA CROSS . Admission #: [id number] Family : Order #: [id number] CLICK HERE TO VIEW EXAM RADIOLOGY REPORT [...] colon cancer at age 75. LOCATION: [facility] BREAST COMPOSITION: Extremely dense, which lowers [...] MD on 11/30/2021 at 12:44 Normal [facility] OCC BLD IMMUNO SCREENon 10-28 OCCULT BLOOD Negative Normal NEGATIVE [facility] Comment on above: Performed By: #### O BSCRN #### [facility] [address] [place] [address] Dr. Aba Esparza T4, T3U, FTI LABCORPon 11-16 Free Thyroxine Index 2.1 Normal 1.2-4.9 [facility] Comment on above: Performed By: #### T HYLC #### [facility] [address] [place] [address] Dr. Aba Esparza T3 Uptake 33 % Normal 24-39 [facility] Comment on above: Performed By: #### T HYLC #### [facility] [address] [place] [address] Dr. Aba Esparza T4 [Mass/Vol] 6.3 ug/dL Normal 4.5-12.0 [facility] Comment on above: Performed By: #### T HYLC #### [facility] [address] [place] [address] Dr. Aba Esparza CBC AUTO DIFFon 11-15-2021 BASO # 0.0 103/ul Normal 0.0-0.1 [facility] Comment on above: Performed By: #### C BC #### [facility] [address] [place] [address] Dr. Aba Esparza Basophils/100 WBC (Bld) 0.3 % Normal 0.2-2.0 [facility] Comment on above: Performed By: #### C BC #### [facility] [address] [place] [address] Dr. Aba Esparza EO # 0.2 103/ul Normal 0.0-0.7 [facility] Comment on above: Performed By: #### C BC #### [facility] [address] [place] [address] Dr. Aba Esparza Eosinophils/100 WBC (Bld) 1.4 % Normal 0.9-7.0 [facility] Comment on above: Performed By: #### C BC #### [facility] [address] [address] [address] Aba Esparza Erythrocyte distribution width (RBC) [Ratio] 15.0 % Normal 11.0-15.0 [facility] Comment on above: Performed By: #### C BC #### [facility] [address] [place] [address] Dr. Aba Esparza Hematocrit (Bld) [Volume fraction] 42.8 % Normal 36.0-48.0 [facility] Comment on above: Performed By: #### C BC #### [facility] [address] [place] [address] Dr. Aba Esparza Hemoglobin (Bld) [Mass/Vol] 13.4 g/dL Normal 12.0-16.0 [facility] Comment on above: Performed By: #### C BC #### [facility] [address] [place] [address] Dr. Aba Esparza IG # 0.04 10e3/ul Critically high 0.00-0.03 [facility] Comment on above: Performed By: #### C BC #### [facility] [address] [place] [address] Dr. Aba Esparza IG % 0.3 % Normal 0.0-0.5 [facility] Comment on above: Performed By: #### C BC #### [facility] [address] [place] [address] Dr. Aba Esparza LYMPH # 3.6 103/ul Normal 1.2-3.8 [facility] Comment on above: Performed By: #### C BC #### [facility] [address] [place] [address] Dr. Aba Esparza Lymphocytes/100 WBC (Bld) 27.5 % Normal 20.5-60.0 [facility] Comment on above: Performed By: #### C BC #### [facility] [address] [place] [address] Dr. Aba Esparza MANUAL DIFF REQ NO Normal [facility] Comment on above: Performed By: #### C BC #### [facility] [address] [address] [address] Aba Esparza MCH (RBC) [Entitic mass] 27.6 pg Normal 26.7-34.0 [facility] Comment on above: Performed By: #### C BC #### [facility] [address] [place] [address] Dr. Aba Esparza MCHC (RBC) [Mass/Vol] 31.3 g/dL Normal 29.9-35.2 [facility] Comment on above: Performed By: #### C BC #### [facility] [address] [place] [address] Dr. Aba Esparza MCV (RBC) [Entitic vol] 88.1 fL Normal 81.0-99.0 [facility] Comment on above: Performed By: #### C BC #### [facility] [address] [place] [address] Dr. Aba Esparza MONO # 0.9 103/ul Critically high 0.3-0.8 [facility] Comment on above: Performed By: #### C BC #### [facility] [address] [place] [address] Dr. Aba Esparza Monocytes/100 WBC (Bld) 7.0 % Normal 1.7-12.0 [facility] Comment on above: Performed By: #### C BC #### [facility] [address] [place] [address] Dr. Aba Esparza NEUT # 8.3 103/ul Critically high 1.4-6.5 [facility] Comment on above: Performed By: #### C BC #### [facility] [address] [place] [address] Dr. Aba Esparza Neutrophils/100 WBC (Bld) 63.5 % Normal 43.0-75.0 [facility] Comment on above: Performed By: #### C BC #### [facility] [address] [place] [address] Dr. Aba Esparza Platelet mean volume (Bld) [Entitic vol] 9.0 fL Critically low 9.5-13.5 [facility] Comment on above: Performed By: #### C BC #### [facility] [address] [address] [address] Aba Esparza PLT 198 103/ul Normal 150-450 [facility] Comment on above: Performed By: #### C BC #### [facility] [address] [address] [address] Aba Esparza RBC 4.86 106/ul Normal 4.20-5.40 [facility] Comment on above: Performed By: #### C BC #### [facility] [address] [address] [address] Aba Esparza WBC 13.1 103/ul Critically high 4.0-11.0 [facility] Comment on above: Performed By: #### C BC #### [facility] [address] [address] [address] Aba Esparza GLYCOHEMOGLOBIN A1Con 2021 ADA RECOMMENDATION SEE BELOW Normal [facility] Comment on above: Result Comment: ADA RECOMMENDED LIMIT 4.0 - 6.0 ADA THERAPEUTIC TARGET < 7.0 ACTION SUGGESTED > 7.0 Performed By: #### A 1C ####[facility] [id number] [address] Aba Esparza Glucose [Mass/Vol] 126 mg/dL Normal [facility] Comment on above: Performed By: #### A 1C ####[facility] [id number] [id number] Aba Esparza HbA1c (Bld) [Mass fraction] 6.0 % Normal 4.5-6.2 [facility] Comment on above: Performed By: #### A 1C ####[facility] [id number] [address]Dr. Aba Esparza IRONon 11-15-2021 Iron [Mass/Vol] 34.0 ug/dL Critically low 50.0-170.0 [facility] Comment on above: Performed By: #### I ELIZA #### [facility] [address] [address] [address] Aba Esparza LIPID PROFILEon 11-15-2021 CHOL-HDL RATIO NORM SEE BELOW Normal [facility] Comment on above: Result Comment: 3.3 - 4.4 LOW RISK 4.4 - 7.1 AVERAGE RISK 7.1 - 11.0 MODERATE RISK >11.0 HIGH RISK Performed By: #### L IPID, CMP, TSH #### [facility] [address] [address] [address] Aba Esparza Cholesterol [Mass/Vol] 120 mg/dL Normal <=200 [facility] Comment on above: Performed By: #### L IPID, CMP, TSH #### [facility] [address] [address] [address] Aba Esparza Cholesterol in HDL [Mass/Vol] 40 mg/dL Normal 40-60 [facility] Comment on above: Performed By: #### L IPID, CMP, TSH #### [facility] [address] [address] [address] Aba Esparza Cholesterol in LDL [Mass/Vol] 45.8 mg/dL Normal [facility] Comment on above: Performed By: #### L IPID, CMP, TSH #### [facility] [address] [address] [address] Aba Esparza Cholesterol.total/Cho lesterol in HDL [Mass ratio] 3.0 {ratio} Normal [facility] Comment on above: Performed By: #### L IPID, CMP, TSH #### [facility] [address] [address] [address] Aba Esparza HDL NORMAL > or = 60 mg/dl - LOW CARDIOVASCULAR RISK <40 mg/dl - HIGH CARDIOVASCULAR RISK Normal [facility] Comment on above: Performed By: #### L IPID, CMP, TSH #### [facility] [address] [address] [address] Aba Esparza LDL CALC NORMAL SEE BELOW Normal [facility] Comment on above: Result Comment: <100 mg/dl OPTIMAL 100 - 129 mg/dl NEAR OR ABOVE OPTIMAL 130 - 159 mg/dl BORDERLINE HIGH 160 - 189 mg/dl HIGH >190 mg/dl VERY HIGH Performed By: #### L IPID, CMP, TSH #### [facility] [address] [address] [address] Aba Esparza Triglyceride [Mass/Vol] 171 mg/dL Critically high <=150 [facility] Comment on above: Performed By: #### L IPID, CMP, TSH #### [facility] [address] [address] [address] Aba Esparza VLDL CALC 34.2 mg/dL Normal [facility] Comment on above: Performed By: #### L IPID, CMP, TSH #### [facility] [address] [address] [address] Aba Esparza PROF 14(COMP METB)on 022 Albumin [Mass/Vol] 3.9 g/dL Normal 3.4-5.0 [facility] Comment on above: Performed By: #### L IPID, CMP, TSH #### [facility] [address] [place] [address] Dr. Aba Esparza Albumin/Globulin [Mass ratio] 1.0 {ratio} Normal [facility] Comment on above: Performed By: #### L IPID, CMP, TSH #### [facility] [address] [place] [address] Dr. Aba Esparza ALP [Catalytic activity/Vol] 138 U/L Critically high 46-116 [facility] Comment on above: Performed By: #### L IPID, CMP, TSH #### [facility] [address] [place] [address] Dr. Aba Esparza ALT [Catalytic activity/Vol] 23 U/L Normal 14-59 [facility] Comment on above: Performed By: #### L IPID, CMP, TSH #### [facility] [address] [address] [address] Aba Esparza Anion gap [Moles/Vol] 12.7 mmol/L Normal [facility] Comment on above: Performed By: #### L IPID, CMP, TSH #### [facility] [address] [place] [address] Dr. Aba Esparza AST [Catalytic activity/Vol] 24 U/L Normal 15-37 [facility] Comment on above: Performed By: #### L IPID, CMP, TSH #### [facility] [address] [address] [address] Aba Esparza Bilirubin [Mass/Vol] 0.6 mg/dL Normal 0.2-1.0 [facility] Comment on above: Performed By: #### L IPID, CMP, TSH #### [facility] [address] [address] [address] Aba Esparza Calcium [Mass/Vol] 9.4 mg/dL Normal 8.5-10.1 [facility] Comment on above: Performed By: #### L IPID, CMP, TSH #### [facility] [address] [address] [address] Aba Esparza Chloride [Moles/Vol] 104 mmol/L Normal 98-107 [facility] Comment on above: Performed By: #### L IPID, CMP, TSH #### [facility] [address] [place] [address] Dr. Aba Esparza CO2 [Moles/Vol] 27.3 mmol/L Normal 21.0-32.0 [facility] Comment on above: Performed By: #### L IPID, CMP, TSH #### [facility] [address] [place] [address] Dr. Aba Esparza Creatinine [Mass/Vol] 0.90 mg/dL Normal 0.55-1.02 [facility] Comment on above: Performed By: #### L IPID, CMP, TSH #### [facility] [address] [place] [address] Dr. Aba Esparza EGFR-AF BULGARIAN >60 Normal >=60 [facility] Comment on above: Performed By: #### L IPID, CMP, TSH #### [facility] [address] [address] [address] Aba Esparza EGFR-NON AF BULGARIAN =60 Normal >=60 [facility] Comment on above: Performed By: #### L IPID, CMP, TSH #### [facility] [address] [place] [address] Dr. Aba Esparza Globulin (S) [Mass/Vol] 3.8 g/dL Normal [facility] Comment on above: Performed By: #### L IPID, CMP, TSH #### [facility] [address] [address] [address] Aba Esparza Glucose [Mass/Vol] 112 mg/dL Critically high 74-106 [facility] Comment on above: Performed By: #### L IPID, CMP, TSH #### [facility] [address] [address] [address] Aba Esparza Potassium [Moles/Vol] 4.0 mmol/L Normal 3.5-5.1 [facility] Comment on above: Performed By: #### L IPID, CMP, TSH #### [facility] [address] [place] [address] Dr. Aab Esparza Protein [Mass/Vol] 7.7 g/dL Normal 6.4-8.2 [facility] Comment on above: Performed By: #### L IPID, CMP, TSH #### [facility] [address] [place] [address] Dr. Aba Esparza Sodium [Moles/Vol] 140 mmol/L Normal 136-145 [facility] Comment on above: Performed By: #### L IPID, CMP, TSH #### [facility] [address] [place] [address] Dr. Aba Esparza Urea nitrogen [Mass/Vol] 15.0 mg/dL Normal 7.0-18.0 [facility] Comment on above: Performed By: #### L IPID, CMP, TSH #### [facility] [address] [place] [address] Dr. Aba Esparza Urea nitrogen/Creatinine [Mass ratio] 16.7 mg/mg Normal [facility] Comment on above: Performed By: #### L IPID, CMP, TSH #### [facility] [address] [place] [address] Dr. Aba Esparza TSHon 11-15-2021 TSH 1.187 uIU/mL Normal 0.358-3.740 [facility] Comment on above: Performed By: #### L IPID, CMP, TSH #### [facility] [address] [id number] Aba Esparza XR DEXA BONE DENSITYon [...] by: LIAM PEREZ Date: 2021-07-01 16:18 Normal [facility] Encounters Encounter Date Encounter Type Care Provider Facility Start: 02-25-2024 End: 02-25-2024 ambulatory Heriberto Vickers MD Facility: [facility] Start: 12-03-2023 End: 12-03-2023 ambulatory Heriberto Vickers MD Facility: [facility] Start: 08-13-2023 End: 08-13-2023 ambulatory Heriberto Vickers MD Facility: [facility] Start: 07-30-2023 End: 07-30-2023 ambulatory Heriberto Vickers MD Facility: [facility] Start: 05-03-2022 End: 05-04-2022 ambulatory [...] Category Payer Medicare 2023 Unknown 1958 Medicare [id number] 1958 Unknown [id number] 1935 Unknown [id number] 2.16.84 [id number] 1935 Unknown [id number] 2.16.84 [id number] 1935 Unknown [id number] 2.16.84 [id number] 1936 Unknown [id number] 2.16.84 [id number] 1936 Unknown [id number] 2.16.84 [id number] 1936 Unknown [id number] 2.16.84 [id number] 1936 Unknown [id number] 2.16. [id number] 1935 Unknown [id number] 2.16. [id number] 1936 Unknown [id number] 2.16. [id number] 1935 Unknown [id number] 2.16. [id number] Summary Purpose Family History No Family History Records FoundNo Family History Records Found Advance Directives No Advanced Directives Records FoundNo Advanced Directives Records Found Additional Source Comments INFORMATION SOURCE (unrecogn ized section and content) DATE CREATED AUTHOR 05/05/2022 [facility] DATE CREATED AUTHOR AUTHOR'S MARCELAIZ JUJU 03/11/2024 [facility] FOR RECORDS PERTAINING TO PATIENTS WHO ARE [...] BE BASED ON THE PRIMARY CLINICAL RECORDS. [employer] [facility]. provides no warranty or guarantee of the accuracy or completeness of information in this document.
[2024-06-16 09:44] VITALS: BP 137/66; PULSE 62; TEMP 36.6; O2SAT 95
[2024-06-16 10:40] VITALS: BP 147/69; PULSE 63; O2SAT 96
[2024-06-16 10:41] VITALS: BP 161/70; PULSE 77; O2SAT 96
[2024-06-16] MEDS: BUPIVACAINE HCL 0.25% PF 25 MG/10 ML VIAL 8 ML INJ (10:42)
[2024-06-16] MEDS: LIDOCAINE HCL 2% 400 MG/20 ML MDV INJ (10:42)
--- NOTE | 2024-06-16 10:44 | W.PM.PROCNOT ---
Date of procedure: 06/16/24 Pre-op diagnosis: Pain due to lumbar spondylosis without myelopathy Post-op diagnosis: same as pre-op Procedure: Procedure: Bilateral L4-5, L5-S1 medial branch block Medications: Bupivacaine 0.25% 6cc The patient was seen and examined in the preoperative holding area.? An informed consent was obtained and placed on the chart.? The patient was brought to the medical procedure unit and placed in the prone position.? A timeout was completed verifying correct patient, procedure site, positioning, plan, and special equipment.? Using aseptic technique, the needle was placed at left L4. Under direct fluoroscopic visualization a Quincke-tipped spinal needle was advanced to the junction of the superior articulating process with the transverse process at the designated medial branch segment.? Preceded by negative aspiration, the above-mentioned injectate was placed in 1 mL aliquots.? The procedure was repeated at left L5, S1.? The needle was removed and insertion site was covered. The same procedure, at the same levels, was completed on the right side. The patient was taken to the postprocedural recovery area and monitored for an appropriate length of time before found suitable for discharge in the company of a responsible adult. Anesthesia: Local Surgeon: Heriberto Vickers Pathology: none sent Condition: stable Disposition: no change
== END 2024-06-16 10:50 | disposition home or self-care (01) ==
PROVIDERS: PCP Family Medicine; Visit Provider Anesthesiology
DX: M47.816 Spondylosis without myelopathy or radiculopathy, lumbar region (principal); M54.50 Low back pain, unspecified
CPT/HCPCS: 64493; 64494; J0665

== ENCOUNTER 2024-06-25 10:22 | Outpatient (OUT) | payer MEDICARE, SELFPAY ==
--- NOTE | 2024-06-25 10:50 | PM.CN ---
Consult Note: HPI Data of Consult Patient: known to practice within the last 3 years Consult date: 07/30/23 Requesting Physician: Mirna Reese NP Primary Care Provider: Kumar Stokes MD Consult Narrative Reason for consult: low back pain Narrative: This is a pleasant 88yof who presents for evaluation. Fell in Dec 2022 and sustained L2 compression fracture. Imaging reviewed, severe stenosis at L1-2 and L2-3 due to retropulsion of posterior wall and disc bulge. Evaluated by spine surgeon, who did not recommend surgery at this time. Continues in provider directed home exercise program >6 weeks, with minimal benefit. Uses tylenol otc, meloxicam and baclofen. denies adverse med side effects. today low back pain 3/10 aching, increasing to 10/10 with standing, walking, dishes, bending. denies falls or injury. recently underwent bilateral L4-5 L5-S1 MBB with no improvement. cc:: CC: Mirna Reese NP Review of Systems ROS Status of ROS 10 or more systems reviewed and unremarkable except as noted in history and below Musculoskeletal Reports: back pain PFSH PFSH Medical History Dehydration ?E86.0 - Dehydration (ICD-10) Diabetes ?E11.9 - Type 2 diabetes mellitus without complications (ICD-10) HTN (hypertension) ?I10 - Essential (primary) hypertension (ICD-10) Colon cancer ?C18.9 - Malignant neoplasm of colon, unspecified (ICD-10) COPD (chronic obstructive pulmonary disease) ?J44.9 - Chronic obstructive pulmonary disease, unspecified (ICD-10) Bronchiectasis ?J47.9 - Bronchiectasis, uncomplicated (ICD-10) Sepsis ?A41.9 - Sepsis, unspecified organism (ICD-10) LEOBARDO (acute kidney injury) ?N17.9 - Acute kidney failure, unspecified (ICD-10) Pneumonia ?J18.9 - Pneumonia, unspecified organism (ICD-10) Hypoxemia ?R09.02 - Hypoxemia (ICD-10) Meds Home Medications and Allergies Home Medications ?Medication ?Instructions ?Recorded ?Confirmed ?Type albuterol sulfate 90 mcg/actuation 2 inh inhalation BID PRN 01/13/23 06/16/24 History aerosol inhaler bronchospasm amlodipine 5 mg tablet 5 mg PO DAILY 01/13/23 06/16/24 History atorvastatin 20 mg tablet 20 mg PO DAILY 01/13/23 06/16/24 History calcitonin (salmon) 200 1 spray intranasal DAILY 01/13/23 06/16/24 History unit/actuation nasal spray dicyclomine 20 mg tablet 20 mg PO BID 01/13/23 06/16/24 History ferrous sulfate 325 mg (65 mg 325 mg PO BID 01/13/23 06/16/24 History iron) tablet (FeroSul) metoprolol tartrate 25 mg tablet 25 mg PO Q12H 01/13/23 06/16/24 History sodium chloride 0.9 % for 3 ml inhalation TID 01/13/23 06/16/24 History nebulization fluticasone propionate 230 2 inh inhalation BID 01/14/23 06/16/24 History mcg-salmeterol 21 mcg/actuation HFA inhaler (Advair HFA) flaxseed 1,000 mg capsule mg PO 07/30/23 History baclofen 10 mg tablet See Rx Instructions .Route 03/12/24 Rx .COMPLEX PRN muscle spasm #60 tabs meloxicam 7.5 mg tablet 7.5 mg PO BID #60 tabs 06/04/24 06/16/24 Rx Allergies Allergy/AdvReac Type Severity Reaction Status Date / Time codeine Allergy Rash Verified 06/16/24 09:51 tramadol Allergy Rash Verified 06/16/24 09:51 Exam Constitutional Documenting provider has reviewed patient's vital signs: yes Common normals: no apparent distress, oriented x3, healthy appearing, alert and well nourished General appearance: cooperative HENID Common normals: normocephalic, hearing grossly normal bilaterally and moist oral mucous membranes Head and scalp: normocephalic Eye Common normals: PERRL Pupil: PERRL Neck & C-Spine Common normals: full ROM General: normal visual inspection Chest Common normals: inspection of chest normal Respiratory Common normals: normal respiratory effort, no retractions and no use of accessory muscles Back & Pelvis Lumbar spine/lower back: ROM limited, pain with ROM and straight leg raise negative bilaterally; no lumbar spinal tenderness Sacroiliac joints: SI joint(s) abnormal Other: negative facet loading bilateral sij positive fly(patricks), gaenslens, thigh thrust, compression test sensation intact BLE strength 5/5 in BLE Extremity Common normals: normal to inspection and full ROM Neuro Common normals: oriented x3, CN's II-XII intact bilaterally, moves all extremities, no focal motor deficits, no sensory deficits noted and deep tendon reflexes 2+ bilaterally Sensorium/orientation: alert Motor exam: strength 5/5 throughout and no movement abnormalities noted Psych Common normals: mental status grossly normal, thought process normal, cooperative, affect normal, speech normal and activity/motor behavior normal Speech: normal speech Thought process: normal thought process Results Additional Findings Additional findings: If on a controlled substance or opioids, I have checked an [place] report on this patient and there are no aberrancies noted in the prescribing history.??If on a controlled substance or opioid a drug screen was completed and reviewed within the last year, and if there has not been a drug screen completed we ordered one today to monitor higher risk, state monitored pain medication use. As part of providing excellent, safe, comprehensive care, the following was completed at our patient's visit: 1. A medication reconciliation and review to ensure accurate knowledge of current/active medications, including asking our patients to inform us about any [id number] medications or herbal remedies/nutritional supplements/alternative remedies. 2. A review to specifically ensure our patients have had annual screening for screening for depression, screening for tobacco use, and screening for unhealthy alcohol use. For concerning screenings had a discussion with the patient, provided patient education, and recommended follow-up with primary care provider when appropriate. If patient noted with a risk of falling, they received education on strength, gait, and balance training to prevent future risk of falling. Assessment and Plan Assessment and Plan (1) Lumbar spondylosis: Assessment and Plan: The patient has had over 3 months of moderate to severe low back pain with functional impairment and inadequate response to conservative care including NSAIDS (unless there are contraindication such as concurrent blood thinners), multiple oral or topical pain medications, and home exercise program/physical therapy.? Patient has completed >6 weeks of guided home exercise program and/or formal physical therapy program without relief of their symptoms.? I have reviewed the imaging of the lumbar spine and no red flags were identified.? The Oswestry Disability Index was completed, and the patient scored a 52%.? The patient noted the following:?? moderate to severe pain with ADLs, sitting, standing, lifting, sleeping We discussed the risks and benefits of the procedure with the patient, and we are NOT planning on using sedation as outlined in the guidelines from Medicare unless there is a documented reason that sedation would be strongly recommended.?? ?The procedure will be completed with fluoroscopic guidance.? (2) Lumbar stenosis with neurogenic claudication: (3) Sacroiliitis: Plan bilateral SIJ injection under fluoroscopy, previous left SIJ injection did provide 50% improvement for 3 months. continue current medications, notes moderate relief without side effects. continue HEP as tolerated. f/u after injection
== END 2024-06-25 10:23 | disposition home or self-care (01) ==
LOC: PM 10:23
PROVIDERS: PCP Family Medicine; Visit Provider Nurse Practitioner
DX: M47.816 Spondylosis without myelopathy or radiculopathy, lumbar region (principal); M48.062 Spinal stenosis, lumbar region with neurogenic claudication; M46.1 Sacroiliitis, not elsewhere classified
CPT/HCPCS: G0463

== ENCOUNTER 2024-07-14 10:39 | Day surgery (SDC) | payer MEDICARE, SELFPAY ==
[2024-07-14 11:49] VITALS: BP 142/72; PULSE 60; TEMP 36.9; O2SAT 96
[2024-07-14 12:02] VITALS: BP 188/87; PULSE 72; O2SAT 96
[2024-07-14 12:03] VITALS: BP 177/76; PULSE 62; O2SAT 96
[2024-07-14] MEDS: IOHEXOL 240 MG/ML - 10 ML VIAL 24 MG INJ (12:05)
[2024-07-14] MEDS: LIDOCAINE HCL 2% 400 MG/20 ML MDV INJ (12:05)
[2024-07-14] MEDS: METHYLPREDNISOLONE ACETATE 40 MG/ML VIAL 80 MG INJ (12:05)
[2024-07-14] MEDS: BUPIVACAINE HCL 0.25% PF 25 MG/10 ML VIAL 4 ML INJ (12:05)
--- NOTE | 2024-07-14 12:05 | W.PM.PROCNOT ---
Date of procedure: 07/14/24 Pre-op diagnosis: Pain due to bilateral sacroiliitis Post-op diagnosis: same as pre-op Procedure: Procedure: Bilateral sacroiliac joint injection Medications: Bupivacaine 0.25% 3cc, depomedrol 40mg After informed consent was obtained, the patient was brought to the medical procedure unit and placed in the prone position, when a timeout was completed verifying correct patient, procedure, site, positioning, implant, and/or special equipment.? The skin overlying the area was prepped and draped in standard sterile fashion using alcohol.? A 25-gauge needle was inserted towards the left sacroiliac joint under direct fluoroscopic imaging.? Needle tip was advanced until the joint was encountered.? We instilled a total of 2 mL of solution.? The same procedure was then completed on the right side.? Postoperatively needles were removed.? The patient tolerated the procedure well without complication.? The patient reported reduction in pain symptoms postoperatively. Anesthesia: Local Surgeon: Heriberto Vickers Pathology: none sent Condition: stable Disposition: no change
== END 2024-07-14 12:10 | disposition home or self-care (01) ==
LOC: SURGOUT 10:40
PROVIDERS: PCP Family Medicine; Visit Provider Anesthesiology
DX: M46.1 Sacroiliitis, not elsewhere classified (principal)
CPT/HCPCS: 27096; J0665; J1010; Q9966

== ENCOUNTER 2024-07-24 09:18 | Outpatient (OUT) | payer MEDICARE, SELFPAY ==
--- OUTSIDE RECORDS SUMMARY | 2024-07-24 09:29 | XMS_ITS | CCD ---
Author Organization [facility] Care Team Providers Care Group Product Manager Name Role Phone TAY ., DR ESCALONA [...] Unavailable HOY ., DR ESCALONA Consulting Unavailable Giedraitis , Heriberto Wallis Attending Unavailable Giedraitis , Andrius Bimal Attending Unavailable Giedraitis , Andrius Vytfuad Attending Unavailable Giedraitis , Andrius Bimal Attending Unavailable Giedraitis , Andlaura aWllis Attending Unavailable Allergies Allergy Classification Reported Allergen(s) Allergy Type Date of Onset Reaction(s) Facility (1 source) Codeine Drug Allergy 02-26-1959 [facility] (1 source) levoFLOXacin Drug Allergy [facility] (1 source) Sulfonamides (Antibiotic) Drug allergy (disorder) [facility] (1 source) traMADol Drug Allergy 01-28-2008 [facility] Problems Active Problems [...] of malignant neoplasm of digestive organs; Translations: [FAM HX MALIG NEOPLASM DIGESTIV ORGN] Onset: 12-02-2021 [...] PAMELA ANN Date: 2022-05-03 12:41 Normal [facility] MAMM SCREEN 3D WAQAS CADon 11-30-2021 MG MAMM SCREEN 3D WAQAS CAD Patient: DANIELLE ABBASI Exam Date: 11/30/2021 : 1935 Gender:F Ordering : DR POLA CROSS . Admission #: [id number] Family : Order #: [id number] CLICK HERE TO VIEW EXAM RADIOLOGY REPORT [...] colon cancer at age 75. LOCATION: [facility] BREAST COMPOSITION: Extremely dense, [...] MD on 11/30/2021 at 12:44 Normal [facility] OCC BLD IMMUNO SCREENon 10-28 OCCULT BLOOD Negative Normal NEGATIVE [facility] Comment on above: Performed By: #### O BSCRN #### [facility] [address] [place] [address] Dr. Aba Esparza T4, T3U, FTI LABCORPon 11-16 Free Thyroxine Index 2.1 Normal 1.2-4.9 [facility] Comment on above: Performed By: #### T HYLC #### [facility] [address] [place] [address] Dr. Aba Esparza T3 Uptake 33 % Normal 24-39 [facility] Comment on above: Performed By: #### T HYLC #### [facility] [address] [place] [address] Dr. Aba Esparza T4 [Mass/Vol] 6.3 ug/dL Normal 4.5-12.0 [facility] Comment on above: Performed By: #### T HYLC #### [facility] [address] [place] [address] Dr. Aba Esparza CBC AUTO DIFFon 11-15-2021 BASO # 0.0 103/ul Normal 0.0-0.1 [facility] Comment on above: Performed By: #### C BC #### [facility] [address] [place] [address] Dr. Aba Esparza Basophils/100 WBC (Bld) 0.3 % Normal 0.2-2.0 [facility] Comment on above: Performed By: #### C BC #### [facility] [address] [place] [address] Dr. Aba Esparza EO # 0.2 103/ul Normal 0.0-0.7 [facility] Comment on above: Performed By: #### C BC #### [facility] [address] [place] [address] Dr. Aba Esparza Eosinophils/100 WBC (Bld) 1.4 % Normal 0.9-7.0 [facility] Comment on above: Performed By: #### C BC #### [facility] [address] [place] [address] Dr. Aba Esparza Erythrocyte distribution width (RBC) [Ratio] 15.0 % Normal 11.0-15.0 [facility] Comment on above: Performed By: #### C BC #### [facility] [address] [place] [address] Dr. Aba Esparza Hematocrit (Bld) [Volume fraction] 42.8 % Normal 36.0-48.0 [facility] Comment on above: Performed By: #### C BC #### [facility] [address] [place] [address] Dr. Aba Esparza Hemoglobin (Bld) [Mass/Vol] 13.4 g/dL Normal 12.0-16.0 [facility] Comment on above: Performed By: #### C BC #### [facility] [address] [place] [address] Dr. Aba Esparza IG # 0.04 10e3/ul Critically high 0.00-0.03 [facility] Comment on above: Performed By: #### C BC #### [facility] [address] [place] [address] Dr. Aba Esparza IG % 0.3 % Normal 0.0-0.5 [facility] Comment on above: Performed By: #### C BC #### [facility] [address] [place] [address] Dr. Aba Esparza LYMPH # 3.6 103/ul Normal 1.2-3.8 [facility] Comment on above: Performed By: #### C BC #### [facility] [address] [place] [address] Dr. Aba Esparza Lymphocytes/100 WBC (Bld) 27.5 % Normal 20.5-60.0 [facility] Comment on above: Performed By: #### C BC #### [facility] [address] [place] [address] Dr. Aba Esparza MANUAL DIFF REQ NO Normal [facility] Comment on above: Performed By: #### C BC #### [facility] [address] [address] [address] Aba Esparza MCH (RBC) [Entitic mass] 27.6 pg Normal 26.7-34.0 [facility] Comment on above: Performed By: #### C BC #### [facility] [address] [place] [address] Dr. Aba Esparza MCHC (RBC) [Mass/Vol] 31.3 g/dL Normal 29.9-35.2 [facility] Comment on above: Performed By: #### C BC #### [facility] [address] [place] [address] Dr. Aba Esparza MCV (RBC) [Entitic vol] 88.1 fL Normal 81.0-99.0 [facility] Comment on above: Performed By: #### C BC #### [facility] [address] [place] [address] Dr. Aba Esparza MONO # 0.9 103/ul Critically high 0.3-0.8 [facility] Comment on above: Performed By: #### C BC #### [facility] [address] [place] [address] Dr. Aba Esparza Monocytes/100 WBC (Bld) 7.0 % Normal 1.7-12.0 [facility] Comment on above: Performed By: #### C BC #### [facility] [address] [place] [address] Dr. Aba Esparza NEUT # 8.3 103/ul Critically high 1.4-6.5 [facility] Comment on above: Performed By: #### C BC #### [facility] [address] [place] [address] Dr. Aba Esparza Neutrophils/100 WBC (Bld) 63.5 % Normal 43.0-75.0 [facility] Comment on above: Performed By: #### C BC #### [facility] [address] [place] [address] Dr. Aba Esparza Platelet mean volume (Bld) [Entitic vol] 9.0 fL Critically low 9.5-13.5 [facility] Comment on above: Performed By: #### C BC #### [facility] [address] [address] [address] Aba Esparza PLT 198 103/ul Normal 150-450 [facility] Comment on above: Performed By: #### C BC #### [facility] [address] [address] [address] Aba Esparza RBC 4.86 106/ul Normal 4.20-5.40 [facility] Comment on above: Performed By: #### C BC #### [facility] [address] [address] [address] Aba Esparza WBC 13.1 103/ul Critically high 4.0-11.0 [facility] Comment on above: Performed By: #### C BC #### [facility] [address] [address] [address] Aba Esparza GLYCOHEMOGLOBIN A1Con 2021 ADA RECOMMENDATION SEE BELOW Normal [facility] Comment on above: Result Comment: ADA RECOMMENDED LIMIT 4.0 - 6.0 ADA THERAPEUTIC TARGET < 7.0 ACTION SUGGESTED > 7.0 Performed By: #### A 1C ####[facility] [address] [address]Dr. Aba Esparza Glucose [Mass/Vol] 126 mg/dL Normal [facility] Comment on above: Performed By: #### A 1C ####[facility] [address] [address]Dr. Aba Esparza HbA1c (Bld) [Mass fraction] 6.0 % Normal 4.5-6.2 [facility] Comment on above: Performed By: #### A 1C ####[facility] [address] [id number] Aba Esparza IRONon 11-15-2021 Iron [Mass/Vol] 34.0 ug/dL Critically low 50.0-170.0 [facility] Comment on above: Performed By: #### I ELIZA #### [facility] [address] [address] [address] Aba Esparza LIPID PROFILEon 11-15-2021 CHOL-HDL RATIO NORM SEE BELOW Normal [facility] Comment on above: Result Comment: 3.3 - 4.4 LOW RISK 4.4 - 7.1 AVERAGE RISK 7.1 - 11.0 MODERATE RISK >11.0 HIGH RISK Performed By: #### L IPID, CMP, TSH #### [facility] [address] [address] [address] Aba Esparza Cholesterol [Mass/Vol] 120 mg/dL Normal <=200 [facility] Comment on above: Performed By: #### L IPID, CMP, TSH #### [facility] [address] [address] [address] Aba Esparza Cholesterol in HDL [Mass/Vol] 40 mg/dL Normal 40-60 [facility] Comment on above: Performed By: #### L IPID, CMP, TSH #### [facility] [address] [address] [address] Aba Esparza Cholesterol in LDL [Mass/Vol] 45.8 mg/dL Normal [facility] Comment on above: Performed By: #### L IPID, CMP, TSH #### [facility] [address] [address] [address] Aba Esparza Cholesterol.total/Cho lesterol in HDL [Mass ratio] 3.0 {ratio} Normal [facility] Comment on above: Performed By: #### L IPID, CMP, TSH #### [facility] [address] [address] [address] Aba Esparza HDL NORMAL > or = 60 mg/dl - LOW CARDIOVASCULAR RISK <40 mg/dl - HIGH CARDIOVASCULAR RISK Normal [facility] Comment on above: Performed By: #### L IPID, CMP, TSH #### [facility] [address] [address] [address] Aba Esparza LDL CALC NORMAL SEE BELOW Normal [facility] Comment on above: Result Comment: <100 mg/dl OPTIMAL 100 - 129 mg/dl NEAR OR ABOVE OPTIMAL 130 - 159 mg/dl BORDERLINE HIGH 160 - 189 mg/dl HIGH >190 mg/dl VERY HIGH Performed By: #### L IPID, CMP, TSH #### [facility] [address] [address] [address] Aba Esparza Triglyceride [Mass/Vol] 171 mg/dL Critically high <=150 [facility] Comment on above: Performed By: #### L IPID, CMP, TSH #### [facility] [address] [address] [address] Aba Esparza VLDL CALC 34.2 mg/dL Normal [facility] Comment on above: Performed By: #### L IPID, CMP, TSH #### [facility] [address] [address] [address] Aba Esparza PROF 14(COMP METB)on 022 Albumin [Mass/Vol] 3.9 g/dL Normal 3.4-5.0 [facility] Comment on above: Performed By: #### L IPID, CMP, TSH #### [facility] [address] [address] [address] Aba Esparza Albumin/Globulin [Mass ratio] 1.0 {ratio} Normal [facility] Comment on above: Performed By: #### L IPID, CMP, TSH #### [facility] [address] [address] [address] Aba Esparza ALP [Catalytic activity/Vol] 138 U/L Critically high 46-116 [facility] Comment on above: Performed By: #### L IPID, CMP, TSH #### [facility] [address] [address] [address] Aba Esparza ALT [Catalytic activity/Vol] 23 U/L Normal 14-59 [facility] Comment on above: Performed By: #### L IPID, CMP, TSH #### [facility] [address] [address] [address] Aba Esparza Anion gap [Moles/Vol] 12.7 mmol/L Normal [facility] Comment on above: Performed By: #### L IPID, CMP, TSH #### [facility] [address] [address] [address] Aba Esparza AST [Catalytic activity/Vol] 24 U/L Normal 15-37 [facility] Comment on above: Performed By: #### L IPID, CMP, TSH #### [facility] [address] [address] [address] Aba Esparza Bilirubin [Mass/Vol] 0.6 mg/dL Normal 0.2-1.0 [facility] Comment on above: Performed By: #### L IPID, CMP, TSH #### [facility] [address] [address] [address] Aba Esparza Calcium [Mass/Vol] 9.4 mg/dL Normal 8.5-10.1 [facility] Comment on above: Performed By: #### L IPID, CMP, TSH #### [facility] [address] [place] [address] Dr. Aba Esparza Chloride [Moles/Vol] 104 mmol/L Normal 98-107 [facility] Comment on above: Performed By: #### L IPID, CMP, TSH #### [facility] [address] [place] [address] Dr. Aba Esparza CO2 [Moles/Vol] 27.3 mmol/L Normal 21.0-32.0 [facility] Comment on above: Performed By: #### L IPID, CMP, TSH #### [facility] [address] [place] [address] Dr. Aba Esparza Creatinine [Mass/Vol] 0.90 mg/dL Normal 0.55-1.02 [facility] Comment on above: Performed By: #### L IPID, CMP, TSH #### [facility] [address] [place] [address] Dr. Aba Esparza EGFR-AF SOMALI >60 Normal >=60 [facility] Comment on above: Performed By: #### L IPID, CMP, TSH #### [facility] [address] [place] [address] Dr. Aba Esparza EGFR-NON AF SOMALI =60 Normal >=60 [facility] Comment on above: Performed By: #### L IPID, CMP, TSH #### [facility] [address] [place] [address] Dr. Aba Esparza Globulin (S) [Mass/Vol] 3.8 g/dL Normal [facility] Comment on above: Performed By: #### L IPID, CMP, TSH #### [facility] [address] [place] [address] Dr. Aba Esparza Glucose [Mass/Vol] 112 mg/dL Critically high 74-106 [facility] Comment on above: Performed By: #### L IPID, CMP, TSH #### [facility] [address] [place] [address] Dr. Aba Esparza Potassium [Moles/Vol] 4.0 mmol/L Normal 3.5-5.1 [facility] Comment on above: Performed By: #### L IPID, CMP, TSH #### [facility] [address] [place] [address] Dr. Aba Esparza Protein [Mass/Vol] 7.7 g/dL Normal 6.4-8.2 [facility] Comment on above: Performed By: #### L IPID, CMP, TSH #### [facility] [address] [place] [address] Dr. Aba Esparza Sodium [Moles/Vol] 140 mmol/L Normal 136-145 [facility] Comment on above: Performed By: #### L IPID, CMP, TSH #### [facility] [address] [place] [address] Dr. Aba Esparza Urea nitrogen [Mass/Vol] 15.0 mg/dL Normal 7.0-18.0 [facility] Comment on above: Performed By: #### L IPID, CMP, TSH #### [facility] [address] [place] [address] Dr. Aba Esparza Urea nitrogen/Creatinine [Mass ratio] 16.7 mg/mg Normal [facility] Comment on above: Performed By: #### L IPID, CMP, TSH #### [facility] [address] [place] [address] Dr. Aba Esparza TSHon 11-15-2021 TSH 1.187 uIU/mL Normal 0.358-3.740 [facility] Comment on above: Performed By: #### L IPID, CMP, TSH #### [facility] [address] [address] [address] Aba Esparza XR DEXA BONE DENSITYon [...] by: LIAM PEREZ Date: 2021-07-01 16:18 Normal [facility] Encounters Encounter Date Encounter Type Care Provider Facility Start: 06-16-2024 End: 06-16-2024 ambulatory Heriberto Vickers MD Facility: [facility] Start: 02-25-2024 End: 02-25-2024 ambulatory Heriberto Vickers MD Facility: [facility] Start: 12-03-2023 End: 12-03-2023 ambulatory Heriberto Vickers MD Facility: [facility] Start: 08-13-2023 End: 08-13-2023 ambulatory Heriberto Vickers MD Facility: [facility] Start: 07-30-2023 End: 07-30-2023 ambulatory Heriberto Vickers MD Facility: [facility] Start: 05-03-2022 End: 05-04-2022 ambulatory FAUSTO Brooke Facility:[facility] Start: 11-30-2021 End: 12-01-[address] POLA CROSS . Facility:[facility] Start: 11-29-2021 End: 12-07-[address] POLA Brooke Facility:[facility] Start: 11-23-2021 End: 11-23-[address] POLA CROSS . Facility:[facility] Start: 11-15-2021 End: 11-16-[address] POLA CROSS . Facility: Start: 07-01-2021 End: 07-02-[address] POLA CROSS . Facility: Payers Date Payer Category Payer Medicare 2023 Unknown 1958 Medicare [id number] 1958 Unknown [id number] 1935 Unknown [id number] 2.16.84 [id number] 1935 Unknown [id number] 2.16.84 [id number] 1935 Unknown [id number] 2.16.84 [id number] 1935 Unknown [id number] 2.16.84 [id number] 1935 Unknown [id number] 2.16.84 [id number] 1935 Unknown [id number] 2.16.84 [id number] 1935 Unknown [id number] 2.16. [id number] 1935 Unknown [id number] 2.16. [id number] 1935 Unknown [id number] 2.16. [id number] 1935 Unknown [id number] 2.16. [id number] 1935 Unknown [id number] 2.16 [id number] Summary Purpose Family History No Family History Records FoundNo Family History Records Found Advance Directives No Advanced Directives Records FoundNo Advanced Directives Records Found Additional Source Comments INFORMATION SOURCE (unrecogn ized section and content) DATE CREATED AUTHOR 05/05/2022 [facility] DATE CREATED AUTHOR AUTHOR'S ORGANMIN ATION 06/24/2024 [facility] FOR RECORDS PERTAINING TO PATIENTS [...] BE BASED ON THE PRIMARY CLINICAL RECORDS. [facility] [employer] [facility]. provides no warranty or guarantee of the accuracy or completeness of information in this document.
--- NOTE | 2024-07-24 09:35 | PM.CN ---
Consult Note: HPI Data of Consult Patient: known to practice within the last 3 years Consult date: 07/30/23 Requesting Physician: Mirna Reese NP Primary Care Provider: Kumar Stokes MD Consult Narrative Reason for consult: low back pain Narrative: This is a pleasant 89yof who presents for evaluation. Fell in Dec 2022 and sustained L2 compression fracture. Imaging reviewed, severe stenosis at L1-2 and L2-3 due to retropulsion of posterior wall and disc bulge. Evaluated by spine surgeon, who did not recommend surgery at this time. Continues in provider directed home exercise program >6 weeks, with minimal benefit. Uses tylenol otc, meloxicam and baclofen. denies adverse med side effects. today low back pain 4-5/10 aching, increasing to 5/10 with standing, walking, dishes, bending. denies falls or injury. recently underwent bilateral SIJ injection with >50% improvement ongoing. cc:: CC: Mirna Reese NP Review of Systems ROS Status of ROS 10 or more systems reviewed and unremarkable except as noted in history and below Musculoskeletal Reports: back pain and joint pain PFSH [facility] Medical History (Updated 07/03/24 @ 09:50 by Marisol Lima) Osteoarthritis ?M19.90 - Unspecified osteoarthritis, unspecified site (ICD-10) Low back pain ?M54.50 - Low back pain, unspecified (ICD-10) H/O malignant neoplasm of colon ?Z85.038 - Personal history of other malignant neoplasm of large intestine (ICD-10) Irregular heart beat ?I49.9 - Cardiac arrhythmia, unspecified (ICD-10) High cholesterol ?E78.00 - Pure hypercholesterolemia, unspecified (ICD-10) Dehydration ?E86.0 - Dehydration (ICD-10) Diabetes ?E11.9 - Type 2 diabetes mellitus without complications (ICD-10) HTN (hypertension) ?I10 - Essential (primary) hypertension (ICD-10) Colon cancer ?C18.9 - Malignant neoplasm of colon, unspecified (ICD-10) COPD (chronic obstructive pulmonary disease) ?J44.9 - Chronic obstructive pulmonary disease, unspecified (ICD-10) Bronchiectasis ?J47.9 - Bronchiectasis, uncomplicated (ICD-10) Sepsis ?A41.9 - Sepsis, unspecified organism (ICD-10) LEOBARDO (acute kidney injury) ?N17.9 - Acute kidney failure, unspecified (ICD-10) Pneumonia ?J18.9 - Pneumonia, unspecified organism (ICD-10) Hypoxemia ?R09.02 - Hypoxemia (ICD-10) Surgical History H/O cervical spine surgery ?Z98.890 - Other specified postprocedural states (ICD-10) H/O hemicolectomy ?Z90.49 - Acquired absence of other specified parts of digestive tract (ICD-10) History of cholecystectomy ?Z90.49 - Acquired absence of other specified parts of digestive tract (ICD-10) H/O: hysterectomy ?Z90.710 - Acquired absence of both cervix and uterus (ICD-10) Meds Home Medications and Allergies Home Medications ?Medication ?Instructions ?Recorded ?Confirmed ?Type albuterol sulfate 90 mcg/actuation 2 inh inhalation BID PRN 01/13/23 07/14/24 History aerosol inhaler bronchospasm amlodipine 5 mg tablet 5 mg PO DAILY 01/13/23 07/14/24 History atorvastatin 20 mg tablet 20 mg PO DAILY 01/13/23 07/14/24 History calcitonin (salmon) 200 1 spray intranasal DAILY 01/13/23 07/14/24 History unit/actuation nasal spray dicyclomine 20 mg tablet 20 mg PO BID 01/13/23 07/14/24 History ferrous sulfate 325 mg (65 mg 325 mg PO BID 01/13/23 07/14/24 History iron) tablet (FeroSul) metoprolol tartrate 25 mg tablet 25 mg PO Q12H 01/13/23 07/14/24 History sodium chloride 0.9 % for 3 ml inhalation TID 01/13/23 07/14/24 History nebulization fluticasone propionate 230 2 inh inhalation BID 01/14/23 07/14/24 History mcg-salmeterol 21 mcg/actuation HFA inhaler (Advair HFA) flaxseed 1,000 mg capsule mg PO 07/30/23 History baclofen 10 mg tablet See Rx Instructions .Route 03/12/24 07/14/24 Rx .COMPLEX PRN muscle spasm #60 tabs meloxicam 7.5 mg tablet 7.5 mg PO BID #60 tabs 06/04/24 07/14/24 Rx Allergies Allergy/AdvReac Type Severity Reaction Status Date / Time codeine Allergy Rash Verified 07/14/24 11:48 tramadol Allergy Rash Verified 07/14/24 11:48 Exam Constitutional Documenting provider has reviewed patient's vital signs: yes Common normals: no apparent distress, oriented x3, healthy appearing, alert and well nourished General appearance: cooperative HENMT Common normals: normocephalic, hearing grossly normal bilaterally and moist oral mucous membranes Head and scalp: normocephalic Eye Common normals: PERRL Pupil: PERRL Neck & C-Spine Common normals: full ROM General: normal visual inspection Chest Common normals: inspection of chest normal Respiratory Common normals: normal respiratory effort, no retractions and no use of accessory muscles Back & Pelvis Lumbar spine/lower back: ROM limited, pain with ROM, lumbar spinal tenderness and straight leg raise positive right Other: negative facet loading bilateral sij mildly positive fly(patricks), gaenslens, thigh thrust, compression test sensation intact BLE strength 5/5 in BLE Extremity Common normals: normal to inspection and full ROM Neuro Common normals: oriented x3, CN's II-XII intact bilaterally, moves all extremities, no focal motor deficits and no sensory deficits noted Sensorium/orientation: alert Motor exam: no movement abnormalities noted Psych Common normals: mental status grossly normal, thought process normal, cooperative, affect normal, speech normal and activity/motor behavior normal Speech: normal speech Thought process: normal thought process Results Additional Findings Additional findings: If on a controlled substance or opioids, I have checked an [place] report on this patient and there are no aberrancies noted in the prescribing history.??If on a controlled substance or opioid a drug screen was completed and reviewed within the last year, and if there has not been a drug screen completed we ordered one today to monitor higher risk, state monitored pain medication use. As part of providing excellent, safe, comprehensive care, the following was completed at our patient's visit: 1. A medication reconciliation and review to ensure accurate knowledge of current/active medications, including asking our patients to inform us about any [id number] medications or herbal remedies/nutritional supplements/alternative remedies. 2. A review to specifically ensure our patients have had annual screening for screening for depression, screening for tobacco use, and screening for unhealthy alcohol use. For concerning screenings had a discussion with the patient, provided patient education, and recommended follow-up with primary care provider when appropriate. If patient noted with a risk of falling, they received education on strength, gait, and balance training to prevent future risk of falling. Assessment and Plan Assessment and Plan (1) Lumbar spondylosis: Assessment and Plan: The patient has had over 3 months of moderate to severe low back pain with functional impairment and inadequate response to conservative care including NSAIDS (unless there are contraindication such as concurrent blood thinners), multiple oral or topical pain medications, and home exercise program/physical therapy.? Patient has completed >6 weeks of guided home exercise program and/or formal physical therapy program without relief of their symptoms.? I have reviewed the imaging of the lumbar spine and no red flags were identified.? The Oswestry Disability Index was completed, and the patient scored a 49%.? The patient noted the following:?? moderate to severe pain with ADLs, sitting, standing, lifting, sleeping (2) Lumbar stenosis with neurogenic claudication: (3) Sacroiliitis: Plan continue current medications continue HEP as tolerated f/u 3 months, sooner if needed
== END 2024-07-24 09:19 | disposition home or self-care (01) ==
LOC: PM 09:19
PROVIDERS: PCP Family Medicine; Visit Provider Nurse Practitioner
DX: M47.816 Spondylosis without myelopathy or radiculopathy, lumbar region (principal); M48.062 Spinal stenosis, lumbar region with neurogenic claudication; M46.1 Sacroiliitis, not elsewhere classified
CPT/HCPCS: G0463

== ENCOUNTER 2024-10-29 20:37 | Inpatient (IN) | payer MEDICARE, SELFPAY ==
[2024-10-29] VITALS (14 sets, daily range): BP systolic 138–213; BP diastolic 67–95; PULSE 100–124; TEMP 36.8–37.6; O2SAT 87–94; BMI 18.3; BMI 21.3
--- NOTE | 2024-10-29 20:59 | XR_ITS ---
[address] [address] Patient Name: MARY VERGARA MRN: [id number] date: 1935 Sex: F Assigned Patient Location: ER Current Patient Location: ED.MAIN Accession/Order Number: [id number] Exam Date: 10/29/2024 21:07 Report Date: 10/29/2024 22:05 At the request of: EDER ASHBY MD Procedure: XR chest 2V Plain film chest 2 view HISTORY: Fever and productive cough COMPARISON: 01/17/2023 FINDINGS: SUPPORT DEVICES: None POSTSURGICAL CHANGES: Cervical spine fixation hardware HEART: Within normal limits PULMONARY KALIE: Within normal limits MEDIASTINUM: Unremarkable LUNGS AND PLEURA: Continued interstitial lung changes with a left basal predominance. Likely chronic finding. No new consolidation. No pleural effusion. No pneumothorax. BONY STRUCTURES: Intact ADDITIONAL FINDINGS None XR/XR chest 2V IMPRESSION: Continued interstitial changes with left basal predominance. Likely chronic finding. No new consolidation. Impression dictated by: Jayesh Millard M.D. 10/29/2024 10:05 PM Dictation Location: [place] [address] Electronically authenticated by: [id number] Y Date: 10/29/2024 22:05
--- NOTE | 2024-10-29 20:59 | ED.URI1 ---
HPI - URI/Sore Throat General Chief Complaint: Upper Respiratory Infection Time Seen by Provider: 10/29/24 20:40 Source: patient, family and caregiver History of Present Illness HPI Narrative: This 89-year-old female with a history of bronchiectasis and COPD is brought to the emergency department by her daughters for evaluation of productive cough with green phlegm and fever Tmax 102. The patient's daughter states that she always has a harsh cough but this is worse than usual and is not usually productive of green phlegm. The patient also states that she used her nebulizer machine earlier today and had some pain in the right side of her lung at that time. She is not having any back pain. She has no lower extremity pain or swelling. She was formally a patient of Dr. Cain but her family physician is currently managing her COPD. Related Data Home Medications ?Medication ?Instructions ?Recorded ?Confirmed albuterol sulfate 90 mcg/actuation 2 inh inhalation BID PRN 01/13/23 10/29/24 aerosol inhaler bronchospasm amlodipine 5 mg tablet 5 mg PO DAILY 01/13/23 10/29/24 atorvastatin 20 mg tablet 20 mg PO DAILY 01/13/23 10/29/24 calcitonin (salmon) 200 1 spray intranasal DAILY 01/13/23 10/29/24 unit/actuation nasal spray dicyclomine 20 mg tablet 20 mg PO BID 01/13/23 10/29/24 ferrous sulfate 325 mg (65 mg 325 mg PO BID 01/13/23 10/29/24 iron) tablet (FeroSul) metoprolol tartrate 25 mg tablet 25 mg PO Q12H 01/13/23 10/29/24 sodium chloride 0.9 % for 3 ml inhalation TID 01/13/23 10/29/24 nebulization fluticasone propionate 230 2 inh inhalation BID 01/14/23 10/29/24 mcg-salmeterol 21 mcg/actuation HFA inhaler (Advair HFA) flaxseed 1,000 mg capsule mg PO 07/30/23 Previous Rx's ?Medication ?Instructions ?Recorded baclofen 10 mg tablet See Rx Instructions .Route 03/12/24 .COMPLEX PRN muscle spasm #60 tabs meloxicam 7.5 mg tablet 7.5 mg PO BID #60 tabs 06/04/24 Allergies Allergy/AdvReac Type Severity Reaction Status Date / Time levofloxacin (From Levaquin) Allergy Intermediate Rash Verified 10/29/24 20:56 codeine Allergy Rash Verified 10/29/24 20:55 tramadol Allergy Rash Verified 10/29/24 20:55 Review of Systems ROS Status of ROS 10 or more systems reviewed and unremarkable except as noted in history and below [facility] Medical History (Updated 10/29/24 @ 22:35 by Samia Cox MD) Osteoarthritis ?M19.90 - Unspecified osteoarthritis, unspecified site (ICD-10) Low back pain ?M54.50 - Low back pain, unspecified (ICD-10) H/O malignant neoplasm of colon ?Z85.038 - Personal history of other malignant neoplasm of large intestine (ICD-10) Irregular heart beat ?I49.9 - Cardiac arrhythmia, unspecified (ICD-10) High cholesterol ?E78.00 - Pure hypercholesterolemia, unspecified (ICD-10) Dehydration ?E86.0 - Dehydration (ICD-10) Diabetes ?E11.9 - Type 2 diabetes mellitus without complications (ICD-10) HTN (hypertension) ?I10 - Essential (primary) hypertension (ICD-10) Colon cancer ?C18.9 - Malignant neoplasm of colon, unspecified (ICD-10) COPD (chronic obstructive pulmonary disease) ?J44.9 - Chronic obstructive pulmonary disease, unspecified (ICD-10) Bronchiectasis ?J47.9 - Bronchiectasis, uncomplicated (ICD-10) Sepsis ?A41.9 - Sepsis, unspecified organism (ICD-10) LEOBARDO (acute kidney injury) ?N17.9 - Acute kidney failure, unspecified (ICD-10) Pneumonia ?J18.9 - Pneumonia, unspecified organism (ICD-10) Hypoxemia ?R09.02 - Hypoxemia (ICD-10) Surgical History H/O cervical spine surgery ?Z98.890 - Other specified postprocedural states (ICD-10) H/O hemicolectomy ?Z90.49 - Acquired absence of other specified parts of digestive tract (ICD-10) History of cholecystectomy ?Z90.49 - Acquired absence of other specified parts of digestive tract (ICD-10) H/O: hysterectomy ?Z90.710 - Acquired absence of both cervix and uterus (ICD-10) Social History Little interest or pleasure in doing things: not at all Feeling down, depressed, or hopeless: not at all Exam Narrative Exam Narrative: Vital signs and Nursing Notes reviewed: Is a low-grade fever at 99.6, she is tachycardic with a pulse of 119 and blood pressure is elevated at 213/95, she is borderline hypoxic with pulse ox of 94% on 2 L nasal cannula General: Thin elderly female, she is awake, alert, oriented, no acute respiratory distress, lying comfortably on the stretcher-she does have a very harsh cough intermittently HEENT: Normocephalic atraumatic, mucous membranes are moist and pink, eyes are clear, normal conjunctiva, vision is grossly intact, posterior pharynx is normal in appearance. Neck: Supple, no meningeal signs, no anterior or posterior cervical lymphadenopathy Chest: Coarse rhonchi in all lung johnson, no wheezing or rales appreciated CVS: Regular rate and rhythm S1-S2, tachycardia at 119 no murmurs rubs or gallops, pulses are brisk and equal bilaterally ABD: Soft, nondistended, nontender, no rebound guarding or rigidity, bowel sounds are normal, no pulsatile masses appreciated Extremities: Moving all extremities, no lower extremity tenderness or swelling noted, negative Homans' sign, pulses are brisk and equal bilaterally Skin: Normal in appearance without rash,pallor, petechiae or purpura Neuro: No focal deficits Constitutional Vital Signs, click to edit/add: Last Vital Signs Temp 99.6 F 10/29/24 20:46 Pulse 119 H 10/29/24 20:46 Resp 20 10/29/24 20:46 BP 213/95 H 10/29/24 20:46 Pulse Ox 94 L 10/29/24 20:46 O2 Del Method Nasal Cannula 10/29/24 20:46 O2 Flow Rate 2 10/29/24 20:46 Course Vital Signs Vital signs: Vital Signs Temperature 99.6 F 10/29/24 20:46 Pulse Rate 119 H 10/29/24 20:46 Respiratory Rate 20 10/29/24 20:46 Blood Pressure 213/95 H 10/29/24 20:46 Pulse Oximetry 94 L 10/29/24 20:46 Oxygen Delivery Method Nasal Cannula 10/29/24 20:46 Oxygen Delivery Flow Rate 2 10/29/24 20:46 Temperature 99.6 F 10/29/24 20:46 Pulse Rate 119 H 10/29/24 20:46 Respiratory Rate 20 10/29/24 20:46 Blood Pressure 213/95 H 10/29/24 20:46 Pulse Oximetry 94 L 10/29/24 20:46 Oxygen Delivery Method Nasal Cannula 10/29/24 20:46 Oxygen Delivery Flow Rate 2 10/29/24 20:46 MDM - URI/Sore Throat MDM Narrative Medical decision making narrative: This 89-year-old female with a history of bronchiectasis who wears 2 L nasal cannula supplemental oxygen and was formally a patient of Dr. Cain is brought to emergency department by her daughters for evaluation of a fever Tmax 102 at home and increasing shortness of breath. Symptoms started today. The patient's daughter states that she always has a harsh cough but today she started having some productive green phlegm in addition to her fever. She has pain when doing a nebulizer treatment on the right side of her chest. She has not had any dizziness or syncope. She has diffuse rhonchi in all lung johnson without wheezing or rales appreciated. She was noted to be febrile and tachycardic upon arrival with an elevated blood pressure. EKG done upon arrival is a sinus tachycardia at 123 bpm. IV was placed and septic workup labs were ordered. She has elevated white count at 16.6 with a stable hemoglobin. Comprehensive metabolic profile is normal with a glucose of 133. She has a normal lactic acid. Troponin and BNP are both normal. Chest x-ray was read by radiology and shows chronic changes. They do not feel that any of the findings are acute however she does have some increase markings in the left lower lobe. He is negative for COVID-19 and influenza. She was given IV fluids however the full 1700 mL was withheld due to her age and potential for CHF. She was given IV Zofran for nausea and Tylenol for her low-grade fever. Her vital signs have improved. The time of this dictation her pulse is 105, blood pressure is 146/68 and pulse ox is 92% on 2 L nasal cannula. She will be given IV Solu-Medrol and magnesium as well as IV Rocephin and Zithromax for community-acquired pneumonia. Blood cultures are pending at this time. She remains awake alert and oriented. She declines the need for a respiratory treatment stating that she had done 2 treatments earlier in the day. Medical Records Attestation: I reviewed the patient's medical records. Lab Data Attestation: I reviewed the patient's lab results. Labs: Lab Results 10/29/24 10/29/24 Range/Units 20:33 21:20 WBC 16.6 H (4.0-11.0) 10^3/uL RBC 4.73 (4.20-5.40) 10^6/uL Hgb 14.0 (12.0-16.0) g/dL Hct 42.6 (36.0-48.0) % MCV 90.1 (81.0-99.0) fL MCH 29.6 (26.7-34.0) pg MCHC 32.9 (29.9-35.2) g/dL RDW 14.9 (11.0-15.0) % Plt Count 173 (150-450) 10^3/uL MPV 10.3 (9.5-13.5) fL Neut % (Auto) 75.0 (43.0-75.0) % Lymph % (Auto) 15.8 L (20.5-60.0) % [place] % (Auto) 8.2 (1.7-12.0) % Eos % (Auto) 0.4 L (0.9-7.0) % Baso % (Auto) 0.2 (0.2-2.0) % Neut # (Auto) 12.4 H (1.4-6.5) 10^3/uL Lymph # (Auto) 2.6 (1.2-3.8) 10^3/uL [place] # (Auto) 1.4 H (0.3-0.8) 10^3/uL Eos # (Auto) 0.1 (0.0-0.7) 10^3/uL Baso # (Auto) 0.0 (0.0-0.1) 10^3/uL Abs Immat Gran (auto) 0.07 H (0.00-0.03) 10^3/uL Imm/Tot Granulo (auto) 0.4 (0.0-0.5) % Sodium 144 (136-145) mmol/L Potassium 3.5 (3.5-5.1) mmol/L Chloride 103 (98-107) mmol/L Carbon Dioxide 28.6 (21.0-32.0) mmol/L Anion Gap 15.9 BUN 14.0 (7.0-18.0) mg/dL Creatinine 0.67 (0.55-1.02) mg/dL Est GFR ( Amer) >60 (>=60 mL/min/1.73m^2) Est GFR (Non-Af Amer) >60 (>=60 mL/min/1.73m^2) BUN/Creatinine Ratio 20.9 Glucose 133 H (74-106) mg/dL Lactate 0.9 (0.4-2.0) mmol/L Calcium 9.6 (8.5-10.1) mg/dL Magnesium 2.0 (1.8-2.4) mg/dL Total Bilirubin 0.7 (0.2-1.0) mg/dL AST 27 (15-37) U/L ALT 32 (14-59) U/L Alkaline Phosphatase 127 H (46-116) U/L Troponin I High Sens 10.4 (4.0-51.3) pg/mL NT-Pro-B Natriuret Pep 334.0 (<=1800.0) pg/mL Total Protein 8.0 (6.4-8.2) g/dL Albumin 4.3 (3.4-5.0) g/dL Globulin 3.7 g/dL Albumin/Globulin Ratio 1.2 Influenza Type A Ag Negative Influenza Type B Ag Negative SARS-CoV-2 Ag (CV2AG) Negative (NEGATIVE) ECG Data Attestation: I personally reviewed and interpreted this ECG as follows: (Sinus tachycardia at 123 bpm, RSR in lead V1 V2 consistent with right ventricular conduction delay, nonspecific ST changes, indeterminate axis, no acute ST segment elevation ) Discharge Plan Discharge Chief Complaint: Upper Respiratory Infection Clinical Impression: Acute exacerbation of chronic obstructive pulmonary disease, Pneumonia Prescriptions / Home Meds: No Action baclofen 10 mg tablet See Rx Instructions .ROUTE .COMPLEX PRN (Reason: muscle spasm) Qty: 60 2RF Rx Instructions: 1/2-1 PO BID PRN meloxicam 7.5 mg tablet 7.5 mg PO BID Qty: 60 2RF albuterol sulfate 90 mcg/actuation HFA aerosol inhaler 2 inh INHALATION BID PRN (Reason: bronchospasm) amlodipine 5 mg tablet 5 mg PO DAILY atorvastatin 20 mg tablet 20 mg PO DAILY calcitonin (salmon) 200 unit/actuation spray,non-aerosol 1 spray intranasal DAILY dicyclomine 20 mg tablet 20 mg PO BID ferrous sulfate [FeroSul] 325 mg (65 mg iron) tablet 325 mg PO BID metoprolol tartrate 25 mg tablet 25 mg PO Q12H sodium chloride 0.9 % solution for nebulization 3 ml INHALATION TID fluticasone propion-salmeterol [Advair HFA] 230-21 mcg/actuation HFA aerosol inhaler 2 inh inhalation BID flaxseed 1,000 mg capsule PO Print Language: Ukrainian Referrals: Kumar Stokes MD [Primary Care Provider, Family Practice] - 1 week
--- OUTSIDE RECORDS SUMMARY | 2024-10-29 21:12 | XMS_ITS | CCD ---
Author Organization [facility]ini[facility] Care Team Providers Care Rod Mill Operator Name Role Phone TAY ., DR ESCALONA Admitting Unavailable HOY ., DR ESCALONA Attending Unavailable HOY ., DR ESCALONA Primary Care Unavailable HOY ., DR ESCALNOA Consulting Unavailable WEST, DR LIAM Ochoa Consulting Unavailable SAMSA ., FAUSTO Admitting Unavailable SAMSA ., FAUSTO Attending Unavailable HOY ., DR ESCALONA Primary Care Unavailable SAMSA ., FAUSTO Consulting Unavailable NEFCY, PAMELA Consulting Unavailable HOY ., DR ESCALONA Admitting Unavailable HOY ., DR ESCALONA Attending Unavailable HOY ., DR ESCALONA Primary Care Unavailable HOY ., DR ESCALONA Consulting Unavailable WEST, DR ILAM Ochoa Consulting Unavailable HOY ., DR ESCALONA [...] ., DR ESCALONA Consulting Unavailable Giedraitis , Andlaura Wallis Attending Unavailable Giedraitis , Andrius Bimal Attending Unavailable Giedraitis , Andrius Vytfuad Attending Unavailable Giedraitis , Andrius Vytfuad Attending Unavailable Giedraitis , Andrius Vytfuad Attending Unavailable Giedraitis , Andrius Wallis Attending Unavailable Allergies Allergy Classification Reported Allergen(s) Allergy Type Date of Onset Reaction(s) Facility (1 source) Codeine Drug Allergy 02-26-1959 [facility] (1 source) levoFLOXacin Drug Allergy [facility] (1 source) Sulfonamides (Antibiotic) Drug allergy (disorder) [facility] (1 source) traMADol Drug Allergy 01-28-2008 [facility] Problems Active Problems Problem Classification [...] PAMELA ANN Date: 2022-05-03 12:41 Normal [facility] MAMM SCREEN 3D WAQAS CADon 11-30-2021 MAMM SCREEN 3D WAQAS CAD Patient: DANIELLE ABBASI Exam Date: 11/30/2021 : 1935 Gender:F Ordering : DR POLA CROSS . Admission #: [id number] Family : Order #: [id number] CLICK HERE TO VIEW EXAM RADIOLOGY REPORT [...] colon cancer at age 75. LOCATION: [facility] BREAST COMPOSITION: Extremely dense, which lowers [...] MD on 11/30/2021 at 12:44 Normal [facility] OCC BLD IMMUNO SCREENon 10-28 OCCULT BLOOD Negative Normal NEGATIVE [facility] Comment on above: Performed By: #### O BSCRN #### [facility] [address] [place] [address] Dr. Aba Esparza T4, T3U, FTI LABCORPon 11-16 Free Thyroxine Index 2.1 Normal 1.2-4.9 [facility] Comment on above: Performed By: #### T HYLC #### [facility] [address] [place] [address] Dr. Aba Esparza T3 Uptake 33 % Normal 24-39 [facility] Comment on above: Performed By: #### T HYLC #### [facility] [address] [place] [address] Dr. Aba Esparza T4 [Mass/Vol] 6.3 ug/dL Normal 4.5-12.0 [facility] Comment on above: Performed By: #### T HYLC #### [facility] [address] [place] [address] Dr. Aba Esparza CBC AUTO DIFFon 11-15-2021 BASO # 0.0 103/ul Normal 0.0-0.1 [facility] Comment on above: Performed By: #### C BC #### [facility] [address] [place] [address] Dr. Aba Esparza Basophils/100 WBC (Bld) 0.3 % Normal 0.2-2.0 [facility] Comment on above: Performed By: #### C BC #### [facility] [address] [place] [address] Dr. Aba Esparza EO # 0.2 103/ul Normal 0.0-0.7 [facility] Comment on above: Performed By: #### C BC #### [facility] [address] [place] [address] Dr. Aba Esparza Eosinophils/100 WBC (Bld) 1.4 % Normal 0.9-7.0 [facility] Comment on above: Performed By: #### C BC #### [facility] [address] [place] [address] Dr. Aba Esparza Erythrocyte distribution width (RBC) [Ratio] 15.0 % Normal 11.0-15.0 [facility] Comment on above: Performed By: #### C BC #### [facility] [address] [place] [address] Dr. Aba Esparza Hematocrit (Bld) [Volume fraction] 42.8 % Normal 36.0-48.0 [facility] Comment on above: Performed By: #### C BC #### [facility] [address] [place] [address] Dr. Aba Esparza Hemoglobin (Bld) [Mass/Vol] 13.4 g/dL Normal 12.0-16.0 [facility] Comment on above: Performed By: #### C BC #### [facility] [address] [place] [address] Dr. Aba Esparza IG # 0.04 10e3/ul Critically high 0.00-0.03 [facility] Comment on above: Performed By: #### C BC #### [facility] [address] [place] [address] Dr. Aba Esparza IG % 0.3 % Normal 0.0-0.5 [facility] Comment on above: Performed By: #### C BC #### [facility] [address] [place] [address] Dr. Aba Esparza LYMPH # 3.6 103/ul Normal 1.2-3.8 [facility] Comment on above: Performed By: #### C BC #### [facility] [address] [place] [address] Dr. Aba Esparza Lymphocytes/100 WBC (Bld) 27.5 % Normal 20.5-60.0 [facility] Comment on above: Performed By: #### C BC #### [facility] [address] [place] [address] Dr. Aba Esparza MANUAL DIFF REQ NO Normal [facility] Comment on above: Performed By: #### C BC #### [facility] [address] [place] [address] Dr. Aba Esparza MCH (RBC) [Entitic mass] 27.6 pg Normal 26.7-34.0 [facility] Comment on above: Performed By: #### C BC #### [facility] [address] [place] [address] Dr. Aba Esparza MCHC (RBC) [Mass/Vol] 31.3 g/dL Normal 29.9-35.2 [facility] Comment on above: Performed By: #### C BC #### [facility] [address] [place] [address] Dr. Aba Esparza MCV (RBC) [Entitic vol] 88.1 fL Normal 81.0-99.0 [facility] Comment on above: Performed By: #### C BC #### [facility] [address] [place] [address] Dr. Aba Esparza MONO # 0.9 103/ul Critically high 0.3-0.8 [facility] Comment on above: Performed By: #### C BC #### [facility] [address] [place] [address] Dr. Aba Esparza Monocytes/100 WBC (Bld) 7.0 % Normal 1.7-12.0 [facility] Comment on above: Performed By: #### C BC #### [facility] [address] [place] [address] Dr. Aba Esparza NEUT # 8.3 103/ul Critically high 1.4-6.5 [facility] Comment on above: Performed By: #### C BC #### [facility] [address] [place] [address] Dr. Aba Esparza Neutrophils/100 WBC (Bld) 63.5 % Normal 43.0-75.0 [facility] Comment on above: Performed By: #### C BC #### [facility] [address] [place] [address] Dr. Aba Esparza Platelet mean volume (Bld) [Entitic vol] 9.0 fL Critically low 9.5-13.5 [facility] Comment on above: Performed By: #### C BC #### [facility] [address] [address] [address] Aba Esparza PLT 198 103/ul Normal 150-450 [facility] Comment on above: Performed By: #### C BC #### [facility] [address] [address] [address] Aba Esparza RBC 4.86 106/ul Normal 4.20-5.40 [facility] Comment on above: Performed By: #### C BC #### [facility] [address] [address] [address] Aba Esparza WBC 13.1 103/ul Critically high 4.0-11.0 [facility] Comment on above: Performed By: #### C BC #### [facility] [address] [address] [address] Aba Esparza GLYCOHEMOGLOBIN A1Con 2021 ADA RECOMMENDATION SEE BELOW Normal [facility] Comment on above: Result Comment: ADA RECOMMENDED LIMIT 4.0 - 6.0 ADA THERAPEUTIC TARGET < 7.0 ACTION SUGGESTED > 7.0 Performed By: #### A 1C ####[facility] [address] [address]Dr. Aba Esparza Glucose [Mass/Vol] 126 mg/dL Normal [facility] Comment on above: Performed By: #### A 1C ####[facility] [address] [address]Dr. Aba Esparza HbA1c (Bld) [Mass fraction] 6.0 % Normal 4.5-6.2 [facility] Comment on above: Performed By: #### A 1C ####[facility] [address] [address]Dr. Aba Esparza IRONon 11-15-2021 Iron [Mass/Vol] 34.0 ug/dL Critically low 50.0-170.0 [facility] Comment on above: Performed By: #### I ELIZA #### [facility] [address] [address] [address] Aba Esparza LIPID PROFILEon 11-15-2021 CHOL-HDL RATIO NORM SEE BELOW Normal [facility] Comment on above: Result Comment: 3.3 - 4.4 LOW RISK 4.4 - 7.1 AVERAGE RISK 7.1 - 11.0 MODERATE RISK >11.0 HIGH RISK Performed By: #### L IPID, CMP, TSH #### [facility] [address] [address] [address] Aba Esparza Cholesterol [Mass/Vol] 120 mg/dL Normal <=200 [facility] Comment on above: Performed By: #### L IPID, CMP, TSH #### [facility] [address] [address] [address] Aba Esparza Cholesterol in HDL [Mass/Vol] 40 mg/dL Normal 40-60 [facility] Comment on above: Performed By: #### L IPID, CMP, TSH #### [facility] [address] [place] [address] Dr. Aba Esparza Cholesterol in LDL [Mass/Vol] 45.8 mg/dL Normal [facility] Comment on above: Performed By: #### L IPID, CMP, TSH #### [facility] [address] [place] [address] Dr. Aba Esparza Cholesterol.total/Cho lesterol in HDL [Mass ratio] 3.0 {ratio} Normal [facility] Comment on above: Performed By: #### L IPID, CMP, TSH #### [facility] [address] [address] [address] Aba Esparza HDL NORMAL > or = 60 mg/dl - LOW CARDIOVASCULAR RISK <40 mg/dl - HIGH CARDIOVASCULAR RISK Normal [facility] Comment on above: Performed By: #### L IPID, CMP, TSH #### [facility] [address] [place] [address] Dr. Aba Esparza LDL CALC NORMAL SEE BELOW Normal [facility] Comment on above: Result Comment: <100 mg/dl OPTIMAL 100 - 129 mg/dl NEAR OR ABOVE OPTIMAL 130 - 159 mg/dl BORDERLINE HIGH 160 - 189 mg/dl HIGH >190 mg/dl VERY HIGH Performed By: #### L IPID, CMP, TSH #### [facility] [address] [address] [address] Aba Esparza Triglyceride [Mass/Vol] 171 mg/dL Critically high <=150 [facility] Comment on above: Performed By: #### L IPID, CMP, TSH #### [facility] [address] [address] [address] Aba Esparza VLDL CALC 34.2 mg/dL Normal [facility] Comment on above: Performed By: #### L IPID, CMP, TSH #### [facility] [address] [address] [address] Aba Esparza PROF 14(COMP METB)on 022 Albumin [Mass/Vol] 3.9 g/dL Normal 3.4-5.0 [facility] Comment on above: Performed By: #### L IPID, CMP, TSH #### [facility] [address] [address] [address] Aba Esparza Albumin/Globulin [Mass ratio] 1.0 {ratio} Normal [facility] Comment on above: Performed By: #### L IPID, CMP, TSH #### [facility] [address] [address] [address] Aba Esparza ALP [Catalytic activity/Vol] 138 U/L Critically high 46-116 [facility] Comment on above: Performed By: #### L IPID, CMP, TSH #### [facility] [address] [address] [address] Aba Esparza ALT [Catalytic activity/Vol] 23 U/L Normal 14-59 [facility] Comment on above: Performed By: #### L IPID, CMP, TSH #### [facility] [address] [address] [address] Aba Esparza Anion gap [Moles/Vol] 12.7 mmol/L Normal [facility] Comment on above: Performed By: #### L IPID, CMP, TSH #### [facility] [address] [address] [address] Aba Esparza AST [Catalytic activity/Vol] 24 U/L Normal 15-37 [facility] Comment on above: Performed By: #### L IPID, CMP, TSH #### [facility] [address] [address] [address] Aba Esparza Bilirubin [Mass/Vol] 0.6 mg/dL Normal 0.2-1.0 [facility] Comment on above: Performed By: #### L IPID, CMP, TSH #### [facility] [address] [address] [address] Aba Esparza Calcium [Mass/Vol] 9.4 mg/dL Normal 8.5-10.1 [facility] Comment on above: Performed By: #### L IPID, CMP, TSH #### [facility] [address] [place] [address] Dr. Aba Esparza Chloride [Moles/Vol] 104 mmol/L Normal 98-107 [facility] Comment on above: Performed By: #### L IPID, CMP, TSH #### [facility] [address] [place] [address] Dr. Aba Esparza CO2 [Moles/Vol] 27.3 mmol/L Normal 21.0-32.0 [facility] Comment on above: Performed By: #### L IPID, CMP, TSH #### [facility] [address] [place] [address] Dr. Aba Esparza Creatinine [Mass/Vol] 0.90 mg/dL Normal 0.55-1.02 [facility] Comment on above: Performed By: #### L IPID, CMP, TSH #### [facility] [address] [place] [address] Dr. Aba Esparza EGFR-AF BULGARIAN >60 Normal >=60 [facility] Comment on above: Performed By: #### L IPID, CMP, TSH #### [facility] [address] [place] [address] Dr. Aba Esparza EGFR-NON AF BULGARIAN =60 Normal >=60 [facility] Comment on above: Performed By: #### L IPID, CMP, TSH #### [facility] [address] [place], [place] [id number] Dr. Aba Esparza Globulin (S) [Mass/Vol] 3.8 g/dL Normal [facility] Comment on above: Performed By: #### L IPID, CMP, TSH #### [facility] [address] [place] [address] Dr. Aba Esparza Glucose [Mass/Vol] 112 mg/dL Critically high 74-106 [facility] Comment on above: Performed By: #### L IPID, CMP, TSH #### [facility] [address] [place] [address] Dr. Aba Esparza Potassium [Moles/Vol] 4.0 mmol/L Normal 3.5-5.1 [facility] Comment on above: Performed By: #### L IPID, CMP, TSH #### [facility] [address] [place] [address] Dr. Aba Esparza Protein [Mass/Vol] 7.7 g/dL Normal 6.4-8.2 [facility] Comment on above: Performed By: #### L IPID, CMP, TSH #### [facility] [address] [place] [address] Dr. Aba Esparza Sodium [Moles/Vol] 140 mmol/L Normal 136-145 [facility] Comment on above: Performed By: #### L IPID, CMP, TSH #### [facility] [address] [place] [address] Dr. Aba Esparza Urea nitrogen [Mass/Vol] 15.0 mg/dL Normal 7.0-18.0 [facility] Comment on above: Performed By: #### L IPID, CMP, TSH #### [facility] [address] [place] [address] Dr. Aba Esparza Urea nitrogen/Creatinine [Mass ratio] 16.7 mg/mg Normal [facility] Comment on above: Performed By: #### L IPID, CMP, TSH #### [facility] [address] [place] [address] Dr. Aba Esparza TSHon 11-15-2021 TSH 1.187 uIU/mL Normal 0.358-3.740 [facility] Comment on above: Performed By: #### L IPID, CMP, TSH #### [facility] [address] [address] [address] Aba Esparza XR DEXA BONE DENSITYon [...] by: LIAM PEREZ Date: 2021-07-01 16:18 Normal [facility] Encounters Encounter Date Encounter Type Care Provider Facility Start: 07-14-2024 End: 07-14-2024 ambulatory Heriberto Vickers MD Facility: [facility] Start: 06-16-2024 End: 06-16-2024 ambulatory Heriberto Vickers MD Facility: [facility] Start: 02-25-2024 End: 02-25-2024 ambulatory Heriberto Vickers MD Facility: [facility] Start: 12-03-2023 End: 12-03-2023 ambulatory Heriberto Vickers MD Facility: [facility] Start: 08-13-2023 End: 08-13-2023 ambulatory Heriberto Vickers MD Facility: [facility] Start: 07-30-2023 End: 07-30-2023 ambulatory Heriberto Vickers MD Facility: [facility] Start: 05-03-2022 End: 05-04-2022 ambulatory FAUSTO Brooke Facility: Start: 11-30-2021 End: 12-01-[address] POLA CROSS . Facility:[facility] Start: 11-29-2021 End: 12-07-[address] POLA CROSS . Facility:[facility] Start: 11-23-2021 End: 11-23-[address] POLA CROSS . Facility:[facility] Start: 11-15-2021 End: 11-16-[address] POLA CROSS . Facility:[facility] Start: 07-01-2021 End: 07-02-[address] POLA CROSS . Facility: Payers Date Payer Category Payer Medicare 2023 Unknown 1958 Medicare [id number] 1958 Unknown [id number] 1935 Unknown [id number] 2.16.84 [id number] 1935 Unknown [id number] 2.16.84 [id number] 1935 Unknown [id number] 2.16.84 [id number] 1935 Unknown [id number] 2.16.84 [id number] 1935 Unknown [id number] 2.16.84 [id number] 1936 Unknown [id number] 2.16.84 [id number] 1935 Unknown [id number] 2.16. [id number] 1935 Unknown [id number] 2.16. [id number] 1936 Unknown [id number] 2.16. [id number] 1936 Unknown [id number] 2.16. [id number] 1935 Unknown [id number] 2.16. [id number] 1935 Unknown [id number] 2.16. [id number] Summary Purpose Family History No Family History Records FoundNo Family History Records Found Advance Directives No Advanced Directives Records FoundNo Advanced Directives Records Found Additional Source Comments INFORMATION SOURCE (unrecogn ized section and content) DATE CREATED AUTHOR 05/05/[address] [facility] DATE CREATED AUTHOR AUTHOR'S ORGANIZ ATION 07/25/2024 [facility] FOR RECORDS PERTAINING TO PATIENTS WHO [...] BE BASED ON THE PRIMARY CLINICAL RECORDS. [facility]. provides no warranty or guarantee of the accuracy or completeness of information in this document.
--- NOTE | 2024-10-29 21:26 | ECG_ITS ---
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: : 1935 Requested By: [id number] Order Number: [id number] Reading MD: SUN BECKHAM Measurements Intervals [place] Rate: 123 P: 35 AL: 202 QRS: 47 QRSD: 78 T: -35 QT: 292 QTc: 365 Interpretive Statements 1120 Sinus tachycardia 2420 RSR (QR) in lead V1/V2, consistent with right ventricular conduction delay [address] depression [address] & Twave abnormality 7300 Indeterminate axis 9150 abnormal ECG Compared to ECG 01/13/2023 20:23:39 Indeterminate axis now present Left-axis deviation no longer present ST (T wave) deviation still present Electronically Signed On 10-30-2024 16:02:41 EDT by SUN BECKHAM
[2024-10-29 21:33] LABS: Hematocrit 42.6 % (36.0-48.0); Hemoglobin 14.0 g/dL (12.0-16.0); Immature Granulocytes Abs Auto 0.07 10^3/uL (0.00-0.03); Immature Granulocytes Pct Auto 0.4 % (0.0-0.5); Lymphocytes Absolute Auto 2.6 10^3/uL (1.2-3.8); Mean Corpuscular HGB Conc 32.9 g/dL (29.9-35.2); Mean Corpuscular Hemoglobin 29.6 pg (26.7-34.0); Mean Corpuscular Volume 90.1 fL (81.0-99.0); Platelet Count 173 10^3/uL (150-450); Red Blood Count 4.73 10^6/uL (4.20-5.40); White Blood Count 16.6 10^3/uL (4.0-11.0)
[2024-10-29] MEDS: 0.9 % SODIUM CHLORIDE 1,710 ML 570 ML IV (21:47)
[2024-10-29] MEDS: ACETAMINOPHEN 325 MG TABLET 650 MG PO (21:48)
[2024-10-29 21:50] LABS: SARS-CoV-2 Ag NEGATIVE (NEGATIVE)
[2024-10-29 21:54] LABS: Lactate/Lactic Acid 0.9 mmol/L (0.4-2.0)
[2024-10-29 21:59] LABS: Alanine Aminotransferase 32 U/L (14-59); Albumin Globulin Ratio 1.2; Albumin Level 4.3 g/dL (3.4-5.0); Alkaline Phosphatase 127 U/L (46-116); Anion Gap 15.9; Aspartate Amino Transferase 27 U/L (15-37); Blood Urea Nitrogen 14.0 mg/dL (7.0-18.0); Calcium 9.6 mg/dL (8.5-10.1); Carbon Dioxide 28.6 mmol/L (21.0-32.0); Chloride 103 mmol/L (98-107); Estimated GFR (African America >60 (>=60 mL/min/1.73m^2); Estimated GFR (Non-African Ame >60 (>=60 mL/min/1.73m^2); Globulin 3.7 g/dL; Glucose 133 mg/dL (74-106); Magnesium 2.0 mg/dL (1.8-2.4); NT Pro B Type Natriuretic Pept 334.0 pg/mL (<=1800.0); Potassium 3.5 mmol/L (3.5-5.1); Sodium 144 mmol/L (136-145); Total Protein 8.0 g/dL (6.4-8.2)
[2024-10-29] MEDS: AZITHROMYCIN 500 MG in 0.9 % SODIUM CHLORIDE 250 ML 250 MG IV (23:00)
[2024-10-29] MEDS: METHYLPREDNISOLONE SOD SUCC PF 125 MG/2 ML VIAL IVP (23:09)
--- OUTSIDE RECORDS SUMMARY | 2024-10-29 23:30 | XMS_ITS | CCD ---
Author Organization [facility] CliniSymd Care Team Providers Care Naturalist Name Role Phone TAY ., DR ESCALONA [...] Andrius Bimal Attending Unavailable Giedraitis , Andrius Vytufad Attending Unavailable Giedraitis , Andrius Vytfuad Attending Unavailable Giedraitis , Andrius Vytfuad Attending Unavailable Giedraitis , Andrius Wallis Attending Unavailable Allergies Allergy Classification Reported Allergen(s) Allergy Type Date of Onset Reaction(s) Facility (1 source) Codeine Drug Allergy 02-26-1959 [facility] Repository (1 source) levoFLOXacin Drug Allergy [facility] Repository (1 source) Sulfonamides (Antibiotic) Drug allergy (disorder) [facility] Repository (1 source) traMADol Drug Allergy 01-28-2008 [facility] Repository Problems Active Problems Problem Classification [...] Normal The [facility] MAMM SCREEN 3D WAQAS CADon 11-30-2021 MAMM SCREEN 3D WAQAS CAD Patient: DANIELLE ABBASI Exam Date: 11/30/2021 : 1935 Gender:F Ordering : DR POLA CROSS . Admission #: [id number] Family : Order #: [id number] CLICK HERE TO VIEW EXAM RADIOLOGY REPORT [...] colon cancer at age 75. LOCATION: [facility] BREAST COMPOSITION: Extremely dense, which lowers [...] MD on 11/30/2021 at 12:44 Normal [facility] OCC BLD IMMUNO SCREENon 10-28 OCCULT BLOOD Negative Normal NEGATIVE [facility] Comment on above: Performed By: #### O BSCRN #### [facility] [address] [place] [address] Dr. Aba Esparza T4, T3U, FTI LABCORPon 11-16 Free Thyroxine Index 2.1 Normal 1.2-4.9 [facility] Comment on above: Performed By: #### T HYLC #### [facility] [address] [place] [address] Dr. Aba Esparza T3 Uptake 33 % Normal 24-39 [facility] Comment on above: Performed By: #### T HYLC #### [facility] [address] [place] [address] Dr. Aba Esparza T4 [Mass/Vol] 6.3 ug/dL Normal 4.5-12.0 [facility] Comment on above: Performed By: #### T HYLC #### [facility] [address] [place] [address] Dr. Aba Esparza CBC AUTO DIFFon 11-15-2021 BASO # 0.0 103/ul Normal 0.0-0.1 [facility] Comment on above: Performed By: #### C BC #### [facility] [address] [place] [address] Dr. Aba Esparza Basophils/100 WBC (Bld) 0.3 % Normal 0.2-2.0 [facility] Comment on above: Performed By: #### C BC #### [facility] [address] [place] [address] Dr. Aba Esparza EO # 0.2 103/ul Normal 0.0-0.7 [facility] Comment on above: Performed By: #### C BC #### [facility] [address] [place] [address] Dr. Aba Esparza Eosinophils/100 WBC (Bld) 1.4 % Normal 0.9-7.0 [facility] Comment on above: Performed By: #### C BC #### [facility] [address] [place] [address] Dr. Aba Esparza Erythrocyte distribution width (RBC) [Ratio] 15.0 % Normal 11.0-15.0 [facility] Comment on above: Performed By: #### C BC #### [facility] [address] [place] [address] Dr. Aba Esparza Hematocrit (Bld) [Volume fraction] 42.8 % Normal 36.0-48.0 [facility] Comment on above: Performed By: #### C BC #### [facility] [address] [place] [address] Dr. Aba Esparza Hemoglobin (Bld) [Mass/Vol] 13.4 g/dL Normal 12.0-16.0 [facility] Comment on above: Performed By: #### C BC #### [facility] [address] [place] [address] Dr. Aba Esparza IG # 0.04 10e3/ul Critically high 0.00-0.03 [facility] Comment on above: Performed By: #### C BC #### [facility] [address] [place] [address] Dr. Aba Esparza IG % 0.3 % Normal 0.0-0.5 [facility] Comment on above: Performed By: #### C BC #### [facility] [address] [place] [address] Dr. Aba Esparza LYMPH # 3.6 103/ul Normal 1.2-3.8 [facility] Comment on above: Performed By: #### C BC #### [facility] [address] [place] [address] Dr. Aba Esparza Lymphocytes/100 WBC (Bld) 27.5 % Normal 20.5-60.0 [facility] Comment on above: Performed By: #### C BC #### [facility] [address] [place] [address] Dr. Aba Esparza MANUAL DIFF REQ NO Normal [facility] Comment on above: Performed By: #### C BC #### [facility] [address] [place] [address] Dr. Aba Esparza MCH (RBC) [Entitic mass] 27.6 pg Normal 26.7-34.0 [facility] Comment on above: Performed By: #### C BC #### [facility] [address] [place] [address] Dr. Aba Esparza MCHC (RBC) [Mass/Vol] 31.3 g/dL Normal 29.9-35.2 [facility] Comment on above: Performed By: #### C BC #### [facility] [address] [place] [address] Dr. Aba Esparza MCV (RBC) [Entitic vol] 88.1 fL Normal 81.0-99.0 [facility] Comment on above: Performed By: #### C BC #### [facility] [address] [place] [address] Dr. Aba Esparza MONO # 0.9 103/ul Critically high 0.3-0.8 [facility] Comment on above: Performed By: #### C BC #### [facility] [address] [place] [address] Dr. Aba Esparza Monocytes/100 WBC (Bld) 7.0 % Normal 1.7-12.0 [facility] Comment on above: Performed By: #### C BC #### [facility] [address] [place] [address] Dr. Aba Esparza NEUT # 8.3 103/ul Critically high 1.4-6.5 [facility] Comment on above: Performed By: #### C BC #### [facility] [address] [place] [address] Dr. Aba Esparza Neutrophils/100 WBC (Bld) 63.5 % Normal 43.0-75.0 [facility] Comment on above: Performed By: #### C BC #### [facility] [address] [place] [address] Dr. Aba Esparza Platelet mean volume (Bld) [Entitic vol] 9.0 fL Critically low 9.5-13.5 [facility] Comment on above: Performed By: #### C BC #### [facility] [address] [address] [address] Aba Esparza PLT 198 103/ul Normal 150-450 [facility] Comment on above: Performed By: #### C BC #### [facility] [address] [address] [address] Aba Esparza RBC 4.86 106/ul Normal 4.20-5.40 [facility] Comment on above: Performed By: #### C BC #### [facility] [address] [address] [address] Aba Esparza WBC 13.1 103/ul Critically high 4.0-11.0 [facility] Comment on above: Performed By: #### C BC #### [facility] [address] [address] [address] Aba Esparza GLYCOHEMOGLOBIN A1Con 2021 ADA RECOMMENDATION SEE BELOW Normal [facility] Comment on above: Result Comment: ADA RECOMMENDED LIMIT 4.0 - 6.0 ADA THERAPEUTIC TARGET < 7.0 ACTION SUGGESTED > 7.0 Performed By: #### A 1C ####[facility] [id number] [address]Dr. Aba Esparza Glucose [Mass/Vol] 126 mg/dL Normal [facility] Comment on above: Performed By: #### A 1C ####[facility] [id number] [address]Dr. Aba Esparza HbA1c (Bld) [Mass fraction] 6.0 % Normal 4.5-6.2 [facility] Comment on above: Performed By: #### A 1C ####[facility] [id number] [address]Dr. Aba Esparza IRONon 11-15-2021 Iron [Mass/Vol] 34.0 ug/dL Critically low 50.0-170.0 [facility] Comment on above: Performed By: #### I ELIZA #### [facility] [address] [address] [address] Aba Esparza LIPID PROFILEon 11-15-2021 CHOL-HDL RATIO NORM SEE BELOW Normal [facility] Comment on above: Result Comment: 3.3 - 4.4 LOW RISK 4.4 - 7.1 AVERAGE RISK 7.1 - 11.0 MODERATE RISK >11.0 HIGH RISK Performed By: #### L IPID, CMP, TSH #### [facility] [address] [address] [address] Aba Esparza Cholesterol [Mass/Vol] 120 mg/dL Normal <=200 [facility] Comment on above: Performed By: #### L IPID, CMP, TSH #### [facility] [address] [address] [address] Aba Esparza Cholesterol in HDL [Mass/Vol] 40 mg/dL Normal 40-60 [facility] Comment on above: Performed By: #### L IPID, CMP, TSH #### [facility] [address] [place] [address] Dr. Aba Esparza Cholesterol in LDL [Mass/Vol] 45.8 mg/dL Normal [facility] Comment on above: Performed By: #### L IPID, CMP, TSH #### [facility] [address] [place] [address] Dr. Aba Esparza Cholesterol.total/Cho lesterol in HDL [Mass ratio] 3.0 {ratio} Normal [facility] Comment on above: Performed By: #### L IPID, CMP, TSH #### [facility] [address] [address] [address] Aba Esparza HDL NORMAL > or = 60 mg/dl - LOW CARDIOVASCULAR RISK <40 mg/dl - HIGH CARDIOVASCULAR RISK Normal [facility] Comment on above: Performed By: #### L IPID, CMP, TSH #### [facility] [address] [place] [address] Dr. Aba Esparza LDL CALC NORMAL SEE BELOW Normal [facility] Comment on above: Result Comment: <100 mg/dl OPTIMAL 100 - 129 mg/dl NEAR OR ABOVE OPTIMAL 130 - 159 mg/dl BORDERLINE HIGH 160 - 189 mg/dl HIGH >190 mg/dl VERY HIGH Performed By: #### L IPID, CMP, TSH #### [facility] [address] [address] [address] Aba Esparza Triglyceride [Mass/Vol] 171 mg/dL Critically high <=150 [facility] Comment on above: Performed By: #### L IPID, CMP, TSH #### [facility] [address] [address] [address] Aba Esparza VLDL CALC 34.2 mg/dL Normal [facility] Comment on above: Performed By: #### L IPID, CMP, TSH #### [facility] [address] [address] [address] Aba Esparza PROF 14(COMP METB)on 022 Albumin [Mass/Vol] 3.9 g/dL Normal 3.4-5.0 [facility] Comment on above: Performed By: #### L IPID, CMP, TSH #### [facility] [address] [address] [address] Aba Esparza Albumin/Globulin [Mass ratio] 1.0 {ratio} Normal [facility] Comment on above: Performed By: #### L IPID, CMP, TSH #### [facility] [address] [address] [address] Aba Esparza ALP [Catalytic activity/Vol] 138 U/L Critically high 46-116 [facility] Comment on above: Performed By: #### L IPID, CMP, TSH #### [facility] [address] [address] [address] Aba Esparza ALT [Catalytic activity/Vol] 23 U/L Normal 14-59 [facility] Comment on above: Performed By: #### L IPID, CMP, TSH #### [facility] [address] [address] [address] Aba Esparza Anion gap [Moles/Vol] 12.7 mmol/L Normal [facility] Comment on above: Performed By: #### L IPID, CMP, TSH #### [facility] [address] [address] [address] Aba Esparza AST [Catalytic activity/Vol] 24 U/L Normal 15-37 [facility] Comment on above: Performed By: #### L IPID, CMP, TSH #### [facility] [address] [address] [address] Aba Esparza Bilirubin [Mass/Vol] 0.6 mg/dL Normal 0.2-1.0 [facility] Comment on above: Performed By: #### L IPID, CMP, TSH #### [facility] [address] [address] [address] Aba Esparza Calcium [Mass/Vol] 9.4 mg/dL Normal 8.5-10.1 [facility] Comment on above: Performed By: #### L IPID, CMP, TSH #### [facility] [address] [place] [address] Dr. Aba Esparza Chloride [Moles/Vol] 104 mmol/L Normal 98-107 [facility] Comment on above: Performed By: #### L IPID, CMP, TSH #### [facility] [address] [place] [address] Dr. Aba Esparza CO2 [Moles/Vol] 27.3 mmol/L Normal 21.0-32.0 [facility] Comment on above: Performed By: #### L IPID, CMP, TSH #### [facility] [address] [place] [address] Dr. Aba Esparza Creatinine [Mass/Vol] 0.90 mg/dL Normal 0.55-1.02 [facility] Comment on above: Performed By: #### L IPID, CMP, TSH #### [facility] [address] [place] [address] Dr. Aba Esparza EGFR-AF [facility] LUCIAN >60 Normal >=60 [facility] Comment on above: Performed By: #### L IPID, CMP, TSH #### [facility] [address] [place] [address] Dr. Aba Esparza EGFR-NON AF [facility] LUCIAN =60 Normal >=60 [facility] Comment on above: Performed By: #### L IPID, CMP, TSH #### [facility] [address] [place], [place] [id number] Dr. Aba Esparza Globulin (S) [Mass/Vol] 3.8 g/dL Normal [facility] Comment on above: Performed By: #### L IPID, CMP, TSH #### [facility] [address] [place] [address] Dr. Aba Esparza Glucose [Mass/Vol] 112 mg/dL Critically high 74-106 [facility] Comment on above: Performed By: #### L IPID, CMP, TSH #### [facility] [address] [place] [address] Dr. Aba Esparza Potassium [Moles/Vol] 4.0 mmol/L Normal 3.5-5.1 [facility] Comment on above: Performed By: #### L IPID, CMP, TSH #### [facility] [address] [place] [address] Dr. Aba Esparza Protein [Mass/Vol] 7.7 g/dL Normal 6.4-8.2 [facility] Comment on above: Performed By: #### L IPID, CMP, TSH #### [facility] [address] [place] [address] Dr. Aba Esparza Sodium [Moles/Vol] 140 mmol/L Normal 136-145 [facility] Comment on above: Performed By: #### L IPID, CMP, TSH #### [facility] [address] [place] [address] Dr. Aba Esparza Urea nitrogen [Mass/Vol] 15.0 mg/dL Normal 7.0-18.0 [facility] Comment on above: Performed By: #### L IPID, CMP, TSH #### [facility] [address] [place] [address] Dr. Aba Esparza Urea nitrogen/Creatinine [Mass ratio] 16.7 mg/mg Normal [facility] Comment on above: Performed By: #### L IPID, CMP, TSH #### [facility] [address] [place] [address] Dr. Aba Esparza TSHon 11-15-2021 TSH 1.187 uIU/mL Normal 0.358-3.740 [facility] Comment on above: Performed By: #### L IPID, CMP, TSH #### [facility] [address] [address] [address] Aba Esparza XR DEXA BONE DENSITYon [...] PEREZ Date: 2021-07-01 16:18 Normal [facility] Encounters Encounter Date Encounter Type Care Provider Facility Start: 07-14-2024 End: 07-14-2024 ambulatory Heriberto Vickers MD Facility: [facility] Start: 06-16-2024 End: 06-16-2024 ambulatory Heriberto Vickers MD Facility: [facility] Start: 02-25-2024 End: 02-25-2024 ambulatory Heriberto Vickers MD Facility: [facility] Start: 12-03-2023 End: 12-03-2023 ambulatory Heriberto Vickers MD Facility: [facility] Start: 08-13-2023 End: 08-13-2023 ambulatory Heriberto [...] Category Payer Medicare 2023 Unknown 1958 Medicare [id number] 1959 Unknown [id number] 1935 Unknown [id number] 2.16.84 [id number] 1935 Unknown [id number] 2.16.84 [id number] 1935 Unknown [id number] 2.16.84 [id number] 1935 Unknown [id number] 2.16.84 [id number] 1936 Unknown [id number] 2.16.84 [id number] 1936 Unknown [id number] 2.16.84 [id number] 1935 Unknown [id number] 2.16. [id number] 1935 Unknown [id number] 2.16. [id number] 1936 Unknown [id number] 2.16. [id number] 1935 Unknown [id number] 2.16. [id number] 1936 Unknown [id number] 2.16. [id number] 1935 Unknown [id number] 2.16. [id number] Summary Purpose Family History No Family History Records FoundNo Family History Records Found Advance Directives No Advanced Directives Records FoundNo Advanced Directives Records Found Additional Source Comments INFORMATION SOURCE (unrecogn ized section and content) DATE CREATED AUTHOR 05/05/2022 [facility] DATE CREATED AUTHOR AUTHOR'S ORGANIZ ATION 07/25/2024 [facility] FOR RECORDS PERTAINING TO PATIENTS [...] BE BASED ON THE PRIMARY CLINICAL RECORDS. [facility] [employer] [facility]. provides no warranty or guarantee of the accuracy or completeness of information in this document.
[2024-10-30] VITALS (17 sets, daily range): BP systolic 119–142; BP diastolic 54–70; PULSE 74–116; TEMP 36.6–36.9; O2SAT 90–92
[2024-10-30] MEDS: HYDRALAZINE HCL 20 MG/ML VIAL IVP (00:25)
[2024-10-30] MEDS: AMLODIPINE BESYLATE 5 MG TABLET PO ×2 (00:25→09:09)
[2024-10-30] MEDS: POTASSIUM CHLORIDE 10 MEQ ER TABLET 40 MEQ PO (00:25)
[2024-10-30] MEDS: MAGNESIUM SULFATE IN WATER 2 GM/50 ML PREMIX IV (00:25)
[2024-10-30 01:14] LABS: Glucose Urine UA NEGATIVE (NEGATIVE)
[2024-10-30 01:21] LABS: Cast Seen? NONE SEEN #/LPF (NONE SEEN); Crystals Seen? None Seen #/HPF (None Seen); Urine Culture Indicated NO
[2024-10-30] MEDS: FUROSEMIDE 20 MG/2 ML VIAL IVP (01:39)
[2024-10-30 05:49] LABS: Hematocrit 39.5 % (36.0-48.0); Hemoglobin 12.8 g/dL (12.0-16.0); Immature Granulocytes Abs Auto 0.13 10^3/uL (0.00-0.03); Immature Granulocytes Pct Auto 0.8 % (0.0-0.5); Lymphocytes Absolute Auto 1.3 10^3/uL (1.2-3.8); Mean Corpuscular HGB Conc 32.4 g/dL (29.9-35.2); Mean Corpuscular Hemoglobin 29.2 pg (26.7-34.0); Mean Corpuscular Volume 90.2 fL (81.0-99.0); Platelet Count 169 10^3/uL (150-450); Red Blood Count 4.38 10^6/uL (4.20-5.40); White Blood Count 17.0 10^3/uL (4.0-11.0)
[2024-10-30 06:00] LABS: Anion Gap 16.0; Blood Urea Nitrogen 13.0 mg/dL (7.0-18.0); Calcium 8.9 mg/dL (8.5-10.1); Carbon Dioxide 26.8 mmol/L (21.0-32.0); Chloride 105 mmol/L (98-107); Estimated GFR (African America >60 (>=60 mL/min/1.73m^2); Estimated GFR (Non-African Ame >60 (>=60 mL/min/1.73m^2); Glucose 215 mg/dL (74-106); Magnesium 2.5 mg/dL (1.8-2.4); Potassium 3.8 mmol/L (3.5-5.1); Sodium 144 mmol/L (136-145)
--- NOTE | 2024-10-30 08:00 | ECG_ITS ---
[facility] Test Date: 2024-10-30 Pat Name: MARY VERGARA Department: Room: [facility] Gender: Female [employer] Director: : 1935 Requested By: [id number] Order Number: [id number] Reading MD: SUN BECKHAM Measurements Intervals Liberal Rate: 90 P: 46 [place]: 154 QRS: -18 QRSD: 90 T: 16 QT: 362 QTc: 444 Interpretive Statements SINUS RHYTHM Compared to ECG 10/29/2024 21:44:24 Sinus tachycardia no longer present ST (T wave) deviation no longer present Indeterminate axis no longer present Electronically Signed On 10-30-2024 16:04:10 EDT by SUN BECKHAM
[2024-10-30] MEDS: IPRATROPIUM/ALBUTEROL SULFATE 3 ML AMPUL.NEB IH ×3 (08:27→20:00)
[2024-10-30] MEDS: DOXYCYCLINE HYCLATE 100 MG in 0.9 % SODIUM CHLORIDE 100 ML IV ×2 (09:08→21:51)
[2024-10-30] MEDS: 0.9 % SODIUM CHLORIDE 250 ML 10 ML IV (09:09)
[2024-10-30] MEDS: CALCITONIN,SALMON,SYNTHETIC 30 SPRAY/3.7 ML BOTTLE NS (09:09)
[2024-10-30] MEDS: METOPROLOL TARTRATE 25 MG TABLET 12.5 MG PO ×2 (09:09→21:51)
[2024-10-30] MEDS: ENOXAPARIN SODIUM 40 MG/0.4 ML SYRINGE SUBQ (09:09)
--- NOTE | 2024-10-30 09:40 | CM.NOTE ---
Rounds made with Dr. Michael, discussed with pt diagnosis and plan of care. Clarified status with Dr. Michael, pt will be inpatient status. No discharge today, continue treatment as ordered.
[2024-10-30] MEDS: METHYLPREDNISOLONE SOD SUCC PF 40 MG/ML VIAL IVP ×2 (10:40→23:42)
--- NOTE | 2024-10-30 11:34 | P.IMHP_ITS ---
Internal Medicine - H&P: HPI History of Present Illness Chief complaint: COPD EXACERBATION, CLINICAL PNEUMONIA Narrative: Miss Abbasi is an 89-year-old female with a past medical history no for bronchiectasis, COPD, hypercholesterolemia, and back pain who presents to hospital yesterday afternoon with a chief complaint of productive cough with green sputum and fevers at home. She has a history of bronchiectasis as as mentioned, she does often cough up yellow/clear sputum, this is her baseline however starting yesterday the day before she started coughing up a lot of green sputum, the sputum production was more than her baseline. She is also febrile at home, the daughter confirms it was well over 102 degrees at home and she subsequently was brought to the emergency room. She denies any chest pain, nausea, vomiting, diarrhea. Patient was evaluated by me this morning, her fever curve has improved since admission being afebrile since she has been here though she is still having productive cough with green sputum. She denies any worsening in her breathing, she is on 2 L nasal cannula at all times at home. It should be noted that the patient arrived to the hospital yesterday afternoon, she was subsequently evaluated the emergency room and she was admitted to the hospital by the overnight on-call physician who put in basic orders and continue treatment for her pneumonia, my first time evaluating patient was this morning. Review of Systems ROS Status of ROS 10 or more systems reviewed and unremark able except as noted in history and below [facility] Medical History (Updated 10/30/24 @ 11:39 by OZIEL VERDIN DO) Osteoarthritis ?M19.90 - Unspecified osteoarthritis, unspecified site (ICD-10) Low back pain ?M54.50 - Low back pain, unspecified (ICD-10) H/O malignant neoplasm of colon ?Z85.038 - Personal history of other malignant neoplasm of large intestine (ICD-10) Irregular heart beat ?I49.9 - Cardiac arrhythmia, unspecified (ICD-10) High cholesterol ?E78.00 - Pure hypercholesterolemia, unspecified (ICD-10) Dehydration ?E86.0 - Dehydration (ICD-10) HTN (hypertension) ?I10 - Essential (primary) hypertension (ICD-10) Colon cancer ?C18.9 - Malignant neoplasm of colon, unspecified (ICD-10) COPD (chronic obstructive pulmonary disease) ?J44.9 - Chronic obstructive pulmonary disease, unspecified (ICD-10) Sepsis ?A41.9 - Sepsis, unspecified organism (ICD-10) LEOBARDO (acute kidney injury) ?N17.9 - Acute kidney failure, unspecified (ICD-10) Pneumonia ?J18.9 - Pneumonia, unspecified organism (ICD-10) Hypoxemia ?R09.02 - Hypoxemia (ICD-10) Surgical History H/O cervical spine surgery ?Z98.890 - Other specified postprocedural states (ICD-10) H/O hemicolectomy ?Z90.49 - Acquired absence of other specified parts of digestive tract (ICD- 10) History of cholecystectomy ?Z90.49 - Acquired absence of other specified parts of digestive tract (ICD- 10) H/O: hysterectomy ?Z90.710 - Acquired absence of both cervix and uterus (ICD-10) Family History (Updated 10/29/24 @ 23:57 by Dorita Jimenez RN) Sister Family history of cancer Family history of hypertension Brother Family history of cancer Father Family history of diabetes mellitus Family history of myocardial infarction Mother Family history of hypertension Family history of myocardial infarction Family history of stroke Social History (Updated 10/29/24 @ 23:58 by Dorita Jimenez RN) Within the past year, how often did you have a drink containing alcohol: never Score interpretation: A score less than 3 is consistent with normal alcohol consumption. Smoking status: Never smoker Non-prescribed substance use: denies use Previous occupational history: R[employer] Highest level of school completed/degree received: Associate degree: academic program Are you now , , , , never or living with a partner: In a typical week, how many times do you talk on the telephone with family, friends, or neighbors: twice per week How often do you get together with friends or relatives: twice per week How often do you attend hinduism or jain services: 4 or more times per year Little interest or pleasure in doing things: several days Feeling down, depressed, or hopeless: several days Feel stressed/tense/nervous/anxious/difficulty sleeping: only a little Do you think of yourself as: straight/heterosexual Gender Identity: female Meds Home Medications and Allergies Home Medications ?Medication ?Instructions ?Recorded ?Confirmed ?Type albuterol sulfate 90 mcg/actuation 2 inh inhalation BI D PRN 01/13/23 10/29/24 History aerosol inhaler bronchospasm amlodipine 5 mg tablet 5 mg PO DAILY 01/13/2310/29 History atorvastatin 20 mg tablet 20 mg PO DAILY 01/13/23 09/0 05/20 History dicyclomine 20 mg tablet 20 mg PO BID 01/13/23 History ferrous sulfate 325 mg (65 mg 325 mg PO BID 01/13/23 0 10/29/24 History iron) tablet (FeroSul) metoprolol tartrate 25 mg tablet 25 mg PO Q12H 3 10/29/24 History baclofen 10 mg tablet See Rx Instructions .Route . COMPLEX 10/30/24 10/30/24 History calcitonin (salmon) 200 1 spray intranasal (ALT) BRENDA LY 10/30/24 10/30/24 History unit/actuation nasal spray Allergies Allergy/AdvReac Type Severity Reaction Status Date / Time [facility] Allergy Intermediate Rash Verified 10/29/24 20:56 codeine Allergy Rash Verified 10/29/24 20:55 tramadol Allergy Rash Verified 10/29/24 20:55 Exam Narrative Exam Narrative: General: Awake and alert, no acute distress HEENT: Normocephalic, atraumatic, no scleral icterus noted Lungs: Diffuse rhonchi throughout her bilateral lungs, no wheezes appreciated. Cardiac: Regular rate and rhythm, no murmurs appreciated GI: Soft, nontender, regular bowel sounds. Extremities: Active and passive range of motion intact throughout, no edema Neuro: Cranial nerves II through XII intact, no focal deficits noted Skin: No rashes or lesions, no signs of jaundice Constitutional Vital Signs, click to edit/add: Last Vital Signs Temp 97.8 F 10/30/24 07:48 Pulse 88 10/30/24 10:00 Resp 20 10/30/24 07:48 BP 124/70 10/30/24 07:48 Pulse Ox 91 L 10/30/24 08:28 O2 Del Method Nasal Cannula 10/30/24 08:28 O2 Flow Rate 2 10/30/24 08:28 Internal Medicine - H&P: Reslt Labs Labs: Short CBC 10/29/24 10/30/24 Range/Units 20:33 05:13 WBC 16.6 H 17.0 H (4.0-11.0) 10^3/uL Hgb 14.0 12.8 (12.0-16.0) g/dL Hct 42.6 39.5 (36.0-48.0) % Plt Count 173 169 (150-450) 10^3/uL BMP 10/29/24 10/30/24 20:33 05:13 Sodium 144 144 Potassium 3.5 3.8 Chloride 103 105 Carbon Dioxide 28.6 26.8 BUN 14.0 13.0 Creatinine 0.67 0.65 Glucose 133 H 215 H Calcium 9.6 8.9 Liver Function 10/29/24 Range/Units 20:33 Total Bilirubin 0.7 (0.2-1.0) mg/dL AST 27 (15-37) U/L ALT 32 (14-59) U/L Alkaline Phosphatase 127 H (46-116) U/L Albumin 4.3 (3.4-5.0) g/dL Urine 10/30/24 Range/Units 00:50 Urine Color Lt. yellow (YELLOW) Urine Clarity Clear (CLEAR) Urine pH 6.0 (5.0-9.0) Ur Specific Velpen 1.010 (1.005-1.025) Urine Protein Negative (NEG/TRACE) mg/dL Urine Glucose (UA) Negative (NEGATIVE) mg/dL Assessment and Plan Assessment and Plan (1) Pneumonia: Assessment and Plan: ? Admit to the hospital, inpatient status with telemetry ? Febrile at home with change in her cough to productive green sputum and quite tachypneic on admission ? 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 ?Continue DuoNebs 4 times daily as ordered ? will obtain sputum sample today (2) Acute exacerbation of chronic obstructive pulmonary disease: Assessment and Plan: See above (3) Bronchiectasis: Assessment and Plan: See above (4) Chronic hypoxic respiratory failure: Assessment and Plan: Stable (5) Diabetes: Assessment and Plan: ? Glucose checks ACHS she does not appear to be on any home medications for diabetes, will initiate insulin therapy while in the hospital especially considering she will be on Solu-Medrol ? Check A1c tomorrow morning
[2024-10-30] MEDS: INSULIN GLARGINE 300 UNIT/3 ML INSULN.PEN 12 UNIT SQ (11:58)
[2024-10-30] MEDS: INSULIN ASPART 300 UNIT/3 ML PEN SUBQ ×4 (11:59→21:52)
--- NOTE | 2024-10-30 13:24 | SWNOTE1 ---
Important Message from Medicare reviewed and discussed with patient. Pt. verbalized understanding and signed the form. Original given to patient and copy placed in patient?s chart.
--- NOTE | 2024-10-30 13:24 | SWNOTE1 ---
SW met with pt to discuss dc needs. Pt's daughter and good friend were in room and they were leaving as SW entered. Pt lives at home with her daughter. They help each other as needed. Pt does have a walker at home and she voiced she has been using it the last week due to her arthritis acting up and feeling weaker. Pt does not have any services coming in at this time. She used to have home health, but she stated she did not like people coming in her home and she kept the exercises and will do them herself at home. Pt does wear home oxygen at 2 liters from [employer]. SW to call and check. At this time pt voiced no anticipated discharge needs. SW to follow as needed.
--- NOTE | 2024-10-30 13:41 | SWNOTE1 ---
SW called and spoke to [employer]. Pt is prescribed 2 liters oxygen continuous via nasal canula. She has a portable and stationary concentrator.
[2024-10-30] MEDS: ATORVASTATIN CALCIUM 20 MG TABLET PO (21:51)
[2024-10-31] VITALS (18 sets, daily range): BP systolic 131–153; BP diastolic 62–72; PULSE 61–110; TEMP 36.7–36.8; O2SAT 91–94
[2024-10-31 05:31] LABS: Hematocrit 36.9 % (36.0-48.0); Hemoglobin 11.9 g/dL (12.0-16.0); Mean Corpuscular HGB Conc 32.2 g/dL (29.9-35.2); Mean Corpuscular Hemoglobin 29.2 pg (26.7-34.0); Mean Corpuscular Volume 90.7 fL (81.0-99.0); Platelet Count 174 10^3/uL (150-450); Red Blood Count 4.07 10^6/uL (4.20-5.40); White Blood Count 13.9 10^3/uL (4.0-11.0)
[2024-10-31 05:45] LABS: Anion Gap 13.1; Blood Urea Nitrogen 16.0 mg/dL (7.0-18.0); Calcium 8.9 mg/dL (8.5-10.1); Carbon Dioxide 26.7 mmol/L (21.0-32.0); Chloride 111 mmol/L (98-107); Estimated GFR (African America >60 (>=60 mL/min/1.73m^2); Estimated GFR (Non-African Ame >60 (>=60 mL/min/1.73m^2); Glucose 130 mg/dL (74-106); Magnesium 2.3 mg/dL (1.8-2.4); Potassium 3.8 mmol/L (3.5-5.1); Sodium 147 mmol/L (136-145)
[2024-10-31] MEDS: INSULIN ASPART 300 UNIT/3 ML PEN SUBQ ×5 (08:12→21:05)
[2024-10-31] MEDS: 0.9 % SODIUM CHLORIDE 250 ML 10 ML IV (09:12)
[2024-10-31] MEDS: DOXYCYCLINE HYCLATE 100 MG in 0.9 % SODIUM CHLORIDE 100 ML IV ×2 (09:12→21:06)
[2024-10-31] MEDS: AMLODIPINE BESYLATE 5 MG TABLET PO (09:14)
[2024-10-31] MEDS: ENOXAPARIN SODIUM 40 MG/0.4 ML SYRINGE SUBQ (09:14)
[2024-10-31] MEDS: INSULIN GLARGINE 300 UNIT/3 ML INSULN.PEN 12 UNIT SQ (09:15)
[2024-10-31] MEDS: CALCITONIN,SALMON,SYNTHETIC 30 SPRAY/3.7 ML BOTTLE NS (09:15)
[2024-10-31] MEDS: METOPROLOL TARTRATE 25 MG TABLET 12.5 MG PO ×2 (09:17→21:06)
[2024-10-31] MEDS: IPRATROPIUM/ALBUTEROL SULFATE 3 ML AMPUL.NEB IH ×3 (09:33→20:08)
--- NOTE | 2024-10-31 10:00 | CM.NOTE ---
Rounds made with Dr. Michael, discussed plan of care with pt and change in antibiotic. No discharge today. Pt and daughter verbalize understanding.
[2024-10-31] MEDS: METHYLPREDNISOLONE SOD SUCC PF 40 MG/ML VIAL IVP ×2 (10:43→22:35)
--- NOTE | 2024-10-31 11:02 | PM.PN ---
Exam Constitutional Vital Signs, click to edit/add: Last Vital Signs Temp 98.2 F 10/31/24 08:00 Pulse 110 H 10/31/24 10:00 Resp 18 10/31/24 08:00 BP 153/72 H 10/31/24 08:00 Pulse Ox 94 L 10/31/24 09:38 O2 Del Method Nasal Cannula 10/31/24 09:38 O2 Flow Rate 2 10/31/24 09:38 Progress Note: Objective Labs Labs: Short CBC 10/31/24 Range/Units 05:19 WBC 13.9 H (4.0-11.0) 10^3/uL Hgb 11.9 L (12.0-16.0) g/dL Hct 36.9 (36.0-48.0) % Plt Count 174 (150-450) 10^3/uL BMP 10/31/24 05:19 Sodium 147 H Potassium 3.8 Chloride 111 H Carbon Dioxide 26.7 BUN 16.0 Creatinine 0.75 Glucose 130 H Calcium 8.9 Progress Note: A&P Assessment and Plan (1) Pneumonia: (2) Acute exacerbation of chronic obstructive pulmonary disease: (3) Bronchiectasis: (4) Chronic hypoxic respiratory failure: (5) Diabetes:
[2024-10-31] MEDS: ATORVASTATIN CALCIUM 20 MG TABLET PO (21:06)
[2024-11-01] VITALS (14 sets, daily range): BP systolic 136–160; BP diastolic 68–80; PULSE 56–98; TEMP 36.4–36.8; O2SAT 90–96
[2024-11-01 06:18] LABS: Hematocrit 35.3 % (36.0-48.0); Hemoglobin 11.6 g/dL (12.0-16.0); Mean Corpuscular HGB Conc 32.9 g/dL (29.9-35.2); Mean Corpuscular Hemoglobin 29.7 pg (26.7-34.0); Mean Corpuscular Volume 90.3 fL (81.0-99.0); Platelet Count 185 10^3/uL (150-450); Red Blood Count 3.91 10^6/uL (4.20-5.40); White Blood Count 11.7 10^3/uL (4.0-11.0)
[2024-11-01 06:27] LABS: Anion Gap 11.9; Blood Urea Nitrogen 14.0 mg/dL (7.0-18.0); Calcium 8.6 mg/dL (8.5-10.1); Carbon Dioxide 26.7 mmol/L (21.0-32.0); Chloride 111 mmol/L (98-107); Estimated GFR (African America >60 (>=60 mL/min/1.73m^2); Estimated GFR (Non-African Ame >60 (>=60 mL/min/1.73m^2); Glucose 139 mg/dL (74-106); Magnesium 2.1 mg/dL (1.8-2.4); Potassium 3.6 mmol/L (3.5-5.1); Sodium 146 mmol/L (136-145)
[2024-11-01] MEDS: DOXYCYCLINE HYCLATE 100 MG in 0.9 % SODIUM CHLORIDE 100 ML IV ×2 (08:16→22:10)
[2024-11-01] MEDS: METOPROLOL TARTRATE 25 MG TABLET 12.5 MG PO ×2 (08:17→22:11)
[2024-11-01] MEDS: AMLODIPINE BESYLATE 5 MG TABLET PO (08:18)
[2024-11-01] MEDS: CALCITONIN,SALMON,SYNTHETIC 30 SPRAY/3.7 ML BOTTLE NS (08:18)
[2024-11-01] MEDS: ENOXAPARIN SODIUM 40 MG/0.4 ML SYRINGE SUBQ (08:18)
[2024-11-01] MEDS: INSULIN GLARGINE 300 UNIT/3 ML INSULN.PEN 12 UNIT SQ (08:19)
[2024-11-01] MEDS: 0.9 % SODIUM CHLORIDE 250 ML 10 ML IV (08:21)
[2024-11-01] MEDS: IPRATROPIUM/ALBUTEROL SULFATE 3 ML AMPUL.NEB IH ×3 (09:15→20:31)
[2024-11-01] MEDS: METHYLPREDNISOLONE SOD SUCC PF 40 MG/ML VIAL IVP ×2 (10:01→22:10)
--- NOTE | 2024-11-01 11:46 | P.PN_ITS ---
Progress Note: Subjective Subjective Interval history: Today the patient and her family member at the bedside reports that she is making slow and steady progress. She does have a cough. She is able to expectorate sputum. She is less achy. But she does continue to feel tired overall. She is having mild loose stools. She denies shea diarrhea. No crampy abdominal pain. No chest pain. No headache. No one else in her family members or stebbins of friends has been sick with this type of cough. She discusses her bronchiectasis. She has known about this for decades. She actually has an extra special Thera vest at home, that goes over the shoulders, but she had to stop using it last year because of a vertebral fracture. She does do PAP therapy at home. During this hospital stay she is showing slow improvement. Her white blood count is coming down a little bit every day. It was 17.0 and then yesterday 13.9 and today 11.7, but it is not yet normalized. Exam Narrative Exam Narrative: General: Sitting out of bed and upright in a chair. Oxygen on by nasal cannula with 2 L. Pulm: Coarse thick but fortunately very loose liquid rhonchi throughout. These do clear about 50% with mild coughing. No focal areas of wheezing. No focal areas or crackles. Actually fairly good airflow. Cardiac: Regular rate rhythm with no murmurs auscultation. GI: Normal bowel sounds auscultation. Lower extremities: No edema. No swelling or cords in the calves bilaterally. The patient does say that she had a lot of edema when she came in and that is now much improved. Constitutional Vital Signs, click to edit/add: Last Vital Signs Temp 98.1 F 11/01/24 11:39 Pulse 63 11/01/24 11:39 Resp 20 11/01/24 11:39 BP 136/80 11/01/24 11:39 Pulse Ox 93 L 11/01/24 11:39 O2 Del Method Nasal Cannula 11/01/24 11:39 O2 Flow Rate 2 11/01/24 11:39 Progress Note: Objective Labs Labs: Short CBC 11/01/24 Range/Units 06:06 WBC 11.7 H (4.0-11.0) 10^3/uL Hgb 11.6 L (12.0-16.0) g/dL Hct 35.3 L (36.0-48.0) % Plt Count 185 (150-450) 10^3/uL BMP 11/01/24 06:06 Sodium 146 H Potassium 3.6 Chloride 111 H Carbon Dioxide 26.7 BUN 14.0 Creatinine 0.67 Glucose 139 H Calcium 8.6 Progress Note: A&P Assessment and Plan (1) Pneumonia: Qualifiers: Pneumonia type: due to unspecified organism Laterality: bilateral Lung location: lower lobe of lung Qualified Code(s): J18.9 - Pneumonia, unspecified organism (2) Acute exacerbation of chronic obstructive pulmonary disease: (3) Bronchiectasis: Qualifiers: Bronchiectasis type: with acute lower respiratory infection Qualified Code(s): J47.0 - Bronchiectasis with acute lower respiratory infection (4) Chronic hypoxic respiratory failure: (5) Diabetes: Qualifiers: Diabetes mellitus type: type 2 Diabetes mellitus 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 Actually her pneumonia and mucous sounds are in all lung johnson bilaterally. Due to technically challenging to treat bacteria, with increased risk of antibiotic resistance, due to: Longstanding bilateral multilobar bronchiectasis. Exacerbation of bronchiectasis. Acute hypoxic failure on top of chronic hypoxic respiratory failure, due to the pneumonia and bronchiectasis exacerbation above. Diabetes. Plan: Continue IV antibiotics with IV ceftriaxone and IV doxycycline. Continue corticosteroids. Continue DuoNeb scheduled 4 times a day and additional nebulizers as needed. Add Pep (Capella) therapy to help mobilize secretions. I encouraged her to use her Thera vest when she gets home. I encouraged her to have increased ambulation here in the hallways to improve pulmonary clearance and aid in pulmonary hygiene. The patient does eat yogurt every day at home. So she has probiotics to help prevent against antibiotic associated diarrhea. The patient is not currently ready for discharge. She requires additional stay in the hospital to ensure that her pulmonary status is improving, ensure that her white blood count normalizes, and fully rule out bacteremia. The blood cultures from admission are still not yet finalized. I will personally reevaluate this in approximately 24 hours. DVT prophylaxis is accomplished with Lovenox 40 mg subcutaneously daily.
[2024-11-01] MEDS: INSULIN ASPART 300 UNIT/3 ML PEN SUBQ ×4 (12:31→22:12)
[2024-11-01] MEDS: FERROUS SULFATE 325 MG TABLET PO ×2 (12:40→22:11)
[2024-11-01] MEDS: ENSURE ORIGINAL 237 ML BOTTLE PO (22:10)
[2024-11-01] MEDS: DICYCLOMINE HCL 10 MG CAPSULE 20 MG PO (22:10)
[2024-11-01] MEDS: ATORVASTATIN CALCIUM 20 MG TABLET PO (22:10)
[2024-11-01] MEDS: BACLOFEN 10 MG TABLET 5 MG PO (22:11)
[2024-11-02] VITALS: BP 157/73; PULSE 70; O2SAT 90
[2024-11-02 03:21] VITALS: BP 162/82; PULSE 66; TEMP 36.5; O2SAT 90
[2024-11-02 06:51] LABS: Hematocrit 36.0 % (36.0-48.0); Hemoglobin 11.6 g/dL (12.0-16.0); Immature Granulocytes Abs Auto 0.16 10^3/uL (0.00-0.03); Immature Granulocytes Pct Auto 1.5 % (0.0-0.5); Lymphocytes Absolute Auto 1.3 10^3/uL (1.2-3.8); Mean Corpuscular HGB Conc 32.2 g/dL (29.9-35.2); Mean Corpuscular Hemoglobin 29.3 pg (26.7-34.0); Mean Corpuscular Volume 90.9 fL (81.0-99.0); Platelet Count 185 10^3/uL (150-450); Red Blood Count 3.96 10^6/uL (4.20-5.40); White Blood Count 10.5 10^3/uL (4.0-11.0)
[2024-11-02 07:01] LABS: Anion Gap 11.2; Blood Urea Nitrogen 12.0 mg/dL (7.0-18.0); Calcium 8.5 mg/dL (8.5-10.1); Carbon Dioxide 29.5 mmol/L (21.0-32.0); Chloride 108 mmol/L (98-107); Estimated GFR (African America >60 (>=60 mL/min/1.73m^2); Estimated GFR (Non-African Ame >60 (>=60 mL/min/1.73m^2); Glucose 141 mg/dL (74-106); Potassium 3.7 mmol/L (3.5-5.1); Sodium 145 mmol/L (136-145)
[2024-11-02 08:40] VITALS: BP 166/76; PULSE 64; TEMP 36.8; O2SAT 91
[2024-11-02] MEDS: FERROUS SULFATE 325 MG TABLET PO (08:47)
[2024-11-02] MEDS: DOXYCYCLINE HYCLATE 100 MG in 0.9 % SODIUM CHLORIDE 100 ML IV (08:47)
[2024-11-02] MEDS: DICYCLOMINE HCL 10 MG CAPSULE 20 MG PO (08:48)
[2024-11-02] MEDS: ONDANSETRON 4 MG RAPDIS TABLET PO (08:48)
[2024-11-02] MEDS: AMLODIPINE BESYLATE 5 MG TABLET PO (08:48)
[2024-11-02] MEDS: METOPROLOL TARTRATE 25 MG TABLET 12.5 MG PO (08:48)
[2024-11-02] MEDS: INSULIN GLARGINE 300 UNIT/3 ML INSULN.PEN 12 UNIT SQ (08:50)
[2024-11-02] MEDS: ENOXAPARIN SODIUM 40 MG/0.4 ML SYRINGE SUBQ (08:50)
[2024-11-02] MEDS: CALCITONIN,SALMON,SYNTHETIC 30 SPRAY/3.7 ML BOTTLE NS (08:50)
[2024-11-02] MEDS: IPRATROPIUM/ALBUTEROL SULFATE 3 ML AMPUL.NEB IH (09:48)
[2024-11-02 09:51] VITALS: PULSE 60; O2SAT 94
--- NOTE | 2024-11-02 10:13 | DIETREC ---
Recommend d/c nutritional supplement (237 mL Ensure Original BID); PO meal intakes are generally 100% and meet pt's estimated needs.
[2024-11-02] MEDS: CEFDINIR 300 MG CAPSULE PO (11:14)
[2024-11-02] MEDS: DOXYCYCLINE MONOHYDRATE 100 MG CAPSULE PO (11:14)
--- NOTE | 2024-11-02 11:28 | PM.DS1 ---
DS: Providers Provider Date of admission: 10/29/24 23:22 Primary care physician: Kumar Stokes MD Admitting clinician: Ric Diaz Attending physician on admission: Ric Diaz Consults: 10/29/24 Consult to Dietitian Routine Reason for consultation: weight loss Has provider been notified: No Attending physician on discharge: RAJIV SEGOVIA Discharging clinician: RAJIV SEGOVIA Anticipated date of discharge: 11/02/24 DS: Diagnosis Discharge Diagnosis (1) Pneumonia: Qualifiers: Laterality: bilateral Lung location: lower lobe of lung Pneumonia type: due to unspecified organism Qualified Code(s): J18.9 - Pneumonia, unspecified organism (2) Acute exacerbation of chronic obstructive pulmonary disease: (3) Bronchiectasis: Qualifiers: Bronchiectasis type: with acute lower respiratory infection Qualified Code(s): J47.0 - Bronchiectasis with acute lower respiratory infection (4) Chronic hypoxic respiratory failure: (5) Diabetes: Qualifiers: Diabetes mellitus complication status: without complication Diabetes mellitus prison insulin use: without terminal block assembler use Diabetes mellitus type: type 2 Qualified Code(s): E11.9 - Type 2 diabetes mellitus without complications DS: Summary Hospital Course Hospital Course: This is an 89-year-old woman with a past medical history significant for fairly severe pulmonary bronchiectasis, COPD, hypercholesterolemia, and long-term back pain. She presented to the [facility] ER with complaint of productive cough with green sputum and fevers at home. Given her long history of bronchiectasis it is normal for her to cough up sputum that is yellow or clear but it had turned green. The sputum production was much more than her baseline. She had a temperature over 102 ?F at home. She was requiring more oxygen than normal. She normally uses 2 L by nasal cannula. She was admitted to the hospital. She was given IV antibiotics with Rocephin and IV antibiotics with doxycycline. Given her long history of bronchiectasis she was very slow to improve. She was able to be titrated down oxygen use at 2 L by nasal cannula. It took a few days for her cough to gradually improved. She needed encouragement from nursing staff to ambulate in the hallways and get out of bed and to use Acapella Pep device for sputum clearance. A mild component of exacerbation of chronic obstructive pulmonary disease was felt to be present and she was treated with corticosteroids. At the time of discharge she had completed about 4 days of intravenous Rocephin and intravenous doxycycline. On the day of discharge her peripheral IV had come out so she was provided an oral dose of doxycycline and Omnicef. At home the patient has plenty of equipment and techniques to continue to care for her pulmonary problem. She has a nebulizer machine. She has a special Thera vest that actually goes over the shoulders. She has Acapella valves. She has nebulized saline. I encouraged her to do all of these things at home over the next couple weeks and hopefully her lungs will improve to their normal baseline. Status at Discharge Functional status at discharge: independent ambulation Overall status at discharge: patient is progressing back to baseline Time Spent with Patient Time attestation: Total time spent providing and/or coordinating discharge services: 39 minutes. Time spent: greater than 30 minutes Exam Narrative Exam Narrative: General: Sitting upright in a chair. Oxygen, in 2 L by nasal cannula. She does have a cough but it is dry and not productive of any mucus. Cardiac: Regular rate and rhythm to auscultation. No murmurs to auscultation. GI: Ary soft, normal bowel sounds to auscultation. Lower extremities: No swelling in the calves. No edema at all in the ankles bilaterally. Pulmonary: Even though her cough is dry she does have coarse breath sounds throughout all of the lung johnson consistent with bronchiectasis. Very minimal wheezing, in reality she is not really wheezing at all she just has that much mucus that does not really clear with her cough. No focal areas of crackles. Constitutional Vital Signs, click to edit/add: Last Vital Signs Temp 98.2 F 11/02/24 08:40 Pulse 60 11/02/24 09:51 Resp 16 11/02/24 08:40 BP 166/76 H 11/02/24 08:40 Pulse Ox 94 L 11/02/24 09:51 O2 Del Method Nasal Cannula 11/02/24 09:51 O2 Flow Rate 2 11/02/24 09:51 DS: Data Data Completed and Pending Labs on day of discharge: Labs from last 24 hours 11/02/24 11/01/24 11/01/24 06:21 22:07 16:40 WBC 10.5 RBC 3.96 L Hgb 11.6 L Hct 36.0 MCV 90.9 MCH 29.3 MCHC 32.2 RDW 15.2 H Plt Count 185 MPV 9.7 Neut % (Auto) 83.0 H Lymph % (Auto) 12.4 L [place] % (Auto) 3.0 Eos % (Auto) 0.0 L Baso % (Auto) 0.1 L Neut # (Auto) 8.7 H Lymph # (Auto) 1.3 [place] # (Auto) 0.3 Eos # (Auto) 0.0 Baso # (Auto) 0.0 Abs Immat Gran (auto) 0.16 H Imm/Tot Granulo (auto) 1.5 H Sodium 145 Potassium 3.7 Chloride 108 H Carbon Dioxide 29.5 Anion Gap 11.2 BUN 12.0 Creatinine 0.73 Est GFR ( Amer) >60 Est GFR (Non-Af Amer) >60 BUN/Creatinine Ratio 16.4 Glucose 141 H Calcium 8.5 POC Glucose 171 H 102 11/01/24 11:28 WBC RBC Hgb Hct MCV MCH MCHC RDW Plt Count MPV Neut % (Auto) Lymph % (Auto) [place] % (Auto) Eos % (Auto) Baso % (Auto) Neut # (Auto) Lymph # (Auto) [place] # (Auto) Eos # (Auto) Baso # (Auto) Abs Immat Gran (auto) Imm/Tot Granulo (auto) Sodium Potassium Chloride Carbon Dioxide Anion Gap BUN Creatinine Est GFR ( Amer) Est GFR (Non-Af Amer) BUN/Creatinine Ratio Glucose Calcium POC Glucose 201 H Preliminary micro results at discharge 10/30/24 14:30 Lower Respiratory Culture - Preliminary Sputum - Expectorated Sputum 10/29/24 21:20 Blood Culture Result 2 - Preliminary Blood - Right Antecubital NO GROWTH AT 36-48 HOURS. FINAL TO FOLLOW. 10/29/24 21:13 Blood Culture Result 1 - Preliminary Blood - Left Antecubital NO GROWTH AT 36-48 HOURS. FINAL TO FOLLOW. Discharge Plan Discharge Disposition: Home, Self-Care Discharge Medications: New doxycycline monohydrate 100 mg capsule 100 mg PO BID 7 Days Qty: 14 0RF cefdinir 300 mg capsule 300 mg PO BID 5 Days Qty: 10 0RF prednisone 10 mg tablet 10 mg PO DAILY Qty: 6 0RF Rx Instructions: Take 3 pills Sunday AM, then 2 pills Sunday, then the last pill on Sunday AM, then stop. Continued albuterol sulfate 90 mcg/actuation HFA aerosol inhaler 2 inh INHALATION BID PRN (Reason: bronchospasm) amlodipine 5 mg tablet 5 mg PO DAILY atorvastatin 20 mg tablet 20 mg PO DAILY dicyclomine 20 mg tablet 20 mg PO BID ferrous sulfate [FeroSul] 325 mg (65 mg iron) tablet 325 mg PO BID metoprolol tartrate 25 mg tablet 25 mg PO Q12H baclofen 10 mg tablet See Rx Instructions .ROUTE .COMPLEX Rx Instructions: 1/2-1 PO HS calcitonin (salmon) 200 unit/actuation spray,non-aerosol 1 spray intranasal (ALT) DAILY Activity: resume usual activities as tolerated Diet: regular diet Print Language: Bangladeshi Patient Instructions: COPD (Chronic Obstructive Pulmonary Disease) (DC), Pneumonia (DC) Forms: Portal Instructions Follow Up Appointments: Call your PCP DR Stokes on Sunday for hospital follow up [phone] Discharge Date/Time: 11/02/24 12:40
--- NOTE | 2024-11-03 08:09 | PC.NURSE ---
Follow up appt. with Dr. Stokes on Sun. 11/05 @ 10:15
--- NOTE | 2024-11-03 11:59 | CM.DCFOLLOWU ---
Person spoke with:patient How are you feeling? doing well How is your pain?none Did you understand your discharge instructions?yes Do you have any questions about your discharge instructions?no Were you given any prescriptions at discharge?yes Were you able to get your prescriptions filled?yes Do you understand how to take your medications as ordered?yes Do you have any questions about your follow up appointment and do you plan to keep your follow up appointment? no questions. She is aware we made apt with Dr. Stokes on 11/05 @10:15am, her daughter called Dr. Stokes's office this morning Is there anything else that you would like to discuss?no Questions/Comments/Concerns/Other:none
--- NOTE | 2024-11-04 11:14 | CM.NOTE ---
Kvng txt sent to Dr. Michael on sputum culture. No orders at this time.
== END 2024-11-02 12:40 | disposition home or self-care (01) | DRG 193 ==
LOC: ER 23:08 → MS 23:28
PROVIDERS: Hospitalist; Admitting Provider Internal Medicine; Emergency Provider Emergency Medicine; PCP Family Medicine; Visit Provider Internal Medicine
DX: J18.9 Pneumonia, unspecified organism (principal); J96.21 Acute and chronic respiratory failure with hypoxia; J44.1 Chronic obstructive pulmonary disease with (acute) exacerbation; J47.0 Bronchiectasis with acute lower respiratory infection; J47.1 Bronchiectasis with (acute) exacerbation; Z99.81 Dependence on supplemental oxygen; E78.00 Pure hypercholesterolemia, unspecified; Z87.01 Personal history of pneumonia (recurrent); M19.90 Unspecified osteoarthritis, unspecified site; Z85.038 Personal history of other malignant neoplasm of large intestine; I10 Essential (primary) hypertension; Z90.49 Acquired absence of other specified parts of digestive tract; Z90.710 Acquired absence of both cervix and uterus; Z79.899 Other long term (current) drug therapy; E11.9 Type 2 diabetes mellitus without complications
CPT/HCPCS: 36415; 71046; 80048; 80053; 81001; 82948; 83036; 83605; 83735; 83880; 84484; 85025; 85027; 87040; 87070; 87077; 87205; 87804; 87811; 93005; 94640; 94667; 94668; 94761; 96365; 96368; 96375; 99285; J0360; J0456; J0696; J1650; J1938; J2405; J2919; J3475; Q0162

== ENCOUNTER 2024-11-05 11:00 | Outpatient (OUT) | payer MEDICARE, SELFPAY ==
--- OUTSIDE RECORDS SUMMARY | 2024-11-05 11:05 | XMS_ITS | CCD ---
Author Organization [facility] Care Team Providers Care Bioinformatics Research Technician Name Role Phone TAY ., DR ESCALONA [...] Codeine Drug Allergy 02-26-1959 [facility] Repository (1 source) levoFLOXacin Drug Allergy [facility] Repository (1 source) Sulfonamides (Antibiotic) Drug allergy (disorder) [facility] Repository (1 source) traMADol Drug Allergy 01-28-2008 [facility] Repository Problems Active Problems Problem [...] ANN Date: 2022-05-03 12:41 Normal [facility] MAMM SCREEN 3D WAQAS CADon 11-30-2021 MAMM SCREEN 3D WAQAS CAD Patient: DANIELLE ABBASI Exam Date: 11/30/2021 : 1935 Gender:F Ordering : DR POLA CROSS . Admission #: [id number] Family : Order #: [id number] CLICK HERE TO VIEW EXAM RADIOLOGY REPORT [...] at age 75. LOCATION: [facility] BREAST COMPOSITION: Extremely dense, which [...] 11/30/2021 at 12:44 Normal [facility] OCC BLD IMMUNO SCREENon 10-28 OCCULT BLOOD Negative Normal NEGATIVE [facility] Comment on above: Performed By: #### O BSCRN #### [facility] [address] [place] [address] Dr. Aba Esparza T4, T3U, FTI LABCORPon 11-16 Free Thyroxine Index 2.1 Normal 1.2-4.9 [facility] Comment on above: Performed By: #### T HYLC #### [facility] [address] [place] [address] Dr. Aba Esparza T3 Uptake 33 % Normal 24-39 [facility] Comment on above: Performed By: #### T HYLC #### [facility] [address] [place] [address] Dr. Aba Esparza T4 [Mass/Vol] 6.3 ug/dL Normal 4.5-12.0 [facility] Comment on above: Performed By: #### T HYLC #### [facility] [address] [place] [address] Dr. Aba Esparza CBC AUTO DIFFon 11-15-2021 BASO # 0.0 103/ul Normal 0.0-0.1 [facility] Comment on above: Performed By: #### C BC #### [facility] [address] [place] [address] Dr. Aba Esparza Basophils/100 WBC (Bld) 0.3 % Normal 0.2-2.0 [facility] Comment on above: Performed By: #### C BC #### [facility] [address] [place] [address] Dr. Aba Esparza EO # 0.2 103/ul Normal 0.0-0.7 [facility] Comment on above: Performed By: #### C BC #### [facility] [address] [place] [address] Dr. Aba Esparza Eosinophils/100 WBC (Bld) 1.4 % Normal 0.9-7.0 [facility] Comment on above: Performed By: #### C BC #### [facility] [address] [place] [address] Dr. Aba Esparza Erythrocyte distribution width (RBC) [Ratio] 15.0 % Normal 11.0-15.0 [facility] Comment on above: Performed By: #### C BC #### [facility] [address] [place] [address] Dr. Aba Esparza Hematocrit (Bld) [Volume fraction] 42.8 % Normal 36.0-48.0 [facility] Comment on above: Performed By: #### C BC #### [facility] [address] [place] [address] Dr. Aba Esparza Hemoglobin (Bld) [Mass/Vol] 13.4 g/dL Normal 12.0-16.0 [facility] Comment on above: Performed By: #### C BC #### [facility] [address] [place] [address] Dr. Aba Esparza IG # 0.04 10e3/ul Critically high 0.00-0.03 [facility] Comment on above: Performed By: #### C BC #### [facility] [address] [place] [address] Dr. Aba Esparza IG % 0.3 % Normal 0.0-0.5 [facility] Comment on above: Performed By: #### C BC #### [facility] [address] [place] [address] Dr. Aba Esparza LYMPH # 3.6 103/ul Normal 1.2-3.8 [facility] Comment on above: Performed By: #### C BC #### [facility] [address] [place] [address] Dr. Aba Esparza Lymphocytes/100 WBC (Bld) 27.5 % Normal 20.5-60.0 [facility] Comment on above: Performed By: #### C BC #### [facility] [address] [place] [address] Dr. Aba Esparza MANUAL DIFF REQ NO Normal [facility] Comment on above: Performed By: #### C BC #### [facility] [address] [place] [address] Dr. Aba Esparza MCH (RBC) [Entitic mass] 27.6 pg Normal 26.7-34.0 [facility] Comment on above: Performed By: #### C BC #### [facility] [address] [place] [address] Dr. Aba Esparza MCHC (RBC) [Mass/Vol] 31.3 g/dL Normal 29.9-35.2 [facility] Comment on above: Performed By: #### C BC #### [facility] [address] [place] [address] Dr. Aba Esparza MCV (RBC) [Entitic vol] 88.1 fL Normal 81.0-99.0 [facility] Comment on above: Performed By: #### C BC #### [facility] [address] [place] [address] Dr. Aba Esparza MONO # 0.9 103/ul Critically high 0.3-0.8 [facility] Comment on above: Performed By: #### C BC #### [facility] [address] [place] [address] Dr. Aba Esparza Monocytes/100 WBC (Bld) 7.0 % Normal 1.7-12.0 [facility] Comment on above: Performed By: #### C BC #### [facility] [address] [place] [address] Dr. Aba Esparza NEUT # 8.3 103/ul Critically high 1.4-6.5 [facility] Comment on above: Performed By: #### C BC #### [facility] [address] [place] [address] Dr. Aba Esparza Neutrophils/100 WBC (Bld) 63.5 % Normal 43.0-75.0 [facility] Comment on above: Performed By: #### C BC #### [facility] [address] [place] [address] Dr. Aba Esparza Platelet mean volume (Bld) [Entitic vol] 9.0 fL Critically low 9.5-13.5 [facility] Comment on above: Performed By: #### C BC #### [facility] [address] [address] [address] Aba Esparza PLT 198 103/ul Normal 150-450 [facility] Comment on above: Performed By: #### C BC #### [facility] [address] [address] [address] Aba Esparza RBC 4.86 106/ul Normal 4.20-5.40 [facility] Comment on above: Performed By: #### C BC #### [facility] [address] [address] [address] Aba Esparza WBC 13.1 103/ul Critically high 4.0-11.0 [facility] Comment on above: Performed By: #### C BC #### [facility] [address] [address] [address] Aba Esparza GLYCOHEMOGLOBIN A1Con 2021 ADA RECOMMENDATION SEE BELOW Normal [facility] Comment on above: Result Comment: ADA RECOMMENDED LIMIT 4.0 - 6.0 ADA THERAPEUTIC TARGET < 7.0 ACTION SUGGESTED > 7.0 Performed By: #### A 1C ####[facility] [id number] [address]Dr. Aba Esparza Glucose [Mass/Vol] 126 mg/dL Normal [facility] Comment on above: Performed By: #### A 1C ####[facility] [address] [address]Dr. Aba Esparza HbA1c (Bld) [Mass fraction] 6.0 % Normal 4.5-6.2 [facility] Comment on above: Performed By: #### A 1C ####[facility] [address] [address]Dr. Aba Esparza IRONon 11-15-2021 Iron [Mass/Vol] 34.0 ug/dL Critically low 50.0-170.0 [facility] Comment on above: Performed By: #### I ELIZA #### [facility] [address] [address] [address] Aba Esparza LIPID PROFILEon 11-15-2021 CHOL-HDL RATIO NORM SEE BELOW Normal [facility] Comment on above: Result Comment: 3.3 - 4.4 LOW RISK 4.4 - 7.1 AVERAGE RISK 7.1 - 11.0 MODERATE RISK >11.0 HIGH RISK Performed By: #### L IPID, CMP, TSH #### [facility] [address] [address] [address] Aba Esparza Cholesterol [Mass/Vol] 120 mg/dL Normal <=200 [facility] Comment on above: Performed By: #### L IPID, CMP, TSH #### [facility] [address] [address] [address] Aba Esparza Cholesterol in HDL [Mass/Vol] 40 mg/dL Normal 40-60 [facility] Comment on above: Performed By: #### L IPID, CMP, TSH #### [facility] [address] [place] [address] Dr. Aba Esparza Cholesterol in LDL [Mass/Vol] 45.8 mg/dL Normal [facility] Comment on above: Performed By: #### L IPID, CMP, TSH #### [facility] [address] [place] [address] Dr. Aba Esparza Cholesterol.total/Cho lesterol in HDL [Mass ratio] 3.0 {ratio} Normal [facility] Comment on above: Performed By: #### L IPID, CMP, TSH #### [facility] [address] [address] [address] Aba Esparza HDL NORMAL > or = 60 mg/dl - LOW CARDIOVASCULAR RISK <40 mg/dl - HIGH CARDIOVASCULAR RISK Normal [facility] Comment on above: Performed By: #### L IPID, CMP, TSH #### [facility] [address] [place] [address] Dr. Aba Esparza LDL CALC NORMAL SEE BELOW Normal [facility] Comment on above: Result Comment: <100 mg/dl OPTIMAL 100 - 129 mg/dl NEAR OR ABOVE OPTIMAL 130 - 159 mg/dl BORDERLINE HIGH 160 - 189 mg/dl HIGH >190 mg/dl VERY HIGH Performed By: #### L IPID, CMP, TSH #### [facility] [address] [address] [address] Aba Esparza Triglyceride [Mass/Vol] 171 mg/dL Critically high <=150 [facility] Comment on above: Performed By: #### L IPID, CMP, TSH #### [facility] [address] [address] [address] Aba Esparza VLDL CALC 34.2 mg/dL Normal [facility] Comment on above: Performed By: #### L IPID, CMP, TSH #### [facility] [address] [address] [address] Aba Esparza PROF 14(COMP METB)on 022 Albumin [Mass/Vol] 3.9 g/dL Normal 3.4-5.0 [facility] Comment on above: Performed By: #### L IPID, CMP, TSH #### [facility] [address] [address] [address] Aba Esparza Albumin/Globulin [Mass ratio] 1.0 {ratio} Normal [facility] Comment on above: Performed By: #### L IPID, CMP, TSH #### [facility] [address] [address] [address] Aba Esparza ALP [Catalytic activity/Vol] 138 U/L Critically high 46-116 [facility] Comment on above: Performed By: #### L IPID, CMP, TSH #### [facility] [address] [address] [address] Aba Esparza ALT [Catalytic activity/Vol] 23 U/L Normal 14-59 [facility] Comment on above: Performed By: #### L IPID, CMP, TSH #### [facility] [address] [address] [address] Aba Esparza Anion gap [Moles/Vol] 12.7 mmol/L Normal [facility] Comment on above: Performed By: #### L IPID, CMP, TSH #### [facility] [address] [address] [address] Aba Esparza AST [Catalytic activity/Vol] 24 U/L Normal 15-37 [facility] Comment on above: Performed By: #### L IPID, CMP, TSH #### [facility] [address] [address] [address] Aba Esparza Bilirubin [Mass/Vol] 0.6 mg/dL Normal 0.2-1.0 [facility] Comment on above: Performed By: #### L IPID, CMP, TSH #### [facility] [address] [address] [address] Aba Esparza Calcium [Mass/Vol] 9.4 mg/dL Normal 8.5-10.1 [facility] Comment on above: Performed By: #### L IPID, CMP, TSH #### [facility] [address] [place] [address] Dr. Aba Esparza Chloride [Moles/Vol] 104 mmol/L Normal 98-107 [facility] Comment on above: Performed By: #### L IPID, CMP, TSH #### [facility] [address] [place] [address] Dr. Aba Esparza CO2 [Moles/Vol] 27.3 mmol/L Normal 21.0-32.0 [facility] Comment on above: Performed By: #### L IPID, CMP, TSH #### [facility] [address] [place] [address] Dr. Aba Esparza Creatinine [Mass/Vol] 0.90 mg/dL Normal 0.55-1.02 [facility] Comment on above: Performed By: #### L IPID, CMP, TSH #### [facility] [address] [place] [address] Dr. Aba Esparza EGFR-AF UKRAINIAN >60 Normal >=60 [facility] Comment on above: Performed By: #### L IPID, CMP, TSH #### [facility] [address] [place] [address] Dr. Aba Esparza EGFR-NON AF UKRAINIAN =60 Normal >=60 [facility] Comment on above: Performed By: #### L IPID, CMP, TSH #### [facility] [address] [place], [place] [id number] Dr. Aba Esparza Globulin (S) [Mass/Vol] 3.8 g/dL Normal [facility] Comment on above: Performed By: #### L IPID, CMP, TSH #### [facility] [address] [place] [address] Dr. Aba Esparza Glucose [Mass/Vol] 112 mg/dL Critically high 74-106 [facility] Comment on above: Performed By: #### L IPID, CMP, TSH #### [facility] [address] [place] [address] Dr. Aba Esparza Potassium [Moles/Vol] 4.0 mmol/L Normal 3.5-5.1 [facility] Comment on above: Performed By: #### L IPID, CMP, TSH #### [facility] [address] [place] [address] Dr. Aba Esparza Protein [Mass/Vol] 7.7 g/dL Normal 6.4-8.2 [facility] Comment on above: Performed By: #### L IPID, CMP, TSH #### [facility] [address] [place] [address] Dr. Aba Esparza Sodium [Moles/Vol] 140 mmol/L Normal 136-145 [facility] Comment on above: Performed By: #### L IPID, CMP, TSH #### [facility] [address] [place] [address] Dr. Aba Esparza Urea nitrogen [Mass/Vol] 15.0 mg/dL Normal 7.0-18.0 [facility] Comment on above: Performed By: #### L IPID, CMP, TSH #### [facility] [address] [place] [address] Dr. Aba Esparza Urea nitrogen/Creatinine [Mass ratio] 16.7 mg/mg Normal [facility] Comment on above: Performed By: #### L IPID, CMP, TSH #### [facility] [address] [place] [address] Dr. Aba Esparza TSHon 11-15-2021 TSH 1.187 uIU/mL Normal 0.358-3.740 [facility] Comment on above: Performed By: #### L IPID, CMP, TSH #### [facility] [address] [address] [address] Aba Esparza XR DEXA BONE DENSITYon [...] by: LIAM PEREZ Date: 2021-07-01 16:18 Normal [facility] Encounters Encounter Date Encounter Type Care Provider Facility Start: 07-14-2024 End: 07-14-2024 ambulatory Heriberto Vickers MD Facility: [facility] Start: 06-16-2024 End: 06-16-2024 ambulatory Heriberto Vickers MD Facility: [facility] Start: 02-25-2024 End: 02-25-2024 ambulatory Heriberto Vickers MD Facility: [facility] Start: 12-03-2023 End: 12-03-2023 ambulatory Heriberto Vickers MD Facility: [facility] Start: 08-13-2023 End: 08-13-2023 ambulatory Heriberto Vickers MD Facility: [facility] Start: 07-30-2023 End: 07-30-2023 ambulatory Heriberto Vickers MD Facility: [facility] Start: 05-03-2022 End: 05-04-2022 ambulatory FAUSTO Brooke Facility: Start: 11-30-2021 End: 12-01-[address] POLA CROSS . Facility:[facility] Start: 11-29-2021 End: 12-07-[address] POLA CROSS . Facility:[facility] Start: 11-23-2021 End: 11-23-[address] POLA CROSS . Facility:[facility] Start: 11-15-2021 End: 11-16-[address] POLA CROSS . Facility:[facility] Start: 07-01-2021 End: 07-02-[address] OPLA CROSS . Facility: Payers Date Payer Category Payer Medicare 2023 Unknown 1958 Medicare [id number] 1958 Unknown [id number] 1935 Unknown [id number] 2.16.84 [id number] 1935 Unknown [id number] 2.16.84 [id number] 1935 Unknown [id number] 2.16.84 0.1.664730.3.579.2.593 1935 Unknown [id number] 2.16.84 0.1.188162.3.579.2.593 1935 Unknown [id number] 2.16.84 0.1.747434.3.579.2.593 1935 Unknown [id number] 2.16.84 0.1.910046.3.579.2.593 1935 Unknown [id number] 2.16. 840.1.537558.3.579.2.196 1936 Unknown [id number] 2.16. 840.1.565120.3.579.2.196 1936 Unknown [id number] 2.16. 840.1.765373.3.579.2.196 1936 Unknown [id number] 2.16. 840.1.751308.3.579.2.196 1936 Unknown [id number] 2.16. 840.1.293834.3.579.2.196 1935 Unknown [id number] 2.16. [id number] Summary Purpose Family History No Family History Records FoundNo Family History Records Found Advance Directives No Advanced Directives Records FoundNo Advanced Directives Records Found Additional Source Comments INFORMATION SOURCE (unrecogn ized section and content) DATE CREATED AUTHOR 05/05/2022 [facility]hy[facility] DATE CREATED AUTHOR AUTHOR'S ORGANIZ ATION 07/25/2024 [facility] FOR RECORDS PERTAINING TO PATIENTS [...] ON THE PRIMARY CLINICAL RECORDS. [facility] [email or web address] [facility]. provides no warranty or guarantee of the accuracy or completeness of information in this document.
--- NOTE | 2024-11-05 11:26 | PM.CN ---
Consult Note: HPI Data of Consult Patient: known to practice within the last 3 years Requesting Physician: Mirna Reese NP Primary Care Provider: Kumar Stokes MD Consult Narrative Reason for consult: low back and BLE pain Narrative: Danielle Abbasi a 89 year old female presents for evaluation of right low back and BLE pain. reports severe burning pain in posterior legs. Pain today 4-5/10 increasing to 9/10 with standing, walking, bending, ADLs. Pain improved with lying, sitting, heat, and sleep. utilizing mobic 7.5mg BID and baclofen 10mg HS with benefit without side effects. has been hospitalized recently for pneumonia, had bronchitis in september and has received numerous oral and IV steroids since. cc:: CC: Mirna Reese NP Review of Systems ROS Musculoskeletal Reports: back pain, extremity pain and joint pain PFSH [facility] Medical History (Updated 11/01/24 @ 11:50 by RAJIV SEGOVIA) Osteoarthritis ?M19.90 - Unspecified osteoarthritis, unspecified site (ICD-10) Low back pain ?M54.50 - Low back pain, unspecified (ICD-10) H/O malignant neoplasm of colon ?Z85.038 - Personal history of other malignant neoplasm of large intestine (ICD-10) Irregular heart beat ?I49.9 - Cardiac arrhythmia, unspecified (ICD-10) High cholesterol ?E78.00 - Pure hypercholesterolemia, unspecified (ICD-10) Dehydration ?E86.0 - Dehydration (ICD-10) HTN (hypertension) ?I10 - Essential (primary) hypertension (ICD-10) Colon cancer ?C18.9 - Malignant neoplasm of colon, unspecified (ICD-10) COPD (chronic obstructive pulmonary disease) ?J44.9 - Chronic obstructive pulmonary disease, unspecified (ICD-10) Sepsis ?A41.9 - Sepsis, unspecified organism (ICD-10) LEOBARDO (acute kidney injury) ?N17.9 - Acute kidney failure, unspecified (ICD-10) Pneumonia ?J18.9 - Pneumonia, unspecified organism (ICD-10) Hypoxemia ?R09.02 - Hypoxemia (ICD-10) Surgical History H/O cervical spine surgery ?Z98.890 - Other specified postprocedural states (ICD-10) H/O hemicolectomy ?Z90.49 - Acquired absence of other specified parts of digestive tract (ICD-10) History of cholecystectomy ?Z90.49 - Acquired absence of other specified parts of digestive tract (ICD-10) H/O: hysterectomy ?Z90.710 - Acquired absence of both cervix and uterus (ICD-10) Family History Sister Family history of cancer Family history of hypertension Brother Family history of cancer Father Family history of diabetes mellitus Family history of myocardial infarction Mother Family history of hypertension Family history of myocardial infarction Family history of stroke Social History Within the past year, how often did you have a drink containing alcohol: never Score interpretation: A score less than 3 is consistent with normal alcohol consumption. Smoking status: Never smoker Non-prescribed substance use: denies use Previous occupational history: [employer] Highest level of school completed/degree received: Associate degree: academic program Are you now , , , , never or living with a partner: In a typical week, how many times do you talk on the telephone with family, friends, or neighbors: twice per week How often do you get together with friends or relatives: twice per week How often do you attend voodoo or scientologist services: 4 or more times per year Little interest or pleasure in doing things: several days Feeling down, depressed, or hopeless: several days Feel stressed/tense/nervous/anxious/difficulty sleeping: only a little Do you think of yourself as: straight/heterosexual Gender Identity: female Meds Home Medications and Allergies Home Medications ?Medication ?Instructions ?Recorded ?Confirmed ?Type albuterol sulfate 90 mcg/actuation 2 inh inhalation BID PRN 01/13/23 10/29/24 History aerosol inhaler bronchospasm amlodipine 5 mg tablet 5 mg PO DAILY 01/13/23 10/29/24 History atorvastatin 20 mg tablet 20 mg PO DAILY 01/13/23 10/29/24 History dicyclomine 20 mg tablet 20 mg PO BID 01/13/23 10/29/24 History ferrous sulfate 325 mg (65 mg 325 mg PO BID 01/13/23 10/29/24 History iron) tablet (FeroSul) metoprolol tartrate 25 mg tablet 25 mg PO Q12H 01/13/23 10/29/24 History baclofen 10 mg tablet See Rx Instructions .Route .COMPLEX 10/30/24 10/30/24 History calcitonin (salmon) 200 1 spray intranasal (ALT) DAILY 10/30/24 10/30/24 History unit/actuation nasal spray cefdinir 300 mg capsule 300 mg PO BID 5 days #10 caps 11/02/24 Rx doxycycline monohydrate 100 mg 100 mg PO BID 7 days #14 caps 11/02/24 Rx capsule prednisone 10 mg tablet 10 mg PO DAILY #6 tabs 11/02/24 Rx meloxicam 7.5 mg tablet 7.5 mg PO BIDWM PRN pain #60 tabs 11/05/24 Rx Allergies Allergy/AdvReac Type Severity Reaction Status Date / Time [facility] Allergy Intermediate Rash Verified 10/29/24 20:56 codeine Allergy Rash Verified 10/29/24 20:55 tramadol Allergy Rash Verified 10/29/24 20:55 Exam Constitutional Documenting provider has reviewed patient's vital signs: yes Common normals: no apparent distress, oriented x3, healthy appearing, alert and well nourished General appearance: cooperative HENIL Common normals: normocephalic, hearing grossly normal bilaterally and moist oral mucous membranes Head and scalp: normocephalic Eye Common normals: PERRL Pupil: PERRL Neck & C-Spine Common normals: full ROM General: normal visual inspection Chest Common normals: inspection of chest normal Respiratory Common normals: normal respiratory effort, no retractions and no use of accessory muscles Back & Pelvis Lumbar spine/lower back: ROM limited, pain with ROM, straight leg raise positive right and straight leg raise positive left Sacroiliac joints: SI joint(s) abnormal Other: right sij positive fly(patricks), gaenslens, thigh thrust, compression test decreased sensation bilateral L5/S1 strength 4/5 in BLE Neuro Common normals: oriented x3 Sensorium/orientation: alert Psych Common normals: mental status grossly normal, thought process normal, cooperative, affect normal, speech normal and activity/motor behavior normal Speech: normal speech Thought process: normal thought process Results Additional Findings Additional findings: If on a controlled substance or opioids, I have checked an [place] report on this patient and there are no aberrancies noted in the prescribing history.??If on a controlled substance or opioid a drug screen was completed and reviewed within the last year, and if there has not been a drug screen completed we ordered one today to monitor higher risk, state monitored pain medication use. As part of providing excellent, safe, comprehensive care, the following was completed at our patient's visit: 1. A medication reconciliation and review to ensure accurate knowledge of current/active medications, including asking our patients to inform us about any omut-hal-kmiruhp medications or herbal remedies/nutritional supplements/alternative remedies. 2. A review to specifically ensure our patients have had annual screening for screening for depression, screening for tobacco use, and screening for unhealthy alcohol use. For concerning screenings had a discussion with the patient, provided patient education, and recommended follow-up with primary care provider when appropriate. If patient noted with a risk of falling, they received education on strength, gait, and balance training to prevent future risk of falling. Portions of this note may have been carried over from the previous visit and updated as appropriate. Please note this office utilizes paper charting in addition to the electronic medical record. A list of current medications, vitals, and PMH is available there as the clinical staff outside of myself do not have access to [employer] charting during the clinic day operations. As part of providing quality comprehensive care the current medications, vitals, and PMH were reviewed in the paper chart. Assessment and Plan Assessment and Plan (1) Lumbar stenosis with neurogenic claudication: (2) Sacroiliitis: Plan The patient has had over 3 months of moderate to severe low back, BLE, and right SIJ pain with functional impairment and inadequate response to conservative care including NSAIDS (unless there are contraindication such as concurrent blood thinners), multiple oral or topical pain medications, and home exercise program/physical therapy.? Patient has completed >6 weeks of guided home exercise program and/or formal physical therapy program without relief of their symptoms.? The Oswestry Disability Index was completed, and the patient scored a 62%.? repeat bilateral L5-S1 TFESI under fluoroscopy for lumbar stenosis with NC, prior injection provided at least 50% improvement for 3 months consider repeating right SIJ injection continue current medications, finding benefit without side effects pts daughter inquiring about continuous low dose oral steroid, do not recommend for chronic pain. can talk with pcp and they can work pt up further for any potentital autoimmune disorders or reason for low dose steroids or pulmonology f/u 2 weeks after STARR
== END 2024-11-05 11:01 | disposition home or self-care (01) ==
LOC: PM 11:01
PROVIDERS: PCP Family Medicine; Visit Provider Nurse Practitioner
DX: M48.062 Spinal stenosis, lumbar region with neurogenic claudication (principal); M46.1 Sacroiliitis, not elsewhere classified
CPT/HCPCS: G0463

== ENCOUNTER 2024-12-01 12:26 | Day surgery (SDC) | payer MEDICARE, SELFPAY ==
--- OUTSIDE RECORDS SUMMARY | 2024-11-05 10:30 | XMS_ITS ---
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 Name Role Phone Truong Stokes Primary Care Provider Homero Cian Unavailable [phone] REASON FOR VISIT 6m F/U - Bronchiectasis Encounters Encounter Location Date Provider Diagnosis Pulmonary Medicine [place] [address] [place] [address] 11/05/2024 Homero Cain Plan Of Treatment Next Appt Details Provider Name:Truong Stokes, 01:00:00 PM, [address] [place], [address], Progress Notes * Danielle VERGARA ADOB:1935 (89 yo F)Acc No.[id number]:11/05/2024 UNLOCKED PROGRESS NOTE Follow Up Patient: Amada Danielle CHAN Provider: Christian Cain DO :1935 A ge:89 Y S ex:Female Date:11/05/2024 Address:[address] [place] [id number] Pcp:Truong Stokes Subjective: * Chief Complaints: * 1 . 6m F/U - Bronchiectasis. * Medical History: Objective: * Vitals: Assessment: Plan: * Treatment: * * Electronic signature of Danae Cain DO on 12/01/2024 at 12:29 PM EDT Sign off status: Pending Visit Status: O FF CANC (OFFICE CANCEL) * Provider: Christian Cain DO Date: 0 11/05/2024 Generated for Ry nunez/Levi/Sil on: 1 12:29 PM EDT
--- OUTSIDE RECORDS SUMMARY | 2024-12-01 12:29 | XMS_ITS | Patient Health Record ---
Author Organization [facility] Address [address] [place] [address] Care Team Providers Care Reserve Operator Name Role Phone Kumar Stokes Primary Care Provider [facility] Reza Olivas Unavailable [phone] Allergies Allergen (clinical drug ingredient) Drug/Non Drug Allergy documented on EMR Reaction Allergy Type Onset Date Status tramadol traMADol Unknown Drug Allergy Active codeine codeine Unknown Drug Allergy Active Reason For Referral No Information Medications Medication SIG (Take, Route, Fr equency, Duration) Notes Start Date End Date Status atorvastatin Unknown albuterol Unknown Sodium Chloride Unkn own metoprolol Unknown Advair Diskus Unknow n Ferrous Sulfate Unkn own dicyclomine Unknown calcitonin Unknown Social History Tobacco Use: Social History Observation Description Date Details (start date - stop date) Never Smoker NA - NA Smoking History Question Answer Notes Smoking Status NonSmoker Problems Problem Type SNOMED Code ICD Code Onset Dates Problem Status W/U Status Risk Notes Problem 270030079 Sacroiliac joint pain (M53.3) Active confirmed Problem 276677345 Spinal stenosis, lumbosacral region (M48.07) Active confirmed Problem Displacement of lumbar intervertebral disc without myelopathy (20011202) Other intervertebral disc displacement, 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) Active confirmed Problem 24213713 Other intervertebral disc degeneration, 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 confirmed Problem 2360394 Radiculopathy, lumbosacral region (M54.17) Active confirmed Problem 254887823 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) Active confirmed Problem 01660428534597561 Compression fracture of L2 vertebra, initial encounter (S32.020A) Active confirmed Problem 464996368625774 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) Active confirmed Problem 50357730756545287 Compression fracture of L2 vertebra with routine healing, subsequent encounter (S32.020D) Active confirmed Plan Of Treatment Pending Test Test Name Order Date SFS - Sacroiliac Steroid Injections upto 3 times prn 06/29/2023 Insurance Providers Payer Name Payer Address Payer Phone Subscriber Number Group Number Insured Name Patient Relationship to Insured Coverage Start Date Coverage End Date Medicare [address] [id number] MARY VERGARA Self - patient is the insured A[employer] SUPPLEMENT [address] [place] [address] [id number] MARY VERGARA Self - patient is the insured Medical (General) History Medical History History ICD Code High Blood Pressure: Yes Lung Disease: Yes Bronchitis: Yes Gastric Reflux: Yes Colon cancer: Yes Osteoporosis: Yes Blood Clots in Legs/Lungs: yes
--- OUTSIDE RECORDS SUMMARY | 2024-12-01 12:30 | XMS_ITS | Patient Health Record ---
Author Organization [facility] [place] in [place] Address [address] [place] [address] Care Team Providers Care Color Weigher Name Role Phone Truong Stokes Primary Care Provider Homero Cain Flory [phone] Allergies Allergen (clinical drug ingredient) Drug/Non Drug Allergy documented on EMR Reaction Allergy Type Onset Date Status Levaquin Hallucinations Drug Allergy Ac tive codeine Codeine rash Drug Allergy Active tramadol Tramadol rash Drug Allergy Active Results Component Value Reference Range Notes MM tomosynthesis screening B I Reviewed date:12/05/2023 08:44:15 PM Interpretation: Performing Lab: Notes/Report: Source Facility: [place] [address] [place] [address] Mammography Report Signed Patient: DANIELLE VERGARA MR#: [id number] : 1935 Acct:[id number] Age/Sex: 88 / F ADM Date: 12/04/23 Loc: MAMMO Attending Dr: Kumar Stokes M.D. Ordering Physician: Kumar Stokes M.D. Results: Date of Service: 12/04/23 Follow Up: Procedure(s): MM tomosynthesis screening BI Accession Number(s): [id number] cc: Kumar Stokes M.D. Patient Name: DANIELLE VERGARA MR#: [id number] : 1935 Exam Date: 12/04/2023 Ordering Doctor: DR Kumar Stokes . RADIOLOGY REPORT PROCEDURE: MM TOMOSYNTHESIS SCREENING BI COMPARISON: MM TOMOSYNTHESIS SCREENING BI, 12/01/2022. MG MAMM SCREEN 3D WAQAS CAD, 11/30/2021. MG MAMM SCREEN 3D WAQAS CAD, 11/29/2020. MG MAMM WAQAS SCRN W CAD DIG, 11/06/2012. INDICATIONS: Screening Calculator Name NCI Breast Cancer Risk Assessment Tool 5 Year Breast Cancer Risk Not Applicable. Lifetime Breast Cancer Risk Not Applicable. Personal Breast Cancer No Personal Ovarian Cancer No Treatments Bowel resection, chemotherapy Family Cancers Sister with pancreatic cancer at age 80; Sister with lung cancer at age 78; Sister with colon cancer at age 74. LOCATION: [facility] BREAST COMPOSITION: The breasts are extremely dense, which lowers the sensitivity of mammography. FINDINGS: DIAGNOSTIC CATEGORY 2--BENIGN FINDING: RIGHT BREAST: No significant suspicious finding. No significant change has occurred. LEFT BREAST: No significant suspicious finding. Scattered benign-appearing calcifications are present. No significant change has occurred. RECOMMENDATIONS: ROUTINE MAMMOGRAM AND CLINICAL EVALUATION IN 12 MONTHS. PLEASE NOTE: A NORMAL MAMMOGRAM DOES NOT EXCLUDE THE POSSIBILITY OF BREAST CANCER. A CLINICALLY SUSPICIOUS PALPABLE LUMP SHOULD BE BIOPSIED. Dictated by: Garret Casillas M.D. on 12/05/2023 at 11:03 Approved by: Garret Casillas M.D. on 12/05/2023 at 11:10 Dictated By: Garret Casillas M.D. Signed By: 12/05/23 1111 DD/ 1110 TD/TT: Experimental Flight Test Mechanic: STEPHEN T3 Reviewed date:12/19/2023 06:56:02 PM Interpretation: Performing Lab: Notes/Report: [facility] , Free T3 1.67 2.18-3.98 pg/mL Performing Lab: see note ML - [facility] LB GLYCOHEMOGLOBIN A1C Reviewed date:12/19/2023 06:56:02 PM Interpretation: Performing Lab: Notes/Report: [facility] , Glycohemoglobin A1C 5.8 4.5-6.2 % ADA RECOMMENDED LIMIT 4.0 - 6.0 ADA THERAPEUTIC TARGET < 7.0 ACTION SUGGESTED > 7.0 Estimated Average Glucose 120 Performing Lab: see note ML - [facility] LB LIPID PROFILE Reviewed date:12/19/2023 06:56:02 PM Interpretation: Performing Lab: Notes/Report: [facility] , Triglycerides 178 <=150 mg/dL Cholesterol 186 <=200 mg/dL HDL Cholesterol 56 40-60 mg/dL > or =60 mg/dl - LOW CARDIOVASCULAR RISK <40 mg/dl - HIGH CARDIOVASCULAR RISK LDL Cholesterol Calculated 95.0 <100 mg/dl OPTIMAL 100-129 mg/dl NEAR OR ABOVE OPTIMAL 130-159 mg/dl BORDERLINE HIGH 160-189 mg/dl HIGH >190 mg/dl VERY HIGH VLDL CHOLESTEROL 35.6 Chol HDL Ratio 3.3 3.3 - 4.4 LOW RISK 4.4 - 7.1 AVERAGE RISK 7.1 - 11.0 MODERATE RISK >11.0 HIGH RISK Performing Lab: see note ML - [facility] LB PROF 14(COMP METB) Reviewed date:12/19/2023 06:56:02 PM Interpretation: Performing Lab: Notes/Report: [facility] , Sodium 144 136-145 mmol/L Potassium 4.4 3.5-5.1 mmol/L Chloride 105 98-107 mmol/L Carbon Dioxide 29.7 21.0-32.0 mmol/L Anion Gap 13.7 Glucose 112 74-106 mg/dL Blood Urea Nitrogen 23.0 7.0-18.0 mg/dL Creatinine 0.89 0.55-1.02 mg/dL Estimated GFR ( Zee >60 >=60 mL/min/1.73m 2 Estimated GFR (Non- Flores 60 >=60 mL/min/1.73m 2 BUN Creatinine Ratio 25.8 Calcium 9.9 8.5-10.1 mg/dL Bilirubin Total 0.7 0.2-1.0 mg/dL Aspartate Amino Transferase 24 15-37 U/L Alanine Aminotransferase 51 14-59 U/L Alkaline Phosphatase 104 46-116 U/L Total Protein 7.2 6.4-8.2 g/dL Albumin Level 4.1 3.4-5.0 g/dL Globulin 3.1 Albumin Globulin Ratio 1.3 Performing Lab: see note ML - [facility] LB T4 Reviewed date:12/19/2023 06:56:02 PM Interpretation: Performing Lab: Notes/Report: [facility] , T4 Thyroxine 5.90 4.80-13.90 ug/dL Performing Lab: see note ML - [facility] LB TSH Reviewed date:12/19/2023 06:56:02 PM Interpretation: Performing Lab: Notes/Report: [facility] , Thyroid Stimulating Hormone 0.387 0.358-3.740 uIU/mL Performing Lab: see note ML - [facility] LB VITAMIN D 25 [place] Reviewed date:12/19/2023 06:56:02 PM Interpretation: Performing Lab: Notes/Report: [facility] , Vitamin D 33.8 <20 ng/mL Vit D deficient 20-<30 ng/mL Vit D insufficient 30-100 ng/mL Vit D sufficient >100 ng/mL Potential Toxicity Performing Lab: see note ML - [facility] LB FREE T3 Reviewed date:01/19/2024 10:17:16 AM Interpretation: Performing Lab: Notes/Report: [facility] , Free T3 2.13 2.18-3.98 pg/mL Performing Lab: see note ML - [facility] LB T4 Reviewed date:01/19/2024 10:17:16 AM Interpretation: Performing Lab: Notes/Report: [facility] , T4 Thyroxine 6.80 4.80-13.90 ug/dL Performing Lab: see note ML - [facility] LB TSH Reviewed date:01/19/2024 10:17:16 AM Interpretation: Performing Lab: Notes/Report: [facility] , Thyroid Stimulating Hormone 0.875 0.358-3.740 uIU/mL Performing Lab: see note ML - [facility] LB BNP Reviewed date:10/30/2024 04:01:32 PM Interpretation: Performing Lab: Notes/Report: [facility] , NT Pro B Type Natriuretic Pept 334.0 <=1800.0 pg/mL Performing Lab: see note ML - [facility] LB CBC AUTO DIFF Reviewed date:10/30/2024 04:01:32 PM Interpretation: Performing Lab: Notes/Report: [facility] , White Blood Count 16.6 4.0-11.0 10 3/uL Red Blood Count 4.73 4.20-5.40 10 6/uL Hemoglobin 14.0 12.0-16.0 g/dL Hematocrit 42.6 36.0-48.0 % Mean Corpuscular Volume 90.1 81.0-99.0 fL Mean Corpuscular Hemoglobin 29.6 26.7-34.0 pg Mean Corpuscular HGB Conc 32.9 29.9-35.2 g/dL Red Cell Distribution Width 14.9 11.0-15.0 % Platelet Count 173 150-450 10 3/uL Mean Platelet Volume 10.3 9.5-13.5 fL Neutrophils Percent Auto 75.0 43.0-75.0 % Lymphocytes Percent Auto 15.8 20.5-60.0 % Monocytes Percent Auto 8.2 1.7-12.0 % Eosinophils Percent Auto 0.4 0.9-7.0 % Basophils Percent Auto 0.2 0.2-2.0 % Immature Granulocytes Pct Auto 0.4 0.0-0.5 % Neutrophils Absolute Auto 12.4 1.4-6.5 10 3/uL Lymphocytes Absolute Auto 2.6 1.2-3.8 10 3/uL Monocytes Absolute Auto 1.4 0.3-0.8 10 3/uL Eosinophils Absolute Auto 0.1 0.0-0.7 10 3/uL Basophils Absolute Auto 0.0 0.0-0.1 10 3/uL Immature Granulocytes Abs Auto 0.07 0.00-0.03 10 3/uL Performing Lab: see note ML - [facility] INFLUENZA A AND B AG Reviewed date:10/30/2024 04:01:32 PM Interpretation: Performing Lab: Notes/Report: [facility] , Influenza Virus A Antigen Negative Negative for Flu A protein antigen. Infection due to Flu A cannot be ruled out. Flu A antigen in the sample may be below the detection limit of the test. Influenza Virus B Antigen Negative Negative for Flu B protein antigen. Infection due to Flu B cannot be ruled out. Flu B antigen in the sample may be below the detection limit of the test. Performing Lab: see note ML - [facility] LB LACTATE or LACTIC ACID Reviewed date:10/30/2024 04:01:32 PM Interpretation: Performing Lab: Notes/Report: [facility] , Lactate/Lactic Acid 0.9 0.4-2.0 mmol/L Performing Lab: see note ML - [facility] LB MAGNESIUM Reviewed date:10/30/2024 04:01:32 PM Interpretation: Performing Lab: Notes/Report: [facility] , Magnesium 2.0 1.8-2.4 mg/dL Performing Lab: see note ML - [facility] LB PROF 14(COMP METB) Reviewed date:10/30/2024 04:01:32 PM Interpretation: Performing Lab: Notes/Report: [facility] , Sodium 144 136-145 mmol/L Potassium 3.5 3.5-5.1 mmol/L Chloride 103 98-107 mmol/L Carbon Dioxide 28.6 21.0-32.0 mmol/L Anion Gap 15.9 Glucose 133 74-106 mg/dL Blood Urea Nitrogen 14.0 7.0-18.0 mg/dL Creatinine 0.67 0.55-1.02 mg/dL Estimated GFR ( Zee >60 >=60 mL/min/1.73m 2 Estimated GFR (Non- Flores >60 >=60 mL/min/1.73m 2 BUN Creatinine Ratio 20.9 Calcium 9.6 8.5-10.1 mg/dL Bilirubin Total 0.7 0.2-1.0 mg/dL Aspartate Amino Transferase 27 15-37 U/L Alanine Aminotransferase 32 14-59 U/L Alkaline Phosphatase 127 46-116 U/L Total Protein 8.0 6.4-8.2 g/dL Albumin Level 4.3 3.4-5.0 g/dL Globulin 3.7 Albumin Globulin Ratio 1.2 Performing Lab: see note ML - [facility] LB Blood Culture 1 Reviewed date:11/04/2024 07:46:17 PM Interpretation: Performing Lab: Notes/Report: [facility] , Blood Culture 1 See Below For Report Blood Culture 1 NG5D NO GROWTH AT 5 DAYS.^NO GROWTH AT 5 DAYS. Performing Lab: see note ML - [facility] LB Blood Culture 2 Reviewed date:11/04/2024 07:46:17 PM Interpretation: Performing Lab: Notes/Report: [facility] , Blood Culture 2 See Below For Report Blood Culture 2 NG5D NO GROWTH AT 5 DAYS.^NO GROWTH AT 5 DAYS. Performing Lab: see note - [facility] LB Troponin I High Sensitivity Reviewed date:10/30/2024 04:01:32 PM Interpretation: Performing Lab: Notes/Report: [facility] , Troponin I High Sensitivity 10.4 4.0-51.3 pg/mL CUT-OFF POINTS HAVE BEEN ESTABLISHED BASED ON THE FOURTH UNIVERSAL DEFINITION OF MYOCARDIAL INFARCTION. THE UPPER REFERENCE LIMIT (URL) OF TROPONIN, DEFINED THE 99TH PERCENTILE OF cTnI DISTRIBUTION IN A REFERENCE POPULATION, HAS BEEN CONFIRMED THE DECISION THRESHOLD FOR MA DIAGNOSIS. 99TH PERCENTILE = 51.4 PG/ML NOTE: HIGH-SENSITIVITY TROPONIN ASSAY IS NOT INTENDED TO BE USED IN ISOLATION BUT SHOULD BE INTERPRETED IN CONJUNCTION WITH OTHER DIAGNOSTIC AND CLINICAL INFORMATION. Performing Lab: see note ML - [facility] LB SARS-CoV-2 Ag* Reviewed date:10/30/2024 04:01:32 PM Interpretation: Performing Lab: Notes/Report: [facility] , SARS-CoV-2 Ag NEGATIVE NEGATIVE This test has not been FDA cleared or approved, but has been authorized by the FDA under an Emergency Use Authorization (EUA) for use by authorized laboratories certified under CLIA that meet the requirements to perform moderate or high complexity testing. This test has been authorized only for the detection of proteins from SARS-CoV-2, not for any other viruses or pathogens. The emergency use of this test is authorized for the duration of the declaration that circumstances exist justifying the authorization of emergency use of in vitro diagnostic tests for detection and/or diagnosis of Covid-19 under section 564(b)(1) of the Act, 21 U.S.C. 360bbb-3(b)(1), unless the declaration is terminated or authorization is revoked sooner. Performing Lab: see note ML - [facility] LB ECG 12 lead Reviewed date:10/30/2024 04:38:47 PM Interpretation: Performing Lab: Notes/Report: Source Facility: [facility] [place] [address] [place] [address] Electrocardiograph Report Signed Patient: DANIELLE VERGARA MR#: [id number] : 1935 Acct:[id number] Age/Sex: 89 / F ADM Date: 10/29/24 Loc: MS 231-[address]: OZIEL VERDIN D.O. Ordering Physician: Eder Ashby Date of Service: 10/29/24 Procedure(s): ECG 12 lead Accession Number(s): [id number] cc: [facility] Test Date: 2024-10-29 Pat Name: DANIELLE VERGARA Department: Room: - Gender: Female Marketing Technologist: : 1935 Requested By: 0939 Order Number: [id number] Reading MD: CHRIS CALIX Measurements Intervals Bend Rate: 123 P: 35 IN: 202 QRS: 47 QRSD: 78 T: -35 QT: 292 QTc: 365 Interpretive Statements 1120 Sinus tachycardia 2420 RSR (QR) in lead V1/V2, consistent with right ventricular conduction delay [address] depression [address] [place] abnormality 7300 Indeterminate axis 9150 abnormal ECG Compared to ECG 01/13/2023 20:23:39 Indeterminate axis now present Left-axis deviation no longer present ST (T wave) deviation still present Electronically Signed On 10-30-2024 16:02:41 EDT by CHRIS CALIX Dictated By: Chris Calix M.D. Signed By: 10/30/24 1603 DD/ 2144 TD/TT: Experimental Flight Test Mechanic: XR chest 2V Reviewed date:10/30/2024 04:01:32 PM Interpretation: Performing Lab: Notes/Report: Source Facility: [place] [address] XRay Report Signed Patient: DANIELLE VERGARA MR#: [id number] : 1935 Acct:[id number] Age/Sex: 89 / F ADM Date: 10/29/24 Loc: ER Attending Dr: Ordering Physician: Eder Ashby Date of Service: 10/29/24 Procedure(s): XR chest 2V Accession Number(s): [id number] cc: Kumar Stokes M.D.; Eder Ashby [place] [address] Patient Name: DANIELLE VERGARA MRN: [id number] date: 1935 Sex: F Assigned Patient Location: ER Current Patient Location: ED.MAIN Accession/Order Number: [id number] Exam Date: 10/29/2024 21:07 Report Date: 10/29/2024 22:05 At the request of: EDER ASHBY MD Procedure: XR chest 2V Plain film chest 2 view HISTORY: Fever and productive cough COMPARISON: 01/17/2023 FINDINGS: SUPPORT DEVICES: None POSTSURGICAL CHANGES: Cervical spine fixation hardware HEART: Within normal limits PULMONARY KALIE: Within normal limits MEDIASTINUM: Unremarkable LUNGS AND PLEURA: Continued interstitial lung changes with a left basal predominance. Likely chronic finding. No new consolidation. No pleural effusion. No pneumothorax. BONY STRUCTURES: Intact ADDITIONAL FINDINGS None XR/XR chest 2V IMPRESSION: Continued interstitial changes with left basal predominance. Likely chronic finding. No new consolidation. Impression dictated by: Jayesh Millard M.D. 10/29/2024 10:05 PM Dictation Location: [place] [address] Electronically authenticated by: [id number] Y Date: 10/29/2024 22:05 Dictated By: Jayesh Millard D.O. Signed By: 10/29/242207 DD/ 04 TD/TT: Experimental Flight Test Mechanic: CBC AUTO DIFF Reviewed date:10/30/2024 04:01:32 PM Interpretation: Performing Lab: Notes/Report: [facility] , White Blood Count 17.0 4.0-11.0 10 3/uL Red Blood Count 4.38 4.20-5.40 10 6/uL Hemoglobin 12.8 12.0-16.0 g/dL Hematocrit 39.5 36.0-48.0 % Mean Corpuscular Volume 90.2 81.0-99.0 fL Mean Corpuscular Hemoglobin 29.2 26.7-34.0 pg Mean Corpuscular HGB Conc 32.4 29.9-35.2 g/dL Red Cell Distribution Width 15.1 11.0-15.0 % Platelet Count 169 150-450 10 3/uL Mean Platelet Volume 10.2 9.5-13.5 fL Neutrophils Percent Auto 90.4 43.0-75.0 % Lymphocytes Percent Auto 7.7 20.5-60.0 % Monocytes Percent Auto 0.9 1.7-12.0 % Eosinophils Percent Auto 0.0 0.9-7.0 % Basophils Percent Auto 0.2 0.2-2.0 % Immature Granulocytes Pct Auto 0.8 0.0-0.5 % Neutrophils Absolute Auto 15.4 1.4-6.5 10 3/uL Lymphocytes Absolute Auto 1.3 1.2-3.8 10 3/uL Monocytes Absolute Auto 0.2 0.3-0.8 10 3/uL Eosinophils Absolute Auto 0.0 0.0-0.7 10 3/uL Basophils Absolute Auto 0.0 0.0-0.1 10 3/uL Immature Granulocytes Abs Auto 0.13 0.00-0.03 10 3/uL Performing Lab: see note ML - [facility] LB MAGNESIUM Reviewed date:10/30/2024 04:01:32 PM Interpretation: Performing Lab: Notes/Report: [facility] , Magnesium 2.5 1.8-2.4 mg/dL Performing Lab: see note ML - [facility] LB PROF CHEM 8 (BAS METB) Reviewed date:10/30/2024 04:01:32 PM Interpretation: Performing Lab: Notes/Report: [facility] , Sodium 144 136-145 mmol/L Potassium 3.8 3.5-5.1 mmol/L Chloride 105 98-107 mmol/L Carbon Dioxide 26.8 21.0-32.0 mmol/L Anion Gap 16.0 Glucose 215 74-106 mg/dL Blood Urea Nitrogen 13.0 7.0-18.0 mg/dL Creatinine 0.65 0.55-1.02 mg/dL Estimated GFR ( Zee >60 >=60 mL/min/1.73m 2 Estimated GFR (Non- Flores >60 >=60 mL/min/1.73m 2 BUN Creatinine Ratio 20.0 Calcium 8.9 8.5-10.1 mg/dL Performing Lab: see note ML - [facility] LB Troponin I High Sensitivity Reviewed date:10/30/2024 04:01:32 PM Interpretation: Performing Lab: Notes/Report: [facility] , Troponin I High Sensitivity 20.8 4.0-51.3 pg/mL CUT-OFF POINTS HAVE BEEN ESTABLISHED BASED ON THE FOURTH UNIVERSAL DEFINITION OF MYOCARDIAL INFARCTION. THE UPPER REFERENCE LIMIT (URL) OF TROPONIN, DEFINED THE 99TH PERCENTILE OF cTnI DISTRIBUTION IN A REFERENCE POPULATION, HAS BEEN CONFIRMED THE DECISION THRESHOLD FOR MA DIAGNOSIS. 99TH PERCENTILE = 51.4 PG/ML NOTE: HIGH-SENSITIVITY TROPONIN ASSAY IS NOT INTENDED TO BE USED IN ISOLATION BUT SHOULD BE INTERPRETED IN CONJUNCTION WITH OTHER DIAGNOSTIC AND CLINICAL INFORMATION. Performing Lab: see note - [facility] LB White Blood Cells Reviewed date:11/03/2024 08:02:35 PM Interpretation: Performing Lab: Notes/Report: [facility] , White Blood Cells See Below For Report White Blood Cells White Blood Cells None seen White Blood Cells Performing Lab: see note LC - [facility] LB Epithelial Cells Reviewed date:11/03/2024 08:02:35 PM Interpretation: Performing Lab: Notes/Report: [facility] , Epithelial Cells See Below For Report Epithelial Cells None seen Performing Lab: see note LC - [facility] LB Result 1 Reviewed date:11/03/2024 08:02:35 PM Interpretation: Performing Lab: Notes/Report: [facility] , Result 1 See Below For Report Result 1 Rare gram positive cocci Performing Lab: see note LC - [facility] LB Result 2 Reviewed date:11/03/2024 08:02:35 PM Interpretation: Performing Lab: Notes/Report: [facility] , Result 2 See Below For Report Result 2 ASSISTANT TEACHING PROFESSOR Performing Lab: see note LC - [facility] LB Result 3 Reviewed date:11/03/2024 08:02:35 PM Interpretation: Performing Lab: Notes/Report: [facility] , Result 3 See Below For Report Result 3 ASSISTANT TEACHING PROFESSOR Performing Lab: see note LC - [facility] LB Result 4 Reviewed date:11/03/2024 08:02:35 PM Interpretation: Performing Lab: Notes/Report: [facility] , Result 4 See Below For Report Result 4 ASSISTANT TEACHING PROFESSOR Performing Lab: see note LC - [facility] LB Gram Stain Evaluation Reviewed date:11/03/2024 08:02:35 PM Interpretation: Performing Lab: Notes/Report: [facility] , Gram Stain Evaluation See Below For Report Gram Stain Evaluation This specimen is of good quality and is acceptable for routine Gram Stain Evaluation bacterial culture. Gram Stain Evaluation This specimen is of good quality and is acceptable for routine Performing Lab: see note LC - [facility] LB Lower Respiratory Culture Reviewed date:11/03/2024 08:02:35 PM Interpretation: Performing Lab: Notes/Report: [facility] , Lower Respiratory Culture See Below For Report Lower Respiratory Culture WILL FOLLOW O:NOCACY Isolated Lower Respiratory Culture Growth observed. Further testing to rule out possible pathogen(s) Lower Respiratory Culture WILL FOLLOW O:NOCACY Isolated Lower Respiratory Culture is in progress. Lower Respiratory Culture WILL FOLLOW O:NOCACY Isolated Lower Respiratory Culture Organism: Nocardia cyriacigeorgica : Lower Respiratory Culture WILL FOLLOW O:NOCACY Isolated Lower Respiratory Culture *ABNORMAL* Lower Respiratory Culture WILL FOLLOW O:NOCACY Isolated Lower Respiratory Culture Moderate growth Lower Respiratory Culture WILL FOLLOW O:NOCACY Isolated Lower Respiratory Culture Lower Respiratory Culture WILL FOLLOW O:NOCACY Isolated Lower Respiratory Culture Routine respiratory martin Lower Respiratory Culture WILL FOLLOW O:NOCACY Isolated Lower Respiratory Culture Light growth Lower Respiratory Culture WILL FOLLOW O:NOCACY Isolated Lower Respiratory Culture Nocardia cyriacigeorgica Lower Respiratory Culture WILL FOLLOW O:NOCACY Isolated Lower Respiratory Culture See Below For Report Lower Respiratory Culture WILL FOLLOW O:NOCACY Isolated Lower Respiratory Culture [facility] Lower Respiratory Culture WILL FOLLOW O:NOCACY Isolated Lower Respiratory Culture [address] [place], [place] [id number] Lower Respiratory Culture WILL FOLLOW O:NOCACY Isolated Lower Respiratory Culture Sterile Proc Tech: Alden Ledesma PhD, Phone: [phone] Lower Respiratory Culture WILL FOLLOW O:NOCACY Isolated Performing Lab: see note LC - [facility] LB SEE REPORT - Logistics Technician Id information not found for OBX-specific public accountant legend IRON Reviewed date:12/19/2023 06:56:02 PM Interpretation: Performing Lab: Notes/Report: [facility] , Iron 77.0 50.0-170.0 ug/dL Performing Lab: see note ML - [facility] LB CBC AUTO DIFF Reviewed date:12/19/2023 06:56:02 PM Interpretation: Performing Lab: Notes/Report: [facility] , White Blood Count 11.7 4.0-11.0 10 3/uL Red Blood Count 4.66 4.20-5.40 10 6/uL Hemoglobin 14.4 12.0-16.0 g/dL Hematocrit 43.8 36.0-48.0 % Mean Corpuscular Volume 94.0 81.0-99.0 fL Mean Corpuscular Hemoglobin 30.9 26.7-34.0 pg Mean Corpuscular HGB Conc 32.9 29.9-35.2 g/dL Red Cell Distribution Width 14.0 11.0-15.0 % Platelet Count 167 150-450 10 3/uL Mean Platelet Volume 9.2 9.5-13.5 fL Neutrophils Percent Auto 72.7 43.0-75.0 % Lymphocytes Percent Auto 19.3 20.5-60.0 % Monocytes Percent Auto 6.6 1.7-12.0 % Eosinophils Percent Auto 0.3 0.9-7.0 % Basophils Percent Auto 0.2 0.2-2.0 % Immature Granulocytes Pct Auto 0.9 0.0-0.5 % Neutrophils Absolute Auto 8.5 1.4-6.5 10 3/uL Lymphocytes Absolute Auto 2.3 1.2-3.8 10 3/uL Monocytes Absolute Auto 0.8 0.3-0.8 10 3/uL Eosinophils Absolute Auto 0.0 0.0-0.7 10 3/uL Basophils Absolute Auto 0.0 0.0-0.1 10 3/uL Immature Granulocytes Abs Auto 0.10 0.00-0.03 10 3/uL Performing Lab: see note - [facility] LB UA Micro, reflex to culture Reviewed date:10/30/2024 04:01:32 PM Interpretation: Performing Lab: Notes/Report: [facility] , Color Urine LT. YELLOW YELLOW Clarity Urine CLEAR CLEAR Specific [place] Urine 1.010 1.005-1.025 pH Urine 6.0 5.0-9.0 Protein Urine NEGATIVE NEG/TRACE mg/dL Glucose Urine UA NEGATIVE NEGATIVE mg/dL Bilirubin Urine NEGATIVE NEGATIVE Ketones Urine 40 NEGATIVE mg/dL Blood Urine NEGATIVE NEGATIVE Nitrite Urine NEGATIVE NEGATIVE Urobilinogen Urine 0.2 0.2-1.0 EU/dL Leukocyte Esterase Urine NEGATIVE NEGATIVE WBC Urine NONE SEEN NONE SEEN #/HPF RBC Urine 0-2 0-2 #/HPF Bacteria Urine NONE SEEN NONE SEEN #/HPF Mucus Urine NONE SEEN NONE SEEN Squamous Epithelial Cell Urine NONE SEEN NONE/RARE #/LPF Crystals Seen? None Seen None Seen #/HPF Cast Seen? NONE SEEN NONE SEEN #/LPF Urine Culture Indicated NO Performing Lab: see note ML - [facility] LB ECG 12 lead Reviewed date:10/30/2024 04:38:46 PM Interpretation: Performing Lab: Notes/Report: Source Facility: [place] [address] [facility] [address] [place] [address] Electrocardiograph Report Signed Patient: DANIELLE VERGARA MR#: [id number] : 1935 Acct:[id number] Age/Sex: 89 / F ADM Date: 10/29/24 Loc: [place] 231-[address]: OZIEL VERDIN D.O. Ordering Physician: Ric Diaz M.D. Date of Service: 10/30/24 Procedure(s): ECG 12 lead Accession Number(s): [id number] cc: [facility] Test Date: 2024-10-30 Pat Name: DANIELLE VERGARA Department: Room: [facility] Gender: Female Marketing Technologist: : 1935 Requested By: 2802 Order Number: [id number] Reading MD: CHRIS CAILX Measurements Intervals Bend Rate: 90 P: 46 IN: 154 QRS: -18 QRSD: 90 T: 16 QT: 362 QTc: 444 Interpretive Statements SINUS RHYTHM Compared to ECG 10/29/2024 21:44:24 Sinus tachycardia no longer present ST (T wave) deviation no longer present Indeterminate axis no longer present Electronically Signed On 10-30-2024 16:04:10 EDT by CHRIS CALIX Dictated By: Chris Calix M.D. Signed By: 10/30/24 1604 DD/ 0518 TD/TT: Experimental Flight Test Mechanic: GLYCOHEMOGLOBIN A1C Reviewed date:11/01/2024 04:31:30 PM Interpretation: Performing Lab: Notes/Report: [facility] , Glycohemoglobin A1C 5.9 4.5-6.2 % ADA RECOMMENDED LIMIT 4.0 - 6.0 ADA THERAPEUTIC TARGET < 7.0 ACTION SUGGESTED > 7.0 Estimated Average Glucose 123 Performing Lab: see note ML - [facility] LB MAGNESIUM Reviewed date:11/01/2024 04:31:30 PM Interpretation: Performing Lab: Notes/Report: [facility] , Magnesium 2.3 1.8-2.4 mg/dL Performing Lab: see note ML - [facility] LB PROF CHEM 8 (BAS METB) Reviewed date:11/01/2024 04:31:30 PM Interpretation: Performing Lab: Notes/Report: [facility] , Sodium 147 136-145 mmol/L Potassium 3.8 3.5-5.1 mmol/L Chloride 111 98-107 mmol/L Carbon Dioxide 26.7 21.0-32.0 mmol/L Anion Gap 13.1 Glucose 130 74-106 mg/dL Blood Urea Nitrogen 16.0 7.0-18.0 mg/dL Creatinine 0.75 0.55-1.02 mg/dL Estimated GFR ( Zee >60 >=60 mL/min/1.73m 2 Estimated GFR (Non- Flores >60 >=60 mL/min/1.73m 2 BUN Creatinine Ratio 21.3 Calcium 8.9 8.5-10.1 mg/dL Performing Lab: see note ML - [facility] LB CBC no Diff (Hemogram) Reviewed date:11/01/2024 04:31:30 PM Interpretation: Performing Lab: Notes/Report: [facility] , White Blood Count 13.9 4.0-11.0 10 3/uL Red Blood Count 4.07 4.20-5.40 10 6/uL Hemoglobin 11.9 12.0-16.0 g/dL Hematocrit 36.9 36.0-48.0 % Mean Corpuscular Volume 90.7 81.0-99.0 fL Mean Corpuscular Hemoglobin 29.2 26.7-34.0 pg Mean Corpuscular HGB Conc 32.2 29.9-35.2 g/dL Red Cell Distribution Width 15.1 11.0-15.0 % Platelet Count 174 150-450 10 3/uL Mean Platelet Volume 9.6 9.5-13.5 fL Performing Lab: see note ML - [facility] LB MAGNESIUM Reviewed date:11/01/2024 04:31:30 PM Interpretation: Performing Lab: Notes/Report: [facility] , Magnesium 2.1 1.8-2.4 mg/dL Performing Lab: see note ML - [facility] LB PROF CHEM 8 (BAS METB) Reviewed date:11/01/2024 04:31:30 PM Interpretation: Performing Lab: Notes/Report: [facility] , Sodium 146 136-145 mmol/L Potassium 3.6 3.5-5.1 mmol/L Chloride 111 98-107 mmol/L Carbon Dioxide 26.7 21.0-32.0 mmol/L Anion Gap 11.9 Glucose 139 74-106 mg/dL Blood Urea Nitrogen 14.0 7.0-18.0 mg/dL Creatinine 0.67 0.55-1.02 mg/dL Estimated GFR ( Zee >60 >=60 mL/min/1.73m 2 Estimated GFR (Non- Flores >60 >=60 mL/min/1.73m 2 BUN Creatinine Ratio 20.9 Calcium 8.6 8.5-10.1 mg/dL Performing Lab: see note - [facility] CBC no Diff (Hemogram) Reviewed date:11/01/2024 04:31:30 PM Interpretation: Performing Lab: Notes/Report: [facility] , White Blood Count 11.7 4.0-11.0 10 3/uL Red Blood Count 3.91 4.20-5.40 10 6/uL Hemoglobin 11.6 12.0-16.0 g/dL Hematocrit 35.3 36.0-48.0 % Mean Corpuscular Volume 90.3 81.0-99.0 fL Mean Corpuscular Hemoglobin 29.7 26.7-34.0 pg Mean Corpuscular HGB Conc 32.9 29.9-35.2 g/dL Red Cell Distribution Width 15.3 11.0-15.0 % Platelet Count 185 150-450 10 3/uL Mean Platelet Volume 9.7 9.5-13.5 fL Performing Lab: see note - [facility] LB CBC AUTO DIFF Reviewed date:11/03/2024 08:02:35 PM Interpretation: Performing Lab: Notes/Report: [facility] , White Blood Count 10.5 4.0-11.0 10 3/uL Red Blood Count 3.96 4.20-5.40 10 6/uL Hemoglobin 11.6 12.0-16.0 g/dL Hematocrit 36.0 36.0-48.0 % Mean Corpuscular Volume 90.9 81.0-99.0 fL Mean Corpuscular Hemoglobin 29.3 26.7-34.0 pg Mean Corpuscular HGB Conc 32.2 29.9-35.2 g/dL Red Cell Distribution Width 15.2 11.0-15.0 % Platelet Count 185 150-450 10 3/uL Mean Platelet Volume 9.7 9.5-13.5 fL Neutrophils Percent Auto 83.0 43.0-75.0 % Lymphocytes Percent Auto 12.4 20.5-60.0 % Monocytes Percent Auto 3.0 1.7-12.0 % Eosinophils Percent Auto 0.0 0.9-7.0 % Basophils Percent Auto 0.1 0.2-2.0 % Immature Granulocytes Pct Auto 1.5 0.0-0.5 % Neutrophils Absolute Auto 8.7 1.4-6.5 10 3/uL Lymphocytes Absolute Auto 1.3 1.2-3.8 10 3/uL Monocytes Absolute Auto 0.3 0.3-0.8 10 3/uL Eosinophils Absolute Auto 0.0 0.0-0.7 10 3/uL Basophils Absolute Auto 0.0 0.0-0.1 10 3/uL Immature Granulocytes Abs Auto 0.16 0.00-0.03 10 3/uL Performing Lab: see note ML - [facility] LB PROF CHEM 8 (BAS METB) Reviewed date:11/03/2024 08:02:35 PM Interpretation: Performing Lab: Notes/Report: [facility] , Sodium 145 136-145 mmol/L Potassium 3.7 3.5-5.1 mmol/L Chloride 108 98-107 mmol/L Carbon Dioxide 29.5 21.0-32.0 mmol/L Anion Gap 11.2 Glucose 141 74-106 mg/dL Blood Urea Nitrogen 12.0 7.0-18.0 mg/dL Creatinine 0.73 0.55-1.02 mg/dL Estimated GFR ( Zee >60 >=60 mL/min/1.73m 2 Estimated GFR (Non- Flores >60 >=60 mL/min/1.73m 2 BUN Creatinine Ratio 16.4 Calcium 8.5 8.5-10.1 mg/dL Performing Lab: see note ML - [facility] LB Reason For Referral No Information Medications Medication SIG (Take, Route, Frequency, Duration) Notes Start Date End Date Status amLODIPine Besylate 5 MG Take 1 tablet b y mouth once daily; Duration: 90 days Active Albuterol Sulfate HFA 108 (90 Base) MCG/ACT 2 puffs as needed for SOB Inhalation every 4 hrs; Duration: 90 days Active Multi Complete - as directed Orally Active Baclofen 10 MG 1/2 tablet Oral once daily at bedtime; Duration: 30 days Active Sodium Chloride 0.9 % 3mL Inhalation TID ; Duration: 30 days Active Atorvastatin Calcium 20 MG Take 1 tablet by mouth once daily; Duration: 90 days Active Flax Seed Oil 1000 MG as directed Orally Active Advair HFA 230-21 MCG/ACT 2 puffs Inhalation Twice a day; Duration: 90 days Rinse after use Active Metoprolol Tartrate 25 MG Take 1 tablet by mouth twice daily with food; Duration: 90 Active Meloxicam 7.5 MG Oral; Duration: 30 Days Active Calcium 600 MG 1 tablet with meals Orally Twice a day Active Calcitonin (Sanders) 200 UNIT/ACT USE 1 SPRAY IN 1 NOSTRIL - ALTERNATING NOSTRILS DAILY; Duration: 28 Active Cefdinir 300 MG 2 capsule Orally onc e a day; Duration: 25 days 11/05/2024 Active FeroSul 325 (65 Fe) MG Take 1 tablet by mouth twice daily; Duration: 30 Active Doxycycline Monohydrate 100 MG 1 tablet Orally bid; Duration: 25 days 11/05/2024 Active Dicyclomine HCl 20 MG Take 1 tablet Oral ly twice daily; Duration: 30 days Active Immunizations Vaccine Route Administration Date Status Comme nts Arexvy Unknown 01/09/2023 Administered Pneumococcal (Pneumovax 23) Unknown 04/17/2017 Administ ered Pneumococcal (Prevnar 13) Unknown 04/09/2017 Administer ed SARS-COV-2 (COVID 19 Moderna Bivalent Booster 0.5mL) Unknown 12/20/2021 Administered Spikevax Moderna Syringe Pre -Filled 50 mcg/0.5 mL Unknown 12/04/2022 Administered Spikevax Moderna Syringe Pre -Filled 50 mcg/0.5 mL Unknown 01/30/2024 Administered Social History Tobacco Use: Social History Observation Description Date Details (start date - stop date) Never Smoker NA - NA Tobacco Control (Standard) Question Answer Notes Tobacco use: Nonsmoker AUDIT-C (Standard) Question Answer Notes Did you have a drink containing alcohol in the p ast year? No Points 0 Interpretation Negative Problems Problem Type SNOMED Code ICD Code Onset Dates Problem Status W/U Status Risk Notes Problem Acute exacerbation of bronchiectasis (761343578) Bronchiectasis with acute lower respiratory infection (J47.0) Active confirmed Problem Chronic respiratory failure (91861044) Chronic respiratory failure with hypoxia (J96.11) Active confirmed Problem Lumbosacral spondylosis without myelopathy (48724825) Spondylosis without myelopathy or radiculopathy, lumbar region (M47.816) Active confirmed Problem Shortness of breath (224343867) Shortness of breath (R06.02) Active confirmed Problem 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) Wedge compression fracture of second lumbar vertebra, 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) Active confirmed Problem Long-term current use of inhaled steroid (582021706) assisted (current) use of inhaled steroids (Z79.51) Active confirmed Problem Diverticulitis (87013018) Diverticulitis (K57.92) Active confirmed Problem Bronchiolectasis (30762198) Bronchiectasis without complication (J47.9) Active confirmed Problem Essential hypertension (11456057) Essential (primary) hypertension (I10) Active confirmed Problem Long-term current use of inhaled steroid (037536474) terminal carman current use of inhaled steroid (Z79.51) Active confirmed Problem Closed fracture of second lumbar vertebra (23684575109634763 ) Closed fracture of second lumbar vertebra (S32.029A) Active confirmed Problem Sacral contusion (S30.0XXA) Active confirmed Problem 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 Problem Nocardial pneumonia (292288261) Nocardial pneumonia (A43.0) Active confirmed Problem Essential hypertension (19011001) BP (high blood pressure) (I10) Active confirmed Problem Malnutrition of moderate degree ([place]: 60% to less than 75% of standard weight) (67967640) Moderate protein malnutrition (E44.0) Active confirmed Vital Signs Heart Rate 56 /min 05/07/2024 1L O2 Activity/ Resting Temperature 97.0 degrees Fahrenheit 05/07/2024 1L O 2 Activity/Resting Respiratory Rate 18 /min 05/07/2024 1L O2 Activ ity/Resting Oximetry 91 % 11/05/2024 Blood pressure diastolic 88 mm Hg 11/05/2024 Height 60 in 11/05/2024 Blood pressure systolic 150 mm Hg 11/05/2024 Weight 109 lbs 11/05/2024 BMI 21.29 kg/m2 11/05/2024 Encounters Encounter Location Date Provider Diagnosis [facility] [address] [facility] [place] [address] 12/05/2023 Truong Berrymichael [facility] [address] [facility] [place] [address] 12/19/2023 Truong Stokes Hypothyroid E03.9 [facility] [address] [place] [address] 12/28/2023 Truong Berrymichael [facility] [address] [place] [address] 01/19/2024 Truong Stokes [facility] [place] [address] [place] [facility] [place] [address] 10/07/2024 Homerokrystal Giles [facility] [address] [facility] [place] [address] 11/03/2024 Truong Divya [facility] [address] [facility] [place] [address] 09/10/2024 Truong Stokes Acute bronchitis, unspecified organism J20.9 [facility] [place] [address] [place] [address] 05/07/2024 Homero Cain Bronchiectasis witho ut complication J47.9 ; Chronic respiratory failure with hypoxia J96.11 ; Colonized with infectious organism Z22.9 and terminal carman current use of inhaled steroid Z79.51 [facility] [address] [facility] [place] [address] 12/19/2023 Truong Stokes Chronic respiratory failure with hypoxia J96.11 ; Essential (primary) hypertension I10 ; Wedge compression fracture of second lumbar vertebra, subsequent encounter for fracture with nonunion S32.020K ; Moderate protein malnutrition E44.0 and Bronchiectasis with acute lower respiratory infection J47.0 [facility] [address] [facility] [place] [address] 06/18/2024 Truong Stokes Acute bronchitis, unspecified organism J20.9 ; Bronchiectasis without complication J47.9 ; Essential (primary) hypertension I10 and Shortness of breath R06.02 [facility] [address] [place] [address] 09/17/2024 Truong Stokes Acute bronchitis, unspecified organism J20.9 [facility] [address] [place] [address] 11/05/2024 Truong Stokes Chronic respiratory failure with hypoxia J96.11 Assessments Encounter Date Diagnosis (ICD Code) Assessment Notes Treatment Notes Treatment Clinical Notes Section Notes 12/19/2023 Chronic respiratory failure with hypoxia (ICD-10 - J96.11) 12/19/2023 Essential (primary) hypertension (ICD-10 - I10) 05/07/2024 Bronchiectasis without complication (ICD-10 - J47.9) Secretions seem to be well-controlled with her pulmonary toilet consisting of PEP device and saline nebs. Remains intolerant of vest due to back pain. At this point, I do not see her ever using it again. She did have a brief self-limited episode of hemoptysis. She was counseled if this continues, or she develops purulent sputum, to contact office. She may need a chest CT and antibiotics respectively. Continue with the Advair and saline nebs. Ufkw-vd-cwip encounter performed with the patient to document continued need for a nebulizer with nebulized medications.-Rasheed borrego nebulized medications: Sodium chloride 0.9% TID-Symptom control: Better able to expectorate with use-Reported side or adverse effects: None -Recommendations: Administration of saline nebs is dependent on a nebulizer as that is the only mode of administration available to treat bronchiectasis. 05/07/2024 Chronic respiratory failure with hypoxia (ICD-10 - J96.11) Kqok-yj-trmv encounter performed with the patient to document continued need for supplemental oxygen (O2).-Flow & directions: ~1-2L/min O2 ATC-Patient voices adherence to recommended usage: Yes-Symptom control on O2: Less shortness of breath-Counseled patient not begin, restart, or continue smoking, around the O2 due to risk of fire which could result in damage to the O2 tanks & lines, smoke inhalation and flame damage to the airway, significant martines, potential , property damage, and potential harm & to bystanders. Additionally, counseled it is not sutherland to begin, restart, or continue smoking given the underlying pulmonary disease that led to the point of requiring O2.-Recommendations : She is doing well with her current oxygen and flows. No plans to change her prescription at this current time. 06/18/2024 Acute bronchitis, unspecified organism (ICD-10 - J20.9) Rest and drink more liquids, especially water. You may use a humidifier or vaporizer to help keep the drainage moist. Svng-tof-dawcgde Nasal Saline may help the stuffy and runny nose. Use Ibuprofen and or Tylenol as needed for fever, chills, body aches or pain. Children 5 years old should not be given riht-eau-bhyxvty cough and cold medications such as guaifenesin and dextromethorphan. If you're over age 5, you may try pbqv-vai-zstugul cold medications such as guaifenesin and dextromethorphan, or multi-symptom cold reliever such as Dayquil to help reduce the symptoms. Antibiotics have been prescribed. You should take these until completed and follow the directions. Antibiotics can sometimes cause upset stomach, and in rare cases, serious allergic reactions or serious gastrointestinal problems. If you start having severe abdominal pain, severe vomiting, or bloody diarrhea, you should be reevaluated by your physician or urgent care immediately. Follow up with your Primary Care Provider or return to clinic if symptoms do not improve within 3-5 days. If you develop severe symptoms such as shortness of breath, repeated vomiting, coughing up blood, or chest pain you should go to the emergency room or call 911 06/18/2024 Bronchiectasis without complication (ICD-10 - J47.9) 09/10/2024 Acute bronchitis, unspecified organism (ICD-10 - J20.9) Rest and drink more liquids, especially water. You may use a humidifier or vaporizer to help keep the drainage moist. Radd-lue-xcqhvub Nasal Saline may help the stuffy and runny nose. Use Ibuprofen and or Tylenol as needed for fever, chills, body aches or pain. Children 5 years old should not be given zkwl-csy-bejjxhf cough and cold medications such as guaifenesin and dextromethorphan. If you're over age 5, you may try rvhl-hrm-ouujewg cold medications such as guaifenesin and dextromethorphan, or multi-symptom cold reliever such as Dayquil to help reduce the symptoms. Antibiotics have been prescribed. You should take these until completed and follow the directions. Antibiotics can sometimes cause upset stomach, and in rare cases, serious allergic reactions or serious gastrointestinal problems. If you start having severe abdominal pain, severe vomiting, or bloody diarrhea, you should be reevaluated by your physician or urgent care immediately. Follow up with your Primary Care Provider or return to clinic if symptoms do not improve within 3-5 days. If you develop severe symptoms such as shortness of breath, repeated vomiting, coughing up blood, or chest pain you should go to the emergency room or call 911 09/17/2024 Acute bronchitis, unspecified organism (ICD-10 - J20.9) Rest and drink more liquids, especially water. You may use a humidifier or vaporizer to help keep the drainage moist. Xrmn-orv-yszgejh Nasal Saline may help the stuffy and runny nose. Use Ibuprofen and or Tylenol as needed for fever, chills, body aches or pain. Children 5 years old should not be given jhaq-eno-riysaxl cough and cold medications such as guaifenesin and dextromethorphan. If you're over age 5, you may try braf-xaw-bhgjpfi cold medications such as guaifenesin and dextromethorphan, or multi-symptom cold reliever such as Dayquil to help reduce the symptoms. Antibiotics have been prescribed. You should take these until completed and follow the directions. Antibiotics can sometimes cause upset stomach, and in rare cases, serious allergic reactions or serious gastrointestinal problems. If you start having severe abdominal pain, severe vomiting, or bloody diarrhea, you should be reevaluated by your physician or urgent care immediately. Follow up with your Primary Care Provider or return to clinic if symptoms do not improve within 3-5 days. 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 12/19/2023 Wedge compression fracture of second lumbar vertebra, subsequent encounter for fracture with nonunion (ICD-10 - S32.020K) 12/19/2023 Moderate protein malnutrition (ICD-10 - E44.0) 05/07/2024 assisted current use of inhaled steroid (ICD-10 - Z79.51) Patient was counseled to rinse & gargle with water after inhaled corticosteroid use. 06/18/2024 Shortness of breath (ICD-10 - R06.02) 12/19/2023 Bronchiectasis with acute lower respiratory infection (ICD-10 - J47.0) 05/07/2024 Other Plan Of Treatment Pending Test Test Name Order Date CMP (COMPLETE METABOLIC PANEL) 3 CMP (COMPLETE METABOLIC PANEL) 4 HEMOGLOBIN A1C (GLYCO) 11/24/2022 HEMOGLOBIN A1C (GLYCO) 12/19/2023 IRON, TOTAL 12/19/2023 IRON, TOTAL 11/24/2022 LIPID PANEL (CHOL/TRIG/HDL/LDL) 11/25/19 LIPID PANEL (CHOL/TRIG/HDL/LDL) 12/19/19 24 CBC WITH DIFF 12/19/2023 CBC WITH DIFF 11/24/2022 VITAMIN D, 25 LEVEL (TOTAL) 11/24/2022 VITAMIN D, 25 LEVEL (TOTAL) 12/19/2023 CT Abdomen and Pelvis w/contrast * 05/20 Insulin Level 11/24/2022 CT Abd w/ + w/o Pelvis w/ IV Contrast MRI LSPINE WO CON 01/26/2023 MRI LSPINE WO CON 06/13/2023 XR LSPINE 2_3 VIEWS 06/13/2023 THYROID PANEL (T4/TSH/FREE T3) 3 THYROID PANEL (T4/TSH/FREE T3) 4 THYROID PANEL (T4/TSH/FREE T3) 4 Next Appt Details Provider Name:Truong Stokes, 01:00:00 PM, [address] [place], [address], Insurance Providers Payer Name Payer Address Payer Phone Subscriber Number Group Number Insured Name Patient Relationship to Insured Coverage Start Date Coverage End Date [place] [address] [place] [phone] [id number] Danielle Vergara Self - patient is the insured 2 [employer] [place] [address] [place] [phone] [id number] PLAN F Danielle Vergara Self - patient is the insured 4 Medications Administered Medication Instructions Date of Administration Dosage Notes Dexamethasone, 4mg/mL 09/10/2024 8 mg Dexamethasone, 4mg/mL 09/17/2024 8 mg Medical (General) History Medical History History ICD Code Bronchiectasis J47.9 Colonized with infectious organism Z22.9 assisted (current) use of inhaled stero ids Z79.51 Chronic respiratory failure with hypoxia J96.11 Closed fracture of second lumbar vertebr a S32.029A Surgical History Surgery Date(Month/Year) Si Joint injection cervical fusion right hemicolectomy Cholecystectomy hysterectomy Bilateral L4-5 transforaminal epidural s teroid inj Giedraitis 12/03/2023 Hospitalization History Reason Date(Month/Year) Pneumonia-[facility] 01/13/2023
--- OUTSIDE RECORDS SUMMARY | 2024-12-01 12:30 | XMS_ITS | Clinical Summary ---
Author Organization [facility] Address [address] [place] [address] Care Team Providers Care Staff Nuclear Medicine Technologist Name Role Phone Unavailable Primary Care Provider Unavailabl e Social History Tobacco Use Types Packs/Day Years Used Date Smoking Tobacco: Never Assessed Comments Unknown Sex and Gender Information Value Date Recorded Sex Assigned at Not on file Legal Sex Female 7:24 PM EDT Gender Identity Not on file Sexual Orientation Not on file Last Filed Vital Signs Vital Sign Reading Time Taken Comments Blood Pressure 162/74 02/11/2020 12:00 PM EST Pulse - - Temperature - - Respiratory Rate - - Oxygen Saturation - - Inhaled Oxygen Concentration - - Weight 50.8 kg (112 lb) 02/11/2020 12:00 PM EST Height 157.5 cm (5' 2 ) 02/11/2020 12:00 PM EST Body Mass Index 20.49 02/11/2020 12:00 PM EST Plan of Treatment Not on file Insurance MEDICARE
--- OUTSIDE RECORDS SUMMARY | 2024-12-01 12:32 | XMS_ITS | CCD ---
Author Organization [facility] CliniSyvt Care Team Providers Care Oracle Erp Developer Name Role Phone TAY ., DR ESCALONA [...] (1 source) Codeine Drug Allergy 02-26-1959 [facility] Repository (1 source) levoFLOXacin Drug Allergy [facility] Repository (1 source) Sulfonamides (Antibiotic) Drug allergy (disorder) [facility] Repository (1 source) traMADol Drug Allergy 01-28-2008 [facility] Repository Problems Active Problems Problem [...] PAMELA ANN Date: 2022-05-03 12:[address] [facility] MAMM SCREEN 3D WAQAS CADon 11-30-2021 MAMM SCREEN 3D WAQAS CAD Patient: DANIELLE ABBASI Exam Date: 11/30/2021 : 1935 Gender:F Ordering : DR POLA CROSS . Admission #: [id number] Family : Order #: [id number] CLICK HERE TO VIEW EXAM RADIOLOGY REPORT [...] colon cancer at age 75. LOCATION: [facility] BREAST COMPOSITION: Extremely dense, which [...] MD on 11/30/2021 at 12:44 Normal [facility] OCC BLD IMMUNO SCREENon 10-28 OCCULT BLOOD Negative Normal NEGATIVE [facility] Comment on above: Performed By: #### O BSCRN #### [facility] [address] [place] [address] Dr. Aba Esparza T4, T3U, FTI LABCORPon 11-16 Free Thyroxine Index 2.1 Normal 1.2-4.9 [facility] Comment on above: Performed By: #### T HYLC #### [facility] [address] [place] [address] Dr. Aba Esparza T3 Uptake 33 % Normal 24-39 [facility] Comment on above: Performed By: #### T HYLC #### [facility] [address] [place] [address] Dr. Aba Esparza T4 [Mass/Vol] 6.3 ug/dL Normal 4.5-12.0 [facility] Comment on above: Performed By: #### T HYLC #### [facility] [address] [place] [address] Dr. Aba Esparza CBC AUTO DIFFon 11-15-2021 BASO # 0.0 103/ul Normal 0.0-0.1 [facility] Comment on above: Performed By: #### C BC #### [facility] [address] [place] [address] Dr. Aba Esparza Basophils/100 WBC (Bld) 0.3 % Normal 0.2-2.0 [facility] Comment on above: Performed By: #### C BC #### [facility] [address] [place] [address] Dr. Aba Esparza EO # 0.2 103/ul Normal 0.0-0.7 [facility] Comment on above: Performed By: #### C BC #### [facility] [address] [place] [address] Dr. Aba Esparza Eosinophils/100 WBC (Bld) 1.4 % Normal 0.9-7.0 [facility] Comment on above: Performed By: #### C BC #### [facility] [address] [place] [address] Dr. Aba Esparza Erythrocyte distribution width (RBC) [Ratio] 15.0 % Normal 11.0-15.0 [facility] Comment on above: Performed By: #### C BC #### [facility] [address] [place] [address] Dr. Aba Esparza Hematocrit (Bld) [Volume fraction] 42.8 % Normal 36.0-48.0 [facility] Comment on above: Performed By: #### C BC #### [facility] [address] [place] [address] Dr. Aba Esparza Hemoglobin (Bld) [Mass/Vol] 13.4 g/dL Normal 12.0-16.0 [facility] Comment on above: Performed By: #### C BC #### [facility] [address] [place] [address] Dr. Aba Esparza IG # 0.04 10e3/ul Critically high 0.00-0.03 [facility] Comment on above: Performed By: #### C BC #### [facility] [address] [place] [address] Dr. Aba Esparza IG % 0.3 % Normal 0.0-0.5 [facility] Comment on above: Performed By: #### C BC #### [facility] [address] [place] [address] Dr. Aba Esparza LYMPH # 3.6 103/ul Normal 1.2-3.8 [facility] Comment on above: Performed By: #### C BC #### [facility] [address] [place] [address] Dr. Aba Esparza Lymphocytes/100 WBC (Bld) 27.5 % Normal 20.5-60.0 [facility] Comment on above: Performed By: #### C BC #### [facility] [address] [place] [address] Dr. Aba Esparza MANUAL DIFF REQ NO Normal [facility] Comment on above: Performed By: #### C BC #### [facility] [address] [place] [address] Dr. Aba Esparza MCH (RBC) [Entitic mass] 27.6 pg Normal 26.7-34.0 [facility] Comment on above: Performed By: #### C BC #### [facility] [address] [place] [address] Dr. bAa Epsarza MCHC (RBC) [Mass/Vol] 31.3 g/dL Normal 29.9-35.2 [facility] Comment on above: Performed By: #### C BC #### [facility] [address] [place] [address] Dr. Aba Esparza MCV (RBC) [Entitic vol] 88.1 fL Normal 81.0-99.0 [facility] Comment on above: Performed By: #### C BC #### [facility] [address] [place] [address] Dr. Aba Esparza MONO # 0.9 103/ul Critically high 0.3-0.8 [facility] Comment on above: Performed By: #### C BC #### [facility] [address] [place] [address] Dr. Aba Esparza Monocytes/100 WBC (Bld) 7.0 % Normal 1.7-12.0 [facility] Comment on above: Performed By: #### C BC #### [facility] [address] [place] [address] Dr. Aba Esparza NEUT # 8.3 103/ul Critically high 1.4-6.5 [facility] Comment on above: Performed By: #### C BC #### [facility] [address] [place] [address] Dr. Aba Esparza Neutrophils/100 WBC (Bld) 63.5 % Normal 43.0-75.0 [facility] Comment on above: Performed By: #### C BC #### [facility] [address] [place] [address] Dr. Aba Esparza Platelet mean volume (Bld) [Entitic vol] 9.0 fL Critically low 9.5-13.5 [facility] Comment on above: Performed By: #### C BC #### [facility] [address] [address] [address] Aba Esparza PLT 198 103/ul Normal 150-450 [facility] Comment on above: Performed By: #### C BC #### [facility] [address] [address] [address] Aba Esparza RBC 4.86 106/ul Normal 4.20-5.40 [facility] Comment on above: Performed By: #### C BC #### [facility] [address] [address] [address] Aba Esparza WBC 13.1 103/ul Critically high 4.0-11.0 [facility] Comment on above: Performed By: #### C BC #### [facility] [address] [address] [address] Aba Esparza GLYCOHEMOGLOBIN A1Con 2021 ADA RECOMMENDATION SEE BELOW Normal [facility] Comment on above: Result Comment: ADA RECOMMENDED LIMIT 4.0 - 6.0 ADA THERAPEUTIC TARGET < 7.0 ACTION SUGGESTED > 7.0 Performed By: #### A 1C ####[facility] [id number] [address]Dr. Aba Esparza Glucose [Mass/Vol] 126 mg/dL Normal [facility] Comment on above: Performed By: #### A 1C ####[facility] [address] [address]Dr. Aba Esparza HbA1c (Bld) [Mass fraction] 6.0 % Normal 4.5-6.2 [facility] Comment on above: Performed By: #### A 1C ####[facility] [id number] [address]Dr. Aba Esparza IRONon 11-15-2021 Iron [Mass/Vol] 34.0 ug/dL Critically low 50.0-170.0 [facility] Comment on above: Performed By: #### I ELIZA #### [facility] [address] [address] [address] Aba Esparza LIPID PROFILEon 11-15-2021 CHOL-HDL RATIO NORM SEE BELOW Normal [facility] Comment on above: Result Comment: 3.3 - 4.4 LOW RISK 4.4 - 7.1 AVERAGE RISK 7.1 - 11.0 MODERATE RISK >11.0 HIGH RISK Performed By: #### L IPID, CMP, TSH #### [facility] [address] [address] [address] Aba Esparza Cholesterol [Mass/Vol] 120 mg/dL Normal <=200 [facility] Comment on above: Performed By: #### L IPID, CMP, TSH #### [facility] [address] [address] [address] Aba Esparza Cholesterol in HDL [Mass/Vol] 40 mg/dL Normal 40-60 [facility] Comment on above: Performed By: #### L IPID, CMP, TSH #### [facility] [address] [place] [address] Dr. Aba Esparza Cholesterol in LDL [Mass/Vol] 45.8 mg/dL Normal [facility] Comment on above: Performed By: #### L IPID, CMP, TSH #### [facility] [address] [place] [address] Dr. Aba Esparza Cholesterol.total/Cho lesterol in HDL [Mass ratio] 3.0 {ratio} Normal [facility] Comment on above: Performed By: #### L IPID, CMP, TSH #### [facility] [address] [address] [address] Aba Esparza HDL NORMAL > or = 60 mg/dl - LOW CARDIOVASCULAR RISK <40 mg/dl - HIGH CARDIOVASCULAR RISK Normal [facility] Comment on above: Performed By: #### L IPID, CMP, TSH #### [facility] [address] [place] [address] Dr. Aba Esparza LDL CALC NORMAL SEE BELOW Normal [facility] Comment on above: Result Comment: <100 mg/dl OPTIMAL 100 - 129 mg/dl NEAR OR ABOVE OPTIMAL 130 - 159 mg/dl BORDERLINE HIGH 160 - 189 mg/dl HIGH >190 mg/dl VERY HIGH Performed By: #### L IPID, CMP, TSH #### [facility] [address] [address] [address] Aba Esparza Triglyceride [Mass/Vol] 171 mg/dL Critically high <=150 [facility] Comment on above: Performed By: #### L IPID, CMP, TSH #### [facility] [address] [address] [address] Aba Esparza VLDL CALC 34.2 mg/dL Normal [facility] Comment on above: Performed By: #### L IPID, CMP, TSH #### [facility] [address] [address] [address] Aba Esparza PROF 14(COMP METB)on 022 Albumin [Mass/Vol] 3.9 g/dL Normal 3.4-5.0 [facility] Comment on above: Performed By: #### L IPID, CMP, TSH #### [facility] [address] [address] [address] Aba Esparza Albumin/Globulin [Mass ratio] 1.0 {ratio} Normal [facility] Comment on above: Performed By: #### L IPID, CMP, TSH #### [facility] [address] [address] [address] Aba Esparza ALP [Catalytic activity/Vol] 138 U/L Critically high 46-116 [facility] Comment on above: Performed By: #### L IPID, CMP, TSH #### [facility] [address] [address] [address] Aba Esparza ALT [Catalytic activity/Vol] 23 U/L Normal 14-59 [facility] Comment on above: Performed By: #### L IPID, CMP, TSH #### [facility] [address] [address] [address] Aba Esparza Anion gap [Moles/Vol] 12.7 mmol/L Normal [facility] Comment on above: Performed By: #### L IPID, CMP, TSH #### [facility] [address] [address] [address] Aba Esparza AST [Catalytic activity/Vol] 24 U/L Normal 15-37 [facility] Comment on above: Performed By: #### L IPID, CMP, TSH #### [facility] [address] [address] [address] Aba Esparza Bilirubin [Mass/Vol] 0.6 mg/dL Normal 0.2-1.0 [facility] Comment on above: Performed By: #### L IPID, CMP, TSH #### [facility] [address] [address] [address] Aba Esparza Calcium [Mass/Vol] 9.4 mg/dL Normal 8.5-10.1 [facility] Comment on above: Performed By: #### L IPID, CMP, TSH #### [facility] [address] [place] [address] Dr. Aba Esparza Chloride [Moles/Vol] 104 mmol/L Normal 98-107 [facility] Comment on above: Performed By: #### L IPID, CMP, TSH #### [facility] [address] [place] [address] Dr. Aba Esparza CO2 [Moles/Vol] 27.3 mmol/L Normal 21.0-32.0 [facility] Comment on above: Performed By: #### L IPID, CMP, TSH #### [facility] [address] [place] [address] Dr. Aba Esparza Creatinine [Mass/Vol] 0.90 mg/dL Normal 0.55-1.02 [facility] Comment on above: Performed By: #### L IPID, CMP, TSH #### [facility] [address] [place] [address] Dr. Aba Esparza EGFR-AF [place] >60 Normal >=60 [facility] Comment on above: Performed By: #### L IPID, CMP, TSH #### [facility] [address] [place] [address] Dr. Aba Esparza EGFR-NON AF [place] =60 Normal >=60 [facility] Comment on above: Performed By: #### L IPID, CMP, TSH #### [facility] [address] [place], [place] [id number] Dr. Aba Esparza Globulin (S) [Mass/Vol] 3.8 g/dL Normal [facility] Comment on above: Performed By: #### L IPID, CMP, TSH #### [facility] [address] [place] [address] Dr. Aba Esparza Glucose [Mass/Vol] 112 mg/dL Critically high 74-106 [facility] Comment on above: Performed By: #### L IPID, CMP, TSH #### [facility] [address] [place] [address] Dr. Aba Esparza Potassium [Moles/Vol] 4.0 mmol/L Normal 3.5-5.1 [facility] Comment on above: Performed By: #### L IPID, CMP, TSH #### [facility] [address] [place] [address] Dr. Aba Esparza Protein [Mass/Vol] 7.7 g/dL Normal 6.4-8.2 [facility] Comment on above: Performed By: #### L IPID, CMP, TSH #### [facility] [address] [place] [address] Dr. Aba Esparza Sodium [Moles/Vol] 140 mmol/L Normal 136-145 [facility] Comment on above: Performed By: #### L IPID, CMP, TSH #### [facility] [address] [place] [address] Dr. Aba Esparza Urea nitrogen [Mass/Vol] 15.0 mg/dL Normal 7.0-18.0 [facility] Comment on above: Performed By: #### L IPID, CMP, TSH #### [facility] [address] [place] [address] Dr. Aba Esparza Urea nitrogen/Creatinine [Mass ratio] 16.7 mg/mg Normal [facility] Comment on above: Performed By: #### L IPID, CMP, TSH #### [facility] [address] [place] [address] Dr. Aba Esparza TSHon 11-15-2021 TSH 1.187 uIU/mL Normal 0.358-3.740 [facility] Comment on above: Performed By: #### L IPID, CMP, TSH #### [facility] [address] [address] [address] Aba Esparza XR DEXA BONE DENSITYon [...] by: LIAM PEREZ Date: 2021-07-01 16:18 Normal [facility] Encounters Encounter Date Encounter Type Care Provider Facility Start: 07-14-2024 End: 07-14-2024 ambulatory Heriberto Vickers MD Facility: [facility] Start: 06-16-2024 End: 06-16-2024 ambulatory Heriberto Vickers MD Facility: [facility] Start: 02-25-2024 End: 02-25-2024 ambulatory Heriberto Vickers MD Facility: [facility] Start: 12-03-2023 End: 12-03-2023 ambulatory Heriberto Vickers MD Facility: [facility] Start: 08-13-2023 End: 08-13-2023 ambulatory Heriberto Vickers MD Facility: [facility] Start: 07-30-2023 End: 07-30-2023 ambulatory Heriberto Vickers MD Facility: [facility] Start: 05-03-2022 End: 05-04-2022 ambulatory [...] Category Payer Medicare 2023 Unknown 1958 Medicare [id number] 1958 Unknown [id number] 1935 Unknown [id number] 2.16.84 [id number] 1936 Unknown [id number] 2.16.84 [id number] 1936 Unknown [id number] 2.16.84 [id number] 1936 Unknown [id number] 2.16.84 [id number] 1936 Unknown [id number] 2.16.84 [id number] 1936 Unknown [id number] 2.16.84 [id number] 1936 Unknown [id number] 2.16. [id number] 1936 Unknown [id number] 2.16. [id number] 1936 Unknown [id number] 2.16. [id number] 1936 Unknown [id number] 2.16. [id number] 1936 Unknown [id number] 2.16. [id number] 1936 Unknown [id number] 2.16. [id number] Summary Purpose Family History No Family History Records FoundNo Family History Records Found Advance Directives No Advanced Directives Records FoundNo Advanced Directives Records Found Additional Source Comments INFORMATION SOURCE (unrecogn ized section and content) DATE CREATED AUTHOR 05/05/2022 [facility] DATE CREATED AUTHOR AUTHOR'S ORGANIZ ATION 07/25/2024 [facility] FOR RECORDS PERTAINING TO PATIENTS WHO [...] BE BASED ON THE PRIMARY CLINICAL RECORDS. [facility]. provides no warranty or guarantee of the accuracy or completeness of information in this document.
[2024-12-01 12:45] VITALS: BP 154/66; PULSE 50; TEMP 37.4; O2SAT 95
[2024-12-01 13:46] VITALS: O2SAT 93
[2024-12-01 13:47] VITALS: PULSE 60
[2024-12-01 13:48] VITALS: BP 161/78; BP 177/84; PULSE 58; O2SAT 94
[2024-12-01] MEDS: 0.9 % SODIUM CHLORIDE 10 ML SYRINGE - SALINE FLUSH INJ (13:49)
[2024-12-01] MEDS: BUPIVACAINE HCL 0.25% PF 25 MG/10 ML VIAL INJ (13:49)
[2024-12-01] MEDS: IOHEXOL 240 MG/ML - 10 ML VIAL INJ (13:50)
[2024-12-01] MEDS: LIDOCAINE HCL 2% 400 MG/20 ML MDV 3 ML INJ (13:50)
[2024-12-01] MEDS: METHYLPREDNISOLONE ACETATE 80 MG/ML VIAL INJ (13:50)
--- NOTE | 2024-12-01 13:51 | W.PM.PROCNOT ---
Date of procedure: 12/01/24 Pre-op diagnosis: Pain due to lumbar stenosis with neurogenic claudication Post-op diagnosis: same as pre-op Procedure: Procedure: Bilateral L5-S1 transforaminal epidural steroid injection Medications: Bupivacaine 0.25% 2cc, lidocaine 2% 1cc, depomedrol 80mg The patient was seen and examined in the preoperative holding area.? Informed consent was obtained and placed on the chart.? Patient was brought to the medical procedure unit and placed in the prone position where a timeout was completed verifying the correct patient, procedure site, position, and planned special equipment using sterile aseptic technique.? Under direct fluoroscopic visualization a 25-gauge Quincke tipped spinal needle was advanced at level left L5-S1 to the designated neural foramen where contrast dye was injected to show adequate spread.? There was no evidence of vascular or adverse uptake.? Epidural spread was appreciated.? The above-mentioned injectate was then placed in a 1.5 mL aliquot preceded by negative aspiration.? The needle was removed. The same procedure, at the same level, was completed on the opposite side. ? Patient was taken to the postprocedural recovery area and monitored for an appropriate length of time before found suitable for discharge in the accompaniment of a responsible adult. Anesthesia: Local Surgeon: Heriberto Vickers Pathology: none sent Condition: stable Disposition: no change
== END 2024-12-01 14:01 | disposition home or self-care (01) ==
PROVIDERS: PCP Family Medicine; Visit Provider Anesthesiology
DX: M48.062 Spinal stenosis, lumbar region with neurogenic claudication (principal); M54.50 Low back pain, unspecified
CPT/HCPCS: 64483; J0665; J1010; Q9966

== ENCOUNTER 2024-12-04 13:52 | Outpatient (OUT) | payer MEDICARE, SELFPAY ==
--- OUTSIDE RECORDS SUMMARY | 2024-12-04 13:57 | XMS_ITS | CCD ---
Author Organization [facility] Care Team Providers Care Pairer Odds Name Role Phone TAY ., DR ESCALONA [...] (1 source) Codeine Drug Allergy 02-26-1959 [facility] (1 source) levoFLOXacin Drug Allergy [facility] (1 source) Sulfonamides (Antibiotic) Drug allergy (disorder) [facility] (1 source) traMADol Drug Allergy 01-28-2008 [facility] Problems Active Problems Problem Classification [...] PAMELA ANN Date: 2022-05-03 12:41 Normal [facility] MAMM SCREEN 3D WAQAS CADon 11-30-2021 MAMM SCREEN 3D WAQAS CAD Patient: DANIELLE ABBASI Exam Date: 11/30/2021 : 1935 Gender:F Ordering : DR POLA CROSS . Admission #: [id number] Family : Order #: [id number] CLICK HERE TO VIEW EXAM RADIOLOGY REPORT [...] colon cancer at age 75. LOCATION: [facility] BREAST COMPOSITION: Extremely dense, which lowers [...] MD on 11/30/2021 at 12:44 Normal [facility] OCC BLD IMMUNO SCREENon 10-28 OCCULT BLOOD Negative Normal NEGATIVE [facility] Comment on above: Performed By: #### O BSCRN #### [facility] [address] [place] [address] Dr. Aba Esparza T4, T3U, FTI LABCORPon 11-16 Free Thyroxine Index 2.1 Normal 1.2-4.9 [facility] Comment on above: Performed By: #### T HYLC #### [facility] [address] [place] [address] Dr. Aba Esparza T3 Uptake 33 % Normal 24-39 [facility] Comment on above: Performed By: #### T HYLC #### [facility] [address] [place] [address] Dr. Aba Esparza T4 [Mass/Vol] 6.3 ug/dL Normal 4.5-12.0 [facility] Comment on above: Performed By: #### T HYLC #### [facility] [address] [place] [address] Dr. Aba Esparza CBC AUTO DIFFon 11-15-2021 BASO # 0.0 103/ul Normal 0.0-0.1 [facility] Comment on above: Performed By: #### C BC #### [facility] [address] [place] [address] Dr. Aba Esparza Basophils/100 WBC (Bld) 0.3 % Normal 0.2-2.0 [facility] Comment on above: Performed By: #### C BC #### [facility] [address] [place] [address] Dr. Aba Esparza EO # 0.2 103/ul Normal 0.0-0.7 [facility] Comment on above: Performed By: #### C BC #### [facility] [address] [place] [address] Dr. Aba Esparza Eosinophils/100 WBC (Bld) 1.4 % Normal 0.9-7.0 [facility] Comment on above: Performed By: #### C BC #### [facility] [address] [place] [address] Dr. Aba Esparza Erythrocyte distribution width (RBC) [Ratio] 15.0 % Normal 11.0-15.0 [facility] Comment on above: Performed By: #### C BC #### [facility] [address] [place] [address] Dr. Aba Esparza Hematocrit (Bld) [Volume fraction] 42.8 % Normal 36.0-48.0 [facility] Comment on above: Performed By: #### C BC #### [facility] [address] [place] [address] Dr. Aba Esparza Hemoglobin (Bld) [Mass/Vol] 13.4 g/dL Normal 12.0-16.0 [facility] Comment on above: Performed By: #### C BC #### [facility] [address] [place] [address] Dr. Aba Esparza IG # 0.04 10e3/ul Critically high 0.00-0.03 [facility] Comment on above: Performed By: #### C BC #### [facility] [address] [place] [address] Dr. Aba Esparza IG % 0.3 % Normal 0.0-0.5 [facility] Comment on above: Performed By: #### C BC #### [facility] [address] [place] [address] Dr. Aba Esparza LYMPH # 3.6 103/ul Normal 1.2-3.8 [facility] Comment on above: Performed By: #### C BC #### [facility] [address] [place] [address] Dr. Aba Esparza Lymphocytes/100 WBC (Bld) 27.5 % Normal 20.5-60.0 [facility] Comment on above: Performed By: #### C BC #### [facility] [address] [place] [address] Dr. Aba Esparza MANUAL DIFF REQ NO Normal [facility] Comment on above: Performed By: #### C BC #### [facility] [address] [place] [address] Dr. Aba Esparza MCH (RBC) [Entitic mass] 27.6 pg Normal 26.7-34.0 [facility] Comment on above: Performed By: #### C BC #### [facility] [address] [place] [address] Dr. Aba Esparza MCHC (RBC) [Mass/Vol] 31.3 g/dL Normal 29.9-35.2 [facility] Comment on above: Performed By: #### C BC #### [facility] [address] [place] [address] Dr. Aba Esparza MCV (RBC) [Entitic vol] 88.1 fL Normal 81.0-99.0 [facility] Comment on above: Performed By: #### C BC #### [facility] [address] [place] [address] Dr. Aba Esparza MONO # 0.9 103/ul Critically high 0.3-0.8 [facility] Comment on above: Performed By: #### C BC #### [facility] [address] [place] [address] Dr. Aba Esparza Monocytes/100 WBC (Bld) 7.0 % Normal 1.7-12.0 [facility] Comment on above: Performed By: #### C BC #### [facility] [address] [place] [address] Dr. Aba Esparaz NEUT # 8.3 103/ul Critically high 1.4-6.5 [facility] Comment on above: Performed By: #### C BC #### [facility] [address] [place] [address] Dr. Aba Esparza Neutrophils/100 WBC (Bld) 63.5 % Normal 43.0-75.0 [facility] Comment on above: Performed By: #### C BC #### [facility] [address] [place] [address] Dr. Aba Esparza Platelet mean volume (Bld) [Entitic vol] 9.0 fL Critically low 9.5-13.5 [facility] Comment on above: Performed By: #### C BC #### [facility] [address] [address] [address] Aba Esparza PLT 198 103/ul Normal 150-450 [facility] Comment on above: Performed By: #### C BC #### [facility] [address] [address] [address] Aba Esparza RBC 4.86 106/ul Normal 4.20-5.40 [facility] Comment on above: Performed By: #### C BC #### [facility] [address] [address] [address] Aba Esparza WBC 13.1 103/ul Critically high 4.0-11.0 [facility] Comment on above: Performed By: #### C BC #### [facility] [address] [address] [address] Aba Esparza GLYCOHEMOGLOBIN A1Con 2021 ADA RECOMMENDATION SEE BELOW Normal [facility] Comment on above: Result Comment: ADA RECOMMENDED LIMIT 4.0 - 6.0 ADA THERAPEUTIC TARGET < 7.0 ACTION SUGGESTED > 7.0 Performed By: #### A 1C ####[facility] [address] [address]Dr. Aba Esparza Glucose [Mass/Vol] 126 mg/dL Normal [facility] Comment on above: Performed By: #### A 1C ####[facility] [address] [address]Dr. Aba Esparza HbA1c (Bld) [Mass fraction] 6.0 % Normal 4.5-6.2 [facility] Comment on above: Performed By: #### A 1C ####[facility] [address] [address]Dr. Aba Esparza IRONon 11-15-2021 Iron [Mass/Vol] 34.0 ug/dL Critically low 50.0-170.0 [facility] Comment on above: Performed By: #### I ELIZA #### [facility] [address] [address] [address] Aba Esparza LIPID PROFILEon 11-15-2021 CHOL-HDL RATIO NORM SEE BELOW Normal [facility] Comment on above: Result Comment: 3.3 - 4.4 LOW RISK 4.4 - 7.1 AVERAGE RISK 7.1 - 11.0 MODERATE RISK >11.0 HIGH RISK Performed By: #### L IPID, CMP, TSH #### [facility] [address] [address] [address] Aba Esparza Cholesterol [Mass/Vol] 120 mg/dL Normal <=200 [facility] Comment on above: Performed By: #### L IPID, CMP, TSH #### [facility] [address] [address] [address] Aba Esparza Cholesterol in HDL [Mass/Vol] 40 mg/dL Normal 40-60 [facility] Comment on above: Performed By: #### L IPID, CMP, TSH #### [facility] [address] [place] [address] Dr. Aba Esparza Cholesterol in LDL [Mass/Vol] 45.8 mg/dL Normal [facility] Comment on above: Performed By: #### L IPID, CMP, TSH #### [facility] [address] [place] [address] Dr. Aba Esparza Cholesterol.total/Cho lesterol in HDL [Mass ratio] 3.0 {ratio} Normal [facility] Comment on above: Performed By: #### L IPID, CMP, TSH #### [facility] [address] [address] [address] Aba Esparza HDL NORMAL > or = 60 mg/dl - LOW CARDIOVASCULAR RISK <40 mg/dl - HIGH CARDIOVASCULAR RISK Normal [facility] Comment on above: Performed By: #### L IPID, CMP, TSH #### [facility] [address] [place] [address] Dr. Aba Esparza LDL CALC NORMAL SEE BELOW Normal [facility] Comment on above: Result Comment: <100 mg/dl OPTIMAL 100 - 129 mg/dl NEAR OR ABOVE OPTIMAL 130 - 159 mg/dl BORDERLINE HIGH 160 - 189 mg/dl HIGH >190 mg/dl VERY HIGH Performed By: #### L IPID, CMP, TSH #### [facility] [address] [address] [address] Aba Esparza Triglyceride [Mass/Vol] 171 mg/dL Critically high <=150 [facility] Comment on above: Performed By: #### L IPID, CMP, TSH #### [facility] [address] [address] [address] Aba Esparza VLDL CALC 34.2 mg/dL Normal [facility] Comment on above: Performed By: #### L IPID, CMP, TSH #### [facility] [address] [address] [address] Aba Esparza PROF 14(COMP METB)on 022 Albumin [Mass/Vol] 3.9 g/dL Normal 3.4-5.0 [facility] Comment on above: Performed By: #### L IPID, CMP, TSH #### [facility] [address] [address] [address] Aba Esparza Albumin/Globulin [Mass ratio] 1.0 {ratio} Normal [facility] Comment on above: Performed By: #### L IPID, CMP, TSH #### [facility] [address] [address] [address] Aba Esparza ALP [Catalytic activity/Vol] 138 U/L Critically high 46-116 [facility] Comment on above: Performed By: #### L IPID, CMP, TSH #### [facility] [address] [address] [address] Aba Esparza ALT [Catalytic activity/Vol] 23 U/L Normal 14-59 [facility] Comment on above: Performed By: #### L IPID, CMP, TSH #### [facility] [address] [address] [address] Aba Esparza Anion gap [Moles/Vol] 12.7 mmol/L Normal [facility] Comment on above: Performed By: #### L IPID, CMP, TSH #### [facility] [address] [address] [address] Aba Esparza AST [Catalytic activity/Vol] 24 U/L Normal 15-37 [facility] Comment on above: Performed By: #### L IPID, CMP, TSH #### [facility] [address] [address] [address] Aba Esparza Bilirubin [Mass/Vol] 0.6 mg/dL Normal 0.2-1.0 [facility] Comment on above: Performed By: #### L IPID, CMP, TSH #### [facility] [address] [address] [address] Aba Esparza Calcium [Mass/Vol] 9.4 mg/dL Normal 8.5-10.1 [facility] Comment on above: Performed By: #### L IPID, CMP, TSH #### [facility] [address] [place] [address] Dr. Aba Esparza Chloride [Moles/Vol] 104 mmol/L Normal 98-107 [facility] Comment on above: Performed By: #### L IPID, CMP, TSH #### [facility] [address] [place] [address] Dr. Aba Esparza CO2 [Moles/Vol] 27.3 mmol/L Normal 21.0-32.0 [facility] Comment on above: Performed By: #### L IPID, CMP, TSH #### [facility] [address] [place] [address] Dr. Aba Esparza Creatinine [Mass/Vol] 0.90 mg/dL Normal 0.55-1.02 [facility] Comment on above: Performed By: #### L IPID, CMP, TSH #### [facility] [address] [place] [address] Dr. Aba Esparza EGFR-AF [place] >60 Normal >=60 [facility] Comment on above: Performed By: #### L IPID, CMP, TSH #### [facility] [address] [place] [address] Dr. Aba Esparza EGFR-NON AF [place] =60 Normal >=60 [facility] Comment on above: Performed By: #### L IPID, CMP, TSH #### [facility] [address] [place], [place] [id number] Dr. Aba Esparza Globulin (S) [Mass/Vol] 3.8 g/dL Normal [facility] Comment on above: Performed By: #### L IPID, CMP, TSH #### [facility] [address] [place] [address] Dr. Aba Esparza Glucose [Mass/Vol] 112 mg/dL Critically high 74-106 [facility] Comment on above: Performed By: #### L IPID, CMP, TSH #### [facility] [address] [place] [address] Dr. Aba Esparza Potassium [Moles/Vol] 4.0 mmol/L Normal 3.5-5.1 [facility] Comment on above: Performed By: #### L IPID, CMP, TSH #### [facility] [address] [place] [address] Dr. Aba Esparza Protein [Mass/Vol] 7.7 g/dL Normal 6.4-8.[address] [facility] Comment on above: Performed By: #### L IPID, CMP, TSH #### [facility] [address] [place] [address] Dr. Aba Esparza Sodium [Moles/Vol] 140 mmol/L Normal 136-145 [facility] Comment on above: Performed By: #### L IPID, CMP, TSH #### [facility] [address] [place] [address] Dr. Aba Esparza Urea nitrogen [Mass/Vol] 15.0 mg/dL Normal 7.0-18.0 [facility] Comment on above: Performed By: #### L IPID, CMP, TSH #### [facility] [address] [place] [address] Dr. Aba Esparza Urea nitrogen/Creatinine [Mass ratio] 16.7 mg/mg Normal [facility] Comment on above: Performed By: #### L IPID, CMP, TSH #### [facility] [address] [place] [address] Dr. Aba Esparza TSHon 11-15-2021 TSH 1.187 uIU/mL Normal 0.358-3.740 [facility] Comment on above: Performed By: #### L IPID, CMP, TSH #### [facility] [address] [address] [address] Aba Esparza XR DEXA BONE DENSITYon [...] by: LIAM PEREZ Date: 2021-07-01 16:18 Normal [facility] Encounters Encounter Date Encounter Type Care Provider Facility Start: 07-14-2024 End: 07-14-2024 ambulatory Heriberto Vickers MD Facility: [facility] Start: 06-16-2024 End: 06-16-2024 ambulatory Heriberto Vickers MD Facility: [facility] Start: 02-25-2024 End: 02-25-2024 ambulatory Heriberto Vickers MD Facility: [facility] Start: 12-03-2023 End: 12-03-2023 ambulatory Heriberto Vickers MD Facility: [facility] Start: 08-13-2023 End: 08-13-2023 ambulatory Heriberto Vickers MD Facility: [facility] Start: 07-30-2023 End: 07-30-2023 ambulatory Heriberto Vickers MD Facility: [facility] Start: 05-03-2022 End: 05-04-2022 ambulatory [...] Category Payer Medicare 2023 Unknown 1958 Medicare [id number] 1958 Unknown [id number] 1935 Unknown [id number] 2.16.84 [id number] 1935 Unknown [id number] 2.16.84 [id number] 1935 Unknown [id number] 2.16.84 [id number] 1935 Unknown [id number] 2.16.84 [id number] 1935 Unknown [id number] 2.16.84 [id number] 1935 Unknown [id number] 2.16.84 [id number] 1935 Unknown [id number] 2.16. [id number] 1935 Unknown [id number] 2.16. [id number] 1935 Unknown [id number] 2.16. [id number] 1935 Unknown [id number] 2.16. [id number] 1936 Unknown [id number] 2.16. [id number] 1935 Unknown [id number] 2.16. [id number] Summary Purpose Family History No Family History Records FoundNo Family History Records Found Advance Directives No Advanced Directives Records FoundNo Advanced Directives Records Found Additional Source Comments INFORMATION SOURCE (unrecogn ized section and content) DATE CREATED AUTHOR 05/05/2022 [facility] DATE CREATED AUTHOR AUTHOR'S ORGANIZ ATION 07/25/[address] [facility] FOR RECORDS PERTAINING TO PATIENTS WHO [...] BE BASED ON THE PRIMARY CLINICAL RECORDS. [facility] provides no warranty or guarantee of the accuracy or completeness of information in this document.
--- NOTE | 2024-12-04 13:59 | MM_ITS ---
Patient Name: MARY VERGARA MR#: [id number] : 1935 Exam Date: 12/04/2024 Ordering Doctor: DR POLA CROSS . RADIOLOGY REPORT PROCEDURE: MM TOMOSYNTHESIS SCREENING BI COMPARISON: MM TOMOSYNTHESIS SCREENING BI, 12/04/2023. MM TOMOSYNTHESIS SCREENING BI, 12/01/2022. MG MAMM SCREEN 3D WAQAS CAD, 11/30/2021. MG MAMM WAQAS SCRN W CAD DIG, 11/06/2012. INDICATIONS: Screening Calculator Name NCI Breast Cancer Risk Assessment Tool 5 Year Breast Cancer Risk Not Applicable. Lifetime Breast Cancer Risk Not Applicable. Personal Breast Cancer No Personal Ovarian Cancer No Treatments Bowel resection, chemotherapy Family Cancers Sister with pancreatic cancer at age 80; Sister with lung cancer at age 78; Sister with colon cancer at age 74. LOCATION: [facility] BREAST COMPOSITION: The breasts are extremely dense, which lowers the sensitivity of mammography. FINDINGS: DIAGNOSTIC CATEGORY 1--NEGATIVE. RIGHT BREAST: No significant suspicious finding. LEFT BREAST: No significant suspicious finding. RECOMMENDATIONS: ROUTINE MAMMOGRAM AND CLINICAL EVALUATION IN 12 MONTHS. Dictated by: Diaz Fagan DO on 12/04/2024 at 15:10 Approved by: Diaz Fagan DO on 12/04/2024 at 15:15
== END 2024-12-04 13:53 | disposition home or self-care (01) ==
LOC: MAMMO 13:52
PROVIDERS: PCP Family Medicine; Visit Provider Family Medicine
DX: Z12.31 Encounter for screening mammogram for malignant neoplasm of breast (principal); Z80.0 Family history of malignant neoplasm of digestive organs; Z80.1 Family history of malignant neoplasm of trachea, bronchus and lung; Z80.8 Family history of malignant neoplasm of other organs or systems
CPT/HCPCS: 77063; 77067

== ENCOUNTER 2024-12-10 10:47 | Outpatient (OUT) | payer MEDICARE, SELFPAY ==
--- OUTSIDE RECORDS SUMMARY | 2024-12-10 10:50 | XMS_ITS | CCD ---
Author Organization [facility] CliniSyfl Care Team Providers Care Missile Inspector Name Role Phone TAY ., DR ESCALNOA Admitting Unavailable HOY ., DR ESCALONA Attending [...] Heriberto Wallis Attending Unavailable Giedraitis , Andrius Vhany Attending Unavailable Giedraitis , Andrius Vytfuad Attending Unavailable Giedraitis , Andlaura Wallsi Attending Unavailable Allergies Allergy Classification Reported Allergen(s) Allergy Type Date of Onset Reaction(s) Facility (1 source) Codeine Drug Allergy 02-26-1959 [facility] Repository (1 source) levoFLOXacin Drug Allergy [facility] Repository (1 source) Sulfonamides (Antibiotic) Drug allergy (disorder) [facility] Repository (1 source) traMADol Drug Allergy 01-28-2008 [facility] Repository Problems Active Problems Problem Classification Problem [...] PAMELA ANN Date: 2022-05-03 12:41 Normal [facility] MAMM SCREEN 3D WAQAS CADon 11-30-2021 MAMM SCREEN 3D WAQAS CAD Patient: DANIELLE ABBASI Exam Date: 11/30/2021 : 1935 Gender:F Ordering : DR POLA CROSS . Admission #: [id number] Family : Order #: [id number] CLICK HERE TO VIEW EXAM RADIOLOGY REPORT [...] colon cancer at age 75. LOCATION: [facility] BREAST COMPOSITION: Extremely dense, which lowers the [...] MD on 11/30/2021 at 12:44 Normal [facility] OCC BLD IMMUNO SCREENon 10-28 OCCULT BLOOD Negative Normal NEGATIVE [facility] Comment on above: Performed By: #### O BSCRN #### [facility] [address] [place] [address] Dr. Aba Esparza T4, T3U, FTI LABCORPon 11-16 Free Thyroxine Index 2.1 Normal 1.2-4.9 [facility] Comment on above: Performed By: #### T HYLC #### [facility] [address] [place] [address] Dr. Aba Esparza T3 Uptake 33 % Normal 24-39 [facility] Comment on above: Performed By: #### T HYLC #### [facility] [address] [place] [address] Dr. Aba Esparza T4 [Mass/Vol] 6.3 ug/dL Normal 4.5-12.0 [facility] Comment on above: Performed By: #### T HYLC #### [facility] [address] [place] [address] Dr. Aba Esparza CBC AUTO DIFFon 11-15-2021 BASO # 0.0 103/ul Normal 0.0-0.1 [facility] Comment on above: Performed By: #### C BC #### [facility] [address] [place] [address] Dr. Aba Esparza Basophils/100 WBC (Bld) 0.3 % Normal 0.2-2.0 [facility] Comment on above: Performed By: #### C BC #### [facility] [address] [place] [address] Dr. Aba Esparza EO # 0.2 103/ul Normal 0.0-0.7 [facility] Comment on above: Performed By: #### C BC #### [facility] [address] [place] [address] Dr. Aba Esparza Eosinophils/100 WBC (Bld) 1.4 % Normal 0.9-7.0 [facility] Comment on above: Performed By: #### C BC #### [facility] [address] [place] [address] Dr. Aba Esparza Erythrocyte distribution width (RBC) [Ratio] 15.0 % Normal 11.0-15.0 [facility] Comment on above: Performed By: #### C BC #### [facility] [address] [place] [address] Dr. Aba Esparza Hematocrit (Bld) [Volume fraction] 42.8 % Normal 36.0-48.0 [facility] Comment on above: Performed By: #### C BC #### [facility] [address] [place] [address] Dr. Aba Esparza Hemoglobin (Bld) [Mass/Vol] 13.4 g/dL Normal 12.0-16.0 [facility] Comment on above: Performed By: #### C BC #### [facility] [address] [place] [address] Dr. Aba Esparza IG # 0.04 10e3/ul Critically high 0.00-0.03 [facility] Comment on above: Performed By: #### C BC #### [facility] [address] [place] [address] Dr. Aba Esparza IG % 0.3 % Normal 0.0-0.5 [facility] Comment on above: Performed By: #### C BC #### [facility] [address] [place] [address] Dr. Aba Esparza LYMPH # 3.6 103/ul Normal 1.2-3.8 [facility] Comment on above: Performed By: #### C BC #### [facility] [address] [place] [address] Dr. Aba Esparza Lymphocytes/100 WBC (Bld) 27.5 % Normal 20.5-60.0 [facility] Comment on above: Performed By: #### C BC #### [facility] [address] [place] [address] Dr. Aba Esparza MANUAL DIFF REQ NO Normal [facility] Comment on above: Performed By: #### C BC #### [facility] [address] [address] [address] Aba Esparza MCH (RBC) [Entitic mass] 27.6 pg Normal 26.7-34.0 [facility] Comment on above: Performed By: #### C BC #### [facility] [address] [place] [address] Dr. Aba Esparza MCHC (RBC) [Mass/Vol] 31.3 g/dL Normal 29.9-35.2 [facility] Comment on above: Performed By: #### C BC #### [facility] [address] [place] [address] Dr. Aba Esparza MCV (RBC) [Entitic vol] 88.1 fL Normal 81.0-99.0 [facility] Comment on above: Performed By: #### C BC #### [facility] [address] [place] [address] Dr. Aba Esparza MONO # 0.9 103/ul Critically high 0.3-0.8 [facility] Comment on above: Performed By: #### C BC #### [facility] [address] [place] [address] Dr. Aba Esparza Monocytes/100 WBC (Bld) 7.0 % Normal 1.7-12.0 [facility] Comment on above: Performed By: #### C BC #### [facility] [address] [place] [address] Dr. Aba Esparza NEUT # 8.3 103/ul Critically high 1.4-6.5 [facility] Comment on above: Performed By: #### C BC #### [facility] [address] [place] [address] Dr. Aba Esparza Neutrophils/100 WBC (Bld) 63.5 % Normal 43.0-75.0 [facility] Comment on above: Performed By: #### C BC #### [facility] [address] [place] [address] Dr. Aba Esparza Platelet mean volume (Bld) [Entitic vol] 9.0 fL Critically low 9.5-13.5 [facility] Comment on above: Performed By: #### C BC #### [facility] [address] [address] [address] Aba Esparza PLT 198 103/ul Normal 150-450 [facility] Comment on above: Performed By: #### C BC #### [facility] [address] [address] [address] Aba Esparza RBC 4.86 106/ul Normal 4.20-5.40 [facility] Comment on above: Performed By: #### C BC #### [facility] [address] [address] [address] Aba Esparza WBC 13.1 103/ul Critically high 4.0-11.0 [facility] Comment on above: Performed By: #### C BC #### [facility] [address] [address] [address] Aba Esparza GLYCOHEMOGLOBIN A1Con 2021 ADA RECOMMENDATION SEE BELOW Normal [facility] Comment on above: Result Comment: ADA RECOMMENDED LIMIT 4.0 - 6.0 ADA THERAPEUTIC TARGET < 7.0 ACTION SUGGESTED > 7.0 Performed By: #### A 1C ####[facility] [id number] [address]Dr[address] Aba Esparza Glucose [Mass/Vol] 126 mg/dL Normal [facility] Comment on above: Performed By: #### A 1C ####[facility] [id number] [id number]. Aba Esparza HbA1c (Bld) [Mass fraction] 6.0 % Normal 4.5-6.2 [facility] Comment on above: Performed By: #### A 1C ####[facility] [id number] [id number]. Aba Esparza IRONon 11-15-2021 Iron [Mass/Vol] 34.0 ug/dL Critically low 50.0-170.0 [facility] Comment on above: Performed By: #### I ELIZA #### [facility] [address] [address] [address] Aba Esparza LIPID PROFILEon 11-15-2021 CHOL-HDL RATIO NORM SEE BELOW Normal [facility] Comment on above: Result Comment: 3.3 - 4.4 LOW RISK 4.4 - 7.1 AVERAGE RISK 7.1 - 11.0 MODERATE RISK >11.0 HIGH RISK Performed By: #### L IPID, CMP, TSH #### [facility] [address] [address] [address] Aba Esparza Cholesterol [Mass/Vol] 120 mg/dL Normal <=200 [facility] Comment on above: Performed By: #### L IPID, CMP, TSH #### [facility] [address] [address] [address] Aba Esparza Cholesterol in HDL [Mass/Vol] 40 mg/dL Normal 40-60 [facility] Comment on above: Performed By: #### L IPID, CMP, TSH #### [facility] [address] [address] [address] Aba Esparza Cholesterol in LDL [Mass/Vol] 45.8 mg/dL Normal [facility] Comment on above: Performed By: #### L IPID, CMP, TSH #### [facility] [address] [address] [address] Aba Esparza Cholesterol.total/Cho lesterol in HDL [Mass ratio] 3.0 {ratio} Normal [facility] Comment on above: Performed By: #### L IPID, CMP, TSH #### [facility] [address] [address] [address] Aba Esparza HDL NORMAL > or = 60 mg/dl - LOW CARDIOVASCULAR RISK <40 mg/dl - HIGH CARDIOVASCULAR RISK Normal [facility] Comment on above: Performed By: #### L IPID, CMP, TSH #### [facility] [address] [address] [address] Aba Esparza LDL CALC NORMAL SEE BELOW Normal [facility] Comment on above: Result Comment: <100 mg/dl OPTIMAL 100 - 129 mg/dl NEAR OR ABOVE OPTIMAL 130 - 159 mg/dl BORDERLINE HIGH 160 - 189 mg/dl HIGH >190 mg/dl VERY HIGH Performed By: #### L IPID, CMP, TSH #### [facility] [address] [address] [address] Aba Esparza Triglyceride [Mass/Vol] 171 mg/dL Critically high <=150 [facility] Comment on above: Performed By: #### L IPID, CMP, TSH #### [facility] [address] [address] [address] Aba Esparza VLDL CALC 34.2 mg/dL Normal [facility] Comment on above: Performed By: #### L IPID, CMP, TSH #### [facility] [address] [address] [address] Aba Esparza PROF 14(COMP METB)on 022 Albumin [Mass/Vol] 3.9 g/dL Normal 3.4-5.0 [facility] Comment on above: Performed By: #### L IPID, CMP, TSH #### [facility] [address] [place] [address] Dr. Aba Esparza Albumin/Globulin [Mass ratio] 1.0 {ratio} Normal [facility] Comment on above: Performed By: #### L IPID, CMP, TSH #### [facility] [address] [address] [address] Aba Esparza ALP [Catalytic activity/Vol] 138 U/L Critically high 46-116 [facility] Comment on above: Performed By: #### L IPID, CMP, TSH #### [facility] [address] [address] [address] Aba Esparza ALT [Catalytic activity/Vol] 23 U/L Normal 14-59 [facility] Comment on above: Performed By: #### L IPID, CMP, TSH #### [facility] [address] [address] [address] Aba Esparza Anion gap [Moles/Vol] 12.7 mmol/L Normal [facility] Comment on above: Performed By: #### L IPID, CMP, TSH #### [facility] [address] [address] [address] Aba Esparza AST [Catalytic activity/Vol] 24 U/L Normal 15-37 [facility] Comment on above: Performed By: #### L IPID, CMP, TSH #### [facility] [address] [place] [address] Dr. Aba Esparza Bilirubin [Mass/Vol] 0.6 mg/dL Normal 0.2-1.0 [facility] Comment on above: Performed By: #### L IPID, CMP, TSH #### [facility] [address] [place] [address] Dr. Aba Esparza Calcium [Mass/Vol] 9.4 mg/dL Normal 8.5-10.1 [facility] Comment on above: Performed By: #### L IPID, CMP, TSH #### [facility] [address] [place] [address] Dr. Aba Esparza Chloride [Moles/Vol] 104 mmol/L Normal 98-107 [facility] Comment on above: Performed By: #### L IPID, CMP, TSH #### [facility] [address] [place] [address] Dr. Aba Esparza CO2 [Moles/Vol] 27.3 mmol/L Normal 21.0-32.0 [facility] Comment on above: Performed By: #### L IPID, CMP, TSH #### [facility] [address] [place] [address] Dr. Aba Esparza Creatinine [Mass/Vol] 0.90 mg/dL Normal 0.55-1.02 [facility] Comment on above: Performed By: #### L IPID, CMP, TSH #### [facility] [address] [place] [address] Dr. Aba Esparza EGFR-AF BARBADIAN >60 Normal >=60 [facility] Comment on above: Performed By: #### L IPID, CMP, TSH #### [facility] [address] [place] [address] Dr. Aba Esparza EGFR-NON AF BARBADIAN =60 Normal >=60 [facility] Comment on above: Performed By: #### L IPID, CMP, TSH #### [facility] [address] [place] [address] Dr. Aba Esparza Globulin (S) [Mass/Vol] 3.8 g/dL Normal [facility] Comment on above: Performed By: #### L IPID, CMP, TSH #### [facility] [address] [place] [address] Dr. Aba Esparza Glucose [Mass/Vol] 112 mg/dL Critically high 74-106 T [facility] Comment on above: Performed By: #### L IPID, CMP, TSH #### [facility] [address] [place] [address] Dr. Aba Esparza Potassium [Moles/Vol] 4.0 mmol/L Normal 3.5-5.1 [facility] Comment on above: Performed By: #### L IPID, CMP, TSH #### [facility] [address] [place] [address] Dr. Aba Esparza Protein [Mass/Vol] 7.7 g/dL Normal 6.4-8.2 [facility] Comment on above: Performed By: #### L IPID, CMP, TSH #### [facility] [address] [place] [address] Dr. Aba Esparza Sodium [Moles/Vol] 140 mmol/L Normal 136-145 [facility] Comment on above: Performed By: #### L IPID, CMP, TSH #### [facility] [address] [place] [address] Dr. Aba Esparza Urea nitrogen [Mass/Vol] 15.0 mg/dL Normal 7.0-18.0 [facility] Comment on above: Performed By: #### L IPID, CMP, TSH #### [facility] [address] [place] [address] Dr. Aba Esparza Urea nitrogen/Creatinine [Mass ratio] 16.7 mg/mg Normal [facility] Comment on above: Performed By: #### L IPID, CMP, TSH #### [facility] [address] [place] [address] Dr. Aba Esparza TSHon 11-15-2021 TSH 1.187 uIU/mL Normal 0.358-3.740 [facility] Comment on above: Performed By: #### L IPID, CMP, TSH #### [facility] [address] [address] [address] Aba Esparza XR DEXA BONE DENSITYon [...] by: LIAM PEREZ Date: 2021-07-01 16:18 Normal [facility] Encounters Encounter Date Encounter Type Care Provider Facility Start: 12-01-2024 End: 12-01-2024 ambulatory Heriberto Vickers MD Facility: [facility] Start: 07-14-2024 End: 07-14-2024 ambulatory Heriberto Vickers MD Facility: [facility] Start: 06-16-2024 End: 06-16-2024 ambulatory Heriberto Vickers MD Facility: [facility] Start: 02-25-2024 End: 02-25-2024 ambulatory Heriberto Vickers MD Facility: [facility] Start: 05-03-2022 End: 05-04-2022 ambulatory [...] Category Payer Medicare 2023 Unknown 1958 Medicare [id number] 1958 Unknown [id number] 1935 Unknown [id number] 2.16.84 [id number] 1935 Unknown [id number] 2.16.84 [id number] 1935 Unknown [id number] 2.16.84 [id number] 1936 Unknown [id number] 2.16.84 [id number] 1936 Unknown [id number] 2.16.84 [id number] 1936 Unknown [id number] 2.16.84 [id number] 1936 Unknown [id number] 2.16. [id number] 1935 Unknown [id number] 2.16. [id number] 1935 Unknown [id number] 2.16. [id number] 1935 Unknown [id number] 2.16. [id number] Summary Purpose Family History No Family History Records FoundNo Family History Records Found Advance Directives No Advanced Directives Records FoundNo Advanced Directives Records Found Additional Source Comments INFORMATION SOURCE (unrecogn ized section and content) DATE CREATED AUTHOR 05/05/2022 [facility] DATE CREATED AUTHOR HERNAN MATUTE 12/06/2024 [facility] FOR RECORDS PERTAINING TO PATIENTS WHO ARE [...] BE BASED ON THE PRIMARY CLINICAL RECORDS. [facility] [employer] [facility]. provides no warranty or guarantee of the accuracy or completeness of information in this document.
--- NOTE | 2024-12-10 11:08 | PM.CN ---
Consult Note: HPI Data of Consult Patient: known to practice within the last 3 years Requesting Physician: Mirna Reese NP Primary Care Provider: Kumar Stokes MD Consult Narrative Reason for consult: low back pain Narrative: Danielle Abbasi a 89 year old female presents for evaluation of right low back and BLE pain. reports severe burning pain in posterior legs. Pain today 2/10 increasing to 5/10 with standing, walking, bending, ADLs. Pain improved with lying, sitting, heat, and sleep. utilizing mobic 7.5mg BID and baclofen 10mg HS with benefit without side effects. pt noting >50% improvement ongoing after bilateral L5-S1 TFESI on 12-01-24. patient notes improvement in overall pain, except left and right SIJ. cc:: CC: Mirna Reese NP Review of Systems ROS Musculoskeletal Reports: back pain and joint pain; Denies: extremity pain [facility] Medical History (Updated 11/06/24 @ 00:00 by ) Pneumonia ?J18.9 - Pneumonia, unspecified organism (ICD-10) Acute exacerbation of chronic obstructive pulmonary disease ?J44.1 - Chronic obstructive pulmonary disease with (acute) exacerbation (ICD-10) Osteoarthritis ?M19.90 - Unspecified osteoarthritis, unspecified site (ICD-10) Low back pain ?M54.50 - Low back pain, unspecified (ICD-10) H/O malignant neoplasm of colon ?Z85.038 - Personal history of other malignant neoplasm of large intestine (ICD-10) Irregular heart beat ?I49.9 - Cardiac arrhythmia, unspecified (ICD-10) High cholesterol ?E78.00 - Pure hypercholesterolemia, unspecified (ICD-10) Dehydration ?E86.0 - Dehydration (ICD-10) HTN (hypertension) ?I10 - Essential (primary) hypertension (ICD-10) Colon cancer ?C18.9 - Malignant neoplasm of colon, unspecified (ICD-10) COPD (chronic obstructive pulmonary disease) ?J44.9 - Chronic obstructive pulmonary disease, unspecified (ICD-10) Sepsis ?A41.9 - Sepsis, unspecified organism (ICD-10) LEOBARDO (acute kidney injury) ?N17.9 - Acute kidney failure, unspecified (ICD-10) Pneumonia ?J18.9 - Pneumonia, unspecified organism (ICD-10) Hypoxemia ?R09.02 - Hypoxemia (ICD-10) Surgical History H/O cervical spine surgery ?Z98.890 - Other specified postprocedural states (ICD-10) H/O hemicolectomy ?Z90.49 - Acquired absence of other specified parts of digestive tract (ICD-10) History of cholecystectomy ?Z90.49 - Acquired absence of other specified parts of digestive tract (ICD-10) H/O: hysterectomy ?Z90.710 - Acquired absence of both cervix and uterus (ICD-10) Family History Sister Family history of cancer Family history of hypertension Brother Family history of cancer Father Family history of diabetes mellitus Family history of myocardial infarction Mother Family history of hypertension Family history of myocardial infarction Family history of stroke Social History Within the past year, how often did you have a drink containing alcohol: never Score interpretation: A score less than 3 is consistent with normal alcohol consumption. Smoking status: Never smoker Non-prescribed substance use: denies use Previous occupational history: [employer] Highest level of school completed/degree received: Associate degree: academic program Are you now , , , , never or living with a partner: In a typical week, how many times do you talk on the telephone with family, friends, or neighbors: twice per week How often do you get together with friends or relatives: twice per week How often do you attend restorationist or latter-day services: 4 or more times per year Little interest or pleasure in doing things: several days Feeling down, depressed, or hopeless: several days Feel stressed/tense/nervous/anxious/difficulty sleeping: only a little Do you think of yourself as: straight/heterosexual Gender Identity: female Meds Home Medications and Allergies Home Medications ?Medication ?Instructions ?Recorded ?Confirmed ?Type albuterol sulfate 90 mcg/actuation 2 inh inhalation BID PRN 01/13/23 12/01/24 History aerosol inhaler bronchospasm amlodipine 5 mg tablet 5 mg PO DAILY 01/13/23 12/01/24 History atorvastatin 20 mg tablet 20 mg PO DAILY 01/13/23 12/01/24 History dicyclomine 20 mg tablet 20 mg PO BID 01/13/23 12/01/24 History ferrous sulfate 325 mg (65 mg 325 mg PO BID 01/13/23 12/01/24 History iron) tablet (FeroSul) metoprolol tartrate 25 mg tablet 25 mg PO Q12H 01/13/23 12/01/24 History baclofen 10 mg tablet See Rx Instructions .Route .COMPLEX 10/30/24 12/01/24 History calcitonin (salmon) 200 1 spray intranasal (ALT) DAILY 10/30/24 12/01/24 History unit/actuation nasal spray cefdinir 300 mg capsule 300 mg PO BID 5 days #10 caps 11/02/24 12/01/24 Rx doxycycline monohydrate 100 mg 100 mg PO BID 7 days #14 caps 11/02/24 12/01/24 Rx capsule meloxicam 7.5 mg tablet 7.5 mg PO BIDWM PRN pain #60 tabs 11/05/24 12/01/24 Rx Allergies Allergy/AdvReac Type Severity Reaction Status Date / Time levofloxacin (From Levaquin) Allergy Intermediate Rash Verified 12/01/24 12:50 codeine Allergy Rash Verified 12/01/24 12:50 tramadol Allergy Rash Verified 12/01/24 12:50 Exam Constitutional Documenting provider has reviewed patient's vital signs: yes Common normals: no apparent distress, oriented x3, healthy appearing, alert and well nourished General appearance: cooperative HENMT Common normals: normocephalic, hearing grossly normal bilaterally and moist oral mucous membranes Head and scalp: normocephalic Eye Common normals: PERRL Pupil: PERRL Neck & C-Spine Common normals: full ROM General: normal visual inspection Chest Common normals: inspection of chest normal Respiratory Common normals: normal respiratory effort, no retractions and no use of accessory muscles Back & Pelvis Lumbar spine/lower back: ROM limited, pain with ROM and straight leg raise negative bilaterally Sacroiliac joints: SI joint(s) abnormal Other: left > right sij positive fly(patricks), gaenslens, thigh thrust, compression test sensation intact BLE strength 5/5 in BLE Neuro Common normals: oriented x3 Sensorium/orientation: alert Psych Common normals: mental status grossly normal, thought process normal, cooperative, affect normal, speech normal and activity/motor behavior normal Speech: normal speech Thought process: normal thought process Results Additional Findings Additional findings: If on a controlled substance or opioids, I have checked an [place] report on this patient and there are no aberrancies noted in the prescribing history.??If on a controlled substance or opioid a drug screen was completed and reviewed within the last year, and if there has not been a drug screen completed we ordered one today to monitor higher risk, state monitored pain medication use. As part of providing excellent, safe, comprehensive care, the following was completed at our patient's visit: 1. A medication reconciliation and review to ensure accurate knowledge of current/active medications, including asking our patients to inform us about any [id number] medications or herbal remedies/nutritional supplements/alternative remedies. 2. A review to specifically ensure our patients have had annual screening for screening for depression, screening for tobacco use, and screening for unhealthy alcohol use. For concerning screenings had a discussion with the patient, provided patient education, and recommended follow-up with primary care provider when appropriate. If patient noted with a risk of falling, they received education on strength, gait, and balance training to prevent future risk of falling. Portions of this note may have been carried over from the previous visit and updated as appropriate. Please note this office utilizes paper charting in addition to the electronic medical record. A list of current medications, vitals, and PMH is available there as the clinical staff outside of myself do not have access to [facility] charting during the clinic day operations. As part of providing quality comprehensive care the current medications, vitals, and PMH were reviewed in the paper chart. Assessment and Plan Assessment and Plan (1) Lumbar stenosis with neurogenic claudication: Assessment and Plan: 12-01-24 bilateral L5-S1 TFESI >50% improvement in pain and functional ability ongoing (2) Sacroiliitis: Plan The patient has had over 3 months of moderate to severe low back, BLE, and right SIJ pain with functional impairment and inadequate response to conservative care including NSAIDS (unless there are contraindication such as concurrent blood thinners), multiple oral or topical pain medications, and home exercise program/physical therapy.? Patient has completed >6 weeks of guided home exercise program and/or formal physical therapy program without relief of their symptoms.? The Oswestry Disability Index was completed, and the patient scored a 44%.? pt declining bilateral SIJ injection under fluoroscopy at this time, can call to schedule continue current medications, finding benefit without side effects f/u 2 weeks after injection, or 3 months for f/u care
== END 2024-12-10 10:48 | disposition home or self-care (01) ==
LOC: PM 10:47
PROVIDERS: PCP Family Medicine; Visit Provider Nurse Practitioner
DX: M48.062 Spinal stenosis, lumbar region with neurogenic claudication (principal); M46.1 Sacroiliitis, not elsewhere classified
CPT/HCPCS: G0463

== ENCOUNTER 2024-12-18 08:33 | Outpatient (OUT) | payer MEDICARE, SELFPAY ==
--- OUTSIDE RECORDS SUMMARY | 2024-12-18 08:35 | XMS_ITS | CCD ---
Author Organization [facility] CliniSymt Care Team Providers Care Senior Etl Developer Name Role Phone TAY ., DR [...] Andrius Vytfuad Attending Unavailable Giedraitis , Andlaura Wallis Attending Unavailable Allergies Allergy ClassificationReported Allergen(s)Allergy TypeDate of OnsetReaction(s) Facility (1 source)CodeineDrug Owkgbqy23-03-8573Zex [facility] Repository (1 source)levoFLOXacinDrug AllergyThe [facility]ository (1 source)Sulfonamides (Antibiotic)Drug allergy (disorder)[facility] Repository (1 source)traMADolDrug Xlszqfo73-34-2947NhyMain Campus [facility] Center Repository Problems Active Problems Problem ClassificationProblemDateDocumented DateEpisodic/ChronicChronic obstructive pulmonary disease and bronchiectasis (5 sources)Bronchiectasis, uncomplicated; Translations: [Bronchiectasis with acute lower respiratory infection]Onset: 34-42-9970VcmttjrPgcnytsqh of lipid metabolism (5 sources)Hyperlipidemia, unspecified; Translations: [Pure hyperglyceridemia] Onset: 80-43-5536WupgpklLxvxeoqmhk disorders (1 source)Gastro-esophageal reflux disease without esophagitis; Translations: [GERD WITHOUT ESOPHAGITIS]Onset: 54-75-7539DawrkzsLebmfgwxiu disorders (4 sources)Other primary ovarian failure; Translations: [OTHER PRIMARY OVARIAN FAILURE]Onset: 96-06-8932HminxvuMnrrygawodxy (1 source)Age-related osteoporosis without current pathological fracture; Translations: [AGE-REL OSTEOPOR W/OCURR PATH FX]Onset: 72-48-3100Hftfqez Past or Other Problems Problem ClassificationProblemDateDocumented DateEpisodic/ChronicDeficiency and other anemia (5 sources)Anemia, unspecified; Translations: [ANEMIA UNSPECIFIED]Onset: 25-30-7280XitgyzxvQhirpusm mellitus without complication (1 source)Other abnormal glucose; Translations: [OTHER ABNORMAL GLUCOSE]Onset: 06-04-3194KraglpolAambv screening for suspected conditions (not mental disorders or infectious disease) (8 sources)Encounter for screening mammogram for malignant neoplasm of breast; Translations: [Encounter for screening for malignant neoplasm of rectum]Onset: 83-04-2823FbbkrjfsAipczfum codes; unclassified (1 source)Family history of malignant neoplasm of digestive organs; Translations: [FAM HX MALIG NEOPLASM DIGESTIV ORGN]Onset: 99-86-2189Esdsfaif Residual codes; unclassified (1 source)Family history of malignant neoplasm of trachea, bronchus and lung; Translations: [FAM HX MALIG NEOPLSM TRACH BRON LNG]Onset: 39-41-0461Onzphtla Residual codes; unclassified (1 source)Family history of malignant neoplasm of other organs or systems; Translations: [FAM HX MALIG NEOPLASM OTH ORGN/SYS]Onset: 37-68-8666Oqiktrvn Results Test NameValueInterpretationReference RangeFacilityXR CHEST 2 Von 51-52-8950ZA CHEST 2 VEXAM: XR CHEST 2 V HISTORY: Bronchiectasis and [...] Electronically authenticated by: PAMELA ANN Date: 2022-05-03 12:[address] [place] [address] MAMM SCREEN 3D WAQAS CADon 90-39-6857AQ MAMM SCREEN 3D WAQAS CAD Patient: DANIELLE VERGARA Exam Date: 11/30/2021 : 1935 Gender:F Ordering : DR POLA CROSS . Admission #: [id number] Family : Order #: [id number] CLICK HERE TO VIEW EXAM RADIOLOGY REPORT [...] by: Liam Perez MD on 11/30/2021 at 12:44[facility] BLD IMMUNO SCREENon 66-74-6965UXRFFZ BLOODNegativeNormalNEGATIVEThe [facility] HospitalComment on above:Performed By: #### OBSCRN #### [facility] [address] [place] [address] Dr. Aba Nguyen4, T3U, FTI LABCORPon 58-86-0471Harr Thyroxine Index2.1Normal 1.2-4.9The [facility] HospitalComment on above:Performed By: #### THYLC #### [facility] [address] [place] [address] Dr. Aba EsparzaT3 Copbtp01 %Tejwfv41-52Nzg [facility] HospitalComment on above: Performed By: #### THYLC #### [facility] [address] [place] [address] Dr. Aba Valdivia [Mass/Vol]6.3 ug/dLNormal4.5-12.0The [facility] HospitalComment on above:Performed By: #### THYLC #### [facility] [address] [place] [address] Dr. Aba CasillasC AUTO DIFFon 03-63-8717BHUJ #0.0 103/ulNormal0.0-0.1The [facility] HospitalComment on above:Performed By: #### CBC #### [facility] [address] [place] [address] Dr. Aba EsparzaBasophils/100 WBC (Bld)0.3 %Normal0.2-2.0[facility] Comment on above:Performed By: #### CBC #### [facility] [address] [place] [address] Dr. Troncoso ChangEO #0.2 103/ulNormal0.0-0.7The [facility] HospitalComment on above: Performed By: #### CBC #### [facility] [address] [place] [address] Dr. Aba Augusteosinophils/100 WBC (Bld)1.4 %Normal0.9-7.0The [facility] Comment on above:Performed By: #### CBC #### [facility] [address] [place] [address] Dr. Aba Augusterythrocyte distribution width (RBC) [Ratio]15.0 %Hffuix95.0-15.0 The [facility] HospitalComment on above:Performed By: #### CBC #### [facility] [address] [place] [address] Dr. Aba EsparzaHematocrit (Bld) [Volume fraction]42.8 %Xbgivy06.0-48.0The [facility] HospitalComment on above:Performed By: #### CBC #### [facility] [address] [place] [address] Dr. Aba EsparzaHemoglobin (Bld) [Mass/Vol]13.4 g/hOXwwrsu33.0-16.0The [facility] HospitalComment on above:Performed By: #### CBC #### [facility] [address] [place] [address] Dr. Aba Montilla #0.04 10e3/ulCritically high0.00-0.03The [facility] Comment on above:Performed By: #### CBC #### [facility] [address] [place] [address] Dr. Aba Montilla %0.3 %Normal0.0-0.5The [facility] HospitalComment on above: Performed By: #### CBC #### [facility] [address] [place] [address] Dr. Aba Butler #3.6 103/ulNormal1.2-3.8The [facility] HospitalComment on above:Performed By: #### CBC #### [facility] [address] [place] [address] Dr. Yilan ChangLymphocytes/100 WBC (Bld)27.5 %Ekkome61.5-60.0The [facility] HospitalComment on above:Performed By: #### CBC #### [facility] [address] [place] [address] Dr. Aba Mays DIFF REQNONormalThe [facility] HospitalComment on above: Performed By: #### CBC #### [facility] [address] [place] [address] Dr. Aba Barrios (RBC) [Entitic mass]27.6 ovBnmheh95.7-34.0The [facility] HospitalComment on above:Performed By: #### CBC #### [facility] [address] [place] [address] Dr. Aba Barrios (RBC) [Mass/Vol]31.3 g/aTQaginx31.9-35.2The [facility] HospitalComment on above:Performed By: #### CBC #### [facility] [address] [place] [address] Dr. Aba Sellers (RBC) [Entitic vol]88.1 nFTkrzgj36.0-99.0The [facility] HospitalComment on above:Performed By: #### CBC #### [facility] [address] [place] [address] Dr. Aba Xiao #0.9 103/ulCritically high0.3-0.8ThRiverside [facility] Hospital Comment on above:Performed By: #### CBC #### [facility] [address] [place] [address] Dr. Aba Traylorocytes/100 WBC (Bld)7.0 %Normal1.7-12.0[facility] Comment on above:Performed By: #### CBC #### [facility] [address] [place] [address] Dr. Aba Bethea #8.3 103/ulCritically high1.4-6.5ThRiverside Methodist Hospital Comment on above:Performed By: #### CBC #### [facility] [address] [place] [address] Dr. Aba Jenkinsutrophils/100 WBC (Bld)63.5 %Opeynb82.0-75.0The [facility] HospitalComment on above:Performed By: #### CBC #### [facility] [address] [address] [address] Aba EsparzaPlatelet mean volume (Bld) [Entitic vol]9.0 fLCritically low 9.5-13.5The [facility] HospitalComment on above:Performed By: #### CBC #### [facility] [address] [address] [address] Aba EsparzaPLT198 103/dkNnurov115-184Xlo [facility] HospitalComsouthwest regional rehabilitation center on above: Performed By: #### CBC #### [facility] [address] [address] [address] Aba EsparzaRBC4.86 106/ulNormal4.20-5.40The [facility] HospitalComment on above:Performed By: #### CBC #### [facility] [address] [address] [address] Aba EsparzaWBC13.1 103/ulCritically high4.0-11.0The [facility] HospitalComment on above:Performed By: #### CBC #### [facility] [address] [address] [address] Aba EsparzaGLYCOHEMOGLOBIN A1Con 95-43-7959YYP RECOMMENDATIONSEE BELOWNormal The [facility] HospitalComsouthwest regional rehabilitation center on above:Result Comment: ADA RECOMMENDED LIMIT 4.0 - 6.0 ADA THERAPEUTIC TARGET < 7.0 ACTION SUGGESTED > 7.0Performed By: #### A1C ####[facility] [address] [address]Dr. Aba EsparzaGlucose [Mass/Vol]126 mg/dLNormalThe [facility] HospitalComsouthwest regional rehabilitation center on above:Performed By: #### A1C ####[facility] [address] [address]Dr.Yilan EsparzaHbA1c (Bld) [Mass fraction]6.0 %Normal 4.5-6.2The [facility] HospitalComment on above:Performed By: #### A1C ####[facility] [address] [address]Dr.Yilan Christopher 60-01-1405Knzb [Mass/Vol]34.0 ug/dLCritically low50.0-170.0[facility] Comment on above:Performed By: #### IRON #### [facility] [address] [address] [address] Aba VillalpandoID PROFILEon 62-68-4154YEXE-HDL RATIO NORMSEE [facility] HospitalComsouth[facility] regional rehabilitation [facility] on above:Result Comment: 3.3 - 4.4 LOW RISK 4.4 - 7.1 AVERAGE RISK 7.1 - 11.0 MODERATE RISK >11.0 HIGH RISKPerformed By: #### LIPID, CMP, TSH #### [facility] [address] [address] [address] Aba Carrilloesterol [Mass/Vol]120 mg/dLNormal<=200The [facility] Comment on above:Performed By: #### LIPID, CMP, TSH #### [facility] [address] [address] [address] Aba Carrilloesterol in HDL [Mass/Vol]40 mg/kXWeqilq50-64DueMain Campus Medical CenterComsouthwest regional rehabilitation center on above:Performed By: #### LIPID, CMP, TSH #### [facility] [address] [address] [address] Aba Carrilloesterol in LDL [Mass/Vol]45.8 mg/dLSt. Vincent HospitalComment on above:Performed By: #### LIPID, CMP, TSH #### [facility] [address] [address] [address] Aba Carrilloesterdipika.total/Cholesterol in HDL [Mass ratio]3.0 {ratio} NormalTuscarawas Hospital on above:Performed By: #### LIPID, CMP, TSH #### [facility] [address] [address] [address] Aba EsparzaHDJose Elias NORMAL> or = 60 mg/dl - LOW CARDIOVASCULAR RISK <40 mg/dl - HIGH CARDIOVASCULAR RISKDayton VA Medical Center on above:Performed By: #### LIPID, CMP, TSH #### [facility] [address] [address] [address] Aba EsparzaLDL CALC NORMALSEE BELOWSt. Vincent HospitalComsouthwest regional rehabilitation center on above:Result Comment: <100 mg/dl OPTIMAL 100 - 129 mg/dl NEAR OR ABOVE OPTIMAL 130 - 159 mg/dl BORDERLINE HIGH 160 - 189 mg/dl HIGH >190 mg/dl VERY HIGH Performed By: #### LIPID, CMP, TSH #### [facility] [address] [address] [address] Aba EsparzaTriglyceride [Mass/Vol]171 mg/dLCritically high<=150The [facility] on above:Performed By: #### LIPID, CMP, TSH #### [facility] [address] [place] [address] Dr. Aba EsparzaVLDL CALC34.2 mg/dLNoCleveland Clinic [facility]cy Hospital on above: Performed By: #### LIPID, CMP, TSH #### [facility] [address] [place] [address] Dr. Aba EsparzaPROF 14(COMP METB)on 13-63-3601Cdhqgik [Mass/Vol]3.9 g/dLNormal 3.4-5.0The [facility] on above:Performed By: #### LIPID, CMP, TSH #### [facility] [address] [address] [address] Aba EsparzaAlbumin/Globulin [Mass ratio]1.0 {ratio}NormalThe [facility] on above:Performed By: #### LIPID, CMP, TSH #### [facility] [address] [address] [address] Aba MoncadaP [Catalytic activity/Vol]138 U/LCritically jdek06-647Jqf [facility] on above:Performed By: #### LIPID, CMP, TSH #### [facility] [address] [address] [address] Aba Botello [Catalytic activity/Vol]23 U/GWpevuw99-59Ttb [facility] HospitalComment on above:Performed By: #### LIPID, CMP, TSH #### [facility] [address] [address] [address] Aba EsparzaAnion gap [Moles/Vol]12.7 mmol/LNormalMain Campus Medical Center Comment on above:Performed By: #### LIPID, CMP, TSH #### [facility] [address] [address] [address] Aba EsparzaAST [Catalytic activity/Vol]24 U/VFkivmu62-69Lww [facility] HospitalComment on above:Performed By: #### LIPID, CMP, TSH #### [facility] [address] [address] [address] Aba EsparzaBilirubin [Mass/Vol]0.6 mg/dLNormal0.2-1.0[facility] Comment on above:Performed By: #### LIPID, CMP, TSH #### [facility] [address] [place] [address] Dr. Aba EsparzaCalcium [Mass/Vol]9.4 mg/dLNormal8.5-10.1[facility] Comment on above:Performed By: #### LIPID, CMP, TSH #### [facility] [address] [place] [address] Dr. Aba EsparzaChloride [Moles/Vol]104 mmol/GCbrkqy91-836XusMain Campus Medical Center Comment on above:Performed By: #### LIPID, CMP, TSH #### [facility] [address] [place] [address] Dr. Aba EsparzaCO2 [Moles/Vol]27.3 mmol/CZunndr02.0-32.0The [facility] Comment on above:Performed By: #### LIPID, CMP, TSH #### [facility] [address] [place] [address] Dr. Aba EsparzaCreatinine [Mass/Vol]0.90 mg/dLNormal0.55-1.02The [facility] HospitalComment on above:Performed By: #### LIPID, CMP, TSH #### [facility] [address] [place] [address] Dr. Aba AugusteGFR-AF BAHRAINI>60Normal>=60The [facility] HospitalComment on above:Performed By: #### LIPID, CMP, TSH #### [facility] [address] [address] [address] Aba AugusteGFR-NON AF BAHRAINI=60Normal>=60The [facility] HospitalComment on above:Performed By: #### LIPID, CMP, TSH #### [facility] [address] [place] [address] Dr. Aba EsparzaGlobulin (S) [Mass/Vol]3.8 g/dLNormalThe [facility] HospitalComment on above:Performed By: #### LIPID, CMP, TSH #### [facility] [address] [place] [address] Dr. Aba EsparzaGlucose [Mass/Vol]112 mg/dLCritically aaha90-453Jyx [facility] HospitalComment on above:Performed By: #### LIPID, CMP, TSH #### [facility] [address] [place] [address] Dr. Aba EsparzaPotassium [Moles/Vol]4.0 mmol/LNormal3.5-5.1The [facility] Comment on above:Performed By: #### LIPID, CMP, TSH #### [facility] [address] [place] [address] Dr. Aba EsparzaProtein [Mass/Vol]7.7 g/dLNormal6.4-8.2The [facility] Comment on above:Performed By: #### LIPID, CMP, TSH #### [facility] [address] [place] [address] Dr. Aba EsparzaSodium [Moles/Vol]140 mmol/FJugqjb991-742Wnt [facility] Comment on above:Performed By: #### LIPID, CMP, TSH #### [facility] [address] [place] [address] Dr. Aba EsparzaUrea nitrogen [Mass/Vol]15.0 mg/dLNormal7.0-18.0The [facility] HospitalComment on above:Performed By: #### LIPID, CMP, TSH #### [facility] [address] [place], [place] [address] Dr. Aba EsparzaUrea nitrogen/Creatinine [Mass ratio]16.7 mg/mgNoHolmes County Joel Pomerene Memorial HospitalComment on above:Performed By: #### LIPID, CMP, TSH #### [facility] [address] [place], [place] [address] Dr. Aba EsparzaTSHojf 39-95-2666CNJ2.187 uIU/mLNormal0.358-3.740The [facility] HospitalComment on above:Performed By: #### LIPID, CMP, TSH #### [facility] [address] [address] [address] Aba EsparzaXR DEXA BONE DENSITYon 76-78-2534MP DEXA BONE DENSITYEXAMINATION: XR DEXA BONE DENSITY, 07/01/2021 10:46 AM EDT HISTORY: [...] Electronically authenticated by: LIAM PEREZ Date: 2021-07-01 16:18[facility] Encounters Encounter DateEncounter TypeCare ProviderFacilityStart: 12-01-2024 End: 68-08-4065urhktrejhoIfgjswb Vytautas Giedraitis MDFacility:[facility] Start: 07-14-2024 End: 35-49-1197qukghffcuwMngtmjm Vytautas Giedraitis MDFacility:[facility] Start: 06-16-2024 End: 29-65-9810aewbtczrseUbboril Vytautas Giedraitis MDFacility:[facility] Start: 02-25-2024 End: 49-45-8582nkfaoutwcrIulgfhl Vytautas Giedraitis MDFacility:[facility] [place] Start: 05-03-2022 End: 69-84-6335edwbonrwzkLOJTPV SAMSA .Facility:E7Hgiwm: 11-30-2021 End: 60-04-7885uvbpvfpixiWD POLA HOY .Facility:W7Wopox: 11-29-2021 End: 97-55-1203xcdnlxheqdVH POLA HOY .Facility:S3Qnqtu: 11-23-2021 End: 71-55-3962iyjtrjzenjYK POLA HOY .Facility:Z9Dnkmv: 11-15-2021 End: 02-35-0729elrdlvboutIN POLA HOY .Facility:N4Htyog: 07-01-2021 End: 33-26-2987untggtkewxKC POLA HOY .Facility:[address] DatePayer CategoryPayerPolicy ID01-01-2024Medicare01-01-2024Unknown01-01-1959 [id number] 2..[id number] 2..[id number] 2..1.393178.3.57[id number] 2..1.567776.3.57[id number] 2..1.689367.3.57[id number] 2..1.792519.3.57[id number] 2..1.644095.3.57[id number] 2..1.012528.3.57[id number] 2.16.840.1.78265[id number] [id number] Summary Purpose Family History No Family History Records FoundNo Family History Records Found Advance Directives No Advanced Directives Records FoundNo Advanced Directives Records Found Additional Source Comments INFORMATION SOURCE (unrecogn ized section and content) DATE CREATED AUTHOR 05/05/2022 [facility] DATE CREATED AUTHOR AUTHOR'S ORGANIZ ATCARISSA 12/06/2024 [facility] FOR RECORDS PERTAINING TO PATIENTS WHO ARE [...] BE BASED ON THE PRIMARY CLINICAL RECORDS. [employer] [facility]. provides no warranty or guarantee of the accuracy or completeness of information in this document.
--- OUTSIDE RECORDS SUMMARY | 2024-12-18 08:37 | XMS_ITS | Clinical Summary ---
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 Name Role Phone Unavailable Primary Care Provider Unavailabl e Social History Tobacco UseTypesPacks/DayYears UsedDateSmoking Tobacco: Never Assessed CommentsUnknownSex and Gender InformationValueDate RecordedSex Assigned at Not on fileLegal HgfZxorfz76/15/2023 7:24 PM EDTGender IdentityNot on fileSexual OrientationNot on file Last Filed Vital Signs Vital SignReadingTime TakenCommentsBlood Bhayfalv706/7402/11/2020 12:00 PM EST Pulse--Temperature--Respiratory Rate--Oxygen Saturation--Inhaled Oxygen Concentration--Jpknub36.8 kg (112 lb)02/11/2020 12:00 PM KKJMlaish917.5 cm (5' 2 )02/11/2020 12:00 PM ESTBody Mass Index20.4902/11/2020 12:00 PM EST Plan of Treatment Not on file Insurance
[2024-12-18 08:50] LABS: Hematocrit 45.7 % (36.0-48.0); Hemoglobin 14.6 g/dL (12.0-16.0); Immature Granulocytes Abs Auto 0.03 10^3/uL (0.00-0.03); Immature Granulocytes Pct Auto 0.3 % (0.0-0.5); Lymphocytes Absolute Auto 3.4 10^3/uL (1.2-3.8); Mean Corpuscular HGB Conc 31.9 g/dL (29.9-35.2); Mean Corpuscular Hemoglobin 29.5 pg (26.7-34.0); Mean Corpuscular Volume 92.3 fL (81.0-99.0); Platelet Count 157 10^3/uL (150-450); Red Blood Count 4.95 10^6/uL (4.20-5.40); White Blood Count 10.0 10^3/uL (4.0-11.0)
[2024-12-18 09:22] LABS: Alanine Aminotransferase 50 U/L (14-59); Albumin Globulin Ratio 1.3; Albumin Level 4.1 g/dL (3.4-5.0); Alkaline Phosphatase 111 U/L (46-116); Anion Gap 13.1; Aspartate Amino Transferase 23 U/L (15-37); Blood Urea Nitrogen 18.0 mg/dL (7.0-18.0); Calcium 9.4 mg/dL (8.5-10.1); Carbon Dioxide 30.7 mmol/L (21.0-32.0); Chloride 105 mmol/L (98-107); Cholesterol 151 mg/dL (<=200); Estimated GFR (African America >60 (>=60 mL/min/1.73m^2); Estimated GFR (Non-African Ame >60 (>=60 mL/min/1.73m^2); Free T3 1.94 pg/mL (2.18-3.98); Globulin 3.2 g/dL; Glucose 112 mg/dL (74-106); HDL Cholesterol 46 mg/dL (40-60); Potassium 3.8 mmol/L (3.5-5.1); Sodium 145 mmol/L (136-145); Thyroid Stimulating Hormone 1.424 uIU/mL (0.358-3.740); Total Protein 7.3 g/dL (6.4-8.2); Triglycerides 150 mg/dL (<=150); VLDL CHOLESTEROL 30.0 mg/dL
== END 2024-12-18 08:34 | disposition home or self-care (01) ==
LOC: LAB 08:33
PROVIDERS: PCP Family Medicine; Visit Provider Family Medicine
DX: J96.11 Chronic respiratory failure with hypoxia (principal); I10 Essential (primary) hypertension; E44.0 Moderate protein-calorie malnutrition; R73.09 Other abnormal glucose; E78.5 Hyperlipidemia, unspecified; E03.9 Hypothyroidism, unspecified; D50.9 Iron deficiency anemia, unspecified
CPT/HCPCS: 36415; 80053; 80061; 83036; 84436; 84443; 84481; 85025

== ENCOUNTER 2025-01-17 09:27 | Outpatient (OUT) | payer MEDICARE, SELFPAY ==
--- OUTSIDE RECORDS SUMMARY | 2024-11-05 09:30 | XMS_ITS ---
Author Organization The [facility] in [place] Address [address] [place] [address] Care Team Providers Care Char Belt Operator Name Role Phone DivyaTruong Primary Care Provider [phone] Homero Cain Unavailable [phone] REASON FOR VISIT 6m F/U - Bronchiectasis Encounters Encounter Location Date Provider Diagnosis Pulmonary Medicine [place] [address] [place] [address] 11/05/2024 Homero Cain Plan Of Treatment Next Appt Details Provider Name:Truong Stokes, 01:00:00 PM, [address] [place], [address], Progress Notes * Danielle VERGARA ADOB:1935 (89 yo F)Acc No.[id number]:11/05/2024 UNLOCKED PROGRESS NOTE Follow Up Patient: Amada Danielle CHAN :?Homero Cain DODOB:1935???Age:89 Y ???Sex:FemaleDate:11/05/2024Phone:[phone]:[address] [place], [place]-[address]Pcp:Truong Stokes Subjective: * Chief Complaints: * 1 . 6m F/U - Bronchiectasis. * Medical History: Objective: * Vitals: Assessment: Plan: * Treatment: * * Electronic signature of Homero Cain , on 01/17/2025 at 09:30 AM ESTSign off status: PendingVisit Status:?OFF CANC (OFFICE CANCEL) * Provider: Christian Cain DO Date: 0 11/05/2024 Generated for Printing/Faxing/eTransmitting on:?01/17/2025 09:30 AM EST
--- OUTSIDE RECORDS SUMMARY | 2025-01-17 09:29 | XMS_ITS | CCD ---
Author Organization [facility] Care Team Providers Care Glass Artist Name Role Phone TAY ., DR ESCALONA [...] Allergen(s)Allergy TypeDate of OnsetReaction(s) Facility (1 source)CodeineDrug Addayrg91-93-6961Vwi [facility] (1 source)levoFLOXacinDrug AllergyThe [facility] (1 source)Sulfonamides (Antibiotic)Drug allergy (disorder)[facility] (1 source)traMADolDrug Pmrsbgl41-88-6787OvqHolzer [facility] System Repository Problems Active Problems Problem ClassificationProblemDateDocumented DateEpisodic/ChronicChronic obstructive pulmonary disease and bronchiectasis (5 sources)Bronchiectasis, uncomplicated; Translations: [Bronchiectasis with acute lower respiratory infection]Onset: 18-00-4524LcblvseCzurffapq of lipid metabolism (5 sources)Hyperlipidemia, unspecified; Translations: [Pure hyperglyceridemia] Onset: 92-21-4617JgxhtbqYjwbisvmhq disorders (1 source)Gastro-esophageal reflux disease without esophagitis; Translations: [GERD WITHOUT ESOPHAGITIS]Onset: 05-05-3534YhbavlmToajnaoooh disorders (4 sources)Other primary ovarian failure; Translations: [OTHER PRIMARY OVARIAN FAILURE]Onset: 32-05-9544KnbijieYbvqbhhculub (1 source)Age-related osteoporosis without current pathological fracture; Translations: [AGE-REL OSTEOPOR W/OCURR PATH FX]Onset: 91-43-0470Mnyosip Past or Other Problems Problem ClassificationProblemDateDocumented DateEpisodic/ChronicDeficiency and other anemia (5 sources)Anemia, unspecified; Translations: [ANEMIA UNSPECIFIED]Onset: 90-83-3090EokjxebzXwkjvemd mellitus without complication (1 source)Other abnormal glucose; Translations: [OTHER ABNORMAL GLUCOSE]Onset: 32-79-1953VdxstawqZufrt screening for suspected conditions (not mental disorders or infectious disease) (8 sources)Encounter for screening mammogram for malignant neoplasm of breast; Translations: [Encounter for screening for malignant neoplasm of rectum]Onset: 87-28-8736LgigwzlcOkqesgcg codes; unclassified (1 source)Family history of malignant neoplasm of digestive organs; Translations: [FAM HX MALIG NEOPLASM DIGESTIV ORGN]Onset: 92-00-7805Qeqzaden Residual codes; unclassified (1 source)Family history of malignant neoplasm of trachea, bronchus and lung; Translations: [FAM HX MALIG NEOPLSM TRACH BRON LNG]Onset: 74-03-0072Fzwwtena Residual codes; unclassified (1 source)Family history of malignant neoplasm of other organs or systems; Translations: [FAM HX MALIG NEOPLASM OTH ORGN/SYS]Onset: 15-45-4440Zglirtti Results Test NameValueInterpretationReference RangeFacilityXR CHEST 2 Von 10-20-9962OP CHEST 2 VEXAM: XR CHEST 2 V [...] Electronically authenticated by: PAMELA ANN Date: 2022-05-03 12:[address] [place] [address] MAMM SCREEN 3D WAQAS CADon 45-02-7351LY MAMM SCREEN 3D WAQAS CAD Patient: DANIELLE VERGARA Exam Date: 11/30/2021 : 1935 Gender:F Ordering : DR POLA CROSS . Admission #: [id number] Family : Order #: [id number] CLICK HERE TO VIEW EXAM RADIOLOGY REPORT [...] cancer at age 75. LOCATION: [facility] BREAST COMPOSITION: Extremely dense, which [...] by: Liam Perez MD on 11/30/2021 at 12:44[facility] HospitalOCC BLD IMMUNO SCREENon 22-20-9747BZUDQS BLOODNegativeNormalNEGATIVEThe [place] [facility] HospitalComment on above:Performed By: #### OBSCRN #### [facility] [address] [place] [address] Dr. Aba Nguyen4, T3U, FTI LABCORPon 74-37-2670Apoj Thyroxine Index2.1Normal 1.2-4.9The [place] [facility] HospitalComment on above:Performed By: #### THYLC #### [facility] [address] [place] [address] Dr. Aba EsparzaT3 Xfifwe42 %Hlvoyn14-45Egt [facility] HospitalComment on above: Performed By: #### THYLC #### [facility] [address] [place] [address] Dr. Aba Valdivia [Mass/Vol]6.3 ug/dLNormal4.5-12.0[facility] [place] [facility] HospitalComment on above:Performed By: #### THYLC #### [facility] [address] [place] [address] Dr. Aba CasillasC AUTO DIFFon 71-48-4056UZKE #0.0 103/ulNormal0.0-0.1The [place] [facility] HospitalComment on above:Performed By: #### CBC #### [facility] [address] [place] [address] Dr. Aba EsparzaBasophils/100 WBC (Bld)0.3 %Normal0.2-2.0[facility] Comment on above:Performed By: #### CBC #### [facility] [address] [place] [address] Dr. Troncoos ChangEO #0.2 103/ulNormal0.0-0.7The [place] [facility] HospitalComment on above: Performed By: #### CBC #### [facility] [address] [place] [address] Dr. Aba Augusteosinophils/100 WBC (Bld)1.4 %Normal0.9-7.0[facility] Comment on above:Performed By: #### CBC #### [facility] [address] [place] [address] Dr. Aba Augusterythrocyte distribution width (RBC) [Ratio]15.0 %Ehokdp98.0-15.0 The [place] [facility] HospitalComment on above:Performed By: #### CBC #### [facility] [address] [place] [address] Dr. Aba EsparzaHematocrit (Bld) [Volume fraction]42.8 %Mdjxsx78.0-48.0The [place] [facility] HospitalComment on above:Performed By: #### CBC #### [facility] [address] [place] [address] Dr. Aba EsparzaHemoglobin (Bld) [Mass/Vol]13.4 g/zIPcglzv77.0-16.0The [place] [facility] HospitalComment on above:Performed By: #### CBC #### [facility] [address] [place] [address] Dr. Aba Montilla #0.04 10e3/ulCritically high0.00-0.03[facility] Comment on above:Performed By: #### CBC #### [facility] [address] [place] [address] Dr. Aba Montilla %0.3 %Normal0.0-0.5The [place] [facility] HospitalComment on above: Performed By: #### CBC #### [facility] [address] [place] [address] Dr. Aba Butler #3.6 103/ulNormal1.2-3.8The [place] [facility] HospitalComment on above:Performed By: #### CBC #### [facility] [address] [place] [address] Dr. Yilan ChangLymphocytes/100 WBC (Bld)27.5 %Puaznx94.5-60.0The [place] [facility] HospitalComment on above:Performed By: #### CBC #### [facility] [address] [place] [address] Dr. Aba Mays DIFF REQNONormalThe [facility] HospitalComment on above: Performed By: #### CBC #### [facility] [address] [place] [address] Dr. Aba Barrios (RBC) [Entitic mass]27.6 gqJsocgi80.7-34.0The [place] [facility] HospitalComment on above:Performed By: #### CBC #### [facility] [address] [place] [address] Dr. Aba Barrios (RBC) [Mass/Vol]31.3 g/gIAkaxps33.9-35.2The [place] [facility] HospitalComment on above:Performed By: #### CBC #### [facility] [address] [place] [address] Dr. Aba Sellers (RBC) [Entitic vol]88.1 tOMzgvvo29.0-99.0The [place] [facility] HospitalComment on above:Performed By: #### CBC #### [facility] [address] [place] [address] Dr. Aba Xiao #0.9 103/ulCritically high0.3-0.8ThSelect Medical [facility] Comment on above:Performed By: #### CBC #### [facility] [address] [place] [address] Dr. Aba Traylorocytes/100 WBC (Bld)7.0 %Normal1.7-12.0[facility] Comment on above:Performed By: #### CBC #### [facility] [address] [place] [address] Dr. Aba Bethea #8.3 103/ulCritically high1.4-6.5ThSelect Medical [facility] Rehabilitation Hospital Comment on above:Performed By: #### CBC #### [facility] [address] [place] [address] Dr. Aba Jenkinsutrophils/100 WBC (Bld)63.5 %Uhundz50.0-75.0The [place] [facility] HospitalComment on above:Performed By: #### CBC #### [facility] [address] [address] [address] Aba EsparzaPlatelet mean volume (Bld) [Entitic vol]9.0 fLCritically low 9.5-13.5The [place] [facility] HospitalComment on above:Performed By: #### CBC #### [facility] [address] [address] [address] Aba EsparzaPLT198 103/fmViitxu182-612Vby [facility] HospitalComselect [facility] on above: Performed By: #### CBC #### [facility] [address] [address] [address] Aba EsparzaRBC4.86 106/ulNormal4.20-5.40The [place] [facility] HospitalComment on above:Performed By: #### CBC #### [facility] [address] [address] [address] Aba EsparzaWBC13.1 103/ulCritically high4.0-11.0The [place] [facility] HospitalComment on above:Performed By: #### CBC #### [facility] [address] [address] [address] Aba EsparzaGLYCOHEMOGLOBIN A1Con 04-55-4692PXG RECOMMENDATIONSEE BELOWNormal The [facility] HospitalComselect [facility] on above:Result Comment: ADA RECOMMENDED LIMIT 4.0 - 6.0 ADA THERAPEUTIC TARGET < 7.0 ACTION SUGGESTED > 7.0Performed By: #### A1C ####[facility] [address] [address]Dr. Aba EsparzaGlucose [Mass/Vol]126 mg/dLNormalThe [place] [facility] HospitalComselect specialty hospital-[facility] on above:Performed By: #### A1C ####[facility] [address] [address]Dr.Yilan EsparzaHbA1c (Bld) [Mass fraction]6.0 %Normal 4.5-6.2The [facility] HospitalComment on above:Performed By: #### A1C ####[facility] [address] [address]Dr.Yilan Christopher 68-45-2617Ushy [Mass/Vol]34.0 ug/dLCritically low50.0-170.0[facility] Comment on above:Performed By: #### IRON #### [facility] [address] [address] [address] Aba VillalpandoID PROFILEon 77-10-4650GUWB-HDL RATIO NORMSEE [facility] HospitalComselect [facility] on above:Result Comment: 3.3 - 4.4 LOW RISK 4.4 - 7.1 AVERAGE RISK 7.1 - 11.0 MODERATE RISK >11.0 HIGH RISKPerformed By: #### LIPID, CMP, TSH #### [facility] [address] [address] [address] Aba Carrilloesterol [Mass/Vol]120 mg/dLNormal<=200[facility] Comment on above:Performed By: #### LIPID, CMP, TSH #### [facility] [address] [address] [address] Aba Carrilloesterol in HDL [Mass/Vol]40 mg/dQCqzpqy18-71MycHolzer Health SystemComselect specialty hospital-[facility] on above:Performed By: #### LIPID, CMP, TSH #### [facility] [address] [address] [address] Aba Carrilloesterol in LDL [Mass/Vol]45.8 mg/dLCleveland Clinic South Pointe HospitalComment on above:Performed By: #### LIPID, CMP, TSH #### [facility] [address] [address] [address] Aba Carrilloesterdipika.total/Cholesterol in HDL [Mass ratio]3.0 {ratio} NormalUniversity Hospitals [facility] Center on above:Performed By: #### LIPID, CMP, TSH #### [facility] [address] [address] [address] Aba EsaprzaHDJose Elias NORMAL> or = 60 mg/dl - LOW CARDIOVASCULAR RISK <40 mg/dl - HIGH CARDIOVASCULAR RISKOhioHealth Pickerington [facility] on above:Performed By: #### LIPID, CMP, TSH #### [facility] [address] [address] [address] Aba EsparzaLDL CALC NORMALSEE BELOWCleveland Clinic South Pointe HospitalComselect specialty hospital-[facility] on above:Result Comment: <100 mg/dl OPTIMAL 100 - 129 mg/dl NEAR OR ABOVE OPTIMAL 130 - 159 mg/dl BORDERLINE HIGH 160 - 189 mg/dl HIGH >190 mg/dl VERY HIGH Performed By: #### LIPID, CMP, TSH #### [facility] [address] [address] [address] Aba EsparzaTriglyceride [Mass/Vol]171 mg/dLCritically high<=150The [facility] on above:Performed By: #### LIPID, CMP, TSH #### [facility] [address] [place] [address] Dr. Aba EsprazaVLDL CALC34.2 mg/dLNoSelect Medical Specialty [facility] on above: Performed By: #### LIPID, CMP, TSH #### [facility] [address] [place] [address] Dr. Aba EsparzaPROF 14(COMP METB)on 52-32-7397Vfdxjhk [Mass/Vol]3.9 g/dLNormal 3.4-5.0The [facility] on above:Performed By: #### LIPID, CMP, TSH #### [facility] [address] [address] [address] Aba EsparzaAlbumin/Globulin [Mass ratio]1.0 {ratio}NormalThe [facility] on above:Performed By: #### LIPID, CMP, TSH #### [facility] [address] [address] [address] Aba MoncadaP [Catalytic activity/Vol]138 U/LCritically tzxp09-452Zxy [facility] on above:Performed By: #### LIPID, CMP, TSH #### [facility] [address] [address] [address] Aba Botello [Catalytic activity/Vol]23 U/QZycvdf28-01Ugt [facility] HospitalComment on above:Performed By: #### LIPID, CMP, TSH #### [facility] [address] [address] [address] Aba EsparzaAnion gap [Moles/Vol]12.7 mmol/LNormalHolzer Health System Comment on above:Performed By: #### LIPID, CMP, TSH #### [facility] [address] [address] [address] Aba EsparzaAST [Catalytic activity/Vol]24 U/TOowkla00-53Fny [facility] HospitalComment on above:Performed By: #### LIPID, CMP, TSH #### [facility] [address] [address] [address] Aba EsparzaBilirubin [Mass/Vol]0.6 mg/dLNormal0.2-1.0[facility] Comment on above:Performed By: #### LIPID, CMP, TSH #### [facility] [address] [place] [address] Dr. Aba EsparzaCalcium [Mass/Vol]9.4 mg/dLNormal8.5-10.1[facility] Comment on above:Performed By: #### LIPID, CMP, TSH #### [facility] [address] [place] [address] Dr. Aba EsparzaChloride [Moles/Vol]104 mmol/LLoaqts56-053WdoHolzer Health System Comment on above:Performed By: #### LIPID, CMP, TSH #### [facility] [address] [place] [address] Dr. Aba EsparzaCO2 [Moles/Vol]27.3 mmol/BEgjlkr75.0-32.0[facility] Comment on above:Performed By: #### LIPID, CMP, TSH #### [facility] [address] [place] [address] Dr. Aba EsparzaCreatinine [Mass/Vol]0.90 mg/dLNormal0.55-1.02The [facility] HospitalComment on above:Performed By: #### LIPID, CMP, TSH #### [facility] [address] [place] [address] Dr. Aba AugusteGFR-AF LIBYAN>60Normal>=60The [facility] HospitalComment on above:Performed By: #### LIPID, CMP, TSH #### [facility] [address] [address] [address] Aba AugusteGFR-NON AF LIBYAN=60Normal>=60The [facility] HospitalComment on above:Performed By: #### LIPID, CMP, TSH #### [facility] [address] [place] [address] Dr. Aba EsparzaGlobulin (S) [Mass/Vol]3.8 g/dLNormalThe [facility] HospitalComment on above:Performed By: #### LIPID, CMP, TSH #### [facility] [address] [place] [address] Dr. Aba EsparzaGlucose [Mass/Vol]112 mg/dLCritically jdna65-943Exa [facility] HospitalComment on above:Performed By: #### LIPID, CMP, TSH #### [facility] [address] [place] [address] Dr. Aba EsparzaPotassium [Moles/Vol]4.0 mmol/LNormal3.5-5.1[facility] Comment on above:Performed By: #### LIPID, CMP, TSH #### [facility] [address] [place] [address] Dr. Aba EsparzaProtein [Mass/Vol]7.7 g/dLNormal6.4-8.2[facility] Comment on above:Performed By: #### LIPID, CMP, TSH #### [facility] [address] [place] [address] Dr. Aba EsparzaSodium [Moles/Vol]140 mmol/JRjorqa228-480Odd [facility] Comment on above:Performed By: #### LIPID, CMP, TSH #### [facility] [address] [place] [address] Dr. Aba EsparzaUrea nitrogen [Mass/Vol]15.0 mg/dLNormal7.0-18.0The [facility] HospitalComment on above:Performed By: #### LIPID, CMP, TSH #### [facility] [address] [place], [place] [address] Dr. Aba EsparzaUrea nitrogen/Creatinine [Mass ratio]16.7 mg/mgNoGreen Cross HospitalComment on above:Performed By: #### LIPID, CMP, TSH #### [facility] [address] [place], [place] [address] Dr[address] Aba EsparzaTSHojf 69-30-5644DEG0.187 uIU/mLNormal0.358-3.740The [place] [facility] HospitalComment on above:Performed By: #### LIPID, CMP, TSH #### [facility] [address] [address] [address] Aba EsparzaXR DEXA BONE DENSITYon 97-94-3196BC DEXA BONE DENSITYEXAMINATION: XR DEXA BONE DENSITY, [...] Electronically authenticated by: LIAM PEREZ Date: 2021-07-01 16:18[facility] Encounters Encounter DateEncounter [facility] ProviderFacilityStart: 12-01-2024 End: 85-80-7296ajlkvezameBrmrzbw Vytautas Giedraitis MDFacility:[facility] Start: 07-14-2024 End: 62-41-3381giezchzwqrPhmuunc Vytautas Giedraitis MDFacility:[facility] Start: 06-16-2024 End: 13-68-2125auflrrlhznTokjlyt Vytautas Giedraitis MDFacility:[facility] Start: 02-25-2024 End: 20-05-6031mrnoqefnegSobwbxi Vytautas Giedraitis MDFacility:[facility] [place] Start: 05-03-2022 End: 58-51-9811vbpjzkvglzEQMWHJ SAMSA .Facility:I0Tcxsm: 11-30-2021 End: 84-18-7742egsiqldwrhJU POLA HOY .Facility:C8Zvima: 11-29-2021 End: 49-80-9839cielpfiwmzQC POLA HOY .Facility:D1Loiem: 11-23-2021 End: 73-60-5566vduwccojgaGP POLA HOY .Facility:L4Dkrtd: 11-15-2021 End: 62-95-4357sxrzyjoawyWB POLA HOY .Facility:F3Bfujq: 07-01-2021 End: 84-55-1832hxczegnvevXO POLA HOY .Facility:[address] DatePayer CategoryPayerPolicy ID01-01-2024Medicare01-01-2024Unknown01-01-1959 [id number] 2..[id number] 2..[id number] 2..1.124143.3.57[id number] 2..1.380161.3.57[id number] 2..1.746600.3.57[id number] 2..1.136106.3.57[id number] 2..1.487677.3.57[id number] 2..1.604670.3.57[id number] 2.16.840.1.964093.3.57[id number] [id number] Summary Purpose Family History No Family History Records FoundNo Family History Records Found Advance Directives No Advanced Directives Records FoundNo Advanced Directives Records Found Additional Source Comments INFORMATION SOURCE (unrecogn ized section and content) DATE CREATED AUTHOR 05/05/2022 [facility] DATE CREATED AUTHOR AUTHOR'S ORGANIZ ATCARISSA 12/06/2024 [facility] FOR RECORDS PERTAINING TO PATIENTS WHO [...] BE BASED ON THE PRIMARY CLINICAL RECORDS. [facility]. provides no warranty or guarantee of the accuracy or completeness of information in this document.
--- OUTSIDE RECORDS SUMMARY | 2025-01-17 09:30 | XMS_ITS | Clinical Summary ---
Author Organization [facility] Address [address] [place] [address] Care Team Providers Care Salon Supervisor Name Role Phone Unavailable Primary Care Provider Unavailabl e Social History Tobacco UseTypesPacks/DayYears UsedDateSmoking Tobacco: Never Assessed CommentsUnknownSex and Gender InformationValueDate RecordedSex Assigned at Not on fileLegal GwkBkrexq20/15/2023 7:24 PM EDTGender IdentityNot on fileSexual OrientationNot on file Last Filed Vital Signs Vital SignReadingTime TakenCommentsBlood Phsavinn789/7402/11/2020 12:00 PM EST Pulse--Temperature--Respiratory Rate--Oxygen Saturation--Inhaled Oxygen Concentration--Aafqra02.8 kg (112 lb)02/11/2020 12:00 PM FYWJgskib510.5 cm (5' 2 )02/11/2020 12:00 PM ESTBody Mass Index20.4902/11/2020 12:00 PM EST Plan of Treatment Not on file Insurance
--- OUTSIDE RECORDS SUMMARY | 2025-01-17 09:30 | XMS_ITS | Patient Health Record ---
Author Organization [facility] in [place] Address [address] [place] [address] Care Team Providers Care Pastor Name Role Phone Truong Stokes Primary Care Provider [phone] AntHomero Unavailable [phone] Allergies Allergen (clinical drug ingredient) Drug/Non Drug Allergy documented on EMR Reaction Allergy Type Onset Date Status LevaquinHallucinationsDrug AllergyActivecodeineCodeinerashDrug AllergyActive tramadolTramadolrashDrug AllergyActive Results Component Value Reference Range Notes BNP Reviewed date:10/30/2024 04:01:32 PM Interpretation: Performing Lab: Notes/Report: [facility] , NT Pro B Type Natriuretic Pept 334.0 <=1800.0 p g/mL Performing Lab:see noteML - [facility] LBCBC AUTO DIFF Reviewed date:10/30/2024 04:01:32 PM Interpretation: Performing Lab: Notes/Report: [facility] ,White Blood Count16.64.0-11.0 10 3/uLRed Blood Count4.734.20-5.40 10 6/uL Eakjihfcam27.012.0-16.0 g/nEPgckkesshr41.636.0-48.0 %Mean Corpuscular Ghlimn83.1 81.0-99.0 fLMean Corpuscular Linqmbqpej25.626.7-34.0 pgMean Corpuscular HGB Conc 32.929.9-35.2 g/dLRed Cell Distribution Width14.911.0-15.0 %Platelet Aaijj434 150-450 10 3/uLMean Platelet Ctancg84.39.5-13.5 fLNeutrophils Percent Auto75.0 43.0-75.0 %Lymphocytes Percent Auto15.820.5-60.0 %Monocytes Percent Auto8.21.7- 12.0 %Eosinophils Percent Auto0.40.9-7.0 %Basophils Percent Auto0.20.2-2.0 % Immature Granulocytes Pct Auto0.40.0-0.5 %Neutrophils Absolute Auto12.41.4-6.5 10 3/uLLymphocytes Absolute Auto2.61.2-3.8 10 3/uLMonocytes Absolute Auto1.40.3- 0.8 10 3/uLEosinophils Absolute Auto0.10.0-0.7 10 3/uLBasophils Absolute Auto0.0 0.0-0.1 10 3/uLImmature Granulocytes Abs Auto0.070.00-0.03 10 3/uLPerforming Lab:see noteML - [facility] LBINFLUENZA A AND B AG Reviewed date:10/30/2024 04:01:32 PM Interpretation: Performing Lab: Notes/Report: [facility] ,Influenza Virus A AntigenNegative Negative for Flu A protein antigen. Infection due to Flu A cannot be ruled out. Flu A antigen in the sample may be below the detection limit of the test. Influenza Virus B AntigenNegative Negative for Flu B protein antigen. Infection due to Flu B cannot be ruled out. Flu B antigen in the sample may be below the detection limit of the test. Performing Lab:see noteML - [facility] LBLACTATE or LACTIC ACID Reviewed date:10/30/2024 04:01:32 PM Interpretation: Performing Lab: Notes/Report: [facility] ,Lactate/Lactic Acid0.90.4-2.0 mmol/LPerforming Lab:see noteML - [facility] LBMAGNESIUM Reviewed date:10/30/2024 04:01:32 PM Interpretation: Performing Lab: Notes/Report: [facility] ,Magnesium2.01.8-2.4 mg/dLPerforming Lab:see noteML - [facility] LB PROF 14(COMP METB) Reviewed date:10/30/2024 04:01:32 PM Interpretation: Performing Lab: Notes/Report: [facility] ,Baqcby624885-163 mmol/LPotassium3.53.5-5.1 mmol/QEmcfuetr14449-012 mmol/LCarbon Vnbcugc72.621.0-32.0 mmol/LAnion Gap15.6Crozsqb85281-530 mg/dLBlood Urea Xrjuykps38.07.0-18.0 mg/dLCreatinine0.670.55-1.02 mg/dLEstimated GFR ( Zee>60>=60 mL/min/1.73m 2Estimated GFR (Non- Flores>60>=60 mL/min/1.73m 2BUN Creatinine Ratio20.2Lgghfvm5.68.5-10.1 mg/dLBilirubin Total0.70.2-1.0 mg/dL Aspartate Amino Rkodcedubzp3180-91 U/LAlanine Cbmzztwwgdaabkvf4472-82 U/L Alkaline Alpzszkbjbe57610-710 U/LTotal Protein8.06.4-8.2 g/dLAlbumin Level4.3 3.4-5.0 g/dLGlobulin3.7Albumin Globulin Ratio1.2Performing Lab:see noteML - [facility] LBTroponin I High Sensitivity Reviewed date:10/30/2024 04:01:32 PM Interpretation: Performing Lab: Notes/Report: [facility] ,Troponin I High Zqoncgizaes04.44.0-51.3 pg/mL CUT-OFF POINTS HAVE BEEN ESTABLISHED BASED ON THE FOURTH UNIVERSAL DEFINITION OF MYOCARDIAL INFARCTION. THE UPPER REFERENCE LIMIT (URL) OF TROPONIN, DEFINED THE 99TH PERCENTILE OF cTnI DISTRIBUTION IN A REFERENCE POPULATION, HAS BEEN CONFIRMED THE DECISION THRESHOLD FOR HI DIAGNOSIS. 99TH PERCENTILE = 51.4 PG/ML NOTE: HIGH-SENSITIVITY TROPONIN ASSAY IS NOT INTENDED TO BE USED IN ISOLATION BUT SHOULD BE INTERPRETED IN CONJUNCTION WITH OTHER DIAGNOSTIC AND CLINICAL INFORMATION. Performing Lab:see noteML - [facility] MRVZSS-LrU-4 Ag* Reviewed date:10/30/2024 04:01:32 PM Interpretation: Performing Lab: Notes/Report: [facility] ,SARS-CoV-2 AgNEGATIVENEGATIVE This test has not been FDA cleared [...] terminated or authorization is revoked sooner. Performing Lab:see noteML - [facility] LBECG 12 lead Reviewed date:10/30/2024 04:38:47 PM Interpretation: Performing Lab: Notes/Report: Source Facility: [facility]-[address] [place] [address] [place] [address] Electrocardiograph Report Signed Patient: DANIELLE VERGARA MR#: [id number] : 1935 Acct:[id number] Age/Sex: 89 / F ADM Date: 10/29/24 Loc: MS 231-[address]: OZIEL VERDIN D.O. 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 Signed By: 10/30/24 1603 DD/ TD/TT: Wing Commander:XR chest 2V Reviewed date:10/30/2024 04:01:32 PM Interpretation: Performing Lab: Notes/Report: Source Facility: [place] [address] XRay Report Signed Patient: DANIELLE VERGARA MR#: [id number] : 1935 Acct:[id number] Age/Sex: 89 / F ADM Date: 10/29/24 Loc: ER Attending Dr: Ordering Physician: Eder Ashby Date of Service: 10/29/24 Procedure(s): XR chest 2V Accession Number(s): [id number] cc: Pola Stokes M.D.; Eder Ashby [place] [id number] Patient Name: DANIELLE VERGARA MRN: TB[facility]:[id number] date: 1935 Sex: F Assigned Patient Location: ER Current Patient Location: ED.MAIN Accession/Order Number: [id number] Exam Date: 10/29/2024 21:07 Report Date: 10/29/2024 [...] Millard M.D. 10/29/2024 10:05 PM Dictation Location: [place] [address] Electronically authenticated by: [id number] Y Date: 10/29/2024 22:05 Dictated By: Jayesh Millard D.O. Signed By: 10/29/242207 DD/ 04 TD/TT: Wing Commander:CBC AUTO DIFF Reviewed date:10/30/2024 04:01:32 PM Interpretation: Performing Lab: Notes/Report: [facility] ,White Blood Count17.04.0-11.0 10 3/uLRed Blood Count4.384.20-5.40 10 6/uL Dmgkonhrdv98.812.0-16.0 g/cWKymoxfrfdb97.536.0-48.0 %Mean Corpuscular Qapepy08.2 81.0-99.0 fLMean Corpuscular Pvaagrrwto66.226.7-34.0 pgMean Corpuscular HGB Conc 32.429.9-35.2 g/dLRed Cell Distribution Width15.111.0-15.0 %Platelet Avcch953 150-450 10 3/uLMean Platelet Rdhyzp58.29.5-13.5 fLNeutrophils Percent Auto90.4 43.0-75.0 %Lymphocytes Percent Auto7.720.5-60.0 %Monocytes Percent Auto0.91.7- 12.0 %Eosinophils Percent Auto0.00.9-7.0 %Basophils Percent Auto0.20.2-2.0 % Immature Granulocytes Pct Auto0.80.0-0.5 %Neutrophils Absolute Auto15.41.4-6.5 10 3/uLLymphocytes Absolute Auto1.31.2-3.8 10 3/uLMonocytes Absolute Auto0.20.3- 0.8 10 3/uLEosinophils Absolute Auto0.00.0-0.7 10 3/uLBasophils Absolute Auto0.0 0.0-0.1 10 3/uLImmature Granulocytes Abs Auto0.130.00-0.03 10 3/uLPerforming Lab:see noteML - [facility] LBMAGNESIUM Reviewed date:10/30/2024 04:01:32 PM Interpretation: Performing Lab: Notes/Report: [facility] ,Magnesium2.51.8-2.4 mg/dLPerforming Lab:see noteML - [facility] LB PROF CHEM 8 (BAS METB) Reviewed date:10/30/2024 04:01:32 PM Interpretation: Performing Lab: Notes/Report: [facility] ,Gqgmzq186425-981 mmol/LPotassium3.83.5-5.1 mmol/MFcnylhzb78121-314 mmol/LCarbon Oqvoobl25.821.0-32.0 mmol/LAnion Gap16.2Vcmbxyw61089-999 mg/dLBlood Urea Svwxkbpr70.07.0-18.0 mg/dLCreatinine0.650.55-1.02 mg/dLEstimated GFR ( Zee>60>=60 mL/min/1.73m 2Estimated GFR (Non- Flores>60>=60 mL/min/1.73m 2BUN Creatinine Ratio20.4Ntbqmlg3.98.5-10.1 mg/dLPerforming Lab:see noteML - [facility] LBTroponin I High Sensitivity Reviewed date:10/30/2024 04:01:32 PM Interpretation: Performing Lab: Notes/Report: [facility] ,Troponin I High Hakctrtpmzh15.84.0-51.3 pg/mL CUT-OFF POINTS HAVE BEEN ESTABLISHED BASED ON THE FOURTH UNIVERSAL DEFINITION OF MYOCARDIAL INFARCTION. THE UPPER REFERENCE LIMIT (URL) OF TROPONIN, DEFINED THE 99TH PERCENTILE OF cTnI DISTRIBUTION IN A REFERENCE POPULATION, HAS BEEN CONFIRMED THE DECISION THRESHOLD FOR HI DIAGNOSIS. 99TH PERCENTILE = 51.4 PG/ML NOTE: HIGH-SENSITIVITY TROPONIN ASSAY IS NOT INTENDED TO BE USED IN ISOLATION BUT SHOULD BE INTERPRETED IN CONJUNCTION WITH OTHER DIAGNOSTIC AND CLINICAL INFORMATION. Performing Lab:see noteML - [facility] LBWhite Blood Cells Reviewed date:11/03/2024 08:02:35 PM Interpretation: Performing Lab: Notes/Report: [facility] ,White Blood CellsSee Below For Report White Blood Cells White Blood CellsNone seen White Blood Cells Performing Lab:see noteLC - [facility] LBEpithelial Cells Reviewed date:11/03/2024 08:02:35 PM Interpretation: Performing Lab: Notes/Report: [facility] ,Epithelial CellsSee Below For Report Epithelial Cells None seen Performing Lab:see noteLC - [facility] LBResult 1 Reviewed date:11/03/2024 08:02:35 PM Interpretation: Performing Lab: Notes/Report: [facility] ,Result 1See Below For Report Result 1 Rare gram positive cocci Performing Lab:see noteLC - [facility] LBResult 2 Reviewed date:11/03/2024 08:02:35 PM Interpretation: Performing Lab: Notes/Report: [facility] ,Result 2See Below For Report Result 2 WO[employer]ODU[employer]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 Further testing to rule out possible pathogen(s) Lower Respiratory Culture WILL FOLLOW O:NOCACY Isolated Lower Respiratory Cultureis in progress. Lower Respiratory Culture WILL FOLLOW O:NOCACY Isolated Lower Respiratory CultureOrganism: Nocardia cyriacigeorgica : Lower Respiratory Culture WILL FOLLOW O:NOCACY Isolated Lower Respiratory Culture*ABNORMAL* Lower Respiratory Culture WILL FOLLOW O:NOCACY Isolated Lower Respiratory CultureModerate growth Lower Respiratory Culture WILL FOLLOW O:NOCACY Isolated Lower Respiratory Culture Lower Respiratory Culture WILL FOLLOW O:NOCACY Isolated Lower Respiratory CultureRoutine respiratory martin Lower Respiratory Culture WILL FOLLOW O:NOCACY Isolated Lower Respiratory CultureLight growth Lower Respiratory Culture WILL FOLLOW O:NOCACY Isolated Lower Respiratory CultureNocardia cyriacigeorgica Lower Respiratory Culture WILL FOLLOW O:NOCACY Isolated Lower Respiratory CultureSee Below For Report Lower Respiratory Culture WILL FOLLOW O:NOCACY Isolated Lower Respiratory CulturePerformed at: CB - [facility] [place] Lower Respiratory Culture WILL FOLLOW O:NOCACY Isolated Lower Respiratory [address] [place], [place] [id number] Lower Respiratory Culture WILL FOLLOW O:NOCACY Isolated Lower Respiratory CultureLab Director: Alden Ledesma PhD, Phone: [phone] Lower Respiratory Culture WILL FOLLOW O:NOCACY Isolated Performing Lab:see note LC - [facility] LB SEE REPORT - [employer] Id information not found for OBX-specific licensed sales producer legend UA Micro, reflex to culture Reviewed date:10/30/2024 04:01:32 PM Interpretation: Performing Lab: Notes/Report: [facility] ,Color UrineLT. YELLOWYELLOWClarity UrineCLEARCLEARSpecific [place] Urine1.010 1.005-1.025pH Urine6.05.0-9.0Protein UrineNEGATIVENEG/TRACE mg/dLGlucose Urine UANEGATIVENEGATIVE mg/dLBilirubin UrineNEGATIVENEGATIVEKetones Mexpi42XIJTXTVD mg/dLBlood UrineNEGATIVENEGATIVENitrite UrineNEGATIVENEGATIVEUrobilinogen Urine 0.20.2-1.0 EU/dLLeukocyte Esterase UrineNEGATIVENEGATIVEWBC UrineNONE SEENNONE SEEN #/HPFRBC Urine0-20-2 #/HPFBacteria UrineNONE SEENNONE SEEN #/HPFMucus Urine NONE SEENNONE SEENSquamous Epithelial Cell UrineNONE SEENNONE/RARE #/LPFCrystals Seen?None SeenNone Seen #/HPFCast Seen?NONE SEENNONE SEEN #/LPFUrine Culture IndicatedNOPerforming Lab:see noteML - [facility] LBECG 12 lead Reviewed date:10/30/2024 04:38:46 PM Interpretation: Performing Lab: Notes/Report: Source Facility: [place] [address] Electrocardiograph Report Signed Patient: DANIELLE VERGARA MR#: [id number] : 1935 Acct:[id number] Age/Sex: 89 / F ADM Date: 10/29/24 Loc: MS 231-[address]: OZIEL VERDIN D.O. Ordering Physician: Ric Diaz M.D. Date of Service: 10/30/24 Procedure(s): ECG 12 lead Accession Number(s): [id number] cc: 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 Signed By: 10/30/24 1604 DD/ 0518 TD/TT: Wing Commander:GLYCOHEMOGLOBIN A1C Reviewed date:11/01/2024 04:31:30 PM Interpretation: Performing Lab: Notes/Report: [facility] ,Glycohemoglobin A1C5.94.5-6.2 % ADA RECOMMENDED LIMIT 4.0 - 6.0 ADA THERAPEUTIC TARGET < 7.0 ACTION SUGGESTED > 7.0 Estimated Average Cipaoug081Zinbmvecjn Lab:see noteML - [facility] LB MAGNESIUM Reviewed date:11/01/2024 04:31:30 PM Interpretation: Performing Lab: Notes/Report: [facility] ,Magnesium2.31.8-2.4 mg/dLPerforming Lab:see note - [facility] LB PROF CHEM 8 (BAS METB) Reviewed date:11/01/2024 04:31:30 PM Interpretation: Performing Lab: Notes/Report: [facility] ,Uualeq304287-575 mmol/LPotassium3.83.5-5.1 mmol/GXnrabgxr65958-794 mmol/LCarbon Zpfuvsj71.721.0-32.0 mmol/LAnion Gap13.1Ktqwbjs39826-116 mg/dLBlood Urea Rpupdzob98.07.0-18.0 mg/dLCreatinine0.750.55-1.02 mg/dLEstimated GFR ( Zee>60>=60 mL/min/1.73m 2Estimated GFR (Non- Flores>60>=60 mL/min/1.73m 2BUN Creatinine Ratio21.4Ptomwqv3.98.5-10.1 mg/dLPerforming Lab:see noteML - [facility] LBMAGNESIUM Reviewed date:11/01/2024 04:31:30 PM Interpretation: Performing Lab: Notes/Report: [facility] ,Magnesium2.11.8-2.4 mg/dLPerforming Lab:[facility]M 8 (BAS METB) Reviewed date:11/01/2024 04:31:30 PM Interpretation: Performing Lab: Notes/Report: [facility] ,Hzylar207306-717 mmol/LPotassium3.63.5-5.1 mmol/CEcklxgjd29179-252 mmol/LCarbon Lthftdz26.721.0-32.0 mmol/LAnion Gap11.7Rikijan18004-091 mg/dLBlood Urea Sahqpgcz98.07.0-18.0 mg/dLCreatinine0.670.55-1.02 mg/dLEstimated GFR ( Zee>60>=60 mL/min/1.73m 2Estimated GFR (Non- Flores>60>=60 mL/min/1.73m 2BUN Creatinine Ratio20.0Ewtfygu2.68.5-10.1 mg/dLPerforming Lab:see note - [facility] Reviewed date:11/01/2024 04:31:30 PM Interpretation: Performing Lab: Notes/Report: [facility] ,White Blood Count11.74.0-11.0 10 3/uLRed Blood Count3.914.20-5.40 10 6/uL Ikmjprlevw46.612.0-16.0 g/xHAhpbskjxso85.336.0-48.0 %Mean Corpuscular Ofahzr78.3 81.0-99.0 fLMean Corpuscular Nxnksopfwy31.726.7-34.0 pgMean Corpuscular HGB Conc 32.929.9-35.2 g/dLRed Cell Distribution Width15.311.0-15.0 %Platelet Ovtpu419 150-450 10 3/uLMean Platelet Volume9.79.5-13.5 fLPerforming Lab:[facility] LBCBC AUTO DIFF Reviewed date:11/03/2024 08:02:35 PM Interpretation: Performing Lab: Notes/Report: [facility] ,White Blood Count10.54.0-11.0 10 3/uLRed Blood Count3.964.20-5.40 10 6/uL Ohofsxokwv18.612.0-16.0 g/sOYcvkohbsil56.036.0-48.0 %Mean Corpuscular Ilnpqi33.9 81.0-99.0 fLMean Corpuscular Jjavhgkfkq61.326.7-34.0 pgMean Corpuscular HGB Conc 32.229.9-35.2 g/dLRed Cell Distribution Width15.211.0-15.0 %Platelet Maydi009 150-450 10 3/uLMean Platelet Volume9.79.5-13.5 fLNeutrophils Percent Auto83.0 43.0-75.0 %Lymphocytes Percent Auto12.420.5-60.0 %Monocytes Percent Auto3.01.7- 12.0 %Eosinophils Percent Auto0.00.9-7.0 %Basophils Percent Auto0.10.2-2.0 % Immature Granulocytes Pct Auto1.50.0-0.5 %Neutrophils Absolute Auto8.71.4-6.5 10 3/uLLymphocytes Absolute Auto1.31.2-3.8 10 3/uLMonocytes Absolute Auto0.30.3-0.8 10 3/uLEosinophils Absolute Auto0.00.0-0.7 10 3/uLBasophils Absolute Auto0.00.0- 0.1 10 3/uLImmature Granulocytes Abs Auto0.160.00-0.03 10 3/uLPerforming Lab:see noteML - [facility] LBPROF CHEM 8 (BAS METB) Reviewed date:11/03/2024 08:02:35 PM Interpretation: Performing Lab: Notes/Report: [facility] ,Lsjaon241230-268 mmol/LPotassium3.73.5-5.1 mmol/WDkkbrhjq02642-029 mmol/LCarbon Tgiwhyk91.521.0-32.0 mmol/LAnion Gap11.7Mysdlko05763-092 mg/dLBlood Urea Hmltvhug75.07.0-18.0 mg/dLCreatinine0.730.55-1.02 mg/dLEstimated GFR ( Zee>60>=60 mL/min/1.73m 2Estimated GFR (Non- Flores>60>=60 mL/min/1.73m 2BUN Creatinine Ratio16.4Rkahvwi6.58.5-10.1 mg/dLPerforming Lab:see noteML - [facility] LBMM tomosynthesis screening BI Reviewed date:12/04/2024 06:10:05 PM Interpretation: Performing Lab: Notes/Report: Source Facility: [place] [address] Mammography Report Signed Patient: DANIELLE VERGARA MR#: [id number] : 1935 Acct:[id number] Age/Sex: 89 / F ADM Date: 12/04/24 Loc: MAMMO Attending Dr: Pola Stokes M.D. Ordering Physician: Pola Stokes M.D. Results: Date of Service: 12/04/24 Follow Up: Procedure(s): MM tomosynthesis screening BI Accession Number(s): [id number] cc: Pola Stokes M.D. Patient Name: DANIELLE VERGARA MR#: [id number] : 1935 Exam Date: 12/04/2024 Ordering Doctor: DR POLA STOKES . RADIOLOGY REPORT PROCEDURE: MM TOMOSYNTHESIS SCREENING BI COMPARISON: MM TOMOSYNTHESIS SCREENING BI, 12/04/2023. MM TOMOSYNTHESIS SCREENING BI, 12/01/2022. MG MAMM SCREEN 3D WAQAS CAD, 11/30/2021. MG MAMM WAQAS SCRN W CAD DIG, [...] colon cancer at age 75. LOCATION: [facility] BREAST COMPOSITION: The breasts are extremely dense, which lowers the sensitivity of mammography. FINDINGS: DIAGNOSTIC CATEGORY 1--NEGATIVE. RIGHT BREAST: No significant suspicious finding. LEFT BREAST: No significant suspicious finding. RECOMMENDATIONS: ROUTINE MAMMOGRAM AND CLINICAL EVALUATION IN 12 MONTHS. Dictated by: Diaz Fagan DO on 12/04/2024 at 15:10 Approved by: Diaz Fagan DO on 12/04/2024 at 15:15 Dictated By: Diaz Fagan M.D. Signed By: 12/04/241515 DD/ 14 TD/TT: Wing Commander:STEPHEN T3 Reviewed date:12/18/2024 12:22:00 PM Interpretation: Performing Lab: Notes/Report: [facility] ,Free T31.942.18-3.98 pg/mLPerforming Lab:see note - [facility] LB GLYCOHEMOGLOBIN A1C Reviewed date:12/18/2024 12:22:00 PM Interpretation: Performing Lab: Notes/Report: [facility] ,Glycohemoglobin A1C5.64.5-6.2 % ADA RECOMMENDED LIMIT 4.0 - 6.0 ADA THERAPEUTIC TARGET < 7.0 ACTION SUGGESTED > 7.0 Estimated Average Smvfolb489Gzuowqlqvk Lab:see note - [facility] LB LIPID PROFILE Reviewed date:12/18/2024 12:22:00 PM Interpretation: Performing Lab: Notes/Report: [facility] ,Pxmuanbrnkudb350<=150 mg/dRJunrejxehgm383<=200 mg/dLHDL Pjsdmvlgoqo3156-29 mg/dL > or =60 mg/dl - LOW CARDIOVASCULAR RISK <40 mg/dl - HIGH CARDIOVASCULAR RISK LDL Cholesterol Nycwlijlix05.0 <100 mg/dl OPTIMAL 100-129 mg/dl NEAR OR ABOVE OPTIMAL 130-159 mg/dl BORDERLINE HIGH 160-189 mg/dl HIGH >190 mg/dl VERY HIGH VLDL CFRHTNEVONA89.0Chol HDL Ratio3.3 3.3 - 4.4 LOW RISK 4.4 - 7.1 AVERAGE RISK 7.1 - 11.0 MODERATE RISK >11.0 HIGH RISK Performing Lab:[facility] LBPROF 14(COMP METB) Reviewed date:12/18/2024 12:22:00 PM Interpretation: Performing Lab: Notes/Report: [facility] ,Wjqnkp520745-257 mmol/LPotassium3.83.5-5.1 mmol/TQidnpnlp96711-155 mmol/LCarbon Bhgeshp06.721.0-32.0 mmol/LAnion Gap13.5Csqozot25200-118 mg/dLBlood Urea Lsjnfqoo81.07.0-18.0 mg/dLCreatinine0.790.55-1.02 mg/dLEstimated GFR ( Zee>60>=60 mL/min/1.73m 2Estimated GFR (Non- Flores>60>=60 mL/min/1.73m 2BUN Creatinine Ratio22.8Kkezmnc0.48.5-10.1 mg/dLBilirubin Total0.60.2-1.0 mg/dL Aspartate Amino Hnwwmfxnmhn7600-90 U/LAlanine Ldmounefpgkgyacy6958-11 U/L Alkaline Sunyeflbqoe56571-574 U/LTotal Protein7.36.4-8.2 g/dLAlbumin Level4.1 3.4-5.0 g/dLGlobulin3.2Albumin Globulin Ratio1.3Performing Lab:see noteML - [facility] LBT4 Reviewed date:12/18/2024 12:22:00 PM Interpretation: Performing Lab: Notes/Report: [facility] ,T4 Thyroxine5.304.80-13.90 ug/dLPerforming Lab:see noteML - [facility] LBTSH Reviewed date:12/18/2024 12:22:00 PM Interpretation: Performing Lab: Notes/Report: [facility] ,Thyroid Stimulating Hormone1.4240.358-3.740 uIU/mLPerforming Lab:see noteML - [facility] LBCBC no Diff (Hemogram) Reviewed date:11/01/2024 04:31:30 PM Interpretation: Performing Lab: Notes/Report: [facility] ,White Blood Count13.94.0-11.0 10 3/uLRed Blood Count4.074.20-5.40 10 6/uL Nilmwwgozl33.912.0-16.0 g/xAAshtkgzxrl96.936.0-48.0 %Mean Corpuscular Qfgpgr90.7 81.0-99.0 fLMean Corpuscular Bhvbxyvabb14.226.7-34.0 pgMean Corpuscular HGB Conc 32.229.9-35.2 g/dLRed Cell Distribution Width15.111.0-15.0 %Platelet Naydl309 150-450 10 3/uLMean Platelet Volume9.69.5-13.5 fLPerforming Lab:see note - [facility] LBGram Stain Evaluation Reviewed date:11/03/2024 08:02:35 PM Interpretation: Performing Lab: Notes/Report: [facility] ,Gram Stain EvaluationSee Below For Report Gram Stain Evaluation This specimen is of good quality and is acceptable for routine Gram Stain Evaluationbacterial culture. Gram Stain Evaluation This specimen is of good quality and is acceptable for routine Performing Lab:see note - [facility] LBResult 4 Reviewed date:11/03/2024 08:02:35 PM Interpretation: Performing Lab: Notes/Report: [facility] ,Result 4See Below For Report Result 4 [employer] [facility] LBResult 3 Reviewed date:11/03/2024 08:02:35 PM Interpretation: Performing Lab: Notes/Report: [facility] ,Result 3See Below For Report Result 3 [employer] Performing Lab[facility] [place] LBBlood Culture 2 Reviewed date:11/04/2024 07:46:17 PM Interpretation: Performing Lab: Notes/Report: [facility] ,Blood Culture 2See Below For Report Blood Culture 2 NG5D NO GROWTH AT 5 DAYS.^NO GROWTH AT 5 DAYS. Performing Lab:see note - [facility] LBBlood Culture 1 Reviewed date:11/04/2024 07:46:17 PM Interpretation: Performing Lab: Notes/Report: [facility] ,Blood Culture 1See Below For Report Blood Culture 1 NG5D NO GROWTH AT 5 DAYS.^NO GROWTH AT 5 DAYS. Performing Lab:see noteML - [facility] LBTSH Reviewed date:01/19/2024 10:17:16 AM Interpretation: Performing Lab: Notes/Report: [facility] ,Thyroid Stimulating Hormone0.8750.358-3.740 uIU/mLPerforming Lab:see noteSelect [facility] LBT4 Reviewed date:01/19/2024 10:17:16 AM Interpretation: Performing Lab: Notes/Report: [facility] ,T4 Thyroxine6.804.80-13.90 ug/dLPerforming Lab:see noteML - [facility] LBFREE T3 Reviewed date:01/19/2024 10:17:16 AM Interpretation: Performing Lab: Notes/Report: [facility] ,Free T32.132.18-3.98 pg/mLPerforming Lab:see noteML - [facility] LB CBC AUTO DIFF Reviewed date:12/18/2024 12:22:00 PM Interpretation: Performing Lab: Notes/Report: [facility] ,White Blood Count10.04.0-11.0 10 3/uLRed Blood Count4.954.20-5.40 10 6/uL Rtrvkygahf52.612.0-16.0 g/gTJglabgjyaf36.736.0-48.0 %Mean Corpuscular Pwkgnz66.3 81.0-99.0 fLMean Corpuscular Cbmqkyjsqo26.526.7-34.0 pgMean Corpuscular HGB Conc 31.929.9-35.2 g/dLRed Cell Distribution Width13.811.0-15.0 %Platelet Xilod237 150-450 10 3/uLMean Platelet Volume9.79.5-13.5 fLNeutrophils Percent Auto56.4 43.0-75.0 %Lymphocytes Percent Auto33.920.5-60.0 %Monocytes Percent Auto7.01.7- 12.0 %Eosinophils Percent Auto2.20.9-7.0 %Basophils Percent Auto0.20.2-2.0 % Immature Granulocytes Pct Auto0.30.0-0.5 %Neutrophils Absolute Auto5.71.4-6.5 10 3/uLLymphocytes Absolute Auto3.41.2-3.8 10 3/uLMonocytes Absolute Auto0.70.3-0.8 10 3/uLEosinophils Absolute Auto0.20.0-0.7 10 3/uLBasophils Absolute Auto0.00.0- 0.1 10 3/uLImmature Granulocytes Abs Auto0.030.00-0.03 10 3/uLPerforming Lab:see noteML - [facility] LB Reason For Referral No Information Medications Medication SIG (Take, Route, Frequency, Duration) Notes Start Date End Date Status Advair HFA 230-21 MCG/ACT 2 puffs Inhalation Twice a day; Duration: 90 days Rinse after use ActiveDicyclomine HCl 20 MGTake 1 tablet Orally twice daily; Duration: 30 days ActiveFeroSul 325 (65 Fe) MGTake 1 tablet by mouth twice daily; Duration: 30 ActiveFlax Seed Oil 1000 MGas directed OrallyActiveLatanoprost 0.005 % Ophthalmic; Duration: 45 DaysActiveAlbuterol Sulfate HFA 108 (90 Base) MCG/ACT2 puffs as needed for SOB Inhalation every 4 hrs; Duration: 90 daysActiveMeloxicam 7.5 MGOral; Duration: 30 DaysActiveamLODIPine Besylate 5 MGTake 1 tablet by mouth once daily; Duration: 90 daysActiveMetoprolol Tartrate 25 MGTake 1 tablet by mouth twice daily with food; Duration: 90ActiveAtorvastatin Calcium 20 MGTake 1 tablet by mouth once daily; Duration: 90ActiveMulti Complete -as directed OrallyActiveBaclofen 10 MG1/2 tablet Oral once daily at bedtime; Duration: 30 daysActiveSodium Chloride 0.9 %3mL Inhalation TID; Duration: 30 daysActive Calcitonin ([place]) 200 UNIT/ACTUSE 1 SPRAY IN 1 NOSTRIL - ALTERNATING NOSTRILS DAILY; Duration: 28ActiveCalcium 600 MG1 tablet with meals Orally Twice a day ActiveLiothyronine Sodium 5 MCG1 tablet on an empty stomach Orally Once a day; Duration: 30 days5Active Immunizations Vaccine Route Administration Date Status Comme nts Arexvy Unknown 01/09/2023 Administered Pneumococcal (Pneumovax 23)Biwtusz4004/17/2017AdministeredPneumococcal (Prevnar 13)Ajlxeuv9304/09/20176227IrgikpsbmlpkELBC-WNP-9 (COVID 19 Moderna Bivalent Booster 0.5mL)Jajlvnj7612/20/2021dministeredSpikevax Moderna Syringe Pre-Filled 50 mcg/0.5 jADbfqfmv13/09/2023AdministeredSpikevax Moderna Syringe Pre-Filled 50 mcg/0.5 jLHddqwla21/04/2024Administered Social History Tobacco Use: Social History Observation Description Date Details (start date - stop date) Never Smoker NA - NA Tobacco Control (Standard) Question Answer Notes Tobacco use: Nonsmoker AUDIT-C (Standard) Question Answer Notes Did you have a drink containing alcohol in the p ast year? No Hluudf8PmkijtsbgesfyuAqzyakur Problems Problem Type SNOMED Code ICD Code Onset Dates Problem Status W/U Status Risk Notes Problem Acute exacerbation o f bronchiectasis (466596732) Bronchiectasis with acute lower respiratory infection (J47.0) ActiveconfirmedProblemChronic respiratory failure (20491218)Chronic respiratory failure with hypoxia (J96.11)ActiveconfirmedProblemLumbosacral spondylosis without myelopathy (01873003)Spondylosis without myelopathy or radiculopathy, lumbar region (M47.816)ActiveconfirmedProblemShortness of breath (706019594) Shortness of breath (R06.02)ActiveconfirmedProblemNonunion of fracture (422082988)Wedge compression fracture of second lumbar vertebra, 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)ActiveconfirmedProblemLong-term current use of inhaled steroid (358291441)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 (Z79.51)ActiveconfirmedProblemDiverticulitis (05924802)Diverticulitis (K57.92)ActiveconfirmedProblemBronchiolectasis (67061016)Bronchiectasis without complication (J47.9)ActiveconfirmedProblemEssential hypertension (73699625) Essential (primary) hypertension (I10)ActiveconfirmedProblemLong-term current use of inhaled steroid (932601234)terminal manager current use of inhaled steroid (Z79.51)ActiveconfirmedProblemClosed fracture of second lumbar vertebra (40298662958570088)Closed fracture of second lumbar vertebra (S32.029A)Active confirmedProblemSacral contusion (S30.0XXA)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)ActiveconfirmedChronic pulmonary nocardiaProblem Nocardial pneumonia (166572647)Nocardial pneumonia (A43.0)ActiveconfirmedProblem Essential hypertension (80813697)BP (high blood pressure) (I10)Activeconfirmed ProblemMalnutrition of moderate degree ([place]: 60% to less than 75% of standard weight) (59436980)Moderate protein malnutrition (E44.0)Activeconfirmed Vital Signs Heart Rate 56 /min 05/07/2024 1L O2 Activity/ Resting Temperature 97.0 degrees Fahrenheit 05/07/2024 1L O 2 Activity/Resting Respiratory Rate 18 /min 05/07/2024 1L O2 Activ ity/Resting Oximetry 91 % 11/05/2024 Blood pressure mm Hg12/17/20243850Bfszzi19 in12/17/2024lood pressure svfgnmam665 mm Hg12/17/20242611Dvcqno772.0 lbs1MI20.7 kg/m212/17/2024 Encounters Encounter Location Date Provider Diagnosis [facility] [address] [place] [address] 01/19[facility] [place] [address]/[facility] [place] [address]/09/2024Doug [facility] [place] [address]/10/2024Doug [facility] [place] [address]/Doug HoyHypothyroid E03.9B[facility] [place] [address]/04/2024 Truong HoyBronchiectasis without complication J47.9B[facility] [address] [place] [address]/Doug HoyAcute bronchitis, unspecified organism J20.9 ; Bronchiectasis without complication J47.9 ; Essential (primary) hypertension I10 and Shortness of breath R06.02[facility] [place] [address]/01[facility]25[facility] Bronchiect[facility] without complication J47.9 ; Chronic respiratory failure with hypoxia J96.11 ; Colonized with infectious organism Z22.9 and senior living current use of inhaled [facility] Z79.51[facility] [place] [address]/Doug HoyAcute bronchitis, unspecified organism J20.9B[facility] [place] [address] 09/17/2024Doug HoyAcute bronchitis, unspecified organism J20.9B[facility] [place] [address]/11/2024Doug Hoy Chronic respiratory failure with hypoxia J96.11B[facility] [address] [place] [address]/Doug HoyChronic respiratory failure with hypoxia J96.11 ; Essential (primary) hypertension I10 ; Moderate protein malnutrition E44.0 and Bronchiectasis with acute lower respiratory infection J47.0 Assessments Encounter Date Diagnosis (ICD Code) Assessment Notes Treatment Notes Treatment Clinical Notes Section Notes 05/07/2024 Bronchiectasis without complicat ion (ICD-10 - J47.9) Secretions seem to be well-controlled with her pulmonary toilet consisting of PEP device and salinenebs. Remains intolerant of vest due to back pain. At this point, I do not see her ever using it again. She did have a brief self-limited episode of hemoptysis. She was counseled if this continues, or she develops purulent sputum, to contact office. She may need a chest CT and antibiotics respectively. Continue with the Advair and saline nebs. Cumw-pf-sgwt encounter performed with the patient to document continued need for a nebulizer with nebulized medications.-Current nebulized medications: Sodium chloride 0.9% TID-Symptom control: Better able to expectorate with use-Reported side or adverse effects: None -Recommendations: Administration of saline nebs is dependent on a nebulizer as that is the only mode of administration available to treat bronchiectasis. 5Chronic respiratory failure with hypoxia (ICD-10 - J96.11) Xksh-oj-yowg encounter performed with the patient to document [...] that led to the point of requiring O2.- Recommendations: She is doing well with her current oxygen and flows. No plans to change her prescription at this current time. 5Acute bronchitis, unspecified organism (ICD-10 - J20.9)Rest and drink more liquids, especially water. You may use a humidifier or vaporizer to help keep the drainage moist. Gmse-spp-bjyigwv Nasal Saline may help the stuffy and runny nose. Use Ibuprofen and or Tylenol as needed for fever, chills, body aches or pain. Children 5 years old should not be given ncmd-gtl-ednjdfo cough and cold medications such as guaifenesin and dextromethorphan. If you're over age 5, you may try rddn-mxo-pgqvpuu cold medications such as guaifenesin and dextromethorphan, or multi-symptom cold reliever such as Dayquil to help reduce the symptoms. Antibiotics have been prescribed. You should take these until completed and follow the directions. Antibiotics can sometimescause upset stomach, and in rare cases, serious [...] go to the emergency room or call [phone] Bronchiectasis without complication (ICD-10 - J47.9)5Acute bronchitis, unspecified organism (ICD-10 - J20.9)Rest and drink more liquids, especially water. You may use a humidifier or vaporizer to help keep the drainage moist. Zjzx-cdm-hqquiuq Nasal Saline may help the stuffy and runny nose. Use Ibuprofen and or Tylenol as needed for fever, chills, body aches or pain. Children 5 years old should not be given pegv-zie-isqshcf cough and cold medications such as guaifenesin and dextromethorphan. If you're over age 5, you may try henw-iud-rcobhnm cold medications such as guaifenesin and dextromethorphan, or multi-symptom cold reliever such as Dayquil to help reduce the symptoms. Antibiotics have been prescribed. You should take these until completed and follow the directions. Antibiotics can sometimescause upset stomach, and in rare cases, serious [...] chest pain you should go to the [facility] room or call [phone]//5Acute bronchitis, unspecified organism (ICD-10 - J20.9)Rest and drink more liquids, especially water. You may use a humidifier or vaporizer to help keep the drainage moist. Cpew-xqc-upitycq Nasal Saline may help the stuffy and runny nose. Use Ibuprofen and or Tylenol as needed for fever, chills, body aches or pain. Children 5 years old should not be given fqng-nla-thqvzaa cough and cold medications such as guaifenesin and dextromethorphan. If you're over age 5, you may try dezq-gyb-wuukgtx cold medications such as guaifenesin and dextromethorphan, or multi-symptom cold reliever such as Dayquil to help reduce the symptoms. Antibiotics have been pre scribed. You should take these until completed and follow the directions. Antibiotics can sometimescause upset stomach, and in rare cases, serious allergic reactions or serious gastrointestinal problems. If you start having severe abdominal pain, severe vomiting, or bloody diarrhea, you should be r eevaluated by your physician or urgent care immediately. Follow up with your Primary Care Provider or return to clinic if symptoms do not improve within 3-5 days. If you develop severe symptoms such as shortness of breath, repeated vomiting, coughing up blood, or chest pain you should go to the emergency room or call [phone]/hronic respiratory failure with hypoxia (ICD-10 - J96.11) 12/18/2024Hypothyroid (ICD-10 - E03.9)12/29/2024ronchiectasis without complication (ICD-10 - J47.9)12/17/2024hronic respiratory failure with hypoxia (ICD-10 - J96.11)12/17/2024Essential (primary) hypertension (ICD-10 - I10) 12/17/2024Moderate protein malnutrition (ICD-10 - E44.0)06/18/2024Essential (primary) hypertension (ICD-10 - I10)05/07/2024olonized with infectious organism (ICD-10 - Z22.9)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 05/07/2024Long term current use of inhaled steroid (ICD-10 - Z79.51) Patient was counseled to rinse & gargle with water after inhaled corticosteroid use. 06/18/2024Shortness of breath (ICD-10 - R06.02)12/17/2024ronchiectasis with acute lower respiratory infection (ICD-10 - J47.0)05/07/2024Other Plan Of Treatment Pending Test Test Name Order Date CMP (COMPLETE METABOLIC PANEL) 3 CMP (COMPLETE METABOLIC PANEL) 4 HEMOGLOBIN A1C (GLYCO) 11/24/2022 HEMOGLOBIN A1C (GLYCO) 12/19/2023 HEMOGLOBIN A1C (GLYCO) 12/17/2024 IRON, TOTAL 12/19/2023 IRON, TOTAL 11/24/2022 LIPID PANEL (CHOL/TRIG/HDL/LDL) 11/25/19 23 LIPID PANEL (CHOL/TRIG/HDL/LDL) 12/18/19 25 LIPID PANEL (CHOL/TRIG/HDL/LDL) 12/19/19 24 CBC WITH DIFF 12/19/2023 CBC WITH DIFF 11/24/2022 VITAMIN D, 25 LEVEL (TOTAL) 11/24/2022 VITAMIN D, 25 LEVEL (TOTAL) 12/19/2023 CT Abdomen and Pelvis w/contrast * 05/20 Insulin Level 11/24/2022 CT Abd w/ + w/o Pelvis w/ IV Contrast MRI LSPINE WO CON 06/13/2023 MRI LSPINE WO CON 01/26/2023 XR LSPINE 2_3 VIEWS 06/13/2023 THYROID PANEL (T4/TSH/FREE T3) 3 THYROID PANEL (T4/TSH/FREE T3) 4 THYROID PANEL (T4/TSH/FREE T3) 4 THYROID PANEL (T4/TSH/FREE T3) 5 THYROID PANEL (T4/TSH/FREE T3) 5 CMP (COMP MET MARINELLI) w/eGFR CKD-EPI 2024 CBC WITH DIFF 12/17/2024 Next Appt Details Provider Name:Truong Stokes, 01:00:00 PM, [address] [place], [address], Insurance Providers Payer Name Payer Address Payer Phone Subscriber Number Group Number Insured Name Patient Relationship to Insured Coverage Start Date Coverage End Date [place]IC[place] [address] [place] [address] [id number] Ritu Vergara - patient is the [id number] [facility] [address] [place] [id number] FRaths, ElizabethSelf - patient is the [id number] 2013 Medications Administered Medication Instructions Date of Administration Dosage Notes Dexamethasone, 4mg/mL mgDexamethasone, 4mg/mL mg Medical (General) History Medical History History ICD Code Bronchiectasis J47.9 Colonized with infectious organism Z22.9 senior living (current) use of inhaled stero ids Z79.51 Chronic respiratory failure with hypoxia J96.11 Closed fracture of second lumbar vertebr a S32.029A Surgical History Surgery Date(Month/Year) Bilateral L4-5 transforaminal epidural s teroid inj Dr Vickers 12/03/2023 cervical fusion right hemicolectomyCholecystectomyhysterectomySi Joint injectionHospitalization History Reason Date(Month/Year) Pneumonia-[facility] 01/13/2023
--- OUTSIDE RECORDS SUMMARY | 2025-01-17 09:30 | XMS_ITS | Patient Health Record ---
Author Organization [facility] Address [address] [place] [address] Care Team Providers Care Movement Education Specialist Name Role Phone Kumar Stokes Primary Care Provider [facility] Reza Olivas Unavailable [phone] Allergies Allergen (clinical drug ingredient) Drug/Non Drug Allergy documented on EMR Reaction Allergy Type Onset Date Status tramadol traMADol Unknown Drug Allergy ActivecodeinecodeineUnknownDrug AllergyActive Reason For Referral No Information Medications Medication SIG (Take, Route, Frequency, Duration) Notes Start Date End Date Status atorvastatin UnknownalbuterolUnknownSodium ChlorideUnknownmetoprololUnknownAdvair Diskus UnknownFerrous SulfateUnknowndicyclomineUnknowncalcitoninUnknown Social History Tobacco Use: Social History Observation Description Date Details (start date - stop date) Never Smoker NA - NA Smoking History Question Answer Notes Smoking Status NonSmoker Problems Problem Type SNOMED Code ICD Code Onset Dates Problem Status W/U Status Risk Notes Problem Sacroiliac joint pain (987687712) Sacroil iac joint pain (M53.3) ActiveconfirmedProblemSpinal stenosis of lumbar region (36733730)Spinal stenosis, lumbosacral region (M48.07)ActiveconfirmedProblemDisplacement of lumbar intervertebral disc without myelopathy (86080657)Other intervertebral disc displacement, 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)ActiveconfirmedProblemDegeneration of lumbosacral intervertebral disc (03765742)Other intervertebral disc degeneration, lumbosacral region (M51.37)ActiveconfirmedProblemLumbosacral radiculopathy (1844948)Radiculopathy, lumbosacral region (M54.17)Activeconfirmed ProblemLumbosacral spondylosis without myelopathy (90389354)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)ActiveconfirmedProblemCompression fracture of L2 vertebra, initial encounter (S32.020A)ActiveconfirmedProblem Myofascial pain syndrome of lumbar spine (850552059155755)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)ActiveconfirmedProblemCompression fracture of second lumbar vertebra (disorder) (94806067541169609)Compression fracture of L2 vertebra with routine healing, subsequent encounter (S32.020D)Activeconfirmed Plan Of Treatment Pending Test Test Name Order Date SFS - Sacroiliac Steroid Injections upto 3 times prn 06/29/2023 Insurance Providers Payer Name Payer Address Payer Phone Subscriber Number Group Number Insured Name Patient Relationship to Insured Coverage Start Date Coverage End [place] [address] [place] [address] [id number] Inessa VERGARA - patient is the insuredAA SUPPLEMENTPO [address] [place] [id number], ELIZABETHSelf - patient is the insured Medical (General) History Medical History History ICD Code High Blood Pressure: Yes Lung Disease: YesBronchitis: YesGastric Reflux: YesColon cancer: Yes Osteoporosis: YesBlood Clots in Legs/Lungs: yes
[2025-01-17 11:12] LABS: Free T3 2.83 pg/mL (2.18-3.98); Thyroid Stimulating Hormone 0.922 uIU/mL (0.358-3.740)
== END 2025-01-17 09:28 | disposition home or self-care (01) ==
LOC: LAB 09:27
PROVIDERS: PCP Family Medicine; Visit Provider Family Medicine
DX: E03.9 Hypothyroidism, unspecified (principal)
CPT/HCPCS: 36415; 84436; 84443; 84481